=== PATIENT | female | born 1950 | race Caucasian/White ===

== ENCOUNTER 2023-06-12 01:46 | Day surgery (SDC) | payer MEDICARE, SELFPAY ==
--- NOTE | 2023-06-05 14:59 | PC.NURSE ---
Report to the Outpatient Waiting Room, entrance under the green pavilion located off [facility], at time ___1300____ on date _06/12/23 . Planned Procedure Time: __1500 . Time changes happen often and if your time is changed the preop area will call you the afternoon before. - You and your visitor will be asked to self-screen and do not enter if you have any COVID symptoms. - A mask is optional within the hospital at this time. Patients may have clear liquids (water, carbonated beverages, clear teas, apple juice) until 3 hours prior to surgery with a maximum of 20 ounces. - No food from midnight until time of surgery - Infants may have breast milk until 4 hours before surgery, infant formula 6 hours prior to surgery. - Children will be allowed to drink immediately following surgery. If applicable, please bring a bottle or sippy cup to assist with drinking. Juice, water, soda, and popsicles are readily available. For infants on formula, please bring formula the day of surgery. Pacifiers are allowed. Take the following medications with a SIP of water the morning of surgery: ____NONE DO NOT STOP ANY OF YOUR OTHER PRESCRIPTION MEDICATIONS PRIOR TO SURGERY ?EXCEPT THE FOLLOWING Medications to discontinue per physician ALL VITAMINS AND SUPPLEMENTS 3 DAYS PRE OP.LAST DOSE 06/08/23 Please no make-up, nail yoruba, hairspray, perfume, deodorant, or body powder the day of surgery. No jewelry (including any body piercings) or valuables the day of surgery, leave them at home. Please take a shower or bath the night before, or the morning of, surgery with an antibacterial soap. Wear comfortable, loose fitting clothing. Children are encouraged to wear pajamas. - Jewelry must be removed prior to entering the operating room. Rings and piercings that are not removed may be cut off. - The hospital will not accept responsibility for valuables. - Please leave all valuables, including medications, at home the day of surgery. If you are going home after surgery, a licensed hearse driver must drive you home. - NO public transportation without another adult if you receive anesthesia. - We recommend that an adult stay with you for 24 hours following discharge. - We also recommend that you do not drive, make important decision, drink alcoholic beverages, or take any drugs that were not prescribed by your health care provider for at least 24 hours after your discharge time. For Pediatric surgeries, we recommend two adults accompany the child home. Follow any additional instructions given to you from your surgeon. If you or anyone in your household have experienced Covid symptoms in the past week, please notify your surgeon or the nurse liaison at the phone number below for possible testing. Telephone instructions given to ___PATIENT and asked if any additional questions and then verbalized understanding. Patient advised to call surgeon office or pre surgery nurse liaison [phone] if any additional questions.
[2023-06-05 15:04] VITALS: BMI 34.2
[2023-06-12] VITALS (7 sets, daily range): BP systolic 129–154; BP diastolic 67–83; PULSE 83–99; RESP 13–18; TEMP 36.3–36.4; O2SAT 98–100; BMI 34.3
--- NOTE | 2023-06-12 11:32 | WPDHPUPDATE1 ---
History and Physical Update Update Date/Time: 06/12/23 11:32 History and Physical has been reviewed, including an updated exam of the patient. There are NO changes in the patient's condition. Risks, benefits, and alternatives have been discussed and questions answered. Patient agrees to proceed with procedure.
--- NOTE | 2023-06-12 13:29 | WPDANESEPPF ---
Anes - Initial Pre Proc Eval Procedure: Operation Date: 06/12/23 15:00 Proposed Procedures p Right Knee Arthroscopy, Partial Lateral Meniscectomy - Ras Ghosh MD Date/Time: 06/12/23 13:29 Surgeon: Ras Ghosh MD Pre Op Diagnosis: right knee lateral meniscus tear Patient Data Age: 73 Gender: F Height: 1.52 m Weight: 79.4 kg Allergies Allergy/AdvReac Type Severity Reaction Status Date / Time erythromycin base Allergy Unknown Rash Verified 06/12/23 13:14 Home Medications Medication Instructions Recorded Confirmed Type ropinirole 0.5 mg tablet 0.5 mg PO HS 06/22/22 06/05/23 History ascorbate calcium (vitamin C) 500 500 mg PO DAILY 04/26/23 06/12/23 History mg tablet multivitamin 1 tablet PO DAILY 04/26/23 06/12/23 History famotidine 10 mg tablet (Pepcid AC) 10 mg PO DAILY 06/05/23 06/05/23 History Patient hx anesthesia problems: none Family hx anesthesia problems: none Results Review: All pre-operative results and documents have been reviewed as part of the pre-operative evaluation. [facility] Past Medical History Medical History Anxiety COPD (chronic obstructive pulmonary disease) Restless leg syndrome Surgical History Surgical History H/O: hysterectomy (~1999) History of foot surgery (~1993) Removal of Heel Spur History of foot surgery (~1995) Removal of Heel Spur History of tooth extraction Family History Family History Unknown Cancer Arthritis Diabetes mellitus COPD (chronic obstructive pulmonary disease) Polycystic kidney disease Social History Social History Smoking status: Never smoker Alcohol intake: never Substance use: never Substance use type: does not use Lack of Transportation: No Lack of Food: Never True Current Housing: I Have Housing Concerned About Future Housing: No Difficulty Paying Gas/Electric Bills: No Difficulty Paying for Meds: No Currently Unemployed: No Education: Trade/Vocational Certificate Difficulty w/ Childcare or Family Care: No Living arrangements: with family Spiritual care concerns: No Anes - Eval Final PreProcedure Day of Procedure 06/12/23 13:29 Patient weight: obese Heart: regular rate and rhythm Lungs: clear to auscultation Airway: Mallampati scale class II Neurological: alert and oriented Last oral intake: >/= 8 hours ASA classification: II Emergent: no Anesthetic plan: proceed Anesthesia type and monitoring: general LMA and standard monitoring Results Review: All pre-operative results and documents have been reviewed as part of the pre-operative evaluation. Informed Consent: The patient's anesthetic plan and its attendant risks and benefits were discussed with the patient/family/POA. Questions were solicited and answers provided to the satisfaction of the patient/family/POA.
[2023-06-12] MEDS: LACTATED RINGERS 1,000 ML 30 ML IV CONT (13:35)
[2023-06-12] MEDS: KETOROLAC 15 MG/ML VIAL (*BKC) IV PUSH (13:43)
[2023-06-12] MEDS: ACETAMINOPHEN 500 MG TABLET 1000 MG PO (13:43)
[2023-06-12] MEDS: ceFAZolin 2 GM/D5W 50 ML 2 GM/50 ML BAG IVPB (14:24)
[2023-06-12] MEDS: BUPIVACAINE/EPINEPHRINE 0.5% 30 ML VIAL INFILTRATE (14:38)
--- NOTE | 2023-06-12 15:07 | P.OP_ITS ---
Procedure Note - Detailed Date of Procedure 06/12/23 Pre-op Diagnosis right knee lateral meniscus tear Post-op Diagnosis Same Procedure Performed Arthroscopic partial lateral meniscectomy right knee. Surgeon Ras Ghosh MD Act English Tutor Adalgisa Stevenson PA-C Anesthesia General Findings Moderate split tearing of the anterior horn of the lateral meniscus. Mild tearing in the posterior horn of the root of the lateral meniscus. The meniscus remained stable after debridement. The radiofrequency probe was also used. Moderate to severe patellofemoral degenerative changes noted and treated with chondroplasty. The medial compartment had grade 2/3 chondral malacia on the medial femur and grade 2 on the tibia. The lateral compartment had grade 1 chondromalacia on the tibia and grade 0 on the lateral femoral condyle. The trochlea showed grade 2/Iii chondromalacia. Description of Procedure The patient was identified and the surgical site confirmed and signed in the preoperative holding area. Antibiotics were started per protocol. She was brought to the operative room and transferred to the OR table. A general anesthetic was administered. Supine position with the operative lower extremity position in the leg alfredo after placement of a well padded tourniquet. The leg support was lowered and the contralateral limb was supported with a soft bolster. The knee was prepped and draped in the usual sterile fashion. A time- out was performed. The portal sites were marked and infiltrated with 0.5% Marcaine 20 mL. The limb was exsanguinated and the tourniquet inflated to 300 mL Hg. Standard inferolateral and inferomedial portals were established. Inflow was obtained with the saline pump. The camera was introduced. Diagnostic inspection of the joint was accomplished. The lateral meniscus was debrided with the arthroscopic shaver and punches until stable. The radiofrequency probe was also used for further d?bridement. The arthroscopic instruments were removed. The tourniquet released and wounds closed with subcutaneous 4-0 Monocryl absorbable suture. Steri strips and a sterile dressing were applied. A light elastic wrap was placed. The patient was extubated and brought to the recovery room in stable condition. Estimated Blood Loss 5 Drains No Complications No immediate complications Condition Stable Disposition PACU [facility] Billing Surgery - Charge Forward: Surgery Billing
== END 2023-06-12 16:50 | disposition home or self-care (01) ==
PROVIDERS: PCP Family Medicine; Visit Provider Orthopaedic Surgery
PROC: (CPT 29870; principal; 2023-06-12 15:00)
DX: M23.351 Other meniscus derangements, posterior horn of lateral meniscus, right knee (principal); M17.11 Unilateral primary osteoarthritis, right knee; M22.41 Chondromalacia patellae, right knee; G25.81 Restless legs syndrome; E66.9 Obesity, unspecified; Z68.34 Body mass index [BMI] 34.0-34.9, adult
CPT/HCPCS: 29881; A9270; J0690; J1885; J2405; J2704; J3010; J7120

== ENCOUNTER 2024-11-01 09:11 | Outpatient (CLI) | payer MEDICARE, SELFPAY ==
--- NOTE | ~2024-11-01 | XR_ITS ---
EXAMINATION: XR hand LT min 3V DATE: 11/01/2024 09:20 INDICATION: Left hand pain. TECHNIQUE: 3 views of left hand were obtained. COMPARISON: None. FINDINGS: Alignment is normal. No fracture. There is mild osteoarthritis of triscaphe joint, severe o steoarthritis of first carpometacarpal joint, mild osteoarthritis of first and third metacarpophalang eal joints and some of the interphalangeal joints, severe osteoarthritis of second and third distal i nterphalangeal joints, and moderate osteoarthritis of third distal interphalangeal joint. IMPRESSION: 1. Polyarticular osteoarthritis. Reviewed, dictated and finalized at location A. RO[employer]
--- OUTSIDE RECORDS SUMMARY | 2024-11-01 09:15 | XMS_ITS | Continuity of Care Document ---
Author Organization [facility] Address [address] [place] [address] Phone Care Team Providers Care Spiral Tube Winder Name Role Phone Radha MAGDALENO, Nadir Unavailable [...] Final Ketones (U) Negative NEGATIVE Final Specific [place] 1.030 1.001 - 1.035 F inal Blood [...] Diagnoses Date Provider Providers Copied on Encounter [facility], [address], [place], [place], [address] , [place] tel: [phone] [facility] [place] HematuriaMICROSCOPIC HEMATURIA Aug-2 4 Radha [address]z. [address], [address], [place], [address], . tel: [phone] Referring Provider: Yohan Houston, [address], [place], [address]. [phone] [facility], [address], [place], [place], [address] , tel: [phone] [facility] [place] No Information 0 4 Radha Schmitz. [address] [address], [address], [place], [place], [facility], . tel: [phone] [facility], [address], [place], [place], [address] , tel: [phone] [facility] [place] Recurrent cystitis 3 Radha Schmitz. [address], [facility] [address], [place] [address], . tel: [phone] Referring Provider: [address], [place], [address]. tel:[phone] Family History Family Member Type Diagnosis Age At Onset Problem (finding) Family history of Diabe dioni mellitus Problem (finding) Family history of prost ate cancer Payers Payer name Insurance type Covered green party ID Authorsusie shinetanner(s) BCBS INACTIVE OUT OF STATE [id number] Social History Type Description Quantity Date Captured [...]
--- OUTSIDE RECORDS SUMMARY | 2024-11-01 09:16 | XMS_ITS | Encounter Summary ---
Author Organization [facility] Address [address] [place] [address] Care Team Providers Care Mold Cleaning And Storage Supervisor Name Role Phone Franck Alvarez MD Primary Care Provider [phone] Encounter Details Date Type Department Care Team (Latest Contact Info) Description 05/04/2000 Inpatient Historical [facility] Osei Wallace MD NO ADDRESS ON FILE Excessive or frequent menstruation (Primary Dx) Social History Tobacco Use Types Packs/Day Years Used Date Smoking Tobacco: Never Assessed Comments Unknown Sex and Gender Information Value Date Recorded Sex Assigned at Not on file Legal Sex Female 4:03 AM RAILWAY SIGNAL OPERATOR Gender Identity Not on file Sexual Orientation Not on file documented as of this encounter Plan of Treatment Not on file documented as of this encounter Visit Diagnoses Diagnosis Excessive or frequent menstruation- Primary documented in this encounter Care Teams Mold Cleaning And Storage Supervisor Relationship Specialty Start Date End Date Franck Alvarez MD PCP - General Family Practice 04/15/20 documented as of this encounter
--- OUTSIDE RECORDS SUMMARY | 2024-11-01 09:16 | XMS_ITS ---
Care Plan - [facility] Created on: November 01, 2024 KEIRA DE LOS SANTOS : 1950 Sex: Female Author Organization [facility] Address [address] [place] [address] Phone Care Team Providers Care Counselor At Law Name Role Phone ARCENIO MAGDALENO, NORMAN Fish Primary Care Provider [phone]
--- OUTSIDE RECORDS SUMMARY | 2024-11-01 09:16 | XMS_ITS | Continuity of Care Document ---
Author Organization [facility] Address [address] [place] [address] Phone Care Team Providers Care Director Trading Name Role Phone Krysta Ryder MD Unavailable Unavailable Allergies, Adverse Reactions, Alerts Substance Reaction Status Criticality ERYTHROMYCIN LACTOBIONATE Active No Information Procedures Procedure Date URINALYSIS NONAUTO W/O SCOPE Advance Directives Directive Yes / No Effective Date File Name No Information Encounters Encounter Description Practice Location Reason(s) For Visit Diagnoses Date Provider Providers Copied on Encounter [facility], [address] [place] [address], [facility], tel:[phone] [place] possible UTI (chief complaint) Urinary Tract InfectionUrinary Tract Infection 3 Aleksey Chaparro. [address] [place] [address], . tel: [phone] Family History Family Member Type Diagnosis Age At Onset Mother Problem (finding) hypertension Father Problem (finding) diabetes melli tus in first degree relative Father Problem (finding) pulmonary emphysema Payers Payer name Insurance type Covered alliance party ID Authoriza tion(s) No Information Social History Type Description Quantity Date Captured Comments Alcohol Use Details No Caffeine Use Details tea 6 cups per day Tobacco Use Status No Information Smoking Status Never smoker Non-Smoking Tobacco Use Details : No Details Available : No Details Available Sex Female Vital Signs Date / Time: Height Weight BMI Pulse Rate Blood Pressure Temperature Respiratory Rate Body Surface Area Head Circumference Head Circ. Percentile Wt./Fernando. Percentile BMI percentile Pulse Ox Inhaled Ox 8:44 AM 61.00 in 77.292 kg (170.40 lbs) 32.2 0 kg/m eter (2) 94 /min 120/70 mm[Hg] 98.00 F 16 /min 98 % Chief Complaint And Reason For Visit From encounter dated '06/23/2013 08:41'. possible UTI (chief complaint). Description: The symptoms began 1 day ago and generally lasts 1 Day. The symptoms are reported as being moderate. Patient complaining of frequency and abdominal pain, some lower back pain. Reason For Referral Reason For Referral No Information History Of Present Illness Encounter Date Complaint History Of Prese nt Illness possible UTI The symptoms beg an 1 day ago and generally lasts 1 Day. The symptoms are reported as being moderate. Patient complaining of frequency and abdominal pain, some lower back pain. Functional Status Date Functional Assessmen t No Information Instructions Date Instruction Additional Infor mation No Information Assessments Type Assessment Date No Information Patient Care Teams Name Effective Dates (start - stop) Status Members No Information
--- OUTSIDE RECORDS SUMMARY | 2024-11-01 09:16 | XMS_ITS | Encounter Summary ---
Author Organization [facility] Address 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 Gender Identity Not on file Sexual Orientation Not on file documented as of this encounter Plan of Treatment Not on file documented as of this encounter Procedures Procedure Name Priority Date/Time Associated Diagnosis Comments HEMOGLOBIN AND HEMATOCRIT Routine 11/18/2008 1:39 PM PUBLICATIONS DISTRIBUTION CLERK documented in this encounter Results * HEMOGLOBIN AND HEMATOCRIT (11/18/2008 1:39 PM PUBLICATIONS DISTRIBUTION CLERK) HEMOGLOBIN 12.8 11.8 - 14.8 g/dL [facility] HEMATOCRIT 39.2 35.5 - 44.0 % [facility] Blood specimen (specimen) 11/18/2008 1:39 PM PUBLICATIONS DISTRIBUTION CLERK 11/18/2008 3:15 PM PUBLICATIONS DISTRIBUTION CLERK us Marek O[place]o HEMATOLOGY ORDERABLES Final Res ult INTERFACE SYSTEM Refer to clinic/hospital department [facility] CLIA# [id number] [place] [address] documented in this encounter Visit Diagnoses Diagnosis Carpal tunnel syndrome documented in this encounter Care Teams Culinary Internship Relationship Specialty Start Date End Date Franck Alvarez MD PCP - General Family Practice 04/15/20 documented as of this encounter
--- OUTSIDE RECORDS SUMMARY | 2024-11-01 09:16 | XMS_ITS | Clinical Summary ---
Author Organization [facility] Address [address] [place] [address] Phone Care Team Providers Care Equity Sales Assistant Name Role Phone Dory Tyson APRN, MEAT CUTTING BLOCK REPAIRER Primary Care Provider [phone] Allergies Active Allergy Reactions Criticality Noted Date Comments Erythromycin Unknown,Rash Medium 11/03/2011 Medications Calcium Carbonate-Vit D-Min (Caltrate 600+D Plus Minerals) 600-800 MG-UNIT Chewable Tablet 0 Active rOPINIRole (REQUIP) 0.5 MG TabletIndicatio ns:Restless leg syndrome Take 1 Tablet by mouth nightly. 90 Tablet 3 4 Active Multiple Vitamin (MULTIVITAMIN PO) Take by mouth. Activ e ALPRAZolam (XANAX) 0.25 MG TabletIndicatio ns:Anxiety Take 1 Tablet by mouth 2 times daily as needed for Other (Breast biopsy) for up to 2 doses. 2 Tablet 5 Active Additional Information Patient not taking.Reported on 10/26/2024 Active Problems Problem Noted Date Diagnosed Date Abnormal mammogram 03/11/2024 Cough 11/27/2023 Gastroesophageal reflux disease 04/17/2023 RLS (restless legs syndrome) 01/11/2023 Anxiety 12/10/2021 Chronic prescription benzodiazepine use 12/11/19 22 IPMN (intraductal papillary mucinous neoplasm) 1 10/28/2019 Hepatic steatosis 08/10/2020 Hyperglycemia 05/03/2020 Elevated liver enzymes 05/03/2020 Hyperlipidemia 11/04/2019 Impaired fasting glucose 11/01/2019 Obesity (BMI 30-39.9) 05/01/2019 Tachycardia 05/01/2019 Lesion of nose 10/31/2018 Restless leg syndrome 08/10/2016 Fatigue 06/09/2016 Mood altered 06/09/2016 Encounters Date Type Department Care Team Description 10/26/2024 8:35 AM SETUP OPERATOR Urgent Care Visit [facility] [address] [place] [address] Johnathon Paul APRN, MEAT CUTTING BLOCK REPAIRER Otalgia of right ear (Primary Dx) Discharge Disposition: Discharged to home or Selfcare 10/26/2024 Travel 10/02/2024 Travel 09/19/2024 9:00 AM SETUP OPERATOR Office Visit [facility] [address] [place] [address] Dory Tyson APRN, MEAT CUTTING BLOCK REPAIRER Hyperlipidemia, unspecified hyperlipidemia type (Primary Dx); Mood altered; Obesity (BMI 30-39.9); Hyperglycemia Discharge Disposition: Discharged to home or Selfcare 09/18/2024 Travel 08/20/2024 9:45 AM SETUP OPERATOR Office Visit [facility] [address] [place] [address] Dory Tyson APRN, MEAT CUTTING BLOCK REPAIRER Carpal tunnel syndrome of left wrist (Primary Dx); Mood altered Discharge Disposition: Discharged to home or Selfcare 08/18/2024 Travel from Last 3 Months Immunizations Immunization Administration Dates Next Due Covid-19, Mrna, Lnp-s, PF, 1 00 mcg/0.5 mL Dose (Moderna) 11/13/2020,10/16/2020 Influenza Vaccine 06/22/2016, 6,06/18/2013,2011 Influenza Vaccine greater than 3 yrs 10/2019,06/24/2019,06/23/2016,2013 Influenza Vaccine less than 3 yrs 07/04/2018 Influenza, High-dose, Quadrivalent 06/24/2023, Influenza, Quadrivalent, Adjuvanted 07/02/2022,1 Influenza, Seasonal, Injecta ble, Undefined 06/16/2014,09/18/2013,06/18/2013 Influenza, Trivalent, Adjuvanted, PF 06/29/2024 Influenza, high-dose, trivalent, PF 06/24/2019,1 ,06/16/2017 Pneumococcal Vaccine - 13 Valent 06/16/2017 Pneumococcal Vaccine Adult - 23 Valent 07/03/2018 Family History Medical History Relation Name Comments Cancer Father Iraj Chronic Obstructive Pulmonary Disease Father Nino ert Diabetes Father Iraj Hypertension Mother Damian Cancer Sister Skyla Kidney Disease Sister Skyla Relation Name Status Comments Father Iraj Mother Damian Sister Skyla Social History Tobacco Use Types Packs/Day Years Used Date Smoking Tobacco: Never Smokeless Tobacco: Never Tobacco Cessation:Counseling Given: Not Answered Alcohol Use Standard Drinks/Week Comments No 0 (1 standard drink = 0.6 oz pur e alcohol) [employer] Answer Date Recorded In the past 12 months has [employer], gas, oil, or water [employer] threatened to shut off services in your home? No 09/15/2024 Social Connection and Isolat ion Panel [NHANES] Answer Date Recorded In a typical week, how many times do you talk on the phone with family, friends, or neighbors? Three times a week 09/15/2024 How often do you get togethe r with friends or relatives? Once a week 09/15/2024 How often do you attend [facility] or spiritism services? More than 4 times per year 09/15/2024 Do you belong to any clubs o r organizations such as pentecostalism groups, unions, fraternal or athletic groups, or school groups? No 09/15/2024 How often do you attend meet ings of the clubs or organizations you belong to? Never 09/15/2024 Are you , , di vorced, , never , or living with a partner? 09/15/2024 AUDIT-C Answer Date Recorded Q1: How often do you have a drink containing alcohol? Never 09/15/2024 Q2: How many drinks containi ng alcohol do you have on a typical day when you are drinking? Patient does not drink Q3: How often do you have si x or more drinks on one occasion? Never 09/15/2024 Overall Financial Resource Strain (CARDIA) Answe r Date Recorded How hard is it for you to pa y for the very basics like food, housing, medical care, and heating? Not hard at all 09/15/2024 PHQ-2 Answer Date Recorded Total Score - Questions 1-9 0 0 10/2024 [facility] - Occupational Stress Questionnaire Answer Date Recorded Do you feel stress - tense, restless, nervous, or anxious, or unable to sleep at night because your mind is troubled all the time - these days? Only a little 09/15/2024 Exercise Vital Sign Answer Date Recorde d On average, how many days pe r week do you engage in moderate to strenuous exercise (like a brisk walk)? 4 days 09/15/2024 On average, how many minutes do you engage in exercise at this level? 30 min 09/15/2024 Hunger Vital Sign Answer Date Recorded Within the past 12 months, y ou worried that your food would run out before you got the money to buy more. Never true 09/15/20 24 Within the past 12 months, t he food you bought just didn't last and you didn't have money to get more. Never true 09/15/2024 PRAPARE - Transportation Answer Date Re corded In the past 12 months, has l ack of transportation kept you from medical appointments or from getting medications? No 08/19 In the past 12 months, has l ack of transportation kept you from meetings, work, or from getting things needed for daily living? No 09/15/2024 Housing Stability Vital Sign Answer Jerry e Recorded In the last 12 months, was t here a time when you were not able to pay the mortgage or rent on time? No 11/25/2023 In the last 12 months, how many places have you lived? 1 11/25/2023 In the last 12 months, was t here a time when you did not have a steady place to sleep or slept in a penitentiary (including now)? No 11/25/2023 Housing Stability Vital Sign Answer Jerry e Recorded In the last 12 months, was t here a time when you were not able to pay the mortgage or rent on time? No 09/15/2024 In the past 12 months, how m any times have you moved where you were living? 0 09/15/2024 At any time in the past 12 m [facility], were you homeless or living in a penitentiary (including now)? No 09/15/2024 Education Answer Date Recorded What is the highest level of school you have completed or the highest degree you have received? Associate degree: occupational, technical, or vocational program 09/19/2022 Sexually Active Control Partners Comments Not Currently Male Comments No Sex and Gender Information Value Date Recorded Sex Assigned at Not on file Legal Sex Female 11:10 PM CDT Gender Identity Female 07/30/2023 8:35 AM SETUP OPERATOR Sexual Orientation Straight 07/30/2023 8: 35 AM SETUP OPERATOR Last Filed Vital Signs Vital Sign Reading Time Taken Comments Blood Pressure 120/64 10/26/2024 8:43 AM SETUP OPERATOR Pulse 87 10/26/2024 8:43 AM SETUP OPERATOR Temperature 36.6 C (97.9 F) 10/26/2024 8:43 AM SETUP OPERATOR Respiratory Rate 14 10/26/2024 8:43 AM SETUP OPERATOR Oxygen Saturation 97% 10/26/2024 8:43 AM SETUP OPERATOR Inhaled Oxygen Concentration - - Weight 81.2 kg (179 lb) 09/19/2024 8:51 AM SETUP OPERATOR Height 152.4 cm (5') 09/19/2024 8:51 AM SETUP OPERATOR Body Mass Index 34.96 09/19/2024 8:51 AM SETUP OPERATOR Plan of Treatment Upcoming Encounters Date Type Department Care Team (Late st Contact Info) Description 03/24/2025 9:00 AM CDT Office Visit [facility] [address] [place] [id number] Dory Tyson, CADD INSTRUCTOR, MEAT CUTTING BLOCK REPAIRER [address] [place] [address] Health Maintenance Due Date Last Done Comments TdaP Immunization 1950 Cologuard 2002 Immunochemical Fecal Occult Blood 2002 Zoster Immunization (1 of 2) 2002 SARS-COV-2 Immunization ( season) 2024 08/24/2021, 11/13/2020, 10/16/2020 Mammogram 10/08/2025 10/08/2024, 1005/2024, 06/17/2024, Additional history exists DEXA Bone Density 07/09/2026 07/09/2024, , 06/08/2021, Additional history exists Respiratory Syncytial Virus (RSV) Immunization (Adult) (1 - 1-dose 75+ series) 2027 Colonoscopy 02/02/2028 02/01/2023, 12/29/2017 Colorectal Cancer Screening 02/02/2028 02/01/2023, 12/29/2017 Pneumococcal Immunization (50+ years) Completed 07/03/2018, 06/16/2017 Pneumococcal Immunization Combined Discontinued 07/03/2018, 06/16/2017 Hepatitis C Virus (HCV) Screening Completed 09/23/2020, 11/02/2018 Influenza Immunization Completed , 06/24/2023, 07/02/2022, Additional history exists Hepatitis B Immunization Aged Out No longer eligible based on patient's age to complete this topic Meningococcal Immunization (ACWY) Aged Out No longer eligible based on patient's age to complete this topic Rotavirus Immunization Aged Out No lo nger eligible based on patient's age to complete this topic Procedures Procedure Name Priority Date/Time Associated Diagnosis Comments DILATED EYE EXAM 10/01/2024 1 2:00 AM SETUP OPERATOR COLONOSCOPY 02/01/2023 12:00 AM CDT MAMMOGRAM BILATERAL GENERIC 01/03/2022 12:00 AM CDT HEPATITIS PANEL ACUTE (AHP) Routine 09/23/2020 8:57 AM SETUP OPERATOR Elevated liver enzymes from Last 3 Months or Most Recently Relevant to Health Maintenance Results * DILATED EYE EXAM (10/01/2024 12:00 AM SETUP OPERATOR) 10/01/2024 us Provider Scan PROCEDURE/MINOR SURGICAL ORDERAB LES Final Result SCAN * COLONOSCOPY (02/01/2023 12:00 AM CDT) 02/01/2023 us Provider Scan PROCEDURE/MINOR SURGICAL ORDERAB LES Final Result SCAN * HEPATITIS PANEL ACUTE (AHP) (09/23/2020 8:57 AM SETUP OPERATOR) HEPATITIS A IGM ANTIBODY NON DETECTED NON DETECTED [facility] [id number] 09/23/2020 9:39 PM SETUP OPERATOR [facility] Comment: IGM Antibodies to HAV not detected. Does not exclude early acute or recovered HAV infection. HEP B CORE AB (IGM) NON DETECTED NON DETECTED [facility] [id number] 09/23/2020 9:39 PM SETUP OPERATOR [facility] Comment:IGM anti-HBC not det ected. Does not exclude the possibility of exposure to or infection with HBV. HEPATITIS B SURFACE ANTIGEN NON DETECTED NON DETECTED [place] [id number] B 09/23/2020 9:39 PM SETUP OPERATOR [facility] Comment:A nonreactive test r esult does not exclude the possibility of exposure to or infection with Hepatitis B virus. A nonreactive test result in individuals with prior exposure to hepatitis B may be due to antigen levels below the detection limit of this assay or lack of antigen reactivity to the antibodies in this assay. hepatitis C antibody 0.18 <1 S/CO [facility] ARCH [id number] 09/23/2020 9:39 PM SETUP OPERATOR [facility] Comment: Signal/Cutoff ratio < 0.79 is Nondetected Signal/Cutoff ratio 0.80-0.99 is Grayzone Signal/Cutoff ratio > 0.99 is Detected Supplemental assays are recommended if signal/cutoff ratio is >/=1.00. Signal/cutoff ratio result >/= 5.00 is 97% predictive of positivity for recombinant immunoblot assay (RIBA) and will be reported to the [place] [facility] as required. Blood Venipuncture / Unknown 09/23/2020 8:57 AM SETUP OPERATOR 09/23/2020 8:57 AM SETUP OPERATOR Franck Alvarez MD HEMATOLOGY ORDERABLES Final Result [facility] [address] [place] [address], from Last 3 Months or Most Recently Relevant to Health Maintenance Insurance MEDICARE [facility] Care Teams Equity Sales Assistant Relationship Specialty Start Date End Date Dory Tyson, CADD INSTRUCTOR, MEAT CUTTING BLOCK REPAIRER [address] [place] [address] PCP - General Certified Nurse Practitioner 07/20/24
--- OUTSIDE RECORDS SUMMARY | 2024-11-01 09:16 | XMS_ITS ---
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 Name Role Phone ARCENIO MAGDALENO, NORMAN Fish Primary Care Provider [phone] Reason for Referral Date Encounter Description Provider Reason for Referral 11/13/23 DIABETIC FOLLOW UP APPOINTMENT RAVEN KRAIMILTZ COMPUTER SECURITY SPECIALIST-C Request Consultation By Endodontist 05/09/23 DIABETIC FOLLOW UP APPOINTMENT RAVEN AMBROCIOERTEAGANZ COMPUTER SECURITY SPECIALIST-C Request Consultation By Endodontist 02/07/23 DIABETIC FOLLOW UP APPOINTMENT RAVEN AMBROCIOEROdalisHULTZ COMPUTER SECURITY SPECIALIST-C Request Consultation By Endodontist 11/09/22 DIABETIC FOLLOW UP APPOINTMENT RAVEN KARIMILTZ COMPUTER SECURITY SPECIALIST-C Request Consultation By Endodontist 09/28/22 DIABETIC INITIAL EXA M - NEW PT RAVEN AMBROCIOER-HULTZ COMPUTER SECURITY SPECIALIST-C Request Consultation By Endodontist Problems Includes: Active, inactive, and resolved Problems All Visits Onset Date Resolved Date Provider Condition S tatus Diabetes Mellitus Type 2 Without Complication 09/28/2022 RAVEN OKEEFEZ COMPUTER SECURITY SPECIALIST-C Active Last Documented On 3 5:14PM ; [facility] Obesity 09/28/2022 RAVEN KARIMI LTZ COMPUTER SECURITY SPECIALIST-C Active Last Documented On 3 5:13PM ; [facility] Plan of Treatment Findings Encounter Date Pt to use prescription as or dered. Purpose of and use of medication discussed. COVID SICK VISIT- ESTABLISHED PATIENT with KARUNA RODRIGUEZ COMPUTER SECURITY SPECIALIST-C 10/13/2023 Last Documented On 4 11:15AM ; [facility] Continue current medication COVID SICK V ISIT- ESTABLISHED PATIENT with KARUNA RODRIGUEZ COMPUTER SECURITY SPECIALIST-C 10/13/2023 Last Documented On 4 11:15AM ; [facility] The options include close observation CO VID SICK VISIT- ESTABLISHED PATIENT with KARUNA RODRIGUEZ COMPUTER SECURITY SPECIALIST-C 10/13/2023 Last Documented On 4 11:15AM ; [facility] Ordered follow-up visit in 1 -2 weeks with an office visit or sooner if symptoms persist or worsen COVID SICK VISIT- ESTABLISHED PATIENT with SUKHWINDER BEVERLY COMPUTER SECURITY SPECIALIST-BC 05/08/2023 Last Documented On 3 12:23PM ; [facility] Ordered patient to call if p roblem develops COVID SICK VISIT- ESTABLISHED PATIENT with SUKHWINDER BEVERLY [facility] SECURITY SPECIALIST-BC 05/08/2023 Last Documented On 3 12:23PM ; [facility] Ordered return to the clinic if condition worsens or new symptoms arise COVID SICK VISIT- ESTABLISHED PATIENT with SUKHWINDER BEVERLY COMPUTER SECURITY SPECIALIST-BC 05/08/2023 Last Documented On 3 12:23PM ; [facility] Ordered patient will call fo r appointment as needed COVID SICK VISIT- ESTABLISHED PATIENT with SUKHWINDER BEVERLY [facility] SECURITY SPECIALIST-BC 01/07/2023 Last Documented On 3 11:02AM ; [facility] Ordered return to the clinic if condition worsens or new symptoms arise COVID SICK VISIT- ESTABLISHED PATIENT with SUKHWINDER BEVERLY COMPUTER SECURITY SPECIALIST-BC 01/07/2023 Last Documented On 3 11:02AM ; [facility] Ordered patient will call fo r appointment as needed COVID SICK VISIT- ESTABLISHED PATIENT with KARUNA RODRIGUEZ COMPUTER SECURITY SPECIALIST-C 06/21/2021 Last Documented On 1 9:59AM ; [facility] Ordered return to the clinic if condition worsens or new symptoms arise COVID SICK VISIT- ESTABLISHED PATIENT with KARUNA RODRIGUEZ COMPUTER SECURITY SPECIALIST-C 06/21/2021 Last Documented On 1 9:59AM ; [facility] Continue current medication COVID SICK V ISIT- ESTABLISHED PATIENT with FELIPA MENDOZA COMPUTER SECURITY SPECIALIST-C 06/18/2021 Last Documented On 1 10:49AM ; [facility] The options include close observation CO VID SICK VISIT- ESTABLISHED PATIENT with FELIPA MENDOZA COMPUTER SECURITY SPECIALIST-C 06/18/2021 Last Documented On 1 10:49AM ; [facility] Go to the emergency room if condition worsens WALK-IN CLINIC SICK VISIT with SUKHWINDER BEVERLY [facility] 01/16/2018 Last Documented On 8 3:03PM ; [facility] Medication instruction WALK-IN CLINIC SI CK VISIT with SUKHWINDER BEVERLY [facility] 01/16/2018 Last Documented On 8 3:03PM ; [facility] Ordered follow-up visit as n eeded with an office visit. WALK-IN CLINIC SICK VISIT with SUKHWINDER BEVERLY [facility]-BC 01/16/2018 Last Documented On 8 3:03PM ; [facility] Ordered goals, options, limi tations and risks of therapy WALK-IN CLINIC SICK VISIT with SUKHWINDER BEVERLY [facility] 01/16/2018 Last Documented On 8 3:03PM ; [facility] Ordered patient will call fo r appointment as needed WALK-IN CLINIC SICK VISIT with SUKHWINDER BEVERLY [facility] 01/16/2018 Last Documented On 8 3:03PM ; [facility] Ordered referred to primary care physician WALK-IN CLINIC SICK VISIT with SUKHWINDER BEVERLY [facility] 01/16/2018 Last Documented On 8 3:03PM ; [facility] Ordered return to the clinic if condition worsens or new symptoms arise WALK-IN CLINIC SICK VISIT with SUKHWINDER BEVERLY [facility] 01/16/2018 Last Documented On 8 3:03PM ; [facility] Ordered Transition in care, clinical summary provided WALK-IN CLINIC SICK VISIT with SUKHWINDER BEVERLY COMPUTER SECURITY SPECIALIST-BC 01/16/2018 Last Documented On 8 3:03PM ; [facility] Ordered Clinical summary pro vided to patient . Plan discussed and patient understands PROBLEM VISIT with VADIM RAMIRES PA-C 05/13/2013 Last Documented On 3 2:43PM ; [facility] Ordered follow-up visit as n eeded with an office visit. Fluids, urinate often, cranberry juice. Call if symptoms worsen/persist PROBLEM VISIT with VADIM RAMIRES PA-C 05/13/2013 Last Documented On 3 2:43PM ; [facility] Ordered patient to call if leonor zapata develops 1. Recomend to take Flagyl course for a total of 14 days EMERGENCY ROOM FOLLOW UP with SANDOVAL MARTINEZ MD 12/14/2012 Last Documented On 3 4:33PM ; [facility] 1. Will check Stool for c/s, o/p,pus cells and c.difficile toxin 2. Drink plenty of fluids 3. After tests are collected,may use Immodium 1-2 tabs initially then 1 tab q 4 hrs prn diarrhoea 4. Stop all antibiotics SICK VISIT with SANDOVAL MARTINEZ MD 11/27/2012 Last Documented On 3 5:38PM ; [facility] Ordered Clinical summary pro vided to patient PROBLEM VISIT with VADIM RAMIRES PA-C 10/08/2012 Last Documented On 3 10:18AM ; [facility] Ordered follow-up visit as n eeded with an office visit. Fluids, urinate often. Cranberry juice/pills. Call if symptoms worsen/persist beyond 3-5 days PROBLEM VISIT with VADIM RAMIRES PA-C 10/08/2012 Last Documented On 3 10:18AM ; [facility] Pending Tests Order Diagnosis Results Due Ordering P rovider Lab Hemoglobin A1C 11/13/23 RAVEN GARCIA-Marisa Last Documented On 4 1:28PM ; [facility] Instructions to patient Intervention and counseling on cessation of tobacco use Last Documented On 4 1:03PM ; [facility] Maintain a healthy diet Last Documented On 4 1:01PM ; [facility] Lose weight Last Documented On 4 1:01PM ; [facility] Avoid foods and beverages co ntaining sugar Last Documented On 4 1:01PM ; [facility] Intervention and counseling on cessation of tobacco use Last Documented On 3 10:12AM ; [facility] Maintain a healthy diet Last Documented On 3 10:10AM ; [facility] Lose weight Last Documented On 3 10:10AM ; [facility] Avoid foods and beverages co ntaining sugar Last Documented On 3 10:10AM ; [facility] Go to the emergency room if condition worsens Last Documented On 3 12:03PM ; [facility] Watch for signs/symptoms of infection Last Documented On 3 12:03PM ; [facility] Watch for signs/symptoms of infection, return to the clinic if seen Last Documented On 3 12:03PM ; [facility] Maintain a healthy diet Last Documented On 3 9:59AM ; [facility] Lose weight Last Documented On 3 9:59AM ; [facility] Avoid foods and beverages co ntaining sugar Last Documented On 3 9:59AM ; [facility] Instructions for patient Last Documented On 3 11:00AM ; [facility] Maintain a healthy diet Last Documented On 3 8:59AM ; [facility] Lose weight Last Documented On 3 8:59AM ; [facility] Avoid foods and beverages co ntaining sugar Last Documented On 3 8:59AM ; [facility] Maintain a healthy diet Last Documented On 3 2:36PM ; [facility] Lose weight Last Documented On 3 2:36PM ; [facility] Avoid foods and beverages co ntaining sugar Last Documented On 3 2:36PM ; [facility] Go to the emergency room if condition worsens Last Documented On 8 10:06AM ; [facility] Watch for signs/symptoms of infection, return to the clinic if seen Last Documented On 8 10:06AM ; [facility] Education and Decision Aids were provided during visit for: Discussed preventing falls Last Documented On 4 1:01PM ; [facility] Patient education about a pr oper diet Last Documented On 4 1:01PM ; [facility] Dietary counseling pertainin g to hypoglycemia Last Documented On 4 1:01PM ; [facility] Patient education about meal planning Last Documented On 4 1:01PM ; [facility] Patient education about weig ht control Last Documented On 4 1:01PM ; [facility] Patient education about regu lar dental care annually Last Documented On 4 1:01PM ; [facility] Patient education about diab etes and discussed ABCs of diabetic therapy and goals Last Documented On 4 1:01PM ; [facility] Patient education about a bl ood glucose monitor Last Documented On 4 1:01PM ; [facility] Patient education about a ho me blood glucose monitor with instructions to bring monitor to each visit Last Documented On 4 1:01PM ; [facility] Dietary counseling pertainin g to diabetes mellitus Last Documented On 4 1:01PM ; [facility] Patient education about diab etic foot care annually Last Documented On 4 1:01PM ; [facility] Inquiry and counseling about medication administration and compliance Last Documented On 4 1:01PM ; [facility] Education, guidance, and cou nseling about dietary management keep grams of sugar to less than 30 gram per day Last Documented On 4 1:01PM ; [facility] Education, guidance, and cou nseling about meal preparation Last Documented On 4 1:01PM ; [facility] Patient goals discussed Last Documented On 4 1:01PM ; [facility] The patient's goal is to gustavo p fasting blood sugar under 150 and under 180 2 hours after a meal Last Documented On 4 1:01PM ; [facility] The patient's goal is to dioni t the blood sugars and bring in the results to each visit Last Documented On 4 1:01PM ; [facility] Patient's goal is to keep he moglobin A1c levels under 7.0% or less than 8% if over 70 years of age Last Documented On 4 1:01PM ; [facility] The patient will lose weight Last Documented On 4 1:01PM ; [facility] Patient will increase aerobi c activity (30-45 min most days of wk) 150 minutes a week Last Documented On 4 1:01PM ; [facility] Discussed preventing falls Last Documented On 3 10:10AM ; [facility] Patient education about a pr oper diet Last Documented On 3 10:10AM ; [facility] Patient education about meal planning Last Documented On 3 10:10AM ; [facility] Patient education about weig ht control Last Documented On 3 10:10AM ; [facility] Patient education about regu lar dental care Last Documented On 3 10:10AM ; [facility] Patient education about diab etes and discussed ABCs of diabetic therapy and goals Last Documented On 3 10:10AM ; [facility] Patient education about a bl ood glucose monitor Last Documented On 3 10:10AM ; [facility] Patient education about a ho me blood glucose monitor with instructions to bring monitor to each visit Last Documented On 3 10:10AM ; [facility] Dietary counseling pertainin g to diabetes mellitus Last Documented On 3 10:10AM ; [facility] Patient education about diab etic foot care should see a sanitation inspector annually for screening Last Documented On 3 10:10AM ; [facility] Inquiry and counseling about medication administration and compliance take diabetic medications as directed Last Documented On 3 10:10AM ; [facility] Education, guidance, and cou nseling about dietary management Last Documented On 3 10:10AM ; [facility] Education, guidance, and cou nseling about meal preparation Last Documented On 3 10:10AM ; [facility] Patient goals discussed Last Documented On 3 10:10AM ; [facility] The patient's goal is to gustavo p fasting blood sugar under 150 before meals and 180 2 hours after meals Last Documented On 3 10:10AM ; [facility] The patient's goal is to dioni t the blood sugars and bring in the results to each visit Last Documented On 3 10:10AM ; [facility] Patient's goal is to keep he moglobin A1c levels under 7.0% or less than 8.0% if over the age of 70 Last Documented On 3 10:10AM ; [facility] The patient will lose weight or maintain a BMI<25% Last Documented On 3 10:10AM ; [facility] Patient will increase aerobi c activity (30-45 min most days of wk) a min of 5 days a week Last Documented On 3 10:10AM ; [facility] Patient education about anti biotics: need to finish even if feeling better Last Documented On 3 12:03PM ; [facility] Discussed preventing falls Last Documented On 3 9:59AM ; [facility] Patient education about a pr oper diet Last Documented On 3 9:59AM ; [facility] Patient education about meal planning Last Documented On 3 9:59AM ; [facility] Patient education about weig ht control Last Documented On 3 9:59AM ; [facility] Patient education about regu lar dental care Last Documented On 3 9:59AM ; [facility] Patient education about diab etes and discussed ABCs of diabetic therapy and goals Last Documented On 3 9:59AM ; [facility] Patient education about a bl ood glucose monitor Last Documented On 3 9:59AM ; [facility] Patient education about a ho me blood glucose monitor with instructions to bring monitor to each visit Last Documented On 3 9:59AM ; [facility] Dietary counseling pertainin g to diabetes mellitus Last Documented On 3 9:59AM ; [facility] Patient education about diab etic foot care should see a sanitation inspector annually for screening Last Documented On 3 9:59AM ; [facility] Inquiry and counseling about medication administration and compliance take diabetic medications as directed Last Documented On 3 9:59AM ; [facility] Education, guidance, and cou nseling about dietary management Last Documented On 3 9:59AM ; [facility] Education, guidance, and cou nseling about meal preparation Last Documented On 3 9:59AM ; [facility] Patient goals discussed Last Documented On 3 9:59AM ; [facility] The patient's goal is to gustavo p fasting blood sugar under 150 before meals and 180 2 hours after meals Last Documented On 3 9:59AM ; [facility] The patient's goal is to dioni t the blood sugars and bring in the results to each visit Last Documented On 3 9:59AM ; [facility] Patient's goal is to keep he moglobin A1c levels under 7.0% or less than 8.0% if over the age of 70 Last Documented On 3 9:59AM ; [facility] The patient will lose weight or maintain a BMI<25% Last Documented On 3 9:59AM ; [facility] Patient will increase aerobi c activity (30-45 min most days of wk) a min of 5 days a week Last Documented On 3 9:59AM ; [facility] Discussed preventing falls Last Documented On 3 8:59AM ; [facility] Patient education about a pr oper diet Last Documented On 3 8:59AM ; [facility] Patient education about meal planning Last Documented On 3 8:59AM ; [facility] Patient education about weig ht control Last Documented On 3 8:59AM ; [facility] Patient education about regu lar dental care Last Documented On 3 8:59AM ; [facility] Patient education about diab etes and discussed ABCs of diabetic therapy and goals Last Documented On 3 8:59AM ; [facility] Patient education about a bl ood glucose monitor Last Documented On 3 8:59AM ; [facility] Patient education about a ho me blood glucose monitor with instructions to bring monitor to each visit Last Documented On 3 8:59AM ; [facility] Dietary counseling pertainin g to diabetes mellitus Last Documented On 3 8:59AM ; [facility] Patient education about diab etic foot care should see a sanitation inspector annually for screening Last Documented On 3 8:59AM ; [facility] Inquiry and counseling about medication administration and compliance take diabetic medications as directed Last Documented On 3 8:59AM ; [facility] Education, guidance, and cou nseling about dietary management Last Documented On 3 8:59AM ; [facility] Education, guidance, and cou nseling about meal preparation Last Documented On 3 8:59AM ; [facility] Patient goals discussed Last Documented On 3 8:59AM ; [facility] The patient's goal is to gustavo p fasting blood sugar under 150 before meals and 180 2 hours after meals Last Documented On 3 8:59AM ; [facility] The patient's goal is to dioni t the blood sugars and bring in the results to each visit Last Documented On 3 8:59AM ; [facility] Patient's goal is to keep he moglobin A1c levels under 7.0% or less than 8.0% if over the age of 70 Last Documented On 3 8:59AM ; [facility] The patient will lose weight or maintain a BMI<25% Last Documented On 3 8:59AM ; [facility] Patient will increase aerobi c activity (30-45 min most days of wk) a min of 5 days a week Last Documented On 3 8:59AM ; [facility] Discussed preventing falls Last Documented On 3 2:36PM ; [facility] Patient education about a pr oper diet Last Documented On 3 2:36PM ; [facility] Dietary counseling pertainin g to hypoglycemia Last Documented On 3 2:36PM ; [facility] Patient education about meal planning Last Documented On 3 2:36PM ; [facility] Patient education about weig ht control Last Documented On 3 2:36PM ; [facility] Patient education about regu lar dental care annually Last Documented On 3 2:36PM ; [facility] Patient education about diab etes and discussed ABCs of diabetic therapy and goals Last Documented On 3 2:36PM ; [facility] Patient education about a bl ood glucose monitor Last Documented On 3 2:36PM ; [facility] Patient education about a ho me blood glucose monitor with instructions to bring monitor to each visit Last Documented On 3 2:36PM ; [facility] Dietary counseling pertainin g to diabetes mellitus Last Documented On 3 2:36PM ; [facility] Patient education about diab etic foot care annually Last Documented On 3 2:36PM ; [facility] Inquiry and counseling about medication administration and compliance Last Documented On 3 2:36PM ; [facility] Education, guidance, and cou nseling about dietary management keep grams of sugar to less than 30 gram per day Last Documented On 3 2:36PM ; [facility] Education, guidance, and cou nseling about meal preparation Last Documented On 3 2:36PM ; [facility] Patient goals discussed Last Documented On 3 2:36PM ; [facility] The patient's goal is to gustavo p fasting blood sugar under 150 and under 180 2 hours after a meal Last Documented On 3 2:36PM ; [facility] The patient's goal is to dioni t the blood sugars and bring in the results to each visit Last Documented On 3 2:36PM ; [facility] Patient's goal is to keep he moglobin A1c levels under 7.0% or less than 8% if over 70 years of age Last Documented On 3 2:36PM ; [facility] The patient will lose weight Last Documented On 3 2:36PM ; [facility] Patient will increase aerobi c activity (30-45 min most days of wk) 150 minutes a week Last Documented On 3 2:36PM ; [facility] Patient education about anti biotics: need to finish even if feeling better Last Documented On 8 10:06AM ; [facility] Discussed nutritional needs Last Documented On 2 1:53PM ; [facility] Assessments Includes: Assessments for all patient encounters Findings Encounter Date Counseling and coordination of care was more than 50% of encounter time DIABETIC FOLLOW UP APPOINTMENT with RAVEN LANDIN COMPUTER SECURITY SPECIALIST-C 11/13/2023 Last Documented On 4 1:34PM ; [facility] Type 2 diabetes mellitus wit hout complication DIABETIC FOLLOW UP APPOINTMENT with RAVEN LANDIN COMPUTER SECURITY SPECIALIST-C 11/13/2023 Last Documented On 4 1:34PM ; [facility] Acute bronchitis COVID SICK VISIT- ES TABLISHED PATIENT with KARUNA Fish JENNIFER COMPUTER SECURITY SPECIALIST-C 10/13/2023 Last Documented On 4 11:15AM ; [facility] Counseling and coordination of care was more than 50% of encounter time DIABETIC FOLLOW UP APPOINTMENT with RAVEN LANDIN COMPUTER SECURITY SPECIALIST-C 05/09/2023 Last Documented On 3 11:09AM ; [facility] Type 2 diabetes mellitus wit hout complication DIABETIC FOLLOW UP APPOINTMENT with RAVEN LANDIN COMPUTER SECURITY SPECIALIST-C 05/09/2023 Last Documented On 3 11:09AM ; [facility] Acute sinusitis COVID SICK VISIT- ES TABLISHED PATIENT with SUKHWINDER BEVERLY COMPUTER SECURITY SPECIALIST-BC 05/08/2023 Last Documented On 3 12:23PM ; [facility] Counseling and coordination of care was more than 50% of encounter time DIABETIC FOLLOW UP APPOINTMENT with RAVEN LANDIN COMPUTER SECURITY SPECIALIST-C 02/07/2023 Last Documented On 3 11:02AM ; [facility] Type 2 diabetes mellitus wit hout complication DIABETIC FOLLOW UP APPOINTMENT with RAVEN LANDIN COMPUTER SECURITY SPECIALIST-C 02/07/2023 Last Documented On 3 11:02AM ; [facility] Acute upper respiratory infection COVID SICK VISIT- ESTABLISHED PATIENT with SUKHWINDER BEVERLY COMPUTER SECURITY SPECIALIST-BC 01/07/2023 Last Documented On 3 11:02AM ; [facility] Counseling and coordination of care was more than 50% of encounter time DIABETIC FOLLOW UP APPOINTMENT with RAVEN OKEEFEZ COMPUTER SECURITY SPECIALIST-C 11/09/2022 Last Documented On 3 9:52AM ; [facility] Obesity DIABETIC FOLLOW UP A PPOINTMENT with RAVEN Joel CASTELLANO-ANNIEZ COMPUTER SECURITY SPECIALIST-C 11/09/2022 Last Documented On 3 9:52AM ; [facility] Type 2 diabetes mellitus wit hout complication DIABETIC FOLLOW UP APPOINTMENT with RAVEN CASTELLANO-BROOKZ COMPUTER SECURITY SPECIALIST-C 11/09/2022 Last Documented On 3 9:52AM ; [facility] Counseling and coordination of care was more than 50% of encounter time DIABETIC INITIAL EXAM - NEW PT with RAVEN CASTELLANO-ANNIELTZ COMPUTER SECURITY SPECIALIST-C 09/28/2022 Last Documented On 3 5:14PM ; [facility] Obesity DIABETIC INITIAL EXA M - NEW PT with RAVEN CASTELLANO-ANNIELTZ COMPUTER SECURITY SPECIALIST-C 09/28/2022 Last Documented On 3 5:14PM ; [facility] Type 2 diabetes mellitus wit hout complication DIABETIC INITIAL EXAM - NEW PT with RAVEN CASTELLANO-ANNIELTZ COMPUTER SECURITY SPECIALIST-C 09/28/2022 Last Documented On 3 5:14PM ; [facility] Type 2 diabetes mellitus wit hout complication DIABETIC INITIAL EXAM - NEW PT with RAVEN CASTELLANO-ANNIELTZ COMPUTER SECURITY SPECIALIST-C 09/28/2022 Last Documented On 3 5:14PM ; [facility] Acute sinusitis COVID SICK VISIT- ES TABLISHED PATIENT with KARUNA RODRIGUEZ COMPUTER SECURITY SPECIALIST-C 06/21/2021 Last Documented On 1 9:59AM ; [facility] Allergic rhinitis COVID SICK VISIT- ES TABLISHED PATIENT with FELIPA MENDOZA COMPUTER SECURITY SPECIALIST-C 06/18/2021 Last Documented On 1 10:49AM ; [facility] Contact with and (Suspected) exposure to COVID-19 COVID SICK VISIT- ESTABLISHED PATIENT with FELIPA MENDOZA COMPUTER SECURITY SPECIALIST-C 06/18/2021 Last Documented On 1 10:49AM ; [facility] Assessment of cough WALK-IN CLINIC SICK VISIT with [facility] 11/30/2019 Last Documented On 0 11:34AM ; [facility] Assessment of fever WALK-IN CLINIC SICK VISIT with [facility] 11/30/2019 Last Documented On 0 11:34AM ; [facility] Influenza type A WALK-IN CLINIC SICK VISIT with [facility] 11/30/2019 Last Documented On 0 11:34AM ; [facility] Assessment of dysuria WALK-IN CLINIC SIC K VISIT with SUKHWINDER BEVERLY [facility]- 01/16/2018 Last Documented On 8 3:03PM ; [facility] Acute sinusitis SICK VISIT with [facility]- 10/01/2015 Last Documented On 6 4:32PM ; [facility] Discharge diagnosis of PRIMA RY CARE PROVIDER : DR. DAILEY SICK VISIT with CASSIDY [facility]- 10/01/2015 Last Documented On 6 4:32PM ; [facility] Assessment of dysuria PROBLEM VISIT with VADIM RAMIRES PA-C 05/13/2013 Last Documented On 3 2:43PM ; [facility] Urinary tract infection PROBLEM VISIT with RAYNA RAMIRES PA-C 05/13/2013 Last Documented On 3 2:43PM ; [facility] Clostridium difficile colitis EMERGENCY ROOM FOLLOW UP with SANDOVAL MARTINEZ MD 12/14/2012 Last Documented On 3 4:33PM ; [facility] Gastroenteritis SICK VISIT with SANDOVAL Fish MD 11/27/2012 Last Documented On 3 5:38PM ; [facility] Urinary tract infection PROBLEM VISIT with RAYNA RAMIRES PA-C 10/08/2012 Last Documented On 3 10:18AM ; [facility] Localized osteoarthritis of the knee Lt. knee osteo-arthritis NEW PATIENT VISIT with SANDOVAL MARTINEZ MD 04/09/2012 Last Documented On 2 2:03PM ; [facility] Varicose veins NEW PATIENT VISIT with SANDOVAL MARTINEZ MD 04/09/2012 Last Documented On 2 2:03PM ; [facility] Instructions Includes: Instructions for all patient encounters Instructions to patient Intervention and counseling on cessation of tobacco use Last Documented On 4 1:03PM ; [facility] Maintain a healthy diet Last Documented On 4 1:01PM ; [facility] Lose weight Last Documented On 4 1:01PM ; [facility] Avoid foods and beverages co ntaining sugar Last Documented On 4 1:01PM ; [facility] Intervention and counseling on cessation of tobacco use Last Documented On 3 10:12AM ; [facility] Maintain a healthy diet Last Documented On 3 10:10AM ; [facility] Lose weight Last Documented On 3 10:10AM ; [facility] Avoid foods and beverages co ntaining sugar Last Documented On 3 10:10AM ; [facility] Go to the emergency room if condition worsens Last Documented On 3 12:03PM ; [facility] Watch for signs/symptoms of infection Last Documented On 3 12:03PM ; [facility] Watch for signs/symptoms of infection, return to the clinic if seen Last Documented On 3 12:03PM ; [facility] Maintain a healthy diet Last Documented On 3 9:59AM ; [facility] Lose weight Last Documented On 3 9:59AM ; [facility] Avoid foods and beverages co ntaining sugar Last Documented On 3 9:59AM ; [facility] Instructions for patient Last Documented On 3 11:00AM ; [facility] Maintain a healthy diet Last Documented On 3 8:59AM ; [facility] Lose weight Last Documented On 3 8:59AM ; [facility] Avoid foods and beverages co ntaining sugar Last Documented On 3 8:59AM ; [facility] Maintain a healthy diet Last Documented On 3 2:36PM ; [facility] Lose weight Last Documented On 3 2:36PM ; [facility] Avoid foods and beverages co ntaining sugar Last Documented On 3 2:36PM ; [facility] Go to the emergency room if condition worsens Last Documented On 8 10:06AM ; [facility] Watch for signs/symptoms of infection, return to the clinic if seen Last Documented On 8 10:06AM ; [facility] Education and Decision Aids were provided during visit for: Discussed preventing falls Last Documented On 4 1:01PM ; [facility] Patient education about a pr oper diet Last Documented On 4 1:01PM ; [facility] Dietary counseling pertainin g to hypoglycemia Last Documented On 4 1:01PM ; [facility] Patient education about meal planning Last Documented On 4 1:01PM ; [facility] Patient education about weig ht control Last Documented On 4 1:01PM ; [facility] Patient education about regu lar dental care annually Last Documented On 4 1:01PM ; [facility] Patient education about diab etes and discussed ABCs of diabetic therapy and goals Last Documented On 4 1:01PM ; [facility] Patient education about a bl ood glucose monitor Last Documented On 4 1:01PM ; [facility] Patient education about a ho me blood glucose monitor with instructions to bring monitor to each visit Last Documented On 4 1:01PM ; [facility] Dietary counseling pertainin g to diabetes mellitus Last Documented On 4 1:01PM ; [facility] Patient education about diab etic foot care annually Last Documented On 4 1:01PM ; [facility] Inquiry and counseling about medication administration and compliance Last Documented On 4 1:01PM ; [facility] Education, guidance, and cou nseling about dietary management keep grams of sugar to less than 30 gram per day Last Documented On 4 1:01PM ; [facility] Education, guidance, and cou nseling about meal preparation Last Documented On 4 1:01PM ; [facility] Patient goals discussed Last Documented On 4 1:01PM ; [facility] The patient's goal is to gustavo p fasting blood sugar under 150 and under 180 2 hours after a meal Last Documented On 4 1:01PM ; [facility] The patient's goal is to dioni t the blood sugars and bring in the results to each visit Last Documented On 4 1:01PM ; [facility] Patient's goal is to keep he moglobin A1c levels under 7.0% or less than 8% if over 70 years of age Last Documented On 4 1:01PM ; [facility] The patient will lose weight Last Documented On 4 1:01PM ; [facility] Patient will increase aerobi c activity (30-45 min most days of wk) 150 minutes a week Last Documented On 4 1:01PM ; [facility] Discussed preventing falls Last Documented On 3 10:10AM ; [facility] Patient education about a pr oper diet Last Documented On 3 10:10AM ; [facility] Patient education about meal planning Last Documented On 3 10:10AM ; [facility] Patient education about weig ht control Last Documented On 3 10:10AM ; [facility] Patient education about regu lar dental care Last Documented On 3 10:10AM ; [facility] Patient education about diab etes and discussed ABCs of diabetic therapy and goals Last Documented On 3 10:10AM ; [facility] Patient education about a bl ood glucose monitor Last Documented On 3 10:10AM ; [facility] Patient education about a ho me blood glucose monitor with instructions to bring monitor to each visit Last Documented On 3 10:10AM ; [facility] Dietary counseling pertainin g to diabetes mellitus Last Documented On 3 10:10AM ; [facility] Patient education about diab etic foot care should see a sanitation inspector annually for screening Last Documented On 3 10:10AM ; [facility] Inquiry and counseling about medication administration and compliance take diabetic medications as directed Last Documented On 3 10:10AM ; [facility] Education, guidance, and cou nseling about dietary management Last Documented On 3 10:10AM ; [facility] Education, guidance, and cou nseling about meal preparation Last Documented On 3 10:10AM ; [facility] Patient goals discussed Last Documented On 3 10:10AM ; [facility] The patient's goal is to gustavo p fasting blood sugar under 150 before meals and 180 2 hours after meals Last Documented On 3 10:10AM ; [facility] The patient's goal is to dioni t the blood sugars and bring in the results to each visit Last Documented On 3 10:10AM ; [facility] Patient's goal is to keep he moglobin A1c levels under 7.0% or less than 8.0% if over the age of 70 Last Documented On 3 10:10AM ; [facility] The patient will lose weight or maintain a BMI<25% Last Documented On 3 10:10AM ; [facility] Patient will increase aerobi c activity (30-45 min most days of wk) a min of 5 days a week Last Documented On 3 10:10AM ; [facility] Patient education about anti biotics: need to finish even if feeling better Last Documented On 3 12:03PM ; [facility] Discussed preventing falls Last Documented On 3 9:59AM ; [facility] Patient education about a pr oper diet Last Documented On 3 9:59AM ; [facility] Patient education about meal planning Last Documented On 3 9:59AM ; [facility] Patient education about weig ht control Last Documented On 3 9:59AM ; [facility] Patient education about regu lar dental care Last Documented On 3 9:59AM ; [facility] Patient education about diab etes and discussed ABCs of diabetic therapy and goals Last Documented On 3 9:59AM ; [facility] Patient education about a bl ood glucose monitor Last Documented On 3 9:59AM ; [facility] Patient education about a ho me blood glucose monitor with instructions to bring monitor to each visit Last Documented On 3 9:59AM ; [facility] Dietary counseling pertainin g to diabetes mellitus Last Documented On 3 9:59AM ; [facility] Patient education about diab etic foot care should see a sanitation inspector annually for screening Last Documented On 3 9:59AM ; [facility] Inquiry and counseling about medication administration and compliance take diabetic medications as directed Last Documented On 3 9:59AM ; [facility] Education, guidance, and cou nseling about dietary management Last Documented On 3 9:59AM ; [facility] Education, guidance, and cou nseling about meal preparation Last Documented On 3 9:59AM ; [facility] Patient goals discussed Last Documented On 3 9:59AM ; [facility] The patient's goal is to gustavo p fasting blood sugar under 150 before meals and 180 2 hours after meals Last Documented On 3 9:59AM ; [facility] The patient's goal is to dioni t the blood sugars and bring in the results to each visit Last Documented On 3 9:59AM ; [facility] Patient's goal is to keep he moglobin A1c levels under 7.0% or less than 8.0% if over the age of 70 Last Documented On 3 9:59AM ; [facility] The patient will lose weight or maintain a BMI<25% Last Documented On 3 9:59AM ; [facility] Patient will increase aerobi c activity (30-45 min most days of wk) a min of 5 days a week Last Documented On 3 9:59AM ; [facility] Discussed preventing falls Last Documented On 3 8:59AM ; [facility] Patient education about a pr oper diet Last Documented On 3 8:59AM ; [facility] Patient education about meal planning Last Documented On 3 8:59AM ; [facility] Patient education about weig ht control Last Documented On 3 8:59AM ; [facility] Patient education about regu lar dental care Last Documented On 3 8:59AM ; [facility] Patient education about diab etes and discussed ABCs of diabetic therapy and goals Last Documented On 3 8:59AM ; [facility] Patient education about a bl ood glucose monitor Last Documented On 3 8:59AM ; [facility] Patient education about a ho me blood glucose monitor with instructions to bring monitor to each visit Last Documented On 3 8:59AM ; [facility] Dietary counseling pertainin g to diabetes mellitus Last Documented On 3 8:59AM ; [facility] Patient education about diab etic foot care should see a sanitation inspector annually for screening Last Documented On 3 8:59AM ; [facility] Inquiry and counseling about medication administration and compliance take diabetic medications as directed Last Documented On 3 8:59AM ; [facility] Education, guidance, and cou nseling about dietary management Last Documented On 3 8:59AM ; [facility] Education, guidance, and cou nseling about meal preparation Last Documented On 3 8:59AM ; [facility] Patient goals discussed Last Documented On 3 8:59AM ; [facility] The patient's goal is to gustavo p fasting blood sugar under 150 before meals and 180 2 hours after meals Last Documented On 3 8:59AM ; [facility] The patient's goal is to dioni t the blood sugars and bring in the results to each visit Last Documented On 3 8:59AM ; [facility] Patient's goal is to keep he moglobin A1c levels under 7.0% or less than 8.0% if over the age of 70 Last Documented On 3 8:59AM ; [facility] The patient will lose weight or maintain a BMI<25% Last Documented On 3 8:59AM ; [facility] Patient will increase aerobi c activity (30-45 min most days of wk) a min of 5 days a week Last Documented On 3 8:59AM ; [facility] Discussed preventing falls Last Documented On 3 2:36PM ; [facility] Patient education about a pr oper diet Last Documented On 3 2:36PM ; [facility] Dietary counseling pertainin g to hypoglycemia Last Documented On 3 2:36PM ; [facility] Patient education about meal planning Last Documented On 3 2:36PM ; [facility] Patient education about weig ht control Last Documented On 3 2:36PM ; [facility] Patient education about regu lar dental care annually Last Documented On 3 2:36PM ; [facility] Patient education about diab etes and discussed ABCs of diabetic therapy and goals Last Documented On 3 2:36PM ; [facility] Patient education about a bl ood glucose monitor Last Documented On 3 2:36PM ; [facility] Patient education about a ho me blood glucose monitor with instructions to bring monitor to each visit Last Documented On 3 2:36PM ; [facility] Dietary counseling pertainin g to diabetes mellitus Last Documented On 3 2:36PM ; [facility] Patient education about diab etic foot care annually Last Documented On 3 2:36PM ; [facility] Inquiry and counseling about medication administration and compliance Last Documented On 3 2:36PM ; [facility] Education, guidance, and cou nseling about dietary management keep grams of sugar to less than 30 gram per day Last Documented On 3 2:36PM ; [facility] Education, guidance, and cou nseling about meal preparation Last Documented On 3 2:36PM ; [facility] Patient goals discussed Last Documented On 3 2:36PM ; [facility] The patient's goal is to gustavo p fasting blood sugar under 150 and under 180 2 hours after a meal Last Documented On 3 2:36PM ; [facility] The patient's goal is to dioni t the blood sugars and bring in the results to each visit Last Documented On 3 2:36PM ; [facility] Patient's goal is to keep he moglobin A1c levels under 7.0% or less than 8% if over 70 years of age Last Documented On 3 2:36PM ; [facility] The patient will lose weight Last Documented On 3 2:36PM ; [facility] Patient will increase aerobi c activity (30-45 min most days of wk) 150 minutes a week Last Documented On 3 2:36PM ; [facility] Patient education about anti biotics: need to finish even if feeling better Last Documented On 8 10:06AM ; [facility] Discussed nutritional needs Last Documented On 2 1:53PM ; [facility] Medical Equipment - Implanted Devices Includes: Current and historical Devices No Medical Equipment Recorded Medications Includes: Current and historical Medications Current Medications (continue as prescribed) rOPINIRole HCl 0.5 MG Oral Tablet 01/23/2024 Provide r: NORMAN RG MD Diagnosis: Last Documented On 03/19/2024 10:45AM By Vickey CASTRO ; [facility] Omeprazole 20 MG Oral Capsul e Delayed Release 11/27/2023 Provider: NORMAN RG MD Diagnosis: Last Documented On 03/19/2024 10:45AM By Vickey CASTRO ; [facility] Past Medications on file Benzonatate 100 MG Oral Capsule 10/28/2023 - Provider: Diagnosis: Last Documented On 03/19/2024 10:47AM By Vickey CASTRO ; [facility] Amoxicillin-Pot Clavulanate 600-42.9 MG/5ML Oral Suspension Reconstituted 10/13/2023 - 10/23/2023 Provider: KARUNA AL Diagnosis: Acute bronchitis , unspecified Take 7mL twice daily x 10 days Last Documented On 4 11:26AM By Karuna AL ; [facility] Amoxicillin-Pot Clavulanate 600-42.9 MG/5ML Oral Suspension Reconstituted 05/08/2023 - 05/09/2023 Provider: SUKHWINDER E RUSH COMPUTER SECURITY SPECIALIST-BC Diagnosis: Acute maxillary sinusitis, unspecified take 7 ml BID x 10 days Last Documented On 05/09/2023 10:13AM By Gabino CASTRO ; [facility] Phentermine HCl 15 MG Oral Capsule 02/07/2023 - 05/09/2023 Provider: RAVEN LANDIN COMPUTER SECURITY SPECIALIST-C Diagnosis: Obesity, unspeci fied 1 Capsule every morning Last Documented On 05/09/2023 10:12AM By Gabino CASTRO ; [facility] Amoxicillin-Pot Clavulanate 600-42.9 MG/5ML Oral Suspension Reconstituted 01/07/2023 - 02/07/2023 Provider: SUKHWINDER BEVERLY COMPUTER SECURITY SPECIALIST-BC Diagnosis: Acute upper respiratory infection, unspecified give 7 ml BID x 10 days Last Documented On 02/07/2023 10:01AM By Gabino CASTRO ; [facility] Ozempic (0.25 or 0.5 MG/DOSE) 2 MG/1.5ML Subcutaneous Solution Pen-injector 11/11/2022 - 02/07/2023 Provider: RAVEN LANDIN COMPUTER SECURITY SPECIALIST-C Diagnosis: Type 2 diabetes mellitus without complications 0.25mg once weekly for 2 wee ks then increase to 0.5mg once weekly Last Documented On 02/07/2023 10:01AM By Gabino CASTRO ; [facility] Ozempic (1 MG/DOSE) 4 MG/3ML Subcutaneous Solution Pen-injector 11/09/2022 - 02/07/2023 Provider: RAVEN LANDIN COMPUTER SECURITY SPECIALIST-C Diagnosis: Type 2 diabetes mellitus without complications once weekly injection Last Documented On 02/07/2023 10:01AM By Gabino CASTRO ; [facility] Rybelsus 3 MG Oral Tablet 09/28/2022 - 11/09/2022 Provider: RAVEN LANDIN COMPUTER SECURITY SPECIALIST-C Diagnosis: Type 2 diabetes mellitus without complications One tablet daily Last Documented On 11/09/2022 9:08AM By Gabino CASTRO ; [facility] Amoxicillin-Pot Clavulanate 600-42.9 MG/5ML Oral Suspension Reconstituted 06/21/2021 - 07/01/2021 Provider: KARUNA RODRIGUEZ COMPUTER SECURITY SPECIALIST-C Diagnosis: Acute sinusitis, unspecified Take 7mL twice daily x 10 days Last Documented On 1 10:00AM By Karuna Rodriguez COMPUTER SECURITY SPECIALIST-C ; [facility] guaiFENesin AC 100-10 MG/5ML Oral Syrup 11/30/2019 - 06/21/2021 Provider: GEOVANY BECKWITH COMPUTER SECURITY SPECIALIST-C Diagnosis: Cough as directed 10 ml po q6h prn for cough dispense 4 oz Last Documented On 06/21/2021 9:45AM By SHERMAN JUSTIN [facility] ; [facility] Cephalexin 250MG/5ML Oral Suspension Reconstituted 01/16/2018 - 11/30/2019 Provider: SUKHWINDER RIVERA COMPUTER SECURITY SPECIALIST-BC Diagnosis: Dysuria as directed Last Documented On 0 11:12AM By SHERMAN JUSTIN [facility] ; [facility] ROPINIRole HCl 0.5MG Oral Tablet 01/16/2018 - 02/08/20 Provider: Diagnosis: Last Documented On 02/07/2023 10:01AM By Gabino Mayer [facility] ; [facility] Amoxicillin-Pot Clavulanate 600-42.9 MG/5ML Suspension, when reconstituted 10/01/2015 - 11/30/2019 Provider: CASSIDY ZHOU COMPUTER SECURITY SPECIALIST-BC Diagnosis: Acute sinusitis, unspecified 7 ml twice daily for ten days Last Documented On 0 11:12AM By SHERMAN JUSTIN [facility] ; [facility] Nitrofurantoin 25 MG/5ML OR SUSP 05/13/2013 - 05/20/2013 Provider: VADIM RAMIRES PA-C Diagnosis: URIN TRACT INFEC TION NOS 4 tsp BID x 7 days. Last Documented On 3 2:40PM By VADIM RAMIRES PA-C ; [facility] Flagyl 500 MG OR TABS 12/14/2012 - 11/30/2019 Provider: SANDOVAL Fish MD Diagnosis: Int Inf Clstrdiu m Dfcile 1 tab po tid( for a total co urse of 14 days.) Last Documented On 0 11:12AM By SHERMAN JUSTIN [facility] ; [facility] Lomotil 2.5-0.025 MG OR TABS 11/28/2012 - 09/28/2022 Provider: SANDOVAL MARTINEZ MD Diagnosis: NONINF GASTROENT ERIT NEC 1 tab po q 4-6 hrs prn diarrhoea. Last Documented On 09/28/2022 2:40PM By Gabino CASTRO ; [facility] Vivelle-Dot 0.1 MG/24HR TD PTTW 11/27/2012 - Provider: Diagnosis: apply 1 patch 2 x's weekly Last Documented On 09/28/2022 2:40PM By Gabino CASTRO ; [facility] Cipro 500 MG/5ML (10%) OR SUSR 10/08/2012 - 10/18/2012 Provider: VADIM RAMIRES PA-C Diagnosis: URIN TRACT INFEC TION NOS 1/2 tsp BID x 10 days. Last Documented On 3 9:59AM By VADIM RAMIRES PA-C ; [facility] diclophenac 50mg OR TABS 04/09/2012 - 11/27/2012 Provider: SANDOVAL MARTINEZ MD Diagnosis: ASYMPT VARICOSE VEINS Last Documented On 11/27/2012 4:35PM By Marge Witt LPN ; [facility] Medications Administered Includes: Administered Medications in patient's chart No Administered Medications Recorded Vital Signs Includes: Vital Signs from 11/01/2023 through 11/01/2024 Vital Name 11/13/2023 01:04P Blood Pressure Sitting (mmHg) 122/78 Pulse Rate-Sitting (bpm) 78 Respiration Rate (breaths/min) 20 Temp-Oral (F) 98.1 Height (in) 60 Weight (lb) 185 Body Mass Index 36.1 Body Surface Area 1.8 Oxygen Saturation (%) 98 Last Documented: On 11/13/2023 1:10PM ; [facility] Results Includes: Results from 11/01/2023 through 11/01/2024 A1C HGB (GLYCO HEMOGLOBIN) [facility] Ordered by RAVEN GARCIA-Marisa on 11/14/2023 [address] [facility], [place], [phone] Collected: 11/14/2023 Report ed: 11/14/2023 09:40 tel: Last Documented On 4 9:04AM ; [facility] Reviewed on 02/14/2024; All test results are final unless otherwise noted. A1C HGB (GLYCO HEMOGLOBIN) See Note None Last Documented On 4 5:52PM ; [facility] Note: Glycohemoglobin (HEMOGLOBIN A1C)Re sponsible Observer: (SEP) Hgb A1c 6.3 %_A1c (4.0 - 6.0) H (High) Last Documented On 4 5:52PM ; [facility] Note: Responsible Observer: (SEP) MBG 134 mg/dL (65 - 99) H (High) Last Documented On 4 5:52PM ; [facility] Note: *MBG (mean blood glucose) is a morris culated estimate of the mean blood glucose itis also refered to as estimated Average Glucose (eAG).*Responsible Observer: (SEP) Reported Physicians [facility] Ale easley Ordered by RAVEN MARIN COMPUTER SECURITY SPECIALIST-C on 11/14/[address] [place] [address], [id number] Collected: 11/14/2023 Report ed: 11/14/2023 09:41 tel: Last Documented On 4 9:04AM ; [facility] Reviewed on 02/14/2024; All test results are final unless otherwise noted. Reported Physicians See Note None Last Documented On 02/13/2024 5:52PM ; [facility] Note: Reported Physicians:Ordering: Bear Landinending: SUSY LANDINEConsulting: NORMAN RG History of Present Illness History of Present Illness not supported for this document type No History of Present Illness Recorded Social History Description Last Updated Tobacco non-user 02/07/2023 Last Documented On 3 11:02AM ; [facility] No travel 06/21/2021 Last Documented On 1 9:59AM ; [facility] Smoking status : Never smoker 11/30/2019 Last Documented On 0 11:34AM ; [facility] Currently 04/09/2012 Last Documented On 2 2:03PM ; [facility] Exercise frequency 3 X WEEKLY 04/09/2012 Last Documented On 2 2:03PM ; [facility] No consumption of alcohol 04/09/2012 Last Documented On 2 2:03PM ; [facility] Not using drugs 04/09/2012 Last Documented On 2 2:03PM ; [facility] 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 Last Documented On 2 2:03PM ; [facility] Procedures and Surgical History Surgical History Last Updated History of decompression of median nerve at carpal tunnel Carpal Tunnel Release~ 10/08/2012 Last Documented On 3 10:18AM ; [facility] Surgical / procedural histor y 1.Heel spur surgery. ~2. Complete hysterectomy for Fibroid in 2000 10/08/2012 Last Documented On 3 10:18AM ; [facility] Medical History Includes: Medical History in patient's chart Description Last Updated History of camera fundoscopic exam was p erformed see HPI/scanned image 11/13/2023 Last Documented On 4 1:34PM ; [facility] LMP: HYSTERECTOMY 05/08/2023 Last Documented On 3 12:23PM ; [facility] No exposure to a contagious disease 12/2020 Last Documented On 1 9:59AM ; [facility] No Contact with and (Suspected) exposure to COVID-19 06/21/2021 Last Documented On 1 9:59AM ; [facility] No fall 06/21/2021 Last Documented On 1 9:59AM ; [facility] Not taking OTC medications 06/18/2021 Last Documented On 1 10:49AM ; [facility] Pt does not get blood pressure checked a t other facility 10/01/2015 Last Documented On 6 4:32PM ; [facility] Exposure to a lot of bright sunlight Last Documented On 2 2:03PM ; [facility] 1 miscarriage(s) 04/09/2012 Last Documented On 2 2:03PM ; [facility] Previously 5 time(s) 04/09/2012 Last Documented On 2 2:03PM ; [facility] No history of arthritis 04/09/2012 Last Documented On 2 2:03PM ; [facility] No history of cancer 04/09/2012 Last Documented On 2 2:03PM ; [facility] No history of chronic obstructive pulmon candelario disease 04/09/2012 Last Documented On 2 2:03PM ; [facility] No history of convulsive disorder 2011 Last Documented On 2 2:03PM ; [facility] No history of diabetes mellitus 04/09/20 12 Last Documented On 2 2:03PM ; [facility] No history of hypertension 04/09/2012 Last Documented On 2 2:03PM ; [facility] No history of stroke syndrome 04/09/2012 Last Documented On 2 2:03PM ; [facility] No history of venereal disease 2 Last Documented On 2 2:03PM ; [facility] No reported cardiovascular symptoms 03/19 Last Documented On 2 2:03PM ; [facility] No reported easy bleeding 04/09/2012 Last Documented On 2 2:03PM ; [facility] No reported recurrent infections 012 Last Documented On 2 2:03PM ; [facility] Family History Includes: Family History in patient's chart Description Last Updated Family history unchanged 01/07/2023 Last Documented On 3 11:02AM ; [facility] Family history of cancer 04/09/2012 Last Documented On 2 2:03PM ; [facility] Family history of diabetes mellitus 03/19 Last Documented On 2 2:03PM ; [facility] Family history of heart disease 04/09/20 12 Last Documented On 2 2:03PM ; [facility] Family history of kidney disease 012 Last Documented On 2 2:03PM ; [facility] Father AGE 74 04/09/2012 Last Documented On 2 2:03PM ; [facility] Mother [id number] 04/09/2012 Last Documented On 2 2:03PM ; [facility] No family history of alcoholism 04/09/20 12 Last Documented On 2 2:03PM ; [facility] No family history of defects 04/09 Last Documented On 2 2:03PM ; [facility] No family history of bleeding problems 0 04/09/2012 Last Documented On 2 2:03PM ; [facility] No family history of genetic disease Last Documented On 2 2:03PM ; [facility] No family history of mental illness (not retardation) 04/09/2012 Last Documented On 2 2:03PM ; [facility] Spouse 63 years old 04/09/2012 Last Documented On 2 2:03PM ; [facility] Review of Systems Review of Systems not supported for this document type No Review of Systems Recorded Mental Status Description Oriented to time, place, and person Functional Status No Functional Status Recorded Physical Exam Physical Exam not supported for this document type No Physical Exam Recorded Immunizations Includes: Immunizations in patient's chart Vaccine Dose # Date Site Reaction(s) Status Source Influenza (Quadrivalent)36 mo.& older PF 0.5ml (SD) 1 06/10/2012 Complete (Reported) Patient Last Documented On 2 8:29AM ; [facility] Influenza (Quadrivalent)36 m o.& older PF 0.5ml (SD) 2 06/18/2013 Complete (Reported) Patie nt Last Documented On 3 2:12PM ; [facility] Allergies Includes: Active, inactive, and resolved Allergies Substance Type Reaction Onset Date Resolved Date Statu s Erythromycin Allergy 01/25/2012 Active Last Documented On 4 1:03PM ; [facility] Encounters Includes: Encounters from 11/01/2023 through 11/01/2024 Encounter Provider Location Date Check-In Time Check-Out Time Diagnosis DIABETIC FOLLOW UP APPOINTMENT 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-C [facility]- 024 12:48PM 1:34PM Dur of Enc - Registered Nurse Maternal Child & Coord of Care > 50% Encounter Time,Diabetes Mellitus Type 2 Without Complication Insurance Includes: Active Insurance Policies Plan Name Member ID Group # Subscriber Relationship Effect aj Dates 1 - MEDICARE PART A CLAIMS/NGS [id number] KEIRA Ward 2 - [employer] SENIOR [employer]ODUCT [id number] KEIRA Ward Clinical Notes Includes: Signed Clinical Notes starting from 10/07/2022 * Progress note Date Encounter Last Documented by 11/13/2023 DIABETIC FOLLOW UP APPOINTMENT L ast documented on 11/13/2023; 1:34 PM, RAVEN AL; [facility] Active Problems & Conditions - E11.9 - Diabetes Mellitus Type 2 Without Complication - Z83.3 - Family History of Diabetes Mellitus - Obesity Reason For Visit Visit for: Diabetes Education Initial Encounter for Type 2 Diabetes. History of Present Illness KEIRA DE LOS SANTOS is a 73 year old female. Source of patient information was patient - Allergy list reviewed - Problem list reviewed - Medication reconciliation performed - Medication list reviewed - No night sweats - No worsening vision - No chest pain or discomfort - No dyspnea - No change in bowel habit - No changes in urinary habits - No polydipsia - No tingling of the limbs - No numbness of the limbs - No lesion on the feet Patient is here today for initial visit to discuss a diabetes care plan and discuss additional strategies to maintain adequate glycemic control. Blood Glucose readings reviewed with patient. Estimated average fasting blood glucose: 130's-150's Diet Reviewed with patient typical meals are high in carbohydrate rich, processed foods but a significant effort with improvements has been demonstrated. Patient does often skips meals and does not routinely snack. Depression screening neg. for symptoms- this is reviewed due to unstable chronic illness BP is presently stable/well [id number] ordered/reviewed as per ADA guidelines. Date of last Micro albumin: ordered today Date of last A1C: 12/08-5.8 HLD-controlled on current therapy Lipid panel reviewed as per ADA guidelines for CV risk/T2DM/HTN Hypoglycemia Risk Assessed as Low <1% risk of hypoglycemia admission in 12 months Patient could have better glycemic control with the addition of diet modification. Last Eye Examination: [employer] in September and no retinopathy Last Dental Examination and cleaning: no loose or broken teeth Recommendations: A1C today and see where numbers are Time spent on this patient for E/M including assessment, education and plan of care, reviewing pertinent labs, medical history and other medical records and documentation total 45 minutes. Past Medical/Surgical History Reported: LMP: HYSTERECTOMY. Recent Events: Pt does not get blood pressure checked at other facility. Medical: No reported cardiovascular symptoms, no easy bleeding, and no recurrent infections. Surgical / Procedural: Surgical / procedural history 1.Heel spur surgery. 2. Complete hysterectomy for Fibroid in 1999. Medications: Not taking OTC medications. Exposure: No exposure to a contagious disease and not Contact with and (Suspected) exposure to COVID-19. Environmental Exposure: Exposure to a lot of bright sunlight. Physical Trauma: No fall. : Previously 5 time(s) and aborta including 1 miscarriage(s). Physical Exam: Camera fundoscopic exam was performed see HPI/scanned image Diagnoses: No diagnosis of systemic hypertension. No diagnosis of chronic obstructive pulmonary disease. No diagnosis of diabetes mellitus. No diagnosis of arthritis. No diagnosis of convulsive disorder No diagnosis of stroke syndrome. No diagnosis of sexually transmitted disease. No diagnosis of cancer Surgical: - Decompression of median nerve at carpal tunnel Carpal Tunnel Release Social History Tobacco use: Tobacco non-user. Smoking status: Never smoker. Alcohol: No consumption of alcohol. Drug Use: Not using drugs. Habits: Exercise frequency 3 X WEEKLY. Work: Occupation [employer]. Marital: Currently . Travel: No travel. Allergies - Erythromycin Family History Father AGE 74 Mother [id number] Spouse 63 years old Cancer No family history of alcoholism No family history of mental illness (not intellectual disabilities) Heart disease No family history of genetic disease No family history of defects No family history of bleeding problems Kidney disease Family history unchanged Diabetes mellitus Review Of Systems Encounter Background Information: Patient is compliant with self monitored glucose monitoring. Systemic: No recent weight change. No pain. Eyes: No eye symptoms. Cardiovascular: No chest pain or discomfort. Pulmonary: No dyspnea. Gastrointestinal: No gastrointestinal symptoms. Genitourinary: No genitourinary symptoms. Musculoskeletal: No musculoskeletal symptoms. Neurological: No neurological symptoms. Skin: No skin symptoms. Physical Findings - Vitals taken 11/13/2023 01:04 pm BP-Sitting 122/78 mmHg Pulse Rate-Sitting 78 bpm Respiration Rate 20 per min Temp-Oral 98.1 F Height 60 in Weight 185 lbs Body Mass Index 36.1 kg/m2 Body Surface Area 1.8 m2 Oxygen Saturation 98 % General Appearance: - Well-appearing. - Awake. - Alert. Neck: Thyroid: - Showed no abnormalities. Eyes: General/bilateral: Retina: - Abnormal. Lungs: - Respiration rhythm and depth was normal. Cardiovascular: Heart Rate And Rhythm: - Normal. Musculoskeletal System: General/bilateral: - Overall findings were normal. Foot: General/bilateral: - Normal neurological exam of right foot. - Normal 10-g monofilament exam of right foot. - Normal neurological exam of left foot. - Normal 10-g monofilament exam of left foot. Neurological: - Oriented to time, place, and person. Peripheral Nerves: - No peripheral neuropathy was noted. Psychiatric: - Mood was calm. - Mood was pleasant. Skin: - General appearance was normal. Tests Labs and studies reviewed with patient. Assessment - [E11.9 - Type 2 diabetes mellitus without complications] Type 2 diabetes mellitus without complication - Counseling and coordination of care was more than 50% of encounter time Therapy - Reviewed Blood Sugars. - Advised ophthalmological services. - Diabetic diet and with controlled carbohydrate content. - Encouragement to exercise 150 minutes weekly. - Intervention and counseling on cessation of tobacco use and avoid sugar. - Education about signs of hypoglycemia performed - Encouragement of annual ophthalmologic examination performed - Disposition: reassurance. - Clinical summary provided to patient. - Patient information sheet given for diagnosis: Diabetes. - Plan of care reviewed and agreed to by the patient. - Request consultation by sanitation inspector. - Diabetic supplies glucometer. - Carbohydrate countin-200 grams or less daily. Counseling/Education - Education: eye examination annually - Printed information given for diabetic diet - Education: food diary: Purpose, how and what to document with instructions to bring in with each visit - Education: regular exercise - Education and instructions - Discussed Healthy Eating low carb and low sugar - Discussed Exercise - Maintain a healthy diet - Lose weight - Discussed preventing falls - Patient education about a proper diet - Dietary counseling pertaining to hypoglycemia - Patient education about meal planning - Patient education about weight control - Patient education about regular dental care annually - Patient education about diabetes and discussed ABCs of diabetic therapy and goals - Patient education about a blood glucose monitor - Patient education about a home blood glucose monitor with instructions to bring monitor to each visit - Dietary counseling pertaining to diabetes mellitus - Patient education about diabetic foot care annually - The patient will lose weight - Patient will increase aerobic activity (30-45 min most days of wk) 150 minutes a week - Inquiry and counseling about medication administration and compliance - Education, guidance, and counseling about dietary management keep grams of sugar to less than 30 gram per day - Education, guidance, and counseling about meal preparation - Patient goals discussed - The patient's goal is to keep fasting blood sugar under 150 and under 180 2 hours after a meal - The patient's goal is to test the blood sugars and bring in the results to each visit - Patient's goal is to keep hemoglobin A1c levels under 7.0% or less than 8% if over 70 years of age - Clinical summary provided to patient Plan StartCited - Type 2 diabetes mellitus without complications Lab: Hemoglobin A1C EndCited A1C goal is 7% or less as per ADA guidelines. Patient seems motivated to make diet modifications that have been recommended. Check blood glucose as discussed for the next 4 weeks, record readings and bring and device to each follow up visit. Recommendations: Get A1C check Weight loss advised- 30 minute daily for 5 days a week a total of 150 minutes of activity recommended as per ADA guidelines. Follow a Low Carbohydrate meal plan 3 meals daily with 2 snacks and bedtime snack-all snacks should be protein rich very low carbohydrate. A low-carb diet is one that limits carbohydrates, primarily found in sugary foods, pasta, and bread. Instead of eating carbs, you focus on protein-rich whole foods and vegetables. Basics Eat: Meat, fish, eggs, vegetables growing above ground and natural fats (like butter). Avoid: Sugar and starchy foods (like bread, pasta, rice, beans and potatoes). Foods to eat Meat: Any type: Beef, pork, torres, game, poultry, etc. Feel free to eat the fat in the meat as well as the skin on the chicken. Fish and seafood: All kinds: Fatty fish such as salmon, mackerel, sardines or san are great, and might even have health benefits due to high amounts of omega-3 fatty acids. Avoid breading. Eggs: All kinds: Boiled, fried, scrambled, omelets, etc. Natural fats and high-fat sauces: Using butter and cream for cooking can make your low-carb foods taste better. Coconut oil or olive oil are also good options. Vegetables that grow above ground: Cauliflower, broccoli, cabbage, [place] sprouts, kale, collards, bok [place]a, spinach, asparagus, zucchini, eggplant, olives, mushrooms, cucumber, avocado (technically a fruit but usually included with vegetables), onions, peppers, tomatoes, lettuce, other kinds of leafy greens, etc. Dairy products: choose full-fat options like real butter, cream (40% fat), sour cream, [place] yogurt and high-fat cheeses, which can help you enjoy delicious food while losing weight. Be careful with all milk, as it contains a lot of milk sugar. Avoid flavored and sugary products. Nuts: Great for a treat (in moderation) instead of popcorn, candy or chips. Berries: Okay in moderation Keep Food Diary to track Carbohydrate intake It is best to eat something every 3/12- 4 hours. Reduce stress. Examine your feet weekly. Its important to make an annual podiatry, dental and eye exam. Obtain routine lab work to check kidney function annually this includes a urine test and a blood test. Read food labels and count carbohydrates and look at sugar content. Keep Carbohydrate total 150 grams or less daily. And grams of sugar less than 30 grams daily. Consider a smart-phone jorge luis. such as My Fitness Pal, Lose it or Fooducate to help count carbohydrates and track meals. Suggested Essentials Grocery List Fresh fruit such as berries, cantaloupe, honeydew, tart apples Nuts and natural nut butters Ranch Dressing [place] or Coconut Milk Heavy cream Healthy Life brand or other low carbohydrate-keto bread Low Carbohydrate [place] Tortilla Frozen Vegetable Noodle Substitute Eggs, Cheeses Meat Sticks (low sodium/low sugar) Fire [place] Brand sold locally are my favorite Protein shakes (Premiere, Great Value, Quest) Lean Meat Fresh vegetables such as broccoli, cauliflower, green beans, radish, turnips, asparagus, peppers, onions, mushrooms, lettuce, egg plant, cucumbers, zucchini and squash. Sugar free jello and pudding Splenda-they make brown sugar and powdered sugar splenda too Low sugar condiments and salad dressing (avoid light dressings) Ranch has the lowest carbohydrate count [place] flour or Coconut Flour Low sugar [place] Yogurt Pork rinds, pickles, olives. AVOID OR WATCH PORTIONS OF GRAINS-STARCHY [id number] ONLY 1 SERVING PER MEAL Carry a glucose source at all times for blood glucose below 60 and watch for signs and symptoms of hypoglycemia as discussed. Patient agrees with this plan and will follow up for reinforcement and further evaluation and management. Practice Management Preventive medicine / risk factor counseling provided; Use of tobacco assessment performed; Patient screened for future fall risk documentation of any fall with injury in past year; Review of medications documented; Diabetic foot examination; Microalbuminuria test result documented and reviewed, patient screening for depression using standardized depression assessment tool negative for symptoms, for adult impression and score, and for safety concerns; Activity/exercise education prescribed and on safety issues. Health Reminders - Assess BMI satisfied 11/13/2023. - Assess Need for CT Lung Screen satisfied 11/13/2023. - Assess Screening for Fall Risk satisfied 11/13/2023. - Assess Tobacco Use satisfied 11/13/2023. - Blood Pressure Measurement satisfied 11/13/2023. - Depression Screening satisfied 11/13/2023. - Flu Shot satisfied 11/13/2023. - Follow Up Plan BMI Management satisfied 11/13/2023. - Follow up plan for Depression Screening satisfied 11/13/2023. - Foot Exam satisfied 11/13/2023. - Hemoglobin A1c satisfied 11/13/2023. - Lipid Panel--Annual satisfied 11/13/2023. - Nephropathy Screening satisfied 11/13/2023. - Neuropathy Screening satisfied 11/13/2023. - Director Of Government Sales satisfied 11/13/2023. - Pneumovax satisfied 11/13/2023.
--- OUTSIDE RECORDS SUMMARY | 2024-11-01 09:16 | XMS_ITS | Clinical Summary ---
Author Organization [facility] Address [address] [place] [address] Phone Care Team Providers Care Oven Loader Name Role Phone ARCENIO MAGDALENO, NORMAN Fish Primary Care Provider [phone] Reason for Referral Date Encounter Description Provider Reason for Referral 11/13/23 DIABETIC FOLLOW UP APPOINTMENT RAVEN LANDIN RESTORATION ECOLOGIST-Marisa Request Consultation By Dentures Lab Technician Reason for Visit and Chief Complaint visit for: Diabetes Education Initial Encounter for Type 2 Diabetes Problems Includes: Problems addressed during this encounter and other active Problems Current Visit Onset Date Resolved Date Provider Conditio n Status Diabetes Mellitus Type 2 Without Complication 09/28/2022 RAVEN LANDIN RESTORATION ECOLOGIST-C Active Last Documented On 3 5:14PM ; [facility] Past Visits Onset Date Resolved Date Provider Condition Status Obesity 09/28/2022 RAVEN SCHMID RESTORATION ECOLOGIST-C Active Last Documented On 3 5:13PM ; [facility] Plan of Treatment A1C goal is 7% or less as [...] that grow above ground: Cauliflower, broccoli, cabbage, [place] sprouts, kale, collards, bok donta, spinach, asparagus, zucchini, eggplant, olives, mushrooms, cucumber, avocado (technically a fruit but usually included with vegetables), onions, peppers, tomatoes, lettuce, other kinds of leafy greens, etc. Dairy products: choose full-fat options like real butter, cream (40% fat), sour cream, [place] yogurt and high-fat cheeses, which can help [...] Nuts and natural nut butters Ranch Dressing [place] or Coconut Milk Heavy cream Healthy Life brand or other low carbohydrate-keto bread Low Carbohydrate [place] Tortilla Frozen Vegetable Noodle Substitute Eggs, Cheeses Meat Sticks (low sodium/low sugar) Fire [place] Brand sold locally are my favorite Protein [...] dressings) Ranch has the lowest carbohydrate count [place] flour or Coconut Flour Low sugar [place] Yogurt Pork rinds, pickles, olives. AVOID OR WATCH PORTIONS OF GRAINS-STARCHY [id number]-PASTA ONLY 1 SERVING PER MEAL Carry a glucose source at all times for blood glucose below 60 and watch for signs and symptoms of hypoglycemia as discussed. Patient agrees with this plan and will follow up for reinforcement and further evaluation and management. - Last Documented On 11/13/2023 1:34PM ; [facility] Pending Tests Order Diagnosis Results Due Ordering P antonio Lab Hemoglobin A1C 11/13/23 RAVEN LANDIN RESTORATION ECOLOGIST-C Last Documented On 4 1:28PM ; [facility] Instructions to patient Intervention and counseling on cessation of tobacco use Last Documented On 4 1:03PM ; [facility] Maintain a healthy diet Last Documented On 4 1:01PM ; [facility] Lose weight Last Documented On 4 1:01PM ; [facility] Avoid foods and beverages co ntaining sugar Last Documented On 4 1:01PM ; [facility] Education and Decision Aids were provided during visit for: Discussed preventing falls Last Documented On 4 1:01PM ; [facility] Patient education about a pr oper diet Last Documented On 4 1:01PM ; [facility] Dietary counseling pertainin g to hypoglycemia Last Documented On 4 1:01PM ; [facility] Patient education about meal planning Last Documented On 4 1:01PM ; [facility] Patient education about weig ht control Last Documented On 4 1:01PM ; [facility] Patient education about regu lar dental care annually Last Documented On 4 1:01PM ; [facility] Patient education about diab etes and discussed ABCs of diabetic therapy and goals Last Documented On 4 1:01PM ; [facility] Patient education about a bl ood glucose monitor Last Documented On 4 1:01PM ; [facility] Patient education about a ho me blood glucose monitor with instructions to bring monitor to each visit Last Documented On 4 1:01PM ; [facility] Dietary counseling pertainin g to diabetes mellitus Last Documented On 4 1:01PM ; [facility] Patient education about diab etic foot care annually Last Documented On 4 1:01PM ; [facility] Inquiry and counseling about medication administration and compliance Last Documented On 4 1:01PM ; [facility] Education, guidance, and cou nseling about dietary management keep grams of sugar to less than 30 gram per day Last Documented On 4 1:01PM ; [facility] Education, guidance, and cou nseling about meal preparation Last Documented On 4 1:01PM ; [facility] Patient goals discussed Last Documented On 4 1:01PM ; [facility] The patient's goal is to gustavo p fasting blood sugar under 150 and under 180 2 hours after a meal Last Documented On 4 1:01PM ; [facility] The patient's goal is to dioni t the blood sugars and bring in the results to each visit Last Documented On 4 1:01PM ; [facility] Patient's goal is to keep he moglobin A1c levels under 7.0% or less than 8% if over 70 years of age Last Documented On 4 1:01PM ; [facility] The patient will lose weight Last Documented On 4 1:01PM ; [facility] Patient will increase aerobi c activity (30-45 min most days of wk) 150 minutes a week Last Documented On 4 1:01PM ; [facility] Assessments Includes: Assessments from this encounter Findings - [E11.9 - Type 2 diabetes mellitus without complications] Type 2 diabetes mellitus without complication - Last Documented On 11/13/2023 1:34PM ; [facility] - Counseling and coordination of care was more than 50% of encounter time - Last Documented On 11/13/2023 1:34PM ; [facility] Instructions Includes: Instructions from this encounter Instructions to patient Intervention and counseling on cessation of tobacco use Last Documented On 4 1:03PM ; [facility] Maintain a healthy diet Last Documented On 4 1:01PM ; [facility] Lose weight Last Documented On 4 1:01PM ; [facility] Avoid foods and beverages co ntaining sugar Last Documented On 4 1:01PM ; [facility] Education and Decision Aids were provided during visit for: Discussed preventing falls Last Documented On 4 1:01PM ; [facility] Patient education about a pr oper diet Last Documented On 4 1:01PM ; [facility] Dietary counseling pertainin g to hypoglycemia Last Documented On 4 1:01PM ; [facility] Patient education about meal planning Last Documented On 4 1:01PM ; [facility] Patient education about weig ht control Last Documented On 4 1:01PM ; [facility] Patient education about regu lar dental care annually Last Documented On 4 1:01PM ; [facility] Patient education about diab etes and discussed ABCs of diabetic therapy and goals Last Documented On 4 1:01PM ; [facility] Patient education about a bl ood glucose monitor Last Documented On 4 1:01PM ; [facility] Patient education about a ho me blood glucose monitor with instructions to bring monitor to each visit Last Documented On 4 1:01PM ; [facility] Dietary counseling pertainin g to diabetes mellitus Last Documented On 4 1:01PM ; [facility] Patient education about diab etic foot care annually Last Documented On 4 1:01PM ; [facility] Inquiry and counseling about medication administration and compliance Last Documented On 4 1:01PM ; [facility] Education, guidance, and cou nseling about dietary management keep grams of sugar to less than 30 gram per day Last Documented On 4 1:01PM ; [facility] Education, guidance, and cou nseling about meal preparation Last Documented On 4 1:01PM ; [facility] Patient goals discussed Last Documented On 4 1:01PM ; [facility] The patient's goal is to gustavo p fasting blood sugar under 150 and under 180 2 hours after a meal Last Documented On 4 1:01PM ; [facility] The patient's goal is to dioni t the blood sugars and bring in the results to each visit Last Documented On 4 1:01PM ; [facility] Patient's goal is to keep he moglobin A1c levels under 7.0% or less than 8% if over 70 years of age Last Documented On 4 1:01PM ; [facility] The patient will lose weight Last Documented On 4 1:01PM ; [facility] Patient will increase aerobi c activity (30-45 min most days of wk) 150 minutes a week Last Documented On 4 1:01PM ; [facility] Medical Equipment - Implanted Devices Includes: Current Devices No Medical Equipment Recorded Medications Includes: Medications discussed during this encounter and other current Medications Current Medications (continue as prescribed) rOPINIRole HCl 0.5 MG Oral Tablet 01/23/2024 Provide r: NORMAN RG MD Diagnosis: Last Documented On 03/19/2024 10:45AM By Vickey CASTRO ; [facility] Omeprazole 20 MG Oral Capsul e Delayed Release 11/27/2023 Provider: NORMAN RG MD Diagnosis: Last Documented On 03/19/2024 10:45AM By Vickey CASTRO ; [facility] Past Medications on file Amoxicillin-Pot Clavulanate 600-42.9 MG/5ML Oral Suspension Reconstituted 10/13/2023 - 10/23/2023 Provider: CHAZ AL Diagnosis: Acute bronchitis , unspecified Take 7mL twice daily x 10 days Last Documented On 4 11:26AM By Chaz AL ; [facility] Amoxicillin-Pot Clavulanate 600-42.9 MG/5ML Oral Suspension Reconstituted 06/21/2021 - 07/01/2021 Provider: CHAZ AL Diagnosis: Acute sinusitis, unspecified Take 7mL twice daily x 10 days Last Documented On 1 10:00AM By Chaz AL ; [facility] Nitrofurantoin 25 MG/5ML OR SUSP 05/13/2013 - 05/20/2013 Provider: VADIM RAMIRES PA-C Diagnosis: URIN TRACT INFEC TION NOS 4 tsp BID x 7 days. Last Documented On 3 2:40PM By VADIM RAMIRES PA-C ; [facility] Cipro 500 MG/5ML (10%) OR SUSR 10/08/2012 - 10/18/2012 Provider: VADIM RAMIRES PA-C Diagnosis: URIN TRACT INFEC TION NOS 1/2 tsp BID x 10 days. Last Documented On 3 9:59AM By VADIM RAMIRES PA-C ; [facility] Medications Administered Includes: Administered Medications from this encounter No Administered Medications Recorded Vital Signs Includes: Vital Signs from this encounter Vital Name 11/13/2023 01:04P Blood Pressure Sitting (mmHg) 122/78 Pulse Rate-Sitting (bpm) 78 Respiration Rate (breaths/min) 20 Temp-Oral (F) 98.1 Height (in) 60 Weight (lb) 185 Body Mass Index 36.1 Body Surface Area 1.8 Oxygen Saturation (%) 98 Last Documented: On 11/13/2023 1:10PM ; [facility] Results Includes: Results discussed during this encounter No Results Recorded For Specified Dates History of Present Illness Includes: History of Present Illness from this encounter HPI KEIRA DE LOS SANTOS is a 73 year old female. Source of patient information was patient ? Allergy list reviewed ? Problem list reviewed ? Medication reconciliation performed ? Medication list reviewed - No night sweats [...] unstable chronic illness BP is presently stable/well [id number] ordered/reviewed as per ADA guidelines. Date of [...] medical records and documentation total 45 minutes. Social History Description Last Updated Tobacco non-user 02/07/2023 Last Documented On 4 1:01PM ; [facility] No travel 06/21/2021 Last Documented On 4 1:01PM ; [facility] Smoking status : Never smoker 11/30/2019 Last Documented On 4 1:01PM ; [facility] Currently 04/09/2012 Last Documented On 4 1:01PM ; [facility] Exercise frequency 3 X WEEKLY 04/09/2012 Last Documented On 4 1:01PM ; [facility] No consumption of alcohol 04/09/2012 Last Documented On 4 1:01PM ; [facility] Not using drugs 04/09/2012 Last Documented On 4 1:01PM ; [facility] 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 Last Documented On 4 1:01PM ; [facility] Procedures and Surgical History Includes: Procedures from this encounter Procedures Code Diagnosis Performing Provider Service L ocation Service Date controlled carbohydrate diet Last Documented On 4 1:01PM ; [facility] diabetic diet Last Documented On 4 1:01PM ; [facility] preventive medicine / risk factor counse ling provided Last Documented On 4 1:01PM ; [facility] request consultation by registered nurse step down Last Documented On 4 1:01PM ; [facility] disposition: reassurance Last Documented On 4 1:01PM ; [facility] patient information sheet given for diag nosis : Diabetes Last Documented On 4 1:01PM ; [facility] diabetic supplies glucometer Last Documented On 4 1:01PM ; [facility] plan of care reviewed and agreed to by t he patient Last Documented On 4 1:01PM ; [facility] intervention and counseling on 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 4000F Last Documented On 4 1:03PM ; [facility] use of tobacco assessment performed 1000F Last Documented On 4 1:01PM ; [facility] microalbuminuria test result documented and reviewed Last Documented On 4 1:01PM ; [facility] patient screened for future fall risk 3288F Last Documented On 4 1:01PM ; [facility] patient screened for future fall risk: documentation of any fall with injury in past year 1100F Last Documented On 4 1:01PM ; [facility] standardized depression screening: negative for symptoms 3351F Last Documented On 4 1:01PM ; [facility] review of medications documented 1160F Last Documented On 4 1:01PM ; [facility] encouragement of annual ophthalmologic e xamination performed Last Documented On 4 1:01PM ; [facility] counseling about safety issues Last Documented On 4 1:01PM ; [facility] avoid foods and beverages containing sug ar Last Documented On 4 1:01PM ; [facility] screening for adult depression: impressi on and score Last Documented On 4 1:01PM ; [facility] diabetic foot examination Last Documented On 4 1:01PM ; [facility] activity/exercise education prescribed Last Documented On 4 1:01PM ; [facility] encouragement to exercise 150 minutes we ekly Last Documented On 4 1:01PM ; [facility] education about signs of hypoglycemia pe rformed Last Documented On 4 1:01PM ; [facility] screening for safety concerns Last Documented On 4 1:01PM ; [facility] Advised ophthalmological services Last Documented On 4 1:01PM ; [facility] Reviewed Blood Sugars Last Documented On 4 1:01PM ; [facility] Carbohydrate countin-200 grams or less daily Last Documented On 4 1:01PM ; [facility] Clinical summary provided to patient Last Documented On 4 1:01PM ; [facility] labs and studies reviewed with patient Last Documented On 4 1:01PM ; [facility] Surgical History Last Updated History of decompression of median nerve at carpal tunnel Carpal Tunnel Release~ 10/08/2012 Last Documented On 4 1:01PM ; [facility] Surgical / procedural histor y 1.Heel spur surgery. ~2. Complete hysterectomy for Fibroid in 199910/08/2012 Last Documented On 4 1:01PM ; [facility] Medical History Includes: Medical History addressed during this encounter Description Last Updated History of camera fundoscopic exam was p erformed see HPI/scanned image 11/13/2023 Last Documented On 4 1:34PM ; [facility] LMP: HYSTERECTOMY 05/08/2023 Last Documented On 4 1:01PM ; [facility] No exposure to a contagious disease 12/2020 Last Documented On 4 1:01PM ; [facility] No Contact with and (Suspected) exposure to COVID-19 06/21/2021 Last Documented On 4 1:01PM ; [facility] No fall 06/21/2021 Last Documented On 4 1:01PM ; [facility] Not taking OTC medications 06/18/2021 Last Documented On 4 1:01PM ; [facility] Pt does not get blood pressure checked a t other facility 10/01/2015 Last Documented On 4 1:01PM ; [facility] Exposure to a lot of bright sunlight Last Documented On 4 1:01PM ; [facility] 1 miscarriage(s) 04/09/2012 Last Documented On 4 1:01PM ; [facility] Previously 5 time(s) 04/09/2012 Last Documented On 4 1:01PM ; [facility] No history of arthritis 04/09/2012 Last Documented On 4 1:01PM ; [facility] No history of cancer 04/09/2012 Last Documented On 4 1:01PM ; [facility] No history of chronic obstructive pulmon candelario disease 04/09/2012 Last Documented On 4 1:01PM ; [facility] No history of convulsive disorder 2011 Last Documented On 4 1:01PM ; [facility] No history of diabetes mellitus 04/09/20 12 Last Documented On 4 1:01PM ; [facility] No history of hypertension 04/09/2012 Last Documented On 4 1:01PM ; [facility] No history of stroke syndrome 04/09/2012 Last Documented On 4 1:01PM ; [facility] No history of venereal disease 2 Last Documented On 4 1:01PM ; [facility] No reported cardiovascular symptoms 03/19 Last Documented On 4 1:01PM ; [facility] No reported easy bleeding 04/09/2012 Last Documented On 4 1:01PM ; [facility] No reported recurrent infections 012 Last Documented On 4 1:01PM ; [facility] Family History Includes: Family History addressed during this encounter Description Last Updated Family history unchanged 01/07/2023 Last Documented On 4 1:01PM ; [facility] Family history of cancer 04/09/2012 Last Documented On 4 1:01PM ; [facility] Family history of diabetes mellitus 03/19 Last Documented On 4 1:12PM ; [facility] Family history of heart disease 04/09/20 12 Last Documented On 4 1:01PM ; [facility] Family history of kidney disease 012 Last Documented On 4 1:01PM ; [facility] Father AGE 74 04/09/2012 Last Documented On 4 1:01PM ; [facility] Mother [id number] 04/09/2012 Last Documented On 4 1:01PM ; [facility] No family history of alcoholism 04/09/20 12 Last Documented On 4 1:01PM ; [facility] No family history of defects 04/09 Last Documented On 4 1:01PM ; [facility] No family history of bleeding problems 0 04/09/2012 Last Documented On 4 1:01PM ; [facility] No family history of genetic disease Last Documented On 4 1:01PM ; [facility] No family history of mental illness (not retardation) 04/09/2012 Last Documented On 4 1:01PM ; [facility] Spouse 63 years old 04/09/2012 Last Documented On 4 1:01PM ; [facility] Review of Systems Includes: Review of Systems from this encounter Encounter Background Information: Patient is compliant with self monitored glucose monitoring. Systemic: No recent weight change. No pain. Eyes: No eye symptoms. Cardiovascular: No chest pain or discomfort. Pulmonary: No dyspnea. Gastrointestinal: No gastrointestinal symptoms. Genitourinary: No genitourinary symptoms. Musculoskeletal: No musculoskeletal symptoms. Neurological: No neurological symptoms. Skin: No skin symptoms. Mental Status Includes: Mental Status from this encounter Description Oriented to time, place, and person Functional Status Includes: Functional Status from this encounter No Functional Status Recorded Physical Exam Includes: Physical Exam from this encounter Allergies Includes: Active Allergies Substance Type Reaction Onset Date Resolved Date Statu s Erythromycin Allergy 01/25/2012 Active Last Documented On 4 1:03PM ; [facility] Encounters Encounter Provider Location Date Check-In Time Check-Out Time Diagnosis DIABETIC FOLLOW UP APPOINTMENT RAVEN AL [facility]- 024 12:48PM 1:34PM 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 Operator & Coord of Care > 50% Encounter Time,Diabetes Mellitus Type 2 Without Complication Insurance Includes: Active Insurance Policies Plan Name Member ID Group # Subscriber Relationship Effect aj Dates 1 - MEDICARE PART A CLAIMS/NGS [id number] KEIRA DE LOS SANTOS Self 2 - [employer] [id number] KEIRA DE LOS SANTOS Self Clinical Notes Includes: Clinical Notes from this encounter * Progress note Date Encounter Last Documented by 11/13/2023 DIABETIC FOLLOW UP APPOINTMENT L ast documented on 11/13/2023; 1:34 PM, RAVEN AL; [facility] Active Problems & Conditions - [...] unstable chronic illness BP is presently stable/well [id number] ordered/reviewed as per ADA guidelines. Date of [...] by the patient. - Request consultation by registered nurse step down. - Diabetic supplies glucometer. - Carbohydrate countin-200 [...] that grow above ground: Cauliflower, broccoli, cabbage, [place] sprouts, kale, collards, bok donta, spinach, asparagus, zucchini, eggplant, olives, mushrooms, cucumber, avocado (technically a fruit but usually included with vegetables), onions, peppers, tomatoes, lettuce, other kinds of leafy greens, etc. Dairy products: choose full-fat options like real butter, cream (40% fat), sour cream, [place] yogurt and high-fat cheeses, which can help [...] Nuts and natural nut butters Ranch Dressing [place] or Coconut Milk Heavy cream Healthy Life brand or other low carbohydrate-keto bread Low Carbohydrate [place] Tortilla Frozen Vegetable Noodle Substitute Eggs, Cheeses Meat Sticks (low sodium/low sugar) Fire [place] Brand sold locally are my favorite Protein [...] dressings) Ranch has the lowest carbohydrate count [place] flour or Coconut Flour Low sugar [place] Yogurt Pork rinds, pickles, olives. AVOID OR WATCH PORTIONS OF GRAINS-STARCHY [id number]-PASTA ONLY 1 SERVING PER MEAL Carry a [...] 11/13/2023. - Neuropathy Screening satisfied 11/13/2023. - Manager Trade satisfied 11/13/2023. - Pneumovax satisfied 11/13/2023.
--- OUTSIDE RECORDS SUMMARY | 2024-11-01 09:17 | XMS_ITS | Clinical Summary ---
Author Organization [facility] Administrative Offices Address [address] [place] [address] Care Team Providers Care Mileage Clerk Name Role Phone Franck Alvarez MD Primary Care Provider [phone] Allergies Active Allergy Reactions Criticality Noted Date Comments Erythromycin Rash Medium 11/03/2011 Erythromycin (Bulk) Rash Low 01/25/2012 Medications rOPINIRole (REQUIP) 0.25 mg tablet Take 0.25 mg by mouth daily. Active Phoenix-3 Fatty Acids 100 mg Tablet, Chewable 05/19/2020 Ac tive calcium carb-mag hydrox-simeth (MYLANTA TONIGHT) 800-270-80 mg/10 mL Suspension 05/19/2020 Activ e multivitamin (DAILY-SARAI) tablet Take 1 Tablet by mouth daily. supp Active Saccharomyces boulardii (FLORASTOR) 250 mg Capsule Take by mouth daily. supp Active Active Problems No known active problems Encounters Date Type Department Care Team Description 10/29/2024 8:23 AM WIRE WORKER - 10/29/2024 11:59 PM WIRE WORKER Hospital Encounter [facility] [address] [place] [address] Bernardo Morales MD Arrived Discharge Disposition: Home or Self Care 10/29/2024 8:23 AM WIRE WORKER - 10/29/2024 11:59 PM WIRE WORKER Hospital Encounter [facility] [address] [place] [address] Bernardo Morales MD Arrived Discharge Disposition: Home or Self Care 10/29/2024 8:23 AM WIRE WORKER - 10/29/2024 11:59 PM WIRE WORKER Hospital Encounter [facility] [address] [place] [address] Bernardo Morales MD Arrived Discharge Disposition: Home or Self Care 10/29/2024 8:23 AM WIRE WORKER - 10/29/2024 11:59 PM WIRE WORKER Hospital Encounter [facility] [address] [place] [address] Bernardo Morales MD Arrived Discharge Disposition: Home or Self Care 10/16/2024 External Device Data STL ABSTRACTION Provider, Abstract 10/15/2024 10:15 AM WIRE WORKER Office Visit [facility] Surgical [facility] [place] [id number] [place] [address] Bernardo Morales MD Nipple discharge (Primary Dx) 10/10/2024 External Device Data STL ABSTRACTION Provider, Abstract 10/09/2024 Abstract [facility] [place] [id number] [place] [address] Hermila Mcconnell RN 10/08/2024 9:52 AM WIRE WORKER - 10/08/2024 11:59 PM WIRE WORKER Hospital Encounter [facility] [address] [place] [address] Bernardo Morales MD Discharge Disposition: Home or Self Care 10/08/2024 Chart Note [facility] [address] [place] [address] Tonia Cox FNP breast procedure 09/27/2024 Orders Only [facility] Surgical [facility] [place] [id number] [place] [address] Bernardo Morales MD Complex sclerosing lesion of left breast (Primary Dx); Nipple discharge 09/12/2024 Abstract [facility] Neurosurgery - Medical [place] [address] [place] [address] Provider, Abstract from Last 3 Months Family History Medical History Relation Name Comments Healthy Brother Cancer Father Prostate Emphysema Father Other Mother broken hip Breast Cancer Paternal Aunt 70's Cancer Sister female cancer Kidney Disease Sister Other Son drug addiction Relation Name Status Comments Brother Alive Father Mother Paternal Aunt Sister Son Social History Tobacco Use Types Packs/Day Years Used Date Smoking Tobacco: Never Smokeless Tobacco: Never Tobacco Cessation:Counseling Given: Not Answered Alcohol Use Standard Drinks/Week Comments Never 0 (1 standard drink = 0.6 oz pur e alcohol) Feeling Safe Answer Date Recorded Are you in a relationship wi th someone who hurts you emotionally and/or physically? Patient unable to answer 07/15/2024 Comments No Sex and Gender Information Value Date Recorded Sex Assigned at Not on file Legal Sex Female 4:03 AM WIRE WORKER Gender Identity Not on file Sexual Orientation Not on file Last Filed Vital Signs Vital Sign Reading Time Taken Comments Blood Pressure 131/73 07/15/2024 4:44 PM CDT Pulse 100 10/15/2024 9:50 AM WIRE WORKER Temperature 36.1 C (96.9 F) 07/15/2024 4:44 PM CDT Respiratory Rate 18 07/15/2024 4:44 PM CDT Oxygen Saturation 96% 10/15/2024 9:50 AM WIRE WORKER Inhaled Oxygen Concentration - - Weight 81.8 kg (180 lb 4 oz) 10/15/2024 9:50 AM WIRE WORKER Height 152.4 cm (5') 10/15/2024 9:50 AM WIRE WORKER Body Mass Index 35.2 10/15/2024 9:50 AM WIRE WORKER Plan of Treatment Health Maintenance Due Date Last Done Comments DTAP/TDAP/TD VACCINES (1 - Tdap) 1969 Traditional Medicare (ACO) A nnual Wellness Visit 1969 FIT-DNA Q 3 years 1997 FIT/FOBT Q 1 year 1997 Flex Sig/CT Colonography Q 5 years 1997 ZOSTER VACCINE (1 of 2) 2002 COVID-19 Vaccine (2023-2 5 season) 2024 11/13/2020, 10/16/2020 BREAST CANCER SCREENING 10/29/2025 10/29/19 25, 06/17/2024, 04/04/2024, Additional history exists RSV VACCINE (60+ or ) (1 - 1-dose 75+ series) 2027 COLORECTAL SCREENING 02/01/2033 02/01/2023, 02/01/2023, 02/01/2023, Additional history exists Colorectal Cancer Screening 02/01/2033 PNEUMOCOCCAL VACCINE 65+ YEARS Completed 07/03/2018 , 06/16/2017 INFLUENZA VACCINE Completed 06/29/2024, , 07/02/2022, Additional history exists OSTEOPOROSIS SCREENING Completed , 06/24/2022, 06/24/2022, Additional history exists Procedures Procedure Name Priority Date/Time Associated Diagnosis Comments MAMMO BREAST US BIOPSY BILAT Routine 10/29/2024 1:56 PM WIRE WORKER Abnormal finding on breast imaging MAMMO POST US/STEREO GUIDED PROCEDURE BILATERAL Routine 10/29/2024 1:40 PM WIRE WORKER Abnormal finding on breast imaging MRI BIOPSY BREAST RIGHT Routine 10/29/2024 1:29 PM WIRE WORKER Abnormal finding on breast imaging MAMMO BREAST US BILAT LTD Routine 10/29/2024 8:53 AM WIRE WORKER Abnormal finding on breast imaging MRI BREAST DIAGNOSTIC WWO CONTRAST BILATERAL Routine 10/08/2024 11:35 AM WIRE WORKER Complex sclerosing lesion of left breast Nipple discharge XR DEXA BONE DENSITY AXIAL 1 OR MORE SITES Routine 07/09/2024 9:12 AM CDT Age-related osteoporosis without current pathological fracture Fracture Risk Assessment Score (FRAX) indicating greater than 20% risk for major osteoporosis-related fracture Family history of fracture of hip in mother MAMMO DIAG UNI LEFT 3D NATA W OR WO CAD Routine 06/17/2024 1:33 PM CDT Discharge from left nipple from Last 3 Months or Most Recently Relevant to Health Maintenance Results * MAMMO BREAST US BIOPSY BILAT (10/29/2024 1:56 PM WIRE WORKER) Anatomical Region Laterality Modality Breast Bilateral Ultrasound Tissue SPECIMEN FROM BREAST / Unknown 10/29/2024 1:56 PM WIRE WORKER Impressions 10/29/2024 1:59 PM WIRE WORKER IMPRESSION: Technically successful ultrasound-guided bilateral breast core biopsies. DICTATION LOCATION: Location [facility] 10/29/2024 1:59 PM WIRE WORKER Ultrasound-guided bilateral breast core biopsy and mammography post procedure bilateral, 10/29/2024 HISTORY: MRI study dated 10/08/2024 showed small enhancing masses in bilateral subareolar regions. Second look ultrasound from 10/29/2024 demonstrates a subareolar mass in the right breast towards 12:00 and a subareolar mass in the left breast towards 4:00. PROCEDURE AND FINDINGS: The risks and benefits of the procedure were discussed with patient and written informed consent was obtained. After the skin is cleaned and prepped in a sterile fashion, 1% lidocaine was utilized for local anesthesia. A 12-gauge elevation needle was advanced to the right subareolar mass under sonographic guidance. Total of three tissue cores were obtained. A hydromarker was deployed into the mass under sonographic guidance. The needle was removed and hemostasis was achieved. Following this, the left subareolar mass was targeted using sonogram. After skin is cleaned and prepped in a sterile fashion, 1% lidocaine was utilized for anesthesia. A 12-gauge elevation needle was advanced to the mass under sonographic guidance. Total of three tissue cores were obtained. A hydromarker was deployed into the biopsy cavity under sonographic. The needle was removed and hemostasis was achieved. The postprocedural bilateral digital mammogram demonstrated adequate placement of tissue markers. The patient tolerated procedure well without immediate complications. The patient was given verbal as well as written postprocedural instructions prior to being released from the department. The tissue cores were submitted for surgical pathology in formalin. us Bernardo Morales MD MAMMO ORDERABLES Final Result * MAMMO POST US/STEREO GUIDED PROCEDURE BILATERAL (10/29/2024 1:40 PM WIRE WORKER) Anatomical Region Laterality Modality Breast Bilateral Mammography 10/29/2024 1:4 0 PM WIRE WORKER Addenda Addendum by Tahmina Lund MD on 10/29/2024 1:57 PM WIRE WORKER 1% lidocaine was utilized for local anesthesia at the skin puncture site and 2% lidocaine with epinephrine was utilized for deeper anesthesia and hemostasis. Narrative 10/29/2024 1:53 PM WIRE WORKER MRI GUIDED RIGHT BREAST CORE BIOPSY AND MAMMOGRAPHY POST PROCEDURE RIGHT DATE: 10/29/2024 1:29 PM HISTORY: The breast MRI dated to 08/07/2025 showed nonmasslike enhancement at 10:00 of the right breast. COMPARISON: Correlation is made with the previous mammogram dated 10/08/2024 Procedure and findings: The risks and benefits of the procedure were discussed with patient and written informed consent was obtained. The patient was placed on the MR table in a prone position with the right breast in mediolateral compression. After intravenous administration of gadolinium, the nonmasslike enhancement at 10:00 of the right breast was again demonstrated. It was targeted using an [email or web address] software. A trocar and introducer were inserted into the area of interest from a lateral approach. A nine gauge vacuum-assisted biopsy needle was advanced to the area of interest. Multiple tissue cores were obtained. A biopsy clip was deployed into the biopsy cavity. The needle was removed and hemostasis was achieved. The postprocedural right digital mammogram demonstrated adequate placement of the tissue marker. The patient tolerated procedure well without immediate complication. The patient was given verbal as well as written postprocedural instructions prior to being released from the department. The tissue cores were submitted for surgical pathology in formalin. DICTATION LOCATION: [address] Bernardo Morales MD MAMMO ORDERABLES Edited Result - Final * MRI BIOPSY BREAST RIGHT (10/29/2024 1:29 PM WIRE WORKER) Anatomical Region Laterality Modality Breast Right Magnetic Resonan ce Tissue SPECIMEN FROM BREAST / Unknown 10/29/2024 1:39 PM WIRE WORKER Addenda Addendum by Tahmina Lund MD on 10/29/2024 1:57 PM WIRE WORKER 1% lidocaine was utilized for local anesthesia at the skin puncture site and 2% lidocaine with epinephrine was utilized for deeper anesthesia and hemostasis. Narrative 10/29/2024 1:53 PM WIRE WORKER MRI GUIDED RIGHT BREAST CORE BIOPSY AND MAMMOGRAPHY POST PROCEDURE RIGHT DATE: 10/29/2024 1:29 PM HISTORY: The breast MRI dated to 08/07/2025 showed nonmasslike enhancement at 10:00 of the right breast. COMPARISON: Correlation is made with the previous mammogram dated 10/08/2024 Procedure and findings: The risks and benefits of the procedure were discussed with patient and written informed consent was obtained. The patient was placed on the MR table in a prone position with the right breast in mediolateral compression. After intravenous administration of gadolinium, the nonmasslike enhancement at 10:00 of the right breast was again demonstrated. It was targeted using an [email or web address] software. A trocar and introducer were inserted into the area of interest from a lateral approach. A nine gauge vacuum-assisted biopsy needle was advanced to the area of interest. Multiple tissue cores were obtained. A biopsy clip was deployed into the biopsy cavity. The needle was removed and hemostasis was achieved. The postprocedural right digital mammogram demonstrated adequate placement of the tissue marker. The patient tolerated procedure well without immediate complication. The patient was given verbal as well as written postprocedural instructions prior to being released from the department. The tissue cores were submitted for surgical pathology in formalin. DICTATION LOCATION: [address] [place] us Bernardo Morales MD MR ORDERABLES Edited Result - Final * (ABNORMAL) [facility] (10/29/2024 8:53 AM WIRE WORKER) Anatomical Region Laterality Modality Bilateral Ultrasound 10/29/2024 8:53 AM WIRE WORKER Impressions 10/29/2024 9:13 AM WIRE WORKER IMPRESSION: Bilateral subareolar masses likely corresponding to MR findings. RECOMMENDATIONS: Ultrasound-guided bilateral breast core biopsy. The patient will also have MRI guided core biopsy of the nonmasslike enhancement at 10:00 of the right breast. BI-RADS Category 4B. Intermediate suspicion lesion. Tissue biopsy is needed. DICTATION LOCATION: [address] Narrative 10/29/2024 9:13 AM WIRE WORKER Bilateral breast ultrasound limited 10/29/2024. HISTORY: Left breast excisional biopsy. The MRI study dated 10/08/2024 shows bilateral subareolar masses. A second look ultrasound was requested. Right breast findings: At 12:00 subareolar region, a small hypoechoic mass is identified measuring 0.6 x 0.4 x 0.5 cm. It has slightly lobulated contour. It likely corresponds to the mass seen on MRI. Left breast findings: At 4:00 subareolar region, a tubular hypoechoic mass is identified measuring about 0.4 x 0.4 x 0.3 cm. It likely corresponds to the abnormality seen on MRI. Bernardo Morales MD MAMMO ORDERABLES Final Result * (ABNORMAL) MRI BREAST DIAGNOSTIC WWO CONTRAST BILATERAL (10/08/2024 11:35 AM WIRE WORKER) Anatomical Region Laterality Modality Breast Bilateral Magnetic Resonan ce 10/08/2024 11:4 4 AM WIRE WORKER Impressions 10/08/2024 12:47 PM WIRE WORKER IMPRESSION: 1. Expected postoperative changes seen in the upper outer left breast. 2. Mildly dilated duct with indeterminate enhancing components in the subareolar left breast towards the lower outer quadrant. Second look sonogram is recommended. If there is no sonographic correlate, MRI-guided core biopsy is recommended. 3. Suspicious oval mass with irregular margins at the 12:00 position of the subareolar right breast. This measures approximately 7 mm. Second look sonogram is recommended. If there is no sonographic correlate, MRI-guided core biopsy is recommended. 4. Suspicious area of clumped non-mass enhancement at approximately the 10:00 position of the right breast middle depth. MRI-guided core biopsy is recommended. OVERALL FINAL ASSESSMENT: BI-RADS CATEGORY 4 - Suspicious. 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 Subsequent lumpectomy was performed on 07/15/2024. There was no evidence of malignancy. The patient presents with persistent left nipple discharge. COMPARISON: No previous breast MRIs available. Correlation is made to previous mammograms and sonograms dating back to 03/08/2024. TECHNIQUE: Bilateral multisequence dynamic breast MRI was performed before and after intravenous contrast administration. 16 mL of MultiHance was administered intravenously. Dynamic phase imaging was performed in the axial plane. The examination was processed by an interpreted on a [email or web address] warrant server including 3-D volume rendering, subtraction image processing, and contrast kinetic analysis. BREAST COMPOSITION: Scattered fibroglandular tissue. BACKGROUND ENHANCEMENT: Moderate. FINDINGS: RIGHT BREAST: There is a subpectoral saline breast implant. The implant is intact. There is an oval mass with slightly irregular margins in the subareolar right breast, measuring approximately 7 mm this is located slightly towards the 12:00 position between 1 cm and 2 cm from the nipple. There is also clumped non-mass enhancement in the upper outer right breast middle depth, at approximately the 10:00 position. There is no abnormal skin, nipple, pectoralis muscle enhancement. There is no right axillary or internal mammary lymphadenopathy. LEFT BREAST: There is a subpectoral saline breast implant. The implant is intact. There are expected postoperative changes in the upper outer left breast at anterior depth. Mild enhancement is noted at the lumpectomy site, which is within normal limits. A mildly dilated duct with abnormal enhancement is noted in the subareolar left breast, slightly located towards the lower outer quadrant. There are benign intramammary lymph nodes. There is no abnormal skin, nipple, pectoralis muscle enhancement. There is no left axillary or internal mammary lymphadenopathy. OTHER: The visualized portions of the mediastinum and upper abdomen are unremarkable on limited evaluation. Bernardo Morales MD MR ORDERABLES Final Result * XR DEXA BONE DENSITY AXIAL 1 OR MORE SITES (07/09/2024 9:12 AM CDT) Anatomical Region Laterality Modality Computed Radiogr aphy Impressions 07/09/2024 12:41 PM CDT : Worst core is -1.3. FRAX calculation is negative and there is no history of osteoporotic fracture. Repeat in 2 years. Supa Bowser MD DIAGNOSTIC IMAGING ORDERABLE S Final Result * (ABNORMAL) MAMMO 3D NATA DIAGNOSTIC UNI LT W OR WO CAD (06/17/2024 1:33 PM CDT) Anatomical Region Laterality Modality Breast Left Mammography 06/17/2024 1:33 PM CDT Impressions 06/17/2024 2:40 PM CDT IMPRESSION: Small 4 mm mass outer periareolar left breast. Recommend further evaluation with a sonographically biopsy. Patient will follow-up with one of our Breast Center Nurses. OVERALL FINAL ASSESSMENT: BI-RADS CATEGORY 4: Suspicious abnormality - biopsy should be considered. DICTATION LOCATION: [facility] Narrative 06/17/2024 2:40 PM CDT MAMMO 3D NATA DIAGNOSTIC UNI LT W OR WO CAD MAMMO BREAST US LEFT LTD DATE: 06/17/2024 1:33 PM HISTORY: Complaints of left nipple discharge. COMPARISON: 04/04/2024 - 01/03/2022 FINDINGS: Initially patient presented for sonography of the subareolar left breast. Sonography demonstrated a small hypoechoic mass measuring approximately 4 mm. A BB was placed over this lesion and follow-up spot views of the left breast were obtained with tomography. On the follow-up images, a small density is confirmed in the outer subareolar breast. Approximately 4 to 5 mm. BREAST COMPOSITION: The breasts are heterogeneously dense, which may obscure small masses. Procedure Note Shelly Layton MD - 06/17/2024 MAMMO 3D NATA DIAGNOSTIC UNI LT W OR WO CAD MAMMO BREAST US LEFT LTD DATE: 06/17/2024 1:33 PM HISTORY: Complaints of left nipple discharge. COMPARISON: 04/04/2024 - 01/03/2022 FINDINGS: Initially patient presented for sonography of the subareolar left breast. Sonography demonstrated a small hypoechoic mass measuring approximately 4 mm. A BB was placed over this lesion and follow-up spot views of the left breast were obtained with tomography. On the follow-up images, a small density is confirmed in the outer subareolar breast. Approximately 4 to 5 mm. BREAST COMPOSITION: The breasts are heterogeneously dense, which may obscure small masses. IMPRESSION: Small 4 mm mass outer periareolar left breast. Recommend further evaluation with a sonographically biopsy. Patient will follow-up with one of our Breast Center Nurses. OVERALL FINAL ASSESSMENT: BI-RADS CATEGORY 4: Suspicious abnormality - biopsy should be considered. DICTATION LOCATION: [facility] us Jayden Garcia MD MAMMO ORDERABLES Final Result from Last 3 Months or Most Recently Relevant to Health Maintenance Insurance MEDICARE PART A AND B [employer] MEDICARE SUPP AESSI Advance Directives For more information, please contact: [phone] * Full Code (Latest Code Status on File) Date Activated Date Inactivated Comments 07/15/2024 3:37 PM 07/15/2024 7:38 PM * Full Code Date Activated Date Inactivated Comments 07/15/2024 1:12 PM 07/15/2024 3:37 PM Care Teams Mileage Clerk Relationship Specialty Start Date End Date Franck Alvarez MD PCP - General Family Practice 04/15/20
--- OUTSIDE RECORDS SUMMARY | 2024-11-01 09:17 | XMS_ITS | Clinical Summary ---
Author Organization [address] Address [address] [place] [id number] Care Team Providers Care Medical Administrator Name Role Phone Franck Alvarez MD Primary Care Provider [phone] Jayden Garcia MD Unavailable [phone] Allergies Active Allergy Reactions Criticality Noted Date Comments Erythromycin Rash Medium 03/08/2017 Medications calcium carbonate (CALCIUM 600) 1,500 mg (600 mg of elemental calcium) tablet Take 600 mg by mouth. Active multivitamin with minerals tablet Take by mouth. Active rOPINIRole (REQUIP) 0.5 mg tablet every 8 hours. Active aspirin 81 mg enteric coated tablet Take 81 mg by mouth daily Active omega-3 fatty acids 100 mg tablet,chewable 05/19/2020 Act aj calcium carb/vit D3/minerals (CALCIUM CARBONATE-VIT D3-MIN ORAL) 05/19/2020 Active ascorbic acid/elderberry fruit (AIRBORNE, ELDERBERRY, ORAL) 05/19/2020 Active Active Problems Problem Noted Date Diagnosed Date IPMN (intraductal papillary mucinous neoplasm) 1 10/28/2019 Hepatic steatosis 08/10/2020 Elevated liver enzymes 05/03/2020 Hyperglycemia 05/03/2020 Hyperlipidemia 11/04/2019 Impaired fasting glucose 11/01/2019 Obesity (BMI 30-39.9) 05/01/2019 Tachycardia 05/01/2019 Lesion of nose 10/31/2018 Restless leg syndrome 08/10/2016 Fatigue 06/09/2016 Mood altered 06/09/2016 Surgical History Surgery Date Site/Laterality Comments HEEL SPUR EXCISION CARPAL TUNNEL RELEASE AUGMENTATION MAMMAPLASTY 09/18/2001 - 09/17/2002 Bilater al HYSTERECTOMY 09/18/1999 - 09/17/2000 OOPHORECTOMY 09/18/1999 - 09/17/2000 Medical History Medical History Date Comments Peripheral neuropathy Gastric reflux Family History Medical History Relation Name Comments Diabetes Father Lung disease Father Breast cancer Father's Sister madan Arthritis Mother Blood Clot Mother Relation Name Status Comments Father Father's Sister madan Mother Social History Tobacco Use Types Packs/Day Years Used Date Smoking Tobacco: Never Alcohol Use Standard Drinks/Week Comments No 0 (1 standard drink = 0.6 oz pur e alcohol) Personal Safety Answer Date Recorded Getting School Help Needed Not on file 12/01 Comments No Sex and Gender Information Value Date Recorded Sex Assigned at Not on file Legal Sex Female 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 Gender Identity Not on file Sexual Orientation Not on file Obstetrics History Para Term AB IAB SAB Ectopic Multiple Livin g Live Births 4 3 3 Date Outcome GA Total Labor Labor/2nd/3rd Weight Sex Type Anes PTL Xiao A1 A5 Name Clin Term Term Term Last Filed Vital Signs Vital Sign Reading Time Taken Comments Blood Pressure 125/87 03/03/2021 8:28 AM CDT Pulse 73 03/03/2021 8:28 AM CDT Temperature - - Respiratory Rate - - Oxygen Saturation - - Inhaled Oxygen Concentration - - Weight 81.6 kg (180 lb) 03/08/2024 3:09 PM CDT Height 152.4 cm (5') 03/08/2024 3:09 PM CDT Body Mass Index 35.15 03/08/2024 3:09 PM CDT Plan of Treatment Health Maintenance Due Date Last Done Comments Colon Cancer Screening-Colonoscopy 1950 Depression Screening 1950 Fall Risk Assessment 1950 Hepatitis C Screening 1950 DTaP/Tdap/Td Vaccine (1 - Tdap) 1963 Hepatitis B Screening 1970 Zoster Vaccine (1 of 2) 2002 Well Visit 65+ 2017 Covid-19 Vaccine (3 - 2023-2 5 season) 2024 11/13/2020, 10/16/2020 Influenza Vaccine (#1) 2024 , 06/24/2019, 07/04/2018, Additional history exists Osteoporosis Screening-Bone Density Scan 06/24/2024 06/24/2022, 06/24/2022, 06/08/2021, Additional history exists Breast Cancer Screening-Mammogram 03/08/2025 03/08/2024, 01/16/2023, 01/16/2023, Additional history exists Pneumococcal vaccine 65+ Completed 07/03/2018, 05/20 Procedures Procedure Name Priority Date/Time Associated Diagnosis Comments SCREENING MAMMOGRAM BILATERAL W DON W IMPLANTS Schedule Routine, Read Routine (OP Routine) 03/08/2024 3:19 PM CDT Screening mammogram, encounter for from Last 3 Months or Most Recently Relevant to Health Maintenance Results * (ABNORMAL) Screening Mammogram Bilateral W Don W Implants (03/08/2024 3:19 PM CDT) Anatomical Region Laterality Modality Breast Bilateral Mammography 03/08/2024 3:42 PM CDT Impressions 03/08/2024 3:42 PM CDT Findings in the right breast. Recommend right diagnostic mammogram and possible sonogram. BI-RADS: 0 - Additional imaging evaluation is necessary. Electronically signed by: Celeste Sidhu 03/08/2024 3:42 PM CDT EXAMINATION: SCREENING MAMMOGRAM BILATERAL W DON W IMPLANTS ORDERING HEALTHCARE PROVIDER: SELF SCREENING MAMMOGRAM HISTORY: Routine screening mammography. COMPARISON: 01/03/2022, 12/11/2020, 11/19/2019, 10/10/2019, 09/07/2018, 09/04/2017 TECHNIQUE: CC and MLO views of the bilateral breasts were obtained with digital technique using breast tomosynthesis with C view. Computer aided detection was utilized. FINDINGS: DENSITY: There are scattered fibroglandular elements in the bilateral breasts. BREASTS: There are bilateral subpectoral saline implants. Asymmetry in the outer posterior right breast seen on the CC implant displaced view. Asymmetry in the inner mid right breast seen on the CC implant displaced view. Possible distortion in the upper mid right breast seen on the MLO implant displaced view. No suspicious mammographic finding in the left breast. us Self Screening Mammogram IMG MAMMO PROCEDURES Fi nal Result from Last 3 Months or Most Recently Relevant to Health Maintenance Insurance MEDICARE [facility] SENIOR SUPPLEMENT MEDICARE T SENIOR SUPPLEMENT Care Teams Medical Administrator Relationship Specialty Start Date End Date Franck Alvarez MD [address] [id number] PCP - General Family Medicine 03/03/17 Jayden Garcia MD [address] [place] [phone] Consulting Physician Obstetrics and Gynecology 03/08/24
--- OUTSIDE RECORDS SUMMARY | 2024-11-01 09:17 | XMS_ITS | Clinical Summary ---
Author Organization [facility] Address [address] [place] [address] Phone Care Team Providers Care Motor Vehicles Inspector Name Role Phone ARCENIO MAGDALENO, NORMAN Fish Primary Care Provider [phone] Reason for Referral Date Encounter Description Provider Reason for Referral 05/09/23 DIABETIC FOLLOW UP APPOINTMENT RAVEN LANDIN CUSTOM DRESSMAKER-Marisa Request Consultation By Steward/Stewardess [employer] Reason for Visit and Chief Complaint visit for: Diabetes Education and Follow Up Visit for Type 2 Diabetic Problems Includes: Problems addressed during this encounter and other active Problems Current Visit Onset Date Resolved Date Provider Conditio n Status Diabetes Mellitus Type 2 Without Complication 09/28/2022 RAVEN LANDIN CUSTOM DRESSMAKER-C Active Last Documented On 3 5:14PM ; [facility] Past Visits Onset Date Resolved Date Provider Condition Status Obesity 09/28/2022 RAVEN SCHMID CUSTOM DRESSMAKER-C Active Last Documented On 3 5:13PM ; [facility] Plan of Treatment A1C goal is 7% or less if under 70 years of age and 8% or less if over 70 years of age as per ADA guidelines RECOMMENDATIONS: Needs eye examination in june- follow up in 6 months Continue to follow a Low Carbohydrate meal plan 3 meals daily with 2 snacks and bedtime snack-all snacks should be protein rich very low carbohydrate such as nuts, nut butters, eggs, meat snacks, cheese, plain [place]ian yogurt or a protein shake. RememberIt is best to eat something every 3 1/2 to 4 hours Test Blood Glucose as discussed, record readings and bring reading and device to follow up visit. Exercise at least 30 minutes daily or 150 minutes weekly. Above your normal daily activity. Reduce stress!! Examine feet weekly. Remember it is important to make appointments for annual podiatry, dental and eye exams. Lab work needs to be done to check kidney function annually. Continue to read food labels and count carbohydrates 150-200 grams daily or less and look at sugar content keeping it to 30 grams daily or less. Patient agrees with this plan and will follow up with me for reinforcement and further evaluation and management of diabetes. - Last Documented On 05/09/2023 11:09AM ; [facility] Pending Tests Order Diagnosis Results Due Ordering Ann alvarez Lab Hemoglobin A1C 11/13/23 RAVEN LANDIN CUSTOM DRESSMAKER-C Last Documented On 4 1:28PM ; [facility] Instructions to patient Intervention and counseling on cessation of tobacco use Last Documented On 3 10:12AM ; [facility] Maintain a healthy diet Last Documented On 3 10:10AM ; [facility] Lose weight Last Documented On 3 10:10AM ; [facility] Avoid foods and beverages co ntaining sugar Last Documented On 3 10:10AM ; [facility] Education and Decision Aids were provided during visit for: Discussed preventing falls Last Documented On 3 10:10AM ; [facility] Patient education about a pr oper diet Last Documented On 3 10:10AM ; [facility] Patient education about meal planning Last Documented On 3 10:10AM ; [facility] Patient education about weig ht control Last Documented On 3 10:10AM ; [facility] Patient education about regu lar dental care Last Documented On 3 10:10AM ; [facility] Patient education about diab etes and discussed ABCs of diabetic therapy and goals Last Documented On 3 10:10AM ; [facility] Patient education about a bl ood glucose monitor Last Documented On 3 10:10AM ; [facility] Patient education about a ho sc blood glucose monitor with instructions to bring monitor to each visit Last Documented On 3 10:10AM ; [facility] Dietary counseling pertainin g to diabetes mellitus Last Documented On 3 10:10AM ; [facility] Patient education about diab etic foot care should see a support technician annually for screening Last Documented On 3 10:10AM ; [facility] Inquiry and counseling about medication administration and compliance take diabetic medications as directed Last Documented On 3 10:10AM ; [facility] Education, guidance, and cou nseling about dietary management Last Documented On 3 10:10AM ; [facility] Education, guidance, and cou nseling about meal preparation Last Documented On 3 10:10AM ; [facility] Patient goals discussed Last Documented On 3 10:10AM ; [facility] The patient's goal is to gustavo p fasting blood sugar under 150 before meals and 180 2 hours after meals Last Documented On 3 10:10AM ; [facility] The patient's goal is to dioni t the blood sugars and bring in the results to each visit Last Documented On 3 10:10AM ; [facility] Patient's goal is to keep he moglobin A1c levels under 7.0% or less than 8.0% if over the age of 70 Last Documented On 3 10:10AM ; [facility] The patient will lose weight or maintain a BMI<25% Last Documented On 3 10:10AM ; [facility] Patient will increase aerobi c activity (30-45 min most days of wk) a min of 5 days a week Last Documented On 3 10:10AM ; [facility] Assessments Includes: Assessments from this encounter Findings - [E11.9 - Type 2 diabetes mellitus without complications] Type 2 diabetes mellitus without complication - Last Documented On 05/09/2023 11:09AM ; [facility] - Counseling and coordination of care was more than 50% of encounter time - Last Documented On 05/09/2023 11:09AM ; [facility] Instructions Includes: Instructions from this encounter Instructions to patient Intervention and counseling on cessation of tobacco use Last Documented On 3 10:12AM ; [facility] Maintain a healthy diet Last Documented On 3 10:10AM ; [facility] Lose weight Last Documented On 3 10:10AM ; [facility] Avoid foods and beverages co ntaining sugar Last Documented On 3 10:10AM ; [facility] Education and Decision Aids were provided during visit for: Discussed preventing falls Last Documented On 3 10:10AM ; [facility] Patient education about a pr oper diet Last Documented On 3 10:10AM ; [facility] Patient education about meal planning Last Documented On 3 10:10AM ; [facility] Patient education about weig ht control Last Documented On 3 10:10AM ; [facility] Patient education about regu lar dental care Last Documented On 3 10:10AM ; [facility] Patient education about diab etes and discussed ABCs of diabetic therapy and goals Last Documented On 3 10:10AM ; [facility] Patient education about a bl ood glucose monitor Last Documented On 3 10:10AM ; [facility] Patient education about a ho me blood glucose monitor with instructions to bring monitor to each visit Last Documented On 3 10:10AM ; [facility] Dietary counseling pertainin g to diabetes mellitus Last Documented On 3 10:10AM ; [facility] Patient education about diab etic foot care should see a support technician annually for screening Last Documented On 3 10:10AM ; [facility] Inquiry and counseling about medication administration and compliance take diabetic medications as directed Last Documented On 3 10:10AM ; [facility] Education, guidance, and cou nseling about dietary management Last Documented On 3 10:10AM ; [facility] Education, guidance, and cou nseling about meal preparation Last Documented On 3 10:10AM ; [facility] Patient goals discussed Last Documented On 3 10:10AM ; [facility] The patient's goal is to gustavo p fasting blood sugar under 150 before meals and 180 2 hours after meals Last Documented On 3 10:10AM ; [facility] The patient's goal is to dioni t the blood sugars and bring in the results to each visit Last Documented On 3 10:10AM ; [facility] Patient's goal is to keep he moglobin A1c levels under 7.0% or less than 8.0% if over the age of 70 Last Documented On 3 10:10AM ; [facility] The patient will lose weight or maintain a BMI<25% Last Documented On 3 10:10AM ; [facility] Patient will increase aerobi c activity (30-45 min most days of wk) a min of 5 days a week Last Documented On 3 10:10AM ; [facility] Medical Equipment - Implanted Devices Includes: Current Devices No Medical Equipment Recorded Medications Includes: Medications discussed during this encounter and other current Medications Discontinued / Stopped on this date SUKHWINDER BEVERLY CUSTOM DRESSMAKER-BC on 05/08/2023 Amoxicillin-Pot Clavulanate 600-42.9 MG/5ML Oral Suspension Reconstituted Provider: SUKHWINDER Maldonado CUSTOM DRESSMAKER-BC Diagnosis: Acute maxillary sinusitis, unspecified Last Documented On 05/09/2023 10:13AM By Gabino CASTRO ; [facility] Phentermine HCl 15 MG Oral Capsule Provider: RAVEN FLORES CUSTOM DRESSMAKER-C Diagnosis: Obesity, unspeci fied Last Documented On 05/09/2023 10:12AM By Gabino CASTRO ; [facility] Current Medications (continue as prescribed) rOPINIRole HCl 0.5 MG Oral Tablet 01/23/2024 Provide r: NORMAN RG MD Diagnosis: Last Documented On 03/19/2024 10:45AM By Vickey CASTRO ; [facility] Omeprazole 20 MG Oral Capsul e Delayed Release 11/27/2023 Provider: NORMAN RG MD Diagnosis: Last Documented On 03/19/2024 10:45AM By Vickey CASTRO ; [facility] Past Medications on file Amoxicillin-Pot Clavulanate 600-42.9 MG/5ML Oral Suspension Reconstituted 10/13/2023 - 10/23/2023 Provider: KARUNA AL Diagnosis: Acute bronchitis , unspecified Take 7mL twice daily x 10 days Last Documented On 4 11:26AM By Karuna AL ; [facility] Amoxicillin-Pot Clavulanate 600-42.9 MG/5ML Oral Suspension Reconstituted 06/21/2021 - 07/01/2021 Provider: KARUNA AL Diagnosis: Acute sinusitis, unspecified Take 7mL twice daily x 10 days Last Documented On 1 10:00AM By Karuna AL ; [facility] Nitrofurantoin 25 MG/5ML OR SUSP 05/13/2013 - 05/20/2013 Provider: VADIM RAMIRES PA-C Diagnosis: URIN TRACT INFEC TION NOS 4 tsp BID x 7 days. Last Documented On 3 2:40PM By VADIM RAMIRES PA-C ; [facility] Cipro 500 MG/5ML (10%) OR SUSR 10/08/2012 - 10/18/2012 Provider: VADIM RAMIRES PA-C Diagnosis: URIN TRACT INFEC TION NOS 1/2 tsp BID x 10 days. Last Documented On 3 9:59AM By VADIM RAMIRES PA-C ; [facility] Medications Administered Includes: Administered Medications from this encounter No Administered Medications Recorded Vital Signs Includes: Vital Signs from this encounter Vital Name 05/09/2023 10:10A Blood Pressure Sitting (mmHg) 124/64 Pulse Rate-Sitting (bpm) 87 Respiration Rate (breaths/min) 20 Temp-Oral (F) 97.5 Height (in) 60 Weight (lb) 172 Body Mass Index 33.6 Body Surface Area 1.8 Oxygen Saturation (%) 97 Last Documented: On 05/09/2023 10:11A M ; [facility] Results Includes: Results discussed during this encounter No Results Recorded For Specified Dates History of Present Illness Includes: History of Present Illness from this encounter BLANCA DE LOS SANTOS is a 73 year old female. Source of patient information was patient ? Allergy list reviewed ? Allergy list reviewed ? Problem list reviewed ? Problem list reviewed ? Medication reconciliation performed ? Medication list reviewed - No night sweats - No worsening vision - No chest pain or discomfort - No dyspnea - No polyphagia - No change in bowel habit - No changes in urinary habits - No polydipsia - No tingling of the limbs - No numbness of the limbs - No lesion on the feet Patient is here today for follow up to their diabetes care plan and discuss additional strategies to maintain adequate glycemic control. Blood Glucose readings reviewed with patient. Estimated average fasting blood glucose: 150's Diet Reviewed with patient typical meals are high in carbohydrate rich, processed foods but a significant effort with improvements has been demonstrated. Patient does often skips meals and does not routinely snack. Depression screening neg. for symptoms- this is reviewed due to unstable chronic illness BP is presently stable/well [id number] ordered/reviewed as per ADA guidelines. Date of last Micro albumin: Date of last A1C: 12/08-5.8 HLD-controlled on current therapy Lipid panel reviewed as per ADA guidelines for CV risk/T2DM/HTN Hypoglycemia Risk Assessed as Low <1% risk of hypoglycemia admission in 12 months Patient could have better glycemic control with the addition of diet modification. Today's Blood Glucose: 119 Recommendations: Needs eye examination in june- follow up in 6 months Time spent on this patient for E/M including assessment, education and plan of care, reviewing pertinent labs, medical history and other medical records and documentation total 35 minutes. Social History Description Last Updated Tobacco non-user 02/07/2023 Last Documented On 3 10:10AM ; [facility] No travel 06/21/2021 Last Documented On 3 10:10AM ; [facility] Smoking status : Never smoker 11/30/2019 Last Documented On 3 10:10AM ; [facility] Currently 04/09/2012 Last Documented On 3 10:10AM ; [facility] Exercise frequency 3 X WEEKLY 04/09/2012 Last Documented On 3 10:10AM ; [facility] No consumption of alcohol 04/09/2012 Last Documented On 3 10:10AM ; [facility] Not using drugs 04/09/2012 Last Documented On 3 10:10AM ; [facility] 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 Last Documented On 3 10:10AM ; [facility] Procedures and Surgical History Includes: Procedures from this encounter Procedures Code Diagnosis Performing Provider Service L ocation Service Date controlled carbohydrate diet Last Documented On 3 10:10AM ; [facility] diabetic diet Last Documented On 3 10:10AM ; [facility] preventive medicine / risk factor counse ling provided Last Documented On 3 10:10AM ; [facility] request consultation by support technician Last Documented On 3 10:10AM ; [facility] disposition: reassurance Last Documented On 3 10:10AM ; [facility] patient information sheet given for diag nosis : Diabetes Last Documented On 3 10:10AM ; [facility] diabetic supplies glucometer Last Documented On 3 10:10AM ; [facility] plan of care reviewed and agreed to by t mike patient Last Documented On 3 10:10AM ; [facility] intervention and counseling on cessation of toba finisher accordion use 4000F Last Documented On 3 10:12AM ; [facility] use of tobacco assessment performed 1000F Last Documented On 3 10:10AM ; [facility] microalbuminuria test result documented and reviewed Last Documented On 3 10:10AM ; [facility] patient screened for future fall risk 3288F Last Documented On 3 10:10AM ; [facility] standardized depression screening: negative for symptoms 3351F Last Documented On 3 10:10AM ; [facility] review of medications documented 1160F Last Documented On 3 10:10AM ; [facility] encouragement of annual ophthalmologic e xamination performed Last Documented On 3 10:10AM ; [facility] counseling about safety issues Last Documented On 3 10:10AM ; [facility] avoid foods and beverages containing sug ar Last Documented On 3 10:10AM ; [facility] screening for adult depression: impressi on and score Last Documented On 3 10:10AM ; [facility] diabetic foot examination 202F Last Documented On 3 10:10AM ; [facility] activity/exercise education prescribed Last Documented On 3 10:10AM ; [facility] encouragement to exercise Last Documented On 3 10:10AM ; [facility] screening for safety concerns Last Documented On 3 10:10AM ; [facility] Monitor Blood Sugar Last Documented On 3 10:10AM ; [facility] Advised ophthalmological services Last Documented On 3 10:10AM ; [facility] Reviewed Blood Sugars Last Documented On 3 10:10AM ; [facility] Carbohydrate countin-200 grams or less daily Last Documented On 3 10:10AM ; [facility] Clinical summary provided to patient Last Documented On 3 10:10AM ; [facility] labs and studies reviewed with patient Last Documented On 3 10:10AM ; [facility] Medical History Includes: Medical History addressed during this encounter Description Last Updated LMP: HYSTERECTOMY 05/08/2023 Last Documented On 3 10:10AM ; [facility] No exposure to a contagious disease 12/2020 Last Documented On 3 10:10AM ; [facility] No Contact with and (Suspected) exposure to COVID-19 06/21/2021 Last Documented On 3 10:10AM ; [facility] No fall 06/21/2021 Last Documented On 3 10:10AM ; [facility] Not taking OTC medications 06/18/2021 Last Documented On 3 10:10AM ; [facility] Pt does not get blood pressure checked a t other facility 10/01/2015 Last Documented On 3 10:10AM ; [facility] Exposure to a lot of bright sunlight Last Documented On 3 10:10AM ; [facility] 1 miscarriage(s) 04/09/2012 Last Documented On 3 10:10AM ; [facility] Previously 5 time(s) 04/09/2012 Last Documented On 3 10:10AM ; [facility] No history of arthritis 04/09/2012 Last Documented On 3 10:10AM ; [facility] No history of cancer 04/09/2012 Last Documented On 3 10:10AM ; [facility] No history of chronic obstructive pulmon candelario disease 04/09/2012 Last Documented On 3 10:10AM ; [facility] No history of convulsive disorder 2011 Last Documented On 3 10:10AM ; [facility] No history of diabetes mellitus 04/09/20 12 Last Documented On 3 10:10AM ; [facility] No history of hypertension 04/09/2012 Last Documented On 3 10:10AM ; [facility] No history of stroke syndrome 04/09/2012 Last Documented On 3 10:10AM ; [facility] No history of venereal disease 2 Last Documented On 3 10:10AM ; [facility] No reported cardiovascular symptoms 03/19 Last Documented On 3 10:10AM ; [facility] No reported easy bleeding 04/09/2012 Last Documented On 3 10:10AM ; [facility] No reported recurrent infections 012 Last Documented On 3 10:10AM ; [facility] Family History Includes: Family History addressed during this encounter No Family History Recorded Review of Systems Includes: Review of Systems from this encounter Encounter Background Information: Patient is compliant with self monitored glucose monitoring. Systemic: Feeling fine. Eyes: No eye symptoms. Cardiovascular: No chest pain or discomfort. Pulmonary: No dyspnea. Gastrointestinal: No gastrointestinal symptoms. Genitourinary: No genitourinary symptoms. Musculoskeletal: No musculoskeletal symptoms. Neurological: No neurological symptoms. Psychological: No psychological symptoms. Mental Status Includes: Mental Status from this encounter Description Oriented to time, place, and person Functional Status Includes: Functional Status from this encounter No Functional Status Recorded Physical Exam Includes: Physical Exam from this encounter Allergies Includes: Active Allergies Substance Type Reaction Onset Date Resolved Date Statu s Erythromycin Allergy 01/25/2012 Active Last Documented On 4 1:03PM ; [facility] Encounters Encounter Provider Location Date Check-In Time Check-Out Time Diagnosis DIABETIC FOLLOW UP APPOINTMENT RAVEN AL [facility]- 023 9:51AM 10:57AM Dur of Enc - Decatizer & Coord of Care > 50% Encounter Time,Diabetes Mellitus Type 2 Without Complication Insurance Includes: Active Insurance Policies Plan Name Member ID Group # Subscriber Relationship Effect aj Dates 1 - MEDICARE PART A CLAIMS/NGS [id number] KEIRA DE LOS SANTOS Self 2 - [employer] [id number] KEIRA DE LOS SANTOS Self Clinical Notes Includes: Clinical Notes from this encounter * Progress note Date Encounter Last Documented by 05/09/2023 DIABETIC FOLLOW UP APPOINTMENT L ast documented on 05/09/2023; 11:09 AM, RAVEN AL; [facility] Active Problems & Conditions - E11.9 - Diabetes Mellitus Type 2 Without Complication - Z83.3 - Family History of Diabetes Mellitus - Obesity Reason For Visit Visit for: Diabetes Education and Follow Up Visit for Type 2 Diabetic. History of Present Illness KEIRA DE LOS SANTOS is a 73 year old female. Source of patient information was patient - Allergy list reviewed - Allergy list reviewed - Problem list reviewed - Problem list reviewed - Medication reconciliation performed - Medication list reviewed - No night sweats - No worsening vision - No chest pain or discomfort - No dyspnea - No polyphagia - No change in bowel habit - No changes in urinary habits - No polydipsia - No tingling of the limbs - No numbness of the limbs - No lesion on the feet Patient is here today for follow up to their diabetes care plan and discuss additional strategies to maintain adequate glycemic control. Blood Glucose readings reviewed with patient. Estimated average fasting blood glucose: 150's Diet Reviewed with patient typical meals are high in carbohydrate rich, processed foods but a significant effort with improvements has been demonstrated. Patient does often skips meals and does not routinely snack. Depression screening neg. for symptoms- this is reviewed due to unstable chronic illness BP is presently stable/well adnogntpec-heswv-jnephqd ordered/reviewed as per ADA guidelines. Date of last Micro albumin: Date of last A1C: 12/08-5.8 HLD-controlled on current therapy Lipid panel reviewed as per ADA guidelines for CV risk/T2DM/HTN Hypoglycemia Risk Assessed as Low <1% risk of hypoglycemia admission in 12 months Patient could have better glycemic control with the addition of diet modification. Today's Blood Glucose: 119 Recommendations: Needs eye examination in june- follow up in 6 months Time spent on this patient for E/M including assessment, education and plan of care, reviewing pertinent labs, medical history and other medical records and documentation total 35 minutes. Past Medical/Surgical History Reported: LMP: HYSTERECTOMY. Recent Events: Pt does not get blood pressure checked at other facility. Medical: No reported cardiovascular symptoms, no easy bleeding, and no recurrent infections. Medications: Not taking OTC medications. Exposure: No exposure to a contagious disease and not Contact with and (Suspected) exposure to COVID-19. Environmental Exposure: Exposure to a lot of bright sunlight. Physical Trauma: No fall. : Previously 5 time(s) and aborta including 1 miscarriage(s). Diagnoses: No diagnosis of systemic hypertension. No diagnosis of chronic obstructive pulmonary disease. No diagnosis of diabetes mellitus. No diagnosis of arthritis. No diagnosis of convulsive disorder No diagnosis of stroke syndrome. No diagnosis of sexually transmitted disease. No diagnosis of cancer Social History Tobacco use: Tobacco non-user. Smoking status: Never smoker. Alcohol: No consumption of alcohol. Drug Use: Not using drugs. Habits: Exercise frequency 3 X WEEKLY. Work: Occupation [employer]. Marital: Currently . Travel: No travel. Allergies - Erythromycin Review Of Systems Encounter Background Information: Patient is compliant with self monitored glucose monitoring. Systemic: Feeling fine. Eyes: No eye symptoms. Cardiovascular: No chest pain or discomfort. Pulmonary: No dyspnea. Gastrointestinal: No gastrointestinal symptoms. Genitourinary: No genitourinary symptoms. Musculoskeletal: No musculoskeletal symptoms. Neurological: No neurological symptoms. Psychological: No psychological symptoms. Physical Findings - Vitals taken 05/09/2023 10:10 am BP-Sitting 124/64 mmHg Pulse Rate-Sitting 87 bpm Respiration Rate 20 per min Temp-Oral 97.5 F Height 60 in Weight 172 lbs Body Mass Index 33.6 kg/m2 Body Surface Area 1.8 m2 Oxygen Saturation 97 % General Appearance: - Well-appearing. - Awake. - Alert. Lungs: - Respiration rhythm and depth was normal. Cardiovascular: Heart Rate And Rhythm: - Normal. Musculoskeletal System: General/bilateral: - Musculoskeletal system: normal. Foot: General/bilateral: - Normal neurological exam of right foot. - Normal 10-g monofilament exam of right foot. - Normal neurological exam of left foot. - Normal 10-g monofilament exam of left foot. Neurological: - Oriented to time, place, and person. Psychiatric: - Mood was calm. - Mood was pleasant. Skin: - General appearance was normal. Tests Labs and studies reviewed with patient. Assessment - [E11.9 - Type 2 diabetes mellitus without complications] Type 2 diabetes mellitus without complication - Counseling and coordination of care was more than 50% of encounter time Therapy - Monitor Blood Sugar Reviewed Blood Sugars. - Advised ophthalmological services. - Diabetic diet and with controlled carbohydrate content. - Encouragement to exercise. - Intervention and counseling on cessation of tobacco use and avoid sugar. - Encouragement of annual ophthalmologic examination performed - Disposition: reassurance. - Clinical summary provided to patient. - Patient information sheet given for diagnosis: Diabetes. - Plan of care reviewed and agreed to by the patient. - Request consultation by support technician. - Diabetic supplies glucometer. - Carbohydrate countin-200 grams or less daily. Counseling/Education - Education: eye examination is important annually - Printed information given for diabetic diet - Education: food diary: Purpose, how and what to document with instructions to bring in with each visit - Education: regular exercise - Education and instructions - Discussed Healthy Eating - Discussed Exercise - Maintain a healthy diet - Lose weight - Discussed preventing falls - Patient education about a proper diet - Patient education about meal planning - Patient education about weight control - Patient education about regular dental care - Patient education about diabetes and discussed ABCs of diabetic therapy and goals - Patient education about a blood glucose monitor - Patient education about a home blood glucose monitor with instructions to bring monitor to each visit - Dietary counseling pertaining to diabetes mellitus - Patient education about diabetic foot care should see a support technician annually for screening - The patient will lose weight or maintain a BMI<25% - Patient will increase aerobic activity (30-45 min most days of wk) a min of 5 days a week - Inquiry and counseling about medication administration and compliance take diabetic medications as directed - Education, guidance, and counseling about dietary management - Education, guidance, and counseling about meal preparation - Patient goals discussed - The patient's goal is to keep fasting blood sugar under 150 before meals and 180 2 hours after meals - The patient's goal is to test the blood sugars and bring in the results to each visit - Patient's goal is to keep hemoglobin A1c levels under 7.0% or less than 8.0% if over the age of 70 - Clinical summary provided to patient Plan A1C goal is 7% or less if under 70 years of age and 8% or less if over 70 years of age as per ADA guidelines RECOMMENDATIONS: Needs eye examination in june- follow up in 6 months Continue to follow a Low Carbohydrate meal plan 3 meals daily with 2 snacks and bedtime snack-all snacks should be protein rich very low carbohydrate such as nuts, nut butters, eggs, meat snacks, cheese, plain [place] yogurt or a protein shake. RememberIt is best to eat something every 3 1/2 to 4 hours Test Blood Glucose as discussed, record readings and bring reading and device to follow up visit. Exercise at least 30 minutes daily or 150 minutes weekly. Above your normal daily activity. Reduce stress!! Examine feet weekly. Remember it is important to make appointments for annual podiatry, dental and eye exams. Lab work needs to be done to check kidney function annually. Continue to read food labels and count carbohydrates 150-200 grams daily or less and look at sugar content keeping it to 30 grams daily or less. Patient agrees with this plan and will follow up with me for reinforcement and further evaluation and management of diabetes. Practice Management Preventive medicine / risk factor counseling provided; Use of tobacco assessment performed; Patient screened for future fall risk; Review of medications documented; Diabetic foot examination; Microalbuminuria test result documented and reviewed, patient screening for depression using standardized depression assessment tool negative for symptoms, for adult impression and score, and for safety concerns; Activity/exercise education prescribed and on safety issues. Health Reminders - Assess BMI satisfied 05/09/2023. - Assess Need for CT Lung Screen satisfied 05/09/2023. - Assess Tobacco Use satisfied 05/09/2023. - Blood Pressure Measurement satisfied 05/09/2023. - Depression Screening satisfied 05/09/2023. - Follow Up Plan BMI Management satisfied 05/09/2023. - Follow up plan for Depression Screening satisfied 05/09/2023. - Foot Exam satisfied 05/09/2023. - Neuropathy Screening satisfied 05/09/2023. - Precipitator Operator satisfied 05/09/2023.
--- OUTSIDE RECORDS SUMMARY | 2024-11-01 09:17 | XMS_ITS | Patient Health Record ---
Author Organization [facility] Address [address] [facility] [address] [place] [address] Care Team Providers Care Reinforced Concrete Inspector Name Role Phone Kim MAGDALENO, Dr Juárez Primary Care Provider Jemma vailable Reason For Referral No Information Problems Problem Type SNOMED Code ICD Code Onset Dates Problem Status W/U Status Risk Notes Problem [id number] History of colonic polyps (Z86.010) Active confirmed Plan Of Treatment No Information Insurance Providers Payer Name Payer Address Payer Phone Subscriber Number Group Number Insured Name Patient Relationship to Insured Coverage Start Date Coverage End Date Medicare E2 [address] [address] [place] [address] [id number] Shelly Levy Self - patient is the insured 7 [employer] Medicare Supplement [address] [address] [place] [phone] [id number] Shelly Levy Self - patient is the insured
--- OUTSIDE RECORDS SUMMARY | 2024-11-01 09:17 | XMS_ITS | Clinical Summary ---
Author Organization [facility] Address [address] [place] [address] Phone Care Team Providers Care Education Specialist Name Role Phone ARCENIO MAGDALENO, NORMAN Fish Primary Care Provider [phone] Reason for Referral Date Encounter Description Provider Reason for Referral 02/07/23 DIABETIC FOLLOW UP APPOINTMENT RAVEN LANDIN BABY STROLLER RENTAL CLERK-C Request Consultation By Skein Washer Reason for Visit and Chief Complaint visit for: Diabetes Education and Follow Up Visit for Type 2 Diabetic Problems Includes: Problems addressed during this encounter and other active Problems Current Visit Onset Date Resolved Date Provider Conditio n Status Diabetes Mellitus Type 2 Without Complication 09/28/2022 RAVEN LANDIN BABY STROLLER RENTAL CLERK-C Active Last Documented On 3 5:14PM ; [facility] Past Visits Onset Date Resolved Date Provider Condition Status Obesity 09/28/2022 RAVEN SCHMID BABY STROLLER RENTAL CLERK-C Active Last Documented On 3 5:13PM ; [facility] Plan of Treatment A1C goal is 7% or less if under 70 years of age and 8% or less if over 70 years of age as per ADA guidelines RECOMMENDATIONS: Try Phentermine low dose for 3 months to see it it helps with weight loss. F/U in 3 months Continue to follow a Low Carbohydrate meal plan 3 meals daily with 2 snacks and bedtime snack-all snacks should be protein rich very low carbohydrate such as nuts, nut butters, eggs, meat snacks, cheese, plain Nauruan yogurt or a protein shake. RememberIt is [...] management of diabetes. - Last Documented On 02/07/2023 11:02AM ; [facility] Pending Tests Order Diagnosis Results Due Ordering Ann alvarez Lab Hemoglobin A1C 11/13/23 RAVEN LANDIN BABY STROLLER RENTAL CLERK-C Last Documented On 4 1:28PM ; [facility] Instructions to patient Maintain a healthy diet Last Documented On 3 9:59AM ; [facility] Lose weight Last Documented On 3 9:59AM ; [facility] Avoid foods and beverages co ntaining sugar Last Documented On 3 9:59AM ; [facility] Education and Decision Aids were provided during visit for: Discussed preventing falls Last Documented On 3 9:59AM ; [facility] Patient education about a pr oper diet Last Documented On 3 9:59AM ; [facility] Patient education about meal planning Last Documented On 3 9:59AM ; [facility] Patient education about weig ht control Last Documented On 3 9:59AM ; [facility] Patient education about regu lar dental care Last Documented On 3 9:59AM ; [facility] Patient education about diab etes and discussed ABCs of diabetic therapy and goals Last Documented On 3 9:59AM ; [facility] Patient education about a bl ood glucose monitor Last Documented On 3 9:59AM ; [facility] Patient education about a ho me blood glucose monitor with instructions to bring monitor to each visit Last Documented On 3 9:59AM ; [facility] Dietary counseling pertainin g to diabetes mellitus Last Documented On 3 9:59AM ; [facility] Patient education about diab etic foot care should see a surveillance specialist annually for screening Last Documented On 3 9:59AM ; [facility] Inquiry and counseling about medication administration and compliance take diabetic medications as directed Last Documented On 3 9:59AM ; [facility] Education, guidance, and cou nseling about dietary management Last Documented On 3 9:59AM ; [facility] Education, guidance, and cou nseling about meal preparation Last Documented On 3 9:59AM ; [facility] Patient goals discussed Last Documented On 3 9:59AM ; [facility] The patient's goal is to gustavo p fasting blood sugar under 150 before meals and 180 2 hours after meals Last Documented On 3 9:59AM ; [facility] The patient's goal is to dioni t the blood sugars and bring in the results to each visit Last Documented On 3 9:59AM ; [facility] Patient's goal is to keep he moglobin A1c levels under 7.0% or less than 8.0% if over the age of 70 Last Documented On 3 9:59AM ; [facility] The patient will lose weight or maintain a BMI<25% Last Documented On 3 9:59AM ; [facility] Patient will increase aerobi c activity (30-45 min most days of wk) a min of 5 days a week Last Documented On 3 9:59AM ; [facility] Assessments Includes: Assessments from this encounter Findings - [E11.9 - Type 2 diabetes mellitus without complications] Type 2 diabetes mellitus without complication - Last Documented On 02/07/2023 11:02AM ; [facility] - Counseling and coordination of care was more than 50% of encounter time - Last Documented On 02/07/2023 11:02AM ; [facility] Instructions Includes: Instructions from this encounter Instructions to patient Maintain a healthy diet Last Documented On 3 9:59AM ; [facility] Lose weight Last Documented On 3 9:59AM ; [facility] Avoid foods and beverages co ntaining sugar Last Documented On 3 9:59AM ; [facility] Education and Decision Aids were provided during visit for: Discussed preventing falls Last Documented On 3 9:59AM ; [facility] Patient education about a pr oper diet Last Documented On 3 9:59AM ; [facility] Patient education about meal planning Last Documented On 3 9:59AM ; [facility] Patient education about weig ht control Last Documented On 3 9:59AM ; [facility] Patient education about regu lar dental care Last Documented On 3 9:59AM ; [facility] Patient education about diab etes and discussed ABCs of diabetic therapy and goals Last Documented On 3 9:59AM ; [facility] Patient education about a bl ood glucose monitor Last Documented On 3 9:59AM ; [facility] Patient education about a ho me blood glucose monitor with instructions to bring monitor to each visit Last Documented On 3 9:59AM ; [facility] Dietary counseling pertainin g to diabetes mellitus Last Documented On 3 9:59AM ; [facility] Patient education about diab etic foot care should see a surveillance specialist annually for screening Last Documented On 3 9:59AM ; [facility] Inquiry and counseling about medication administration and compliance take diabetic medications as directed Last Documented On 3 9:59AM ; [facility] Education, guidance, and cou nseling about dietary management Last Documented On 3 9:59AM ; [facility] Education, guidance, and cou nseling about meal preparation Last Documented On 3 9:59AM ; [facility] Patient goals discussed Last Documented On 3 9:59AM ; [facility] The patient's goal is to gustavo p fasting blood sugar under 150 before meals and 180 2 hours after meals Last Documented On 3 9:59AM ; [facility] The patient's goal is to dioni t the blood sugars and bring in the results to each visit Last Documented On 3 9:59AM ; [facility] Patient's goal is to keep he moglobin A1c levels under 7.0% or less than 8.0% if over the age of 70 Last Documented On 3 9:59AM ; [facility] The patient will lose weight or maintain a BMI<25% Last Documented On 3 9:59AM ; [facility] Patient will increase aerobi c activity (30-45 min most days of wk) a min of 5 days a week Last Documented On 3 9:59AM ; [facility] Medical Equipment - Implanted Devices Includes: Current Devices No Medical Equipment Recorded Medications Includes: Medications discussed during this encounter and other current Medications Discontinued / Stopped on this date SUKHWINDER HARDYP-BC on 01/07/2023 Amoxicillin-Pot Clavulanate 600-42.9 MG/5ML Oral Suspension Reconstituted Provider: SUKHWINDER NUNEZ Diagnosis: Acute upper resp iratory infection, unspecified Last Documented On 02/07/2023 10:01AM By Gabino CASTOR ; [facility] Ozempic (0.25 or 0.5 MG/DOSE) 2 MG/1.5ML Subcutaneous Solution Pen-injector Provider: RAVEN AL Diagnosis: Type 2 diabetes mellitus without complications Last Documented On 02/07/2023 10:01AM By Gabino CASTRO ; [facility] Ozempic (1 MG/DOSE) 4 MG/3ML Subcutaneous Solution Pen-injector Provider: RAVEN GARCIA-C Diagnosis: Type 2 diabetes mellitus without complications Last Documented On 02/07/2023 10:01AM By Gabino CASTRO ; [facility] ROPINIRole HCl 0.5MG Oral Tablet Provider : Diagnosis: Last Documented On 02/07/2023 10:01AM By Gabino CASTRO ; [facility] New / Renewed during this visit RAVEN GARCIA-C on 02/07/2023 Phentermine HCl 15 MG Oral Capsule Provider: RAVEN E CLONINGER-HULTZ BABY STROLLER RENTAL CLERK-C 30 day supply: 30 capsule, 0 refills Diagnosis: Obesity, unspecified 1 Capsule every morning Pharmacy: [address], [phone] - Last Documented On 05/09/2023 10:12AM By Gabino CASTRO ; [facility] Current Medications (continue as prescribed) rOPINIRole HCl 0.5 MG Oral Tablet 01/23/2024 Provide r: NORMAN RG MD Diagnosis: Last Documented On 03/19/2024 10:45AM By Vickey CASTRO ; [facility] Omeprazole 20 MG Oral Capsul e Delayed Release 11/27/2023 Provider: NORMAN RG MD Diagnosis: Last Documented On 03/19/2024 10:45AM By Vickey CASTRO ; [facility] Past Medications on file Amoxicillin-Pot Clavulanate 600-42.9 MG/5ML Oral Suspension Reconstituted 10/13/2023 - 10/23/2023 Provider: KARUNA AL Diagnosis: Acute bronchitis , unspecified Take 7mL twice daily x 10 days Last Documented On 4 11:26AM By Karuna AL ; [facility] Amoxicillin-Pot Clavulanate 600-42.9 MG/5ML Oral Suspension Reconstituted 06/21/2021 - 07/01/2021 Provider: KARUNA AL Diagnosis: Acute sinusitis, unspecified Take 7mL twice daily x 10 days Last Documented On 1 10:00AM By Karuna AL ; [facility] Nitrofurantoin 25 MG/5ML OR SUSP 05/13/2013 - 05/20/2013 Provider: VADIM RAMIRES PA-C Diagnosis: URIN TRACT INFEC TION NOS 4 tsp BID x 7 days. Last Documented On 3 2:40PM By VADIM RAMIRES PA-C ; [facility] Cipro 500 MG/5ML (10%) OR SUSR 10/08/2012 - 10/18/2012 Provider: VADIM RAMIRES PA-C Diagnosis: URIN TRACT INFEC TION NOS 1/2 tsp BID x 10 days. Last Documented On 3 9:59AM By VADIM RAMIRES PA-C ; [facility] Medications Administered Includes: Administered Medications from this encounter No Administered Medications Recorded Vital Signs Includes: Vital Signs from this encounter Vital Name 02/07/2023 10:00A Blood Pressure Sitting (mmHg) 128/64 Pulse Rate-Sitting (bpm) 91 Respiration Rate (breaths/min) 20 Temp-Oral (F) 98.1 Height (in) 60 Weight (lb) 173 Body Mass Index 33.8 Body Surface Area 1.8 Oxygen Saturation (%) 98 Last Documented: On 02/07/2023 10:01A M ; [facility] Results Includes: Results discussed during this encounter No Results Recorded For Specified Dates History of Present Illness Includes: History of Present Illness from this encounter BLANCA DE LOS SANTOS is a 72 year old female. Source of patient information [...] additional strategies to maintain adequate glycemic control. Still struggling with weight gain despite cleaning up her diet. Blood Glucose readings reviewed with patient. Estimated average fasting blood glucose: 120's Diet Reviewed with patient typical meals are high in carbohydrate rich, processed foods but a significant effort with improvements has been demonstrated. Patient does often skips meals and does not routinely snack. Depression screening neg. for symptoms- this is reviewed due to unstable chronic illness BP is presently stable/well [id number] ordered/reviewed as per ADA guidelines. Date of last A1C: 09/26/22-6.2 11/2022 5.8% HLD-controlled on current therapy Lipid panel reviewed as per ADA guidelines for CV risk/T2DM/HTN Hypoglycemia Risk Assessed as Low <1% risk of hypoglycemia admission in 12 months Patient could have better glycemic control with the addition of diet modification. Today's Blood Glucose: 121 Last Podiatry Examination:NA Last Eye Examination: Last June unremarkable for retinopathy Last Dental Examination and cleaning: in January Recommendations: Try Phentermine low dose for 3 months to see it it helps with weight loss. F/U in 3 months Time spent on this patient for E/M including assessment, education and plan of care, reviewing pertinent labs, medical history and other medical records and documentation total 35 minutes. Social History Description Last Updated Tobacco non-user 02/07/2023 Last Documented On 3 11:02AM ; [facility] Smoking Status Unknown Procedures and Surgical History Includes: Procedures from this encounter Procedures Code Diagnosis Performing Provider Service L ocation Service Date controlled carbohydrate diet Last Documented On 3 9:59AM ; [facility] diabetic diet Last Documented On 3 9:59AM ; [facility] preventive medicine / risk factor counse ling provided Last Documented On 3 9:59AM ; [facility] request consultation by surveillance specialist Last Documented On 3 9:59AM ; [facility] disposition: reassurance Last Documented On 3 9:59AM ; [facility] patient information sheet given for diag nosis : Diabetes Last Documented On 3 9:59AM ; [facility] diabetic supplies glucometer Last Documented On 3 9:59AM ; [facility] plan of care reviewed and agreed to by t mike patient Last Documented On 3 9:59AM ; [facility] use of tobacco assessment performed 1000F Last Documented On 3 9:59AM ; [facility] microalbuminuria test result documented and reviewed Last Documented On 3 9:59AM ; [facility] patient screened for future fall risk 3288F Last Documented On 3 9:59AM ; [facility] standardized depression screening: negative for symptoms 3351F Last Documented On 3 9:59AM ; [facility] review of medications documented 1160F Last Documented On 3 9:59AM ; [facility] encouragement of annual ophthalmologic e xamination performed Last Documented On 3 9:59AM ; [facility] counseling about safety issues Last Documented On 3 9:59AM ; [facility] avoid foods and beverages containing sug ar Last Documented On 3 9:59AM ; [facility] screening for adult depression: impressi on and score Last Documented On 3 9:59AM ; [facility] diabetic foot examination Last Documented On 3 9:59AM ; [facility] activity/exercise education prescribed Last Documented On 3 9:59AM ; [facility] encouragement to exercise Last Documented On 3 9:59AM ; [facility] screening for safety concerns Last Documented On 3 9:59AM ; [facility] Monitor Blood Sugar Last Documented On 3 9:59AM ; [facility] Advised ophthalmological services Last Documented On 3 9:59AM ; [facility] Reviewed Blood Sugars Last Documented On 3 9:59AM ; [facility] Carbohydrate countin-200 grams or less daily Last Documented On 3 9:59AM ; [facility] Clinical summary provided to patient Last Documented On 3 9:59AM ; [facility] labs and studies reviewed with patient Last Documented On 3 9:59AM ; [facility] Medical History Includes: Medical History addressed during this encounter No Medical History Recorded Family History Includes: Family History addressed during [...] Active Last Documented On 4 1:03PM ; [facility] Encounters Encounter Provider Location Date Check-In Time Check-Out Time Diagnosis DIABETIC FOLLOW UP APPOINTMENT RAVEN HARDYP-C [facility]- 023 9:43AM 10:49AM Dur of Enc - Clinic Office Assistant & Coord of Care > 50% Encounter Time,Diabetes Mellitus Type 2 Without Complication Insurance Includes: Active Insurance Policies Plan Name Member ID Group # Subscriber Relationship Effect aj Dates 1 - MEDICARE PART A CLAIMS/NGS [id number] KEIRA DE LOS SANTOS Self 2 - [employer] SENIOR PRODUCT [id number] KEIRA DE LOS SANTOS Self Clinical Notes Includes: Clinical Notes from this encounter * Progress note Date Encounter Last Documented by 02/07/2023 DIABETIC FOLLOW UP APPOINTMENT L ast documented on 02/07/2023; 11:02 AM, RAVEN AL; [facility] Active Problems & Conditions - E11.9 - Diabetes Mellitus Type 2 Without Complication - Z83.3 - Family History of Diabetes Mellitus - Obesity Reason For Visit Visit for: Diabetes Education and Follow Up Visit for Type 2 Diabetic. History of Present Illness KEIRA DE LOS SANTOS is a 72 year old female. Source of patient information [...] additional strategies to maintain adequate glycemic control. Still struggling with weight gain despite cleaning up her diet. Blood Glucose readings reviewed with patient. Estimated average fasting blood glucose: 120's Diet Reviewed with patient typical meals are high in carbohydrate rich, processed foods but a significant effort with improvements has been demonstrated. Patient does often skips meals and does not routinely snack. Depression screening neg. for symptoms- this is reviewed due to unstable chronic illness BP is presently stable/well [id number]-phqas-[id number] ordered/reviewed as per ADA guidelines. Date of last A1C: 09/26/22-6.2 11/2022 5.8% HLD-controlled on current therapy Lipid panel reviewed as per ADA guidelines for CV risk/T2DM/HTN Hypoglycemia Risk Assessed as Low <1% risk of hypoglycemia admission in 12 months Patient could have better glycemic control with the addition of diet modification. Today's Blood Glucose: 121 Last Podiatry Examination:NA Last Eye Examination: Last June unremarkable for retinopathy Last Dental Examination and cleaning: in January Recommendations: Try Phentermine low dose for 3 months to see it it helps with weight loss. F/U in 3 months Time spent on this patient for E/M including assessment, education and plan of care, reviewing pertinent labs, medical history and other medical records and documentation total 35 minutes. Social History Tobacco use: Tobacco non-user. Allergies - Erythromycin Review Of Systems Encounter Background Information: Patient is compliant with self monitored glucose monitoring. Systemic: Feeling fine. Eyes: No eye symptoms. Cardiovascular: No chest pain or discomfort. Pulmonary: No dyspnea. Gastrointestinal: No gastrointestinal symptoms. Genitourinary: No genitourinary symptoms. Musculoskeletal: No musculoskeletal symptoms. Neurological: No neurological symptoms. Psychological: No psychological symptoms. Physical Findings - Vitals taken 02/07/2023 10:00 am BP-Sitting 128/64 mmHg Pulse Rate-Sitting 91 bpm Respiration Rate 20 per min Temp-Oral 98.1 F Height 60 in Weight 173 lbs Body Mass Index 33.8 kg/m2 Body Surface Area 1.8 m2 Oxygen [...] carbohydrate content. - Encouragement to exercise. - Avoid foods and beverages containing sugar. - Encouragement of annual ophthalmologic examination performed - Disposition: reassurance. - Clinical summary provided to patient. - Patient information sheet given for diagnosis: Diabetes. - Plan of care reviewed and agreed to by the patient. - Request consultation by surveillance specialist. - Diabetic supplies glucometer. - Carbohydrate countin-200 [...] about diabetic foot care should see a surveillance specialist annually for screening - The patient will [...] summary provided to patient Plan StartCited - Obesity, unspecified Phentermine HCl 15 MG capsule 1 Capsule every morning, 30 days, 0 refills EndCited A1C goal is 7% or less if under 70 years of age and 8% or less if over 70 years of age as per ADA guidelines RECOMMENDATIONS: Try Phentermine low dose for 3 months to see it it helps with weight loss. F/U in 3 months Continue to follow a Low Carbohydrate meal plan 3 meals daily with 2 snacks and bedtime snack-all snacks should be protein rich very low carbohydrate such as nuts, nut butters, eggs, meat snacks, cheese, plain Nauruan yogurt or a protein shake. RememberIt is [...] issues. Health Reminders - Assess BMI satisfied 02/07/2023. - Assess Need for CT Lung Screen satisfied 02/07/2023. - Assess Tobacco Use satisfied 02/07/2023. - Blood Pressure Measurement satisfied 02/07/2023. - Depression Screening satisfied 02/07/2023. - Follow Up Plan BMI Management satisfied 02/07/2023. - Follow up plan for Depression Screening satisfied 02/07/2023. - Foot Exam satisfied 02/07/2023. - Neuropathy Screening satisfied 02/07/2023. - Senior Firmware Engineer satisfied 02/07/2023.
--- OUTSIDE RECORDS SUMMARY | 2024-11-01 09:17 | XMS_ITS | Referral Summary ---
Author Organization [address] Address [address] [place] [id number] Care Team Providers Care Life Scientists Name Role Phone Franck Alvarez MD Primary Care Provider [phone] Jayden Garcia MD Unavailable Allergies Active Allergy Reactions Criticality Noted Date [...] syndrome 08/10/2016 Fatigue 06/09/2016 Mood altered 06/09/2016 Social History Tobacco Use Types Packs/Day Years Used Date Smoking Tobacco: Never Alcohol Use Standard Drinks/Week Comments No 0 (1 standard drink = 0.6 oz pur e alcohol) Personal Safety Answer Date Recorded Getting School Help Needed Not on file 12/01 Comments No Sex and Gender Information Value Date Recorded Sex Assigned at Not on file Legal Sex Female 10:53 AM [place] Gender Identity Not on file Sexual Orientation [...] 03/08/2024 3:09 PM CDT Plan of Treatment Not on file Procedures Procedure Name Priority Date/Time Associated Diagnosis [...] imaging evaluation is necessary. Electronically signed by: Daria Gtz M.D. Narrative 03/08/2024 3:42 PM CDT EXAMINATION: SCREENING MAMMOGRAM [...] Recently Relevant to Health Maintenance Insurance MEDICARE AETNA SENIOR [facility] MEDICARE AET[employer] SENIOR SUPPLEMENT Care Teams Life Scientists Relationship Specialty Start Date End Date Franck Alvarez MD [address] [id number] PCP - General Family Medicine 03/03/17 Jayden Garcia MD [address] [place] [phone] Consulting Physician Obstetrics and Gynecology 03/08/24
--- OUTSIDE RECORDS SUMMARY | 2024-11-01 09:17 | XMS_ITS | Clinical Summary ---
Author Organization [facility] Address [address] [place] [address] Phone Care Team Providers Care Soil Expert Name Role Phone ARCENIO MAGDALENO, NORMAN Fish Primary Care Provider [phone] Reason for Visit and Chief Complaint The Chief Complaint is: pt is here with a cough , yellow phlegm and some drainage for about a week Problems Includes: Problems addressed during this encounter and other active Problems All Visits Onset Date Resolved Date Provider Condition S tatus Diabetes Mellitus Type 2 Without Complication 09/28/2022 RAVEN LANDIN [employer] 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-C Active Last Documented On 3 5:14PM ; [facility] Obesity 09/28/2022 RAVEN GALLO [employer] 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 Purpose of and use of medication discussed. . - Last Documented On 10/13/2023 11:15AM ; [facility] pt has to have liquid medication - Last Documented On 10/13/2023 11:15AM ; [facility] Assessments Includes: Assessments from this encounter Findings - [J20.9 - Acute bronchitis, unspecified] Acute bronchitis - Last Documented On 10/13/2023 11:15AM ; [facility] Medical Equipment - Implanted Devices Includes: Current Devices No Medical Equipment Recorded Medications Includes: Medications discussed during this encounter and other current Medications New / Renewed during this visit CHAZ AL on 10/13/2023 Amoxicillin-Pot Clavulanate 600-42.9 MG/5ML Oral Suspension Reconstituted Provider: CHAZ AL 10 day supply: 140 mL, 0 refills Diagnosis: Acute bronchitis, unspecified Take 7mL twice daily x 10 days Pharmacy: [address], [phone] - Last Documented On 4 11:26AM By Chaz AL ; [facility] Current Medications (continue as prescribed) rOPINIRole HCl 0.5 MG Oral Tablet 01/23/2024 Provide r: NORMAN RG MD Diagnosis: Last Documented On 03/19/2024 10:45AM By Vickey CASTRO ; [facility] Omeprazole 20 MG Oral Capsul e Delayed Release 11/27/2023 Provider: NORMAN RG MD Diagnosis: Last Documented On 03/19/2024 10:45AM By Vickey CASTRO ; [facility] Past Medications on file Amoxicillin-Pot Clavulanate 600-42.9 MG/5ML Oral Suspension Reconstituted 06/21/2021 - 07/01/2021 Provider: CHAZ AL Diagnosis: Acute sinusitis, unspecified Take 7mL twice daily x 10 days Last Documented On 1 10:00AM By Chaz AL ; [facility] Nitrofurantoin 25 MG/5ML OR SUSP 05/13/2013 - 05/20/2013 Provider: VADIM RAMIRES PA-C Diagnosis: URIN TRACT INFEC TION NOS 4 tsp BID x 7 days. Last Documented On 3 2:40PM By VADIM RAMIRES PA-C ; [facility] Cipro 500 MG/5ML (10%) OR SUSR 10/08/2012 - 10/18/2012 Provider: VADIM RAMIRES PA-C Diagnosis: URIN TRACT INFEC TION NOS 1/2 tsp BID x 10 days. Last Documented On 3 9:59AM By VADIM RAMIRES PA-C ; [facility] Medications Administered Includes: Administered Medications from this encounter No Administered Medications Recorded Vital Signs Includes: Vital Signs from this encounter Vital Name 10/13/2023 11:02A Pulse Rate-Sitting (bpm) 83 Temp-Oral (F) 98.6 Height (in) 60 Weight (lb) 180 Body Mass Index 35.2 Body Surface Area 1.8 Oxygen Saturation (%) 98 Last Documented: On 10/13/2023 11:03A M ; [facility] Results Includes: Results discussed during this encounter No Results Recorded For Specified Dates History of Present Illness Includes: History of Present Illness from this encounter BLANCA DE LOS SANTOS is a 73 year old female. - Allergy list reviewed - Medication list reviewed Patient is here in clinic today for c/o productive cough that is yellow for about a week. Denies any nasal congestion/drainage, SOB or fever. At times she state she has heard wheezing. She has been trying mucinex but it hasn't been helping much. Declines testing. Social History Description Last Updated Tobacco non-user 02/07/2023 Last Documented On 4 11:01AM ; [facility] No travel 06/21/2021 Last Documented On 4 11:01AM ; [facility] Smoking status : Never smoker 11/30/2019 Last Documented On 4 11:01AM ; [facility] Currently 04/09/2012 Last Documented On 4 11:01AM ; [facility] Exercise frequency 3 X WEEKLY 04/09/2012 Last Documented On 4 11:01AM ; [facility] No consumption of alcohol 04/09/2012 Last Documented On 4 11:01AM ; [facility] Not using drugs 04/09/2012 Last Documented On 4 11:01AM ; [facility] 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 Last Documented On 4 11:01AM ; [facility] Procedures and Surgical History Includes: Procedures from this encounter Procedures Code Diagnosis Performing Provider Service Location Service Date reviewed PM for antibacterials used for previous infections Last Documented On 4 11:14AM ; [facility] Pt to use OTC expectorant product as nee ded per product instruction.~ Last Documented On 4 11:14AM ; [facility] patient to call if symptoms worsen or not improved to update patient's status as needed Last Documented On 4 11:14AM ; [facility] review of medications documented [id number] Last Documented On 4 11:03AM ; [facility] Medical History Includes: Medical History addressed during this encounter Description Last Updated LMP: HYSTERECTOMY 05/08/2023 Last Documented On 4 11:01AM ; [facility] No exposure to a contagious disease 12/2020 Last Documented On 4 11:01AM ; [facility] No Contact with and (Suspected) exposure to COVID-19 06/21/2021 Last Documented On 4 11:01AM ; [facility] No fall 06/21/2021 Last Documented On 4 11:01AM ; [facility] Not taking OTC medications 06/18/2021 Last Documented On 4 11:01AM ; [facility] Pt does not get blood pressure checked a t other facility 10/01/2015 Last Documented On 4 11:01AM ; [facility] Exposure to a lot of bright sunlight Last Documented On 4 11:01AM ; [facility] 1 miscarriage(s) 04/09/2012 Last Documented On 4 11:01AM ; [facility] Previously 5 time(s) 04/09/2012 Last Documented On 4 11:01AM ; [facility] No history of arthritis 04/09/2012 Last Documented On 4 11:01AM ; [facility] No history of cancer 04/09/2012 Last Documented On 4 11:01AM ; [facility] No history of chronic obstructive pulmon candelario disease 04/09/2012 Last Documented On 4 11:01AM ; [facility] No history of convulsive disorder 2011 Last Documented On 4 11:01AM ; [facility] No history of diabetes mellitus 04/09/20 12 Last Documented On 4 11:01AM ; [facility] No history of hypertension 04/09/2012 Last Documented On 4 11:01AM ; [facility] No history of stroke syndrome 04/09/2012 Last Documented On 4 11:01AM ; [facility] No history of venereal disease 2 Last Documented On 4 11:01AM ; [facility] No reported cardiovascular symptoms 03/19 Last Documented On 4 11:01AM ; [facility] No reported easy bleeding 04/09/2012 Last Documented On 4 11:01AM ; [facility] No reported recurrent infections 012 Last Documented On 4 11:01AM ; [facility] Family History Includes: Family History addressed during this encounter No Family History Recorded Review of Systems Includes: Review of Systems from this encounter Systemic: No systemic symptoms and no fever. Head: No head symptoms. Eyes: No eye symptoms. Otolaryngeal: No otolaryngeal symptoms. Cardiovascular: No cardiovascular symptoms. Pulmonary: Cough. Gastrointestinal: No gastrointestinal symptoms. Genitourinary: No genitourinary symptoms. Endocrine: No endocrine symptoms. Hematologic: No hematologic symptoms. Musculoskeletal: No musculoskeletal symptoms. Neurological: No neurological symptoms. Psychological: No psychological symptoms. Skin: No skin symptoms. Mental Status Includes: Mental Status from this encounter No Mental Status Recorded Functional Status Includes: Functional Status from this encounter No Functional Status Recorded Physical Exam Includes: Physical Exam from this encounter Allergies Includes: Active Allergies Substance Type Reaction Onset Date Resolved Date Statu s Erythromycin Allergy 01/25/2012 Active Last Documented On 4 1:03PM ; [facility] Encounters Encounter Provider Location Date Check-In Time Check-Out Time Diagnosis COVID SICK VISIT- ESTABLISHED PATIENT CHAZ Fish JENNIFER HARDYP-C [facility] 10/13/19 24 10:51AM 11:10AM Acute Bronchitis Insurance Includes: Active Insurance Policies Plan Name Member ID Group # Subscriber Relationship Effect aj Dates 1 - MEDICARE PART A CLAIMS/NGS [id number] KEIRA DE LOS SANTOS Self 2 - [employer] [id number] KEIRA DE LOS SANTOS Self Clinical Notes Includes: Clinical Notes from this encounter * Progress note Date Encounter Last Documented by 10/13/2023 COVID SICK VISIT- ESTABLISHED JOSE MCGHEE Last documented on 10/13/2023; 11:15 AM, CHAZ BRANDONC; [facility] Active Problems & Conditions - E11.9 - Diabetes Mellitus Type 2 Without Complication - Z83.3 - Family History of Diabetes Mellitus - Obesity Chief Complaint The Chief Complaint is: Pt is here with a cough , yellow phlegm and some drainage for about a week. History of Present Illness KEIRA DE LOS SANTOS is a 73 year old female. - Allergy list reviewed - Medication list reviewed Patient is here in clinic today for c/o productive cough that is yellow for about a week. Denies any nasal congestion/drainage, SOB or fever. At times she state she has heard wheezing. She has been trying mucinex but it hasn't been helping much. Declines testing. Past Medical/Surgical History Reported: LMP: HYSTERECTOMY. Recent [...] travel. Allergies - Erythromycin Review Of Systems Systemic: No systemic symptoms and no fever. Head: No head symptoms. Eyes: No eye symptoms. Otolaryngeal: No otolaryngeal symptoms. Cardiovascular: No cardiovascular symptoms. Pulmonary: Cough. Gastrointestinal: No gastrointestinal symptoms. Genitourinary: No genitourinary symptoms. Endocrine: No endocrine symptoms. Hematologic: No hematologic symptoms. Musculoskeletal: No musculoskeletal symptoms. Neurological: No neurological symptoms. Psychological: No psychological symptoms. Skin: No skin symptoms. Physical Findings - Vitals taken 10/13/2023 11:02 am Pulse Rate-Sitting 83 bpm Temp-Oral 98.6 F Height 60 in Weight 180 lbs Body Mass Index 35.2 kg/m2 Body Surface Area 1.8 m2 Oxygen Saturation 98 % General Appearance: - Well-appearing. - Well developed. - Well nourished. - Well hydrated. - In no acute distress. Eyes: General/bilateral: Pupils: - PERRLA. Ears: Right Ear: External Auditory Canal: - Normal. Tympanic Membrane: - Normal. - Not erythematous. Left Ear: External Auditory Canal: - Normal. Tympanic Membrane: - Normal. - Not erythematous. Nose: General/bilateral: Discharge: - No nasal discharge. Cavity: - Nasal mucosa not red. - Nasal turbinate not hypertrophied. Sinus Tenderness: - No sinus tenderness. Pharynx: Oropharynx: - Soft palate was normal. - Not inflamed. Lymph Nodes: - Normal. Lungs: - Clear to auscultation. - No decrease in breath sounds was heard in the right lung. - No decrease in breath sounds was heard in the left lung. - No wheezing was heard on the right. - No wheezing was heard on the left. - No rhonchi were heard on the right. - No rhonchi were heard on the left. - No rales/crackles heard on right. - No rales/crackles heard on left. Cardiovascular: Heart Rate And Rhythm: - Normal. Heart Sounds: - Normal. Skin: - Normal. - Mucous membranes were not dry. Assessment - [J20.9 - Acute bronchitis, unspecified] Acute bronchitis Therapy - Reviewed PMH for antibacterials used for previous infections. - Patient to call if symptoms worsen or not improved to update patient's status as needed. Pt to use OTC expectorant product as needed per product instruction. . Plan StartCited - Acute bronchitis, unspecified Amoxicillin-Pot Clavulanate 600-42.9 MG/5ML mL Take 7mL twice daily x 10 days, 10 days, 0 refills EndCited - The options include close observation - Continue current medication Pt to use prescription as ordered. Purpose of and use of medication discussed. . pt has to have liquid medication Practice Management Review of medications documented. Health Reminders - Assess BMI satisfied 10/13/2023. - Assess Need for CT Lung Screen satisfied 10/13/2023. - Assess Tobacco Use satisfied 10/13/2023.
--- OUTSIDE RECORDS SUMMARY | 2024-11-01 09:17 | XMS_ITS | Clinical Summary ---
Author Organization [facility] Address [address] [place] [address] Phone Care Team Providers Care Building Supplies Salesperson Retail Name Role Phone ARCENIO MAGDALENO, NORMAN Fish Primary Care Provider [phone] Reason for Visit and Chief Complaint The Chief Complaint is: PT IS HERE WITH A COUGH, YELLOWISH GREEN PHLEGM,SINUS DRAINAGE AND PRESSURETHAT STARTED A WEEK AGO Problems Includes: Problems addressed during this encounter and other active Problems All Visits Onset Date Resolved Date Provider Condition S tatus Diabetes Mellitus Type 2 Without Complication 09/28/2022 RAVEN LANDIN VICE CHANCELLOR-C Active Last Documented On 3 5:14PM ; [facility] Obesity 09/28/2022 RAVEN GALLO VICE CHANCELLOR-C Active Last Documented On 3 5:13PM ; [facility] Plan of Treatment - Return to the clinic if condition worsens or new symptoms arise - Last Documented On 05/08/2023 12:23PM ; [facility] - Follow-up visit in 1-2 weeks with an office visit or sooner if symptoms persist or worsen - Last Documented On 05/08/2023 12:23PM ; [facility] - Patient to call if problem develops - Last Documented On 05/08/2023 12:23PM ; [facility] Instructions to patient Go to the emergency room if condition worsens Last Documented On 3 12:03PM ; [facility] Watch for signs/symptoms of infection Last Documented On 3 12:03PM ; [facility] Watch for signs/symptoms of infection, return to the clinic if seen Last Documented On 3 12:03PM ; [facility] Education and Decision Aids were provided during visit for: Patient education about anti biotics: need to finish even if feeling better Last Documented On 3 12:03PM ; [facility] Assessments Includes: Assessments from this encounter Findings - Acute sinusitis - Last Documented On 05/08/2023 12:23PM ; [facility] Instructions Includes: Instructions from this encounter Instructions to patient Go to the emergency room if condition worsens Last Documented On 3 12:03PM ; [facility] Watch for signs/symptoms of infection Last Documented On 3 12:03PM ; [facility] Watch for signs/symptoms of infection, return to the clinic if seen Last Documented On 3 12:03PM ; [facility] Education and Decision Aids were provided during visit for: Patient education about anti biotics: need to finish even if feeling better Last Documented On 3 12:03PM ; [facility] Medical Equipment - Implanted Devices Includes: Current Devices No Medical Equipment Recorded Medications Includes: Medications discussed during this encounter and other current Medications New / Renewed during this visit SUKHWINDER GARCIA-AUSTIN on 05/08/2023 Amoxicillin-Pot Clavulanate 600-42.9 MG/5ML Oral Suspension Reconstituted Provider: SUKHWINDER NUNEZ 10 day supply: 150 mL, 0 refills Diagnosis: Acute maxillary sinusitis, unspecified take 7 ml BID x 10 days Pharmacy: [address], [id number] - Last Documented On 05/09/2023 10:13AM By Gabino CASTRO ; [facility] Current Medications (continue as prescribed) rOPINIRole HCl 0.5 MG Oral Tablet 01/23/2024 Provide r: NORMAN RG MD Diagnosis: Last Documented On 03/19/2024 10:45AM By Vickey CASTRO ; [facility] Omeprazole 20 MG Oral Capsul e Delayed Release 11/27/2023 Provider: NORMAN RG MD Diagnosis: Last Documented On 03/19/2024 10:45AM By Vickey CASTRO ; [facility] Past Medications on file Amoxicillin-Pot Clavulanate 600-42.9 MG/5ML Oral Suspension Reconstituted 10/13/2023 - 10/23/2023 Provider: CHAZ AL Diagnosis: Acute bronchitis , unspecified Take 7mL twice daily x 10 days Last Documented On 4 11:26AM By Chaz AL ; [facility] Amoxicillin-Pot Clavulanate 600-42.9 MG/5ML Oral Suspension Reconstituted 06/21/2021 - 07/01/2021 Provider: CHAZ AL Diagnosis: Acute sinusitis, unspecified Take 7mL twice daily x 10 days Last Documented On 1 10:00AM By Chaz AL ; [facility] Nitrofurantoin 25 MG/5ML OR SUSP 05/13/2013 - 05/20/2013 Provider: VADIM RAMIRES PA-C Diagnosis: URIN TRACT INFEC TION NOS 4 tsp BID x 7 days. Last Documented On 3 2:40PM By VADIM RAMIRES PA-C ; [facility] Cipro 500 MG/5ML (10%) OR SUSR 10/08/2012 - 10/18/2012 Provider: VADIM RAMIRES PA-C Diagnosis: URIN TRACT INFEC TION NOS 1/2 tsp BID x 10 days. Last Documented On 3 9:59AM By VADIM RAMIRES PA-C ; [facility] Medications Administered Includes: Administered Medications from this encounter No Administered Medications Recorded Vital Signs Includes: Vital Signs from this encounter Vital Name 05/08/2023 11:42A Pulse Rate-Sitting (bpm) 76 Temp-Oral (F) 98.4 Height (in) 60 Weight (lb) 176 Body Mass Index 34.4 Body Surface Area 1.8 Oxygen Saturation (%) 98 Last Documented: On 05/08/2023 11:42A M ; [facility] Results Includes: Results discussed during this encounter No Results Recorded For Specified Dates History of Present Illness Includes: History of Present Illness from this encounter BLANCA DE LOS SANTOS is a 73 year old female. - Allergy list reviewed - Medication list reviewed - Headache - Facial pain - Sinus pain - No neck pain - No swollen glands in the neck - No eye symptoms - The ears feel pressured on the right - On the left - Nasal discharge purulent - Postnasal drip - Nasal passage blockage (stuffiness) - Sore throat comes and goes - No sneezing - No nasal itching - No chest pain or discomfort - No dyspnea - No cough - No wheezing - No heartburn - No nausea - No vomiting - No abdominal pain - No diarrhea - Vertigo - No skin symptoms Pt to clinic for above symptoms x 7 days she has been taking mucinex Social History Description Last Updated Tobacco non-user 02/07/2023 Last Documented On 3 11:42AM ; [facility] Currently 04/09/2012 Last Documented On 3 11:42AM ; [facility] Exercise frequency 3 X WEEKLY 04/09/2012 Last Documented On 3 11:42AM ; [facility] 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 Last Documented On 3 11:42AM ; [facility] Smoking Status Unknown Procedures and Surgical History Includes: Procedures from this encounter Procedures Code Diagnosis Performing Provider Service L ocation Service Date medication instruction Last Documented On 3 12:03PM ; [facility] continue current medication Last Documented On 3 12:03PM ; [facility] the options include decongestants as nee ded per product instructions Last Documented On 3 12:03PM ; [facility] the options include antihistamines as ne eded per product instructions Last Documented On 3 12:03PM ; [facility] watch for signs/symptoms of infection Last Documented On 3 12:03PM ; [facility] watch for signs/symptoms of infection, r eturn to the clinic if seen Last Documented On 3 12:03PM ; [facility] Pt to use prescription as ordered. Purpo se of and use of medication discussed.~ Last Documented On 3 12:03PM ; [facility] Pt to use OTC fever/pain product as need ed per product instruction.~ Last Documented On 3 12:03PM ; [facility] Pt to use OTC cough product as needed pe r product instruction.~ Last Documented On 3 12:03PM ; [facility] Pt to use OTC expectorant product as nee ded per product instruction.~ Last Documented On 3 12:03PM ; [facility] plan of care reviewed and agreed to by t he patient Last Documented On 3 12:03PM ; [facility] review of medications documented [id number] Last Documented On 3 11:43AM ; [facility] Surgical History Last Updated History of decompression of median nerve at carpal tunnel Carpal Tunnel Release~ 10/08/2012 Last Documented On 3 11:42AM ; [facility] Surgical / procedural histor y 1.Heel spur surgery. ~2. Complete hysterectomy for Fibroid in 2000 10/08/2012 Last Documented On 3 11:42AM ; [facility] Medical History Includes: Medical History addressed during this encounter Description Last Updated LMP: HYSTERECTOMY 05/08/2023 Last Documented On 3 12:23PM ; [facility] Exposure to a lot of bright sunlight Last Documented On 3 11:42AM ; [facility] 1 miscarriage(s) 04/09/2012 Last Documented On 3 11:42AM ; [facility] Previously 5 time(s) 04/09/2012 Last Documented On 3 11:42AM ; [facility] Family History Includes: Family History addressed during this encounter Description Last Updated Family history unchanged 01/07/2023 Last Documented On 3 11:42AM ; [facility] Family history of cancer 04/09/2012 Last Documented On 3 11:42AM ; [facility] Family history of diabetes mellitus 03/19 Last Documented On 3 12:03PM ; [facility] Family history of heart disease 04/09/20 12 Last Documented On 3 11:42AM ; [facility] Family history of kidney disease 012 Last Documented On 3 11:42AM ; [facility] Father AGE 74 04/09/2012 Last Documented On 3 11:42AM ; [facility] Mother [id number] 04/09/2012 Last Documented On 3 11:42AM ; [facility] Spouse 63 years old 04/09/2012 Last Documented On 3 11:42AM ; [facility] Review of Systems Includes: Review of Systems from this encounter Systemic: No fever, no chills, and no night sweats. Mental Status Includes: Mental Status from this encounter No Mental Status Recorded Functional Status Includes: Functional Status from this encounter No Functional Status Recorded Physical Exam Includes: Physical Exam from this encounter Allergies Includes: Active Allergies Substance Type Reaction Onset Date Resolved Date Statu s Erythromycin Allergy 01/25/2012 Active Last Documented On 4 1:03PM ; [facility] Encounters Encounter Provider Location Date Check-In Time Check-Out Time Diagnosis COVID SICK VISIT- ESTABLISHED PATIENT SUKHWINDER NUNEZ [facility] 05/08/20 23 11:26AM 12:00PM Sinusitis Acute Insurance Includes: Active Insurance Policies Plan Name Member ID Group # Subscriber Relationship Effect aj Dates 1 - MEDICARE PART A CLAIMS/NGS [id number] KEIRA DE LOS SANTOS Self 2 - [employer] SENIOR [employer]ODUCT [id number] KEIRA DE LOS SANTOS Self Clinical Notes Includes: Clinical Notes from this encounter * Progress note Date Encounter Last Documented by 05/08/2023 COVID SICK VISIT- ESTABLISHED PA TIENT Last documented on 05/08/2023; 12:23 PM, SUKHWINDER BRANDON; [facility] Active Problems & Conditions - Diabetes Mellitus Type 2 Without Complication - Family History of Diabetes Mellitus - Obesity Chief Complaint The Chief Complaint is: PT IS HERE WITH A COUGH, YELLOWISH GREEN PHLEGM,SINUS DRAINAGE AND PRESSURE THAT STARTED A WEEK AGO. History of Present Illness KEIRA DE LOS SANTOS is a 73 year old female. - Allergy list reviewed - Medication list reviewed - Headache - Facial pain - Sinus pain - No neck pain - No swollen glands in the neck - No eye symptoms - The ears feel pressured on the right - On the left - Nasal discharge purulent - Postnasal drip - Nasal passage blockage (stuffiness) - Sore throat comes and goes - No sneezing - No nasal itching - No chest pain or discomfort - No dyspnea - No cough - No wheezing - No heartburn - No nausea - No vomiting - No abdominal pain - No diarrhea - Vertigo - No skin symptoms Pt to clinic for above symptoms x 7 days she has been taking mucinex Current Medication - Phentermine HCl 15 MG Oral Capsule 1 Capsule every morning, 30 days, 0 refills Past Medical/Surgical History Reported: LMP: HYSTERECTOMY. Surgical / Procedural: Surgical / procedural history 1.Heel spur surgery. 2. Complete hysterectomy for Fibroid in 1999. Environmental Exposure: Exposure to a lot of bright sunlight. : Previously 5 time(s) and aborta including 1 miscarriage(s). Surgical: - Decompression of median nerve at carpal tunnel Carpal Tunnel Release Social History Tobacco use: Tobacco non-user. Habits: Exercise frequency 3 X WEEKLY. Work: Occupation [employer]. Marital: Currently . Allergies - Erythromycin Family History Father AGE 74 Mother [id number] Spouse 63 years old Cancer Heart disease Kidney disease Family history unchanged Diabetes mellitus Review Of Systems Systemic: No fever, no chills, and no night sweats. Physical Findings - Vitals taken 05/08/2023 11:42 am Pulse Rate-Sitting 76 bpm Temp-Oral 98.4 F Height 60 in Weight 176 lbs Body Mass Index 34.4 kg/m2 Body Surface Area 1.8 m2 Oxygen Saturation 98 % General Appearance: - Well-appearing. - Well developed. - Well nourished. - In no acute distress. Neck: Suppleness: - Neck demonstrated no decrease in suppleness. Eyes: General/bilateral: Pupils: - PERRLA. Ears: Right Ear: Tympanic Membrane: - Normal. Left Ear: Tympanic Membrane: - Normal. Nose: General/bilateral: Discharge: - Nasal discharge. - Mucoid nasal discharge. Cavity: - Nasal mucosa red. - Nasal turbinate swollen. - Nasal turbinate hypertrophied. Sinus Tenderness: - Tenderness of sinuses. - Tenderness of maxillary sinus. Pharynx: Oropharynx: - Soft palate was normal. Mucosal: - Pharynx showed an accumulation of mucous. Lymph Nodes: - Normal. Lungs: - Clear to auscultation. Cardiovascular: Heart Rate And Rhythm: - Normal. Abdomen: Auscultation: - Bowel sounds were normal. Palpation: - No direct tenderness in the abdomen. Skin: - Mucous membranes were not dry. Assessment - Acute sinusitis Therapy - The options include decongestants as needed per product instructions and antihistamines as needed per product instructions. - Watch for signs/symptoms of infection return to the clinic if seen. - Medication instruction. - Continue current medication. - Plan of care reviewed and agreed to by the patient. Pt to use prescription as ordered. Purpose of and use of medication discussed. . Pt to use OTC fever/pain product as needed per product instruction. . Pt to use OTC cough product as needed per product instruction. . Pt to use OTC expectorant product as needed per product instruction. . Counseling/Education - Go to the emergency room if condition worsens - Patient education about antibiotics: need to finish even if feeling better Discussed Finish full prescription of antibiotics. Drink 8-8oz glasses of water a day. Rest for a few days. Tylenol or Motrin for pain/fever. If diarrhea develops please eat yogurt daily and BRAT diet Increase fluid intake Rest as much as possible Encourage use of humidifier- Regularly clean the humidifier so that bacteria does not grow Encouraged vitamin C and Zinc to help boost immune system Cool liquids to soothe the throat, throat sprays, throat lozenges, cool liquids to help soothe the throat Acetaminophen or ibuprofen as needed for pain/fever Antihistamine as needed- such as zyrtec, claratin, or benadryl Normal saline nasal spray or Netti Pot with sterile water as needed Steam Inhalation Warm compress to sinus area Plan StartCited - Acute maxillary sinusitis, unspecified Amoxicillin-Pot Clavulanate 600-42.9 MG/5ML mL take 7 ml BID x 10 days, 10 days, 0 refills EndCited - Return to the clinic if condition worsens or new symptoms arise - Follow-up visit in 1-2 weeks with an office visit or sooner if symptoms persist or worsen - Patient to call if problem develops Practice Management Review of medications documented. Health Reminders - Assess BMI satisfied 05/08/2023. - Assess Need for CT Lung Screen satisfied 05/08/2023. - Assess Tobacco Use satisfied 05/08/2023.
== END 2024-11-01 09:12 | disposition home or self-care (01) ==
LOC: ANHIMG 09:13
PROVIDERS: Visit Provider Orthopaedic Surgery
DX: M19.042 Primary osteoarthritis, left hand (principal)
CPT/HCPCS: 73130

== ENCOUNTER 2025-05-27 09:34 | Outpatient (CLI) | payer MEDICARE, SELFPAY ==
--- OUTSIDE RECORDS SUMMARY | 2014-09-12 05:50 | XMS_ITS | Continuity of Care Document ---
Author Organization [facility] Address [address] [place] [address] Phone Care Team Providers Care Group Contract Analyst Name Role Phone Radha MAGDALENO, Nadir Unavailable [...] Final Ketones (U) Negative NEGATIVE Final Specific [place] 1.030 1.001 - 1.035 F inal Blood [...] Diagnoses Date Provider Providers Copied on Encounter [facility], [address], [place], [place], [address] , [place] tel: [phone] [facility] [place] HematuriaMICROSCOPIC HEMATURIA Aug-2 4 Radha Schmitz. [address], [address], [place], [address], . tel: [phone] Referring Provider: Yohan Houston, [address], [place], [address]. tel:[phone] [facility], [address], [place], [place], [address] , tel: [phone] [facility] [place] No Information 0 4 Radha Schmitz. [address] [address], [address], [place], [place], [facility], . tel: [phone] [facility], [address], [place], [place], [address] , tel: [phone] [facility] [place] Recurrent cystitis 3 Radha Schmitz. [address], [facility] [[email or web address] [address], [place] [address], . tel: [phone] Referring Provider: [address], [place], [address]. tel:[phone] Family History Family Member Type Diagnosis Age At Onset Problem (finding) Family history of Diabe dioni mellitus Problem (finding) Family history of prost ate cancer Payers Payer name Insurance type Covered green party ID Authorsusie shinetanner(s) BCBS INACTIVE OUT OF STATE [id number] Social History Type Description Quantity Date Captured [...]
--- NOTE | 2025-05-27 10:00 | NEURO_ITS ---
Impression: # Complains of numbness of left hand. # Moderate left Carpal Tunnel Syndrome. # No Ulnar Neuropathy. # Normal Needle/ EMG exam. Nerve Conduction Studies ?Stim Site NR Peak (ms) P-T Amp (?V) Site1 Site2 Delta-P (ms) Dist (cm) Dieudonne (m/s) Left Median Anti Sensory (2-3nd Digit) Wrist ? 4.6 4.7 Wrist 2-3nd Digit 4.6 14.0 30 Wrist ? 4.6 5.4 Wrist 2-3nd Digit 4.6 14.0 30 Left Radial Anti Sensory (Base 1st Digit) Wrist ? 2.0 16.7 Wrist Base 1st Digit 2.0 0.0 Left Ulnar Anti Sensory (5th Digit) Wrist ? 2.4 15.5 Wrist 5th Digit 2.4 14.0 58 ?Stim Site NR Onset (ms) O-P Amp (mV) Site1 Site2 Delta-0 (ms) Dist (cm) Dieudonne (m/s) Left Median Motor (Abd Poll Brev) Wrist ? 5.9 1.6 Elbow Wrist 4.2 26.0 62 Elbow ? 10.1 1.5 Left Ulnar Motor (Abd Dig Minimi) Wrist ? 2.7 6.5 A Elbow Wrist 4.9 30.0 61 A Elbow ? 7.6 4.0 B Elbow Wrist 3.6 22.0 61 B Elbow ? 6.3 4.2 F Wave Studies ?NR F-Lat (ms) L-R F-Lat (ms) Left Median (Mrkrs) (Abd Poll Brev) ? 27.78 Left Ulnar (Mrkrs) (Abd Dig Min) ? 25.94 Electromyography ?Side Muscle Nerve Root Ins Act Fibs Amp Dur Recrt Comment Left 1stDorInt Ulnar C8-T1 Nml Nml Nml Nml Nml Left Ext Indicis Radial (Post Int) C7-8 Nml Nml Nml Nml Nml Left Ext Digitorum Radial (Post Int) C7-8 Nml Nml Nml Nml Nml Left BrachioRad Radial C5-6 Nml Nml Nml Nml Nml Left PronatorTeres Median C6-7 Nml Nml Nml Nml Nml Left Abd Poll Brev Median C8-T1 Nml Nml Nml Nml Nml Left ABD Dig Min Ulnar C8-T1 Nml Nml Nml Nml Nml Left FlexPolLong Median (Ant Int) C7-8 Nml Nml Nml Nml Nml Left Abd Poll Long Radial (Post Int) C7-8 Nml Nml Nml Nml Nml
--- OUTSIDE RECORDS SUMMARY | 2025-05-27 10:47 | XMS_ITS | Patient Health Record ---
Author Organization [facility] [employer] Address [address] [place] [address] Care Team Providers Care Band Straightener Name Role Phone Kim MAGDALENO, Dr Juárez Primary Care Provider Jemma vailable Reason For Referral No Information Problems Problem Type SNOMED Code ICD Code Onset Dates Problem Status W/U Status Risk Notes Problem 796079722 History of colonic polyps (Z86.010) Active confirmed Plan Of Treatment No Information Insurance Providers Payer Name Payer Address Payer Phone Subscriber Number Group Number Insured Name Patient Relationship to Insured Coverage Start Date Coverage End Date Medicare E2 [address] [address] [place] [address] [phone] [id number] Shelly Levy Self - patient is the insured 7 Aetna Medicare Supplement [address] [address] [place] [address] [id number] Shelly Levy Self - patient is the insured
--- OUTSIDE RECORDS SUMMARY | 2025-05-27 10:47 | XMS_ITS | Encounter Summary ---
Author Organization [facility] Address [address] [place] [address] Care Team Providers Care Sliver Lapper Name Role Phone Franck Alvarez MD Primary Care Provider [phone] Encounter Details Date Type Department Care Team (Latest Contact Info) Description 11/06/2008 Outpatient Historical [facility] Marek Oviedo Carpal Tunnel Syndrome Social History Tobacco Use Types Packs/Day Years Used Date Smoking Tobacco: Never Assessed Comments Unknown Sex and Gender Information Value Date Recorded Sex Assigned at Not on file Legal Sex Female 4:03 AM [facility] Gender Identity Not on file Sexual Orientation Not on file documented as of this encounter Plan of Treatment Upcoming Encounters Date Type Department Care Team (Late st Contact Info) Description 06/02/2025 9:30 AM CDT Appointment [facility] [place] [address] [place] [address] Uma Dumont MD [address] [place] [address] [phone] 06/02/2025 11:30 AM CDT Appointment [facility] Radiation Therapy [address] [place] [address] Uma Dumont MD [address] [place] [id number] 09/02/2025 11:15 AM [facility] Office Visit [facility] Oncology and Hematology [facility] [address] [place] [address] Migel Underwood MD [address] [place] [address] 12/18/2025 12:00 PM CDT Office Visit [facility] Surgical Spec [place] [address] [place] [address] Bernardo Morales MD [address] [place] [address] documented as of this encounter Procedures Procedure Name Priority Date/Time Associated Diagnosis Comments HEMOGLOBIN AND HEMATOCRIT Routine 11/18/2008 1:39 PM [facility] documented in this encounter Results * HEMOGLOBIN AND HEMATOCRIT (11/18/2008 1:39 PM [facility]) HEMOGLOBIN 12.8 11.8 - 14.8 g/dL [facility] HEMATOCRIT 39.2 35.5 - 44.0 % [facility] Blood specimen (specimen) 11/18/2008 1:39 PM [facility] 11/18/2008 3:15 PM [facility] Marek Oviedo HEMATOLOGY ORDERABLES Final Res ult INTERFACE SYSTEM Refer to clinic/hospital department [facility] CLIA# [id number] [address] [place] [address] documented in this encounter Visit Diagnoses Diagnosis Carpal tunnel syndrome documented in this encounter Care Teams Sliver Lapper Relationship Specialty Start Date End Date Franck Alvarez MD PCP - General Family Practice 04/15/20 documented as of this encounter
--- OUTSIDE RECORDS SUMMARY | 2025-05-27 10:47 | XMS_ITS | Clinical Summary ---
Author Organization [address] Address [address] [place] [address] Care Team Providers Care Safety Grooving Machine Operator Name Role Phone Franck Alvarez MD Primary Care Provider [phone] Jayden Garcia MD Unavailable Allergies Active Allergy [...] on file Legal Sex Female 10:53 AM [employer] Gender Identity Not on file Sexual [...] - 2023-2 5 season) 2024 11/13/2020, 10/16/2020 Osteoporosis Screening-Bone Density Scan 06/24/2024 06/24/2022, 06/24/2022, 06/08/2021, Additional history exists Breast Cancer Screening-Mammogram 03/08/2025 03/08/2024, 01/16/2023, 01/16/2023, Additional history exists Influenza Vaccine (#1) 2025 , 06/24/2019, 07/04/2018, Additional history exists Pneumococcal vaccine 65+ Completed [...] Region Laterality Modality Breast Bilateral Mammography 03/08/2024 3:4 2 PM CDT Impressions 03/08/2024 3:42 PM CDT [...] Recently Relevant to Health Maintenance Insurance MEDICARE [employer] SENIOR SUPPLEMENT MEDICARE [employer] SENIOR SUPPLEMENT Care Teams Safety Grooving Machine Operator Relationship Specialty Start Date End Date Franck Alvarez MD [address] [address] PCP - General Family Medicine 03/03/17 Jayden Garcia MD [address] [place] [address] Consulting Physician Obstetrics and Gynecology 03/08/24
--- OUTSIDE RECORDS SUMMARY | 2025-05-27 10:47 | XMS_ITS | Encounter Summary ---
Author Organization [facility] Address 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 Gender Identity Not on file Sexual Orientation Not on file documented as of this encounter Plan of Treatment Upcoming Encounters Date Type Department Care Team (Late st Contact Info) Description 06/02/2025 9:30 AM CDT Appointment [facility] [address] [facility] [address] [place] [address] Uma Dumont MD [address] [place] [address] [phone] 06/02/2025 11:30 AM CDT Appointment [facility] Radiation Therapy [address] [place] [address] Uma Dumont MD [address] [place] [address] [address] [place], [place] [phone] 09/02/2025 11:15 AM TUBE MAKING MACHINE OPERATOR Office Visit [facility] Oncology and Hematology [facility] [address] [place] [address] Migel Underwood MD [address] [place] [address] 12/18/2025 12:00 PM CDT Office Visit [facility] [place] [id number] [place] [address] Bernardo Morales MD [address] [place] [address] documented as of this encounter Visit Diagnoses Diagnosis Excessive or frequent menstruation- Primary documented in this encounter Care Teams Test Pilot Relationship Specialty Start Date End Date Franck Alvarez MD PCP - General Family Practice 04/15/20 documented as of this encounter
--- OUTSIDE RECORDS SUMMARY | 2025-05-27 10:47 | XMS_ITS | Clinical Summary ---
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 Active multivitamin (DAILY-SARAI) tablet Take 1 Tablet by mouth daily. supp Active calcium CARBONATE + vitamin D (CALTRATE+D) 600 mg-10 mcg (400 unit) Tablet Take by mouth. Activ e HYDROcodone-carie taminophen (NORCO) 5-325 mg tabletIndicatio ns:Infiltrating lobular carcinoma of breast, stage 1, right (CMS/HCC) Take 1 Tablet by mouth every 4 hours as needed for Pain. Max Daily Amount: 6 Tablets 8 Tablet 11/27/2024 5:10 PM CDT 5 Active montelukast (Singulair) 10 mg tablet Starting on the first day of radiation, take 1 tablet at night for a total of 3 months. 90 Tablet 5 Active mometasone (ELOCON) 0.1 % Cream Apply to area of itchy skin 2-3 times daily as needed, but not less than 4 hours before a daily radiation treatment. 45 Gram 1 5 Active anastrozole (Arimidex) 1 mg tablet Take 1 Tablet (1 mg) by mouth daily. 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 The patient underwent the [employer] Risk genetic testing for hereditary cancer syndromes due to a personal history of breast cancer. There was also a family history of a sister with uterine cancer and an osteosarcoma. There was additional paternal family history of prostate cancer and breast cancer. The patient was found to have a HOXB13 deleterious mutation. This mutation increases prostate cancer risk for men. No associated cancer risk for women. The testing the patient underwent included the genes responsible for HOXB13 associated prostate cancer risk, HBOC, Lassiter syndrome, as well as most other common hereditary cancer syndromes. December 2024. Family history of uterine cancer 01/07/2025 Family history of prostate cancer in father 12/18 Family history of breast cancer in female 2024 Genetic testing 01/07/2025 Overview (03/05/2025): HOXB13 positive. The patient underwent the [employer] Risk genetic testing for hereditary cancer syndromes due to a personal history of breast cancer. There was also a family history of a sister with uterine cancer and an osteosarcoma. There was additional paternal family history of prostate cancer and breast cancer. The patient was found to have a HOXB13 deleterious mutation. This mutation increases prostate cancer risk for men. No associated cancer risk for women. The testing the patient underwent included the genes responsible for HOXB13 associated prostate cancer risk, HBOC, Lassiter syndrome, as well as most other common hereditary cancer syndromes. December 2024. Infiltrating lobular carcinoma of breast, stage 1, right 12/10/2024 Encounters Date Type Department Care Team Description 05/20/2025 External Device Data STL ABSTRACTION Provider, Abstract 05/07/2025 External Device Data STL ABSTRACTION Provider, Abstract 04/29/2025 External Device Data STL ABSTRACTION Provider, Abstract 04/23/2025 External Device Data STL ABSTRACTION Provider, Abstract 04/02/2025 External Device Data STL ABSTRACTION Provider, Abstract 04/02/2025 External Device Data STL ABSTRACTION Provider, Abstract 03/11/2025 2:00 PM CDT Office Visit [facility] Oncology and Hematology [facility] [address] [place] [address] Migel Underwood MD Malignant neoplasm of overlapping sites of right breast in female, estrogen receptor positive (CMS/HCC) (Primary Dx) 03/05/2025 External Device Data STL ABSTRACTION Provider, Abstract 03/04/2025 1:13 PM CDT - 03/04/2025 11:59 PM CDT Hospital Encounter [facility] Laboratory Services [facility] [address] [facility] [place] [address] Migel Underwood MD Discharge Disposition: Home or Self Care 03/04/2025 1:00 PM CDT Office Visit [facility] Oncology [facility] [address] [facility] [address] [place] [address] Clayton Garcia NP 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 (Primary Dx); Genetic testing 03/04/2025 Chart Note [facility] Oncology [facility] [address] [facility] [address] [place] [address] Mika Llanes RN 03/04/2025 Results Follow-Up [facility] [address] [facility] [address] [place] [address] Migel Underwood MD CBC WITH DIFFERENTIAL, COMPREHENSIVE METABOLIC PANEL 02/26/2025 11:00 AM CDT - 02/26/2025 11:59 PM CDT Hospital Encounter [facility] Radiation Therapy [address] [place] [address] mUa Dumont MD Discharge Disposition: Home or Self Care 02/25/2025 11:00 AM CDT - 02/25/2025 11:59 PM CDT Hospital Encounter [facility] Radiation Therapy [address] [place] [address] Uma Dumont MD Discharge Disposition: Home or Self Care 02/25/2025 External Device Data STL ABSTRACTION Provider, Abstract 02/24/2025 10:48 AM CDT - 02/24/2025 11:59 PM CDT Hospital Encounter [facility] Radiation Therapy [address] [place] [id number] Uma Dumont MD Discharge Disposition: Home or Self Care from Last 3 Months Family History Medical History Relation Name Comments Healthy Brother Cancer Father Prostate Diabetes Father Emphysema Father Respiratory Disease Father Cancer Maternal Grandfather Head an d neck cancer Heart Disease Maternal Grandmother Other Mother broken hip Breast Cancer Paternal Aunt 1 70's Diabetes Paternal Grandmother Cancer Sister Uterine cancer at 30, osteosarcoma of the arm at 31 Kidney Disease Sister Other Son 1 drug addiction Relation Name Status Comments Brother Alive Daughter Alive Father Maternal Grandfather Maternal Grandmother Mother Paternal Aunt 1 Paternal Aunt 2 Paternal Grandfather Paternal Grandmother Sister Son 1 Alive Son 2 Alive Social History Tobacco Use Types Packs/Day Years Used Date Smoking Tobacco: Never Smokeless Tobacco: Never Tobacco Cessation:Counseling Given: Not Answered Alcohol Use Standard Drinks/Week Comments Never 0 (1 standard drink = 0.6 oz pur e alcohol) Feeling Safe Answer Date Recorded Are you in a relationship wi th someone who hurts you emotionally and/or physically? 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 Gender Identity Not on file Sexual Orientation Not on file Last Filed Vital Signs Vital Sign Reading Time Taken Comments Blood Pressure 126/70 03/11/2025 1:53 PM CDT Pulse 92 03/11/2025 1:53 PM CDT Temperature 36.4 C (97.5 F) 03/11/2025 1:53 PM CDT Respiratory Rate 18 01/14/2025 2:03 PM CDT Oxygen Saturation 97% 03/11/2025 1:53 PM CDT Inhaled Oxygen Concentration - - Weight 78.9 kg (174 lb) 03/11/2025 1:53 PM CDT Height 152.4 cm (5') 03/11/2025 1:53 PM CDT Body Mass Index 33.98 03/11/2025 1:53 PM CDT Plan of Treatment Upcoming Encounters Date Type Department Care Team (Late st Contact Info) Description 06/02/2025 9:30 AM CDT Appointment [facility] Medical [place] A [address] [facility] [address] [place] [address] [place] Dumont [place] [id number] [place] [phone] 06/02/2025 11:30 AM CDT Appointment [facility] Radiation Therapy [address] [place] [address] Uma Duomnt MD [id number] [place] [phone] 09/02/2025 11:15 AM DENTURE LABORATORY TECHNICIAN Office Visit [facility] Oncology and Hematology [facility] [address] [place] [address] Migel Underwood MD [address] [facility] [address] [place] [address] 12/18/2025 12:00 PM CDT Office Visit [facility] Surgical Spec [place] [address] [facility] [address] [place] [address] Bernardo Morales MD [address] [place] [address] Health Maintenance Due Date Last Done Comments DIABETES ANNUAL FOOT EXAM 1970 DIABETES MICROALBUMIN ANNUAL SCREEN 1970 LDL CHOLESTEROL ANNUAL 1970 DTAP/TDAP/TD VACCINES (1 - Tdap) 1971 ZOSTER VACCINE (1 of 2) 1971 FIT-DNA Q 3 years 1997 FIT/FOBT Q 1 year 1997 Flex Sig/CT Colonography Q 5 years 1997 RSV VACCINE (60+ or ) (1 - Risk 60-74 years 1-dose series) 2012 COVID-19 Vaccine (3 - Modern a risk series) 12/11/2020 11/13/2020, 10/16/2020 INFLUENZA VACCINE (#1) 2025 , 06/24/2023, 07/02/2022, Additional history exists DIABETES HBA1C Q 6 MONTHS 09/11/20252024, 06/20/2024, 03/11/2024, Additional history exists DIABETES ANNUAL RETINAL EXAM 10/01/2025, 09/25/2023, 06/15/2020, Additional history exists BREAST CANCER SCREENING 01/02/2026 01/03/20 25, 06/17/2024, 04/04/2024, Additional history exists OSTEOPOROSIS SCREENING 07/09/2029 , 06/24/2022, 06/24/2022, Additional history exists COLORECTAL SCREENING 02/01/2033 02/01/2023, 02/01/2023, 02/01/2023, Additional history exists Colorectal Cancer Screening 02/01/2033 PNEUMOCOCCAL VACCINE 50+ YEARS Completed 07/03/2018 , 06/16/2017 Procedures Procedure Name Priority Date/Time Associated Diagnosis Comments COMPREHENSIVE METABOLIC PANEL Stat 03/04/2025 1:28 PM CDT Malignant neoplasm of overlapping sites of right breast in female, estrogen receptor positive (CMS/HCC) CBC WITH DIFFERENTIAL Stat 03/04/2025 1:28 PM CDT Malignant neoplasm of overlapping sites of right breast in female, estrogen receptor positive (CMS/HCC) CANCER ANTIGEN 15-3 Routine 03/04/2025 1 :28 PM CDT Malignant neoplasm of overlapping sites of right breast in female, estrogen receptor positive (CMS/HCC) MAMMO DIAG UNI RIGHT 3D NATA W OR WO CAD Routine 01/02/2025 10:30 AM CDT Infiltrating lobular carcinoma of breast, stage 1, right (CMS/HCC) Other specified disorders of breast XR DEXA BONE DENSITY AXIAL 1 OR MORE SITES Routine 07/09/2024 9:12 AM CDT Age-related osteoporosis without current pathological fracture Fracture Risk Assessment Score (FRAX) indicating greater than 20% risk for major osteoporosis-related fracture Family history of fracture of hip in mother from Last 3 Months or Most Recently Relevant to Health Maintenance Results * CANCER ANTIGEN 15-3 (03/04/2025 1:28 PM CDT) Pathologist [facility] CA 15-3 10 <32 U/mL [facility] Comment: This test was performed using the Siemens (Cellerix) chemiluminescent method. Values obtained from different assay methods cannot be used interchangeably. CA 15-3 levels, regardless of value, should not be interpreted as absolute evidence of the presence or absence of disease. Test Performed at: [facility] [address] [place] [id number] Sanjuana Lawson MD Blood 03/04/2025 1:28 PM CDT 03/04/2025 2:22 PM CDT Migel Underwood MD CHEMISTRY ORDERABLES Final Resul t [facility] [phone] [facility] [address] [address] * CBC WITH DIFFERENTIAL (03/04/2025 1:28 PM CDT) Pathologist [facility] WBC 7.1 4.0 - 9.8 K/uL 03/04/2025 1:38 PM CDT [facility] RBC 4.87 3.90 - 4.90 M/uL 03/04/2025 1:38 PM CDT [facility] HEMOGLOBIN 13.5 11.8 - 14.8 g/dL 03/04/2025 1:38 PM CDT [facility] HEMATOCRIT 41.4 35.5 - 44.0 % 03/04/2025 1:38 PM CDT [facility] MCV 85.0 82.0 - 99.0 fL 03/04/2025 1:38 PM CDT [facility] MCH 27.7 27.2 - 32.6 pg 03/04/2025 1:38 PM CDT [facility] MCHC 32.6 31.5 - 35.5 g/dL 03/04/2025 1:38 PM CDT [facility] RDW 14.4 11.5 - 14.5 % 03/04/2025 1:38 PM CDT [facility] RDW-STDEV 44.1 37.1 - 48.7 fL 03/04/2025 1:38 PM CDT [facility] PLATELETS 164 140 - 350 K/uL 03/04/2025 1:38 PM CDT [facility] MPV 11.2 9.3 - 12.4 fL 03/04/2025 1:38 PM CDT [facility] [place] NEUTROPHILS 61 % 03/04/2025 1:38 PM CDT [facility] [place] LYMPHOCYTES 25 % 03/04/2025 1:38 PM CDT [facility] [place] MONOCYTES 12 % 03/04/2025 1:38 PM CDT [facility] [place] EOSINOPHILS 1 % 03/04/2025 1:38 PM CDT [facility] [place] BASOPHILS 1 % 03/04/2025 1:38 PM CDT [facility] [place] IMMATURE GRANULOCYTES 0 % 03/04/2025 1:38 PM CDT [facility] NEUTROPHIL ABSOLUTE 4.33 1.90 - 7.00 K/uL 03/04/2025 1:38 PM CDT [facility] [place] LYMPHOCYTE ABSOLUTE 1.79 0.70 - 4.50 K/uL 03/04/2025 1:38 PM CDT [facility] MONOCYTE ABSOLUTE 0.84 0.10 - 1.30 K/uL 03/04/2025 1:38 PM CDT [facility] [place] EOSINOPHIL ABSOLUTE 0.08 0.00 - 0.70 K/uL 03/04/2025 1:38 PM CDT [facility] BASOPHILS ABSOLUTE 0.05 0.00 - 0.20 K/uL 03/04/2025 1:38 PM CDT [facility] IMMATURE GRANULOCYTES ABSOLUTE 0.02 0.00 - 0.03 K/uL 03/04/2025 1:38 PM CDT [facility] Blood Venipuncture / Unknown 03/04/2025 1:28 PM CDT 03/04/2025 1:35 PM CDT us Migel Underwood MD HEMATOLOGY ORDERABLES Final Resu lt [facility] CLIA# [id number] [address] [place], [place] [address] * (ABNORMAL) COMPREHENSIVE METABOLIC PANEL (03/04/2025 1:28 PM CDT) SODIUM 141 136 - 145 mmol/L 03/04/2025 2:04 PM CDT [facility] POTASSIUM 4.1 3.5 - 5.0 mmol/L 03/04/2025 2:04 PM CDT [facility] CHLORIDE 102 98 - 107 mmol/L 03/04/2025 2:04 PM CDT [facility] CO2 26 22 - 29 mmol/L 03/04/2025 2:04 PM CDT [facility] CALCIUM 11.0(H) 8.6 - 10.2 mg/dL 03/04/2025 2:04 PM CDT [facility] BUN 19 8 - 23 mg/dL 03/04/2025 2:04 PM CDT [facility] CREATININE 0.91 0.51 - 0.95 mg/dL 03/04/2025 2:04 PM CDT [facility] Comment:The GFR result is no t clinically significant on patients <18 or >70 years of age. GLUCOSE 97 74 - 99 mg/dL 03/04/2025 2:04 PM [facility] TOTAL PROTEIN 7.4 6.7 - 8.6 g/dL 03/04/2025 2:04 PM [facility] ALBUMIN 4.1 3.5 - 5.2 g/dL 03/04/2025 2:04 PM [facility] BILIRUBIN TOTAL 0.6 0.0 - 1.1 mg/dL 03/04/2025 2:04 PM [facility] ALKALINE PHOSPHATASE 125(H) 35 - 104 U/L 03/04/2025 2:04 PM [facility] AST 32 <33 U/L 03/04/2025 2:04 PM [facility] ALT 26 <34 U/L 03/04/2025 2:04 PM [facility] GFR >60 mL/min/1.7 3 sq meter 03/04/2025 2:04 PM [facility] Comment:eGFR calculated with 2020 CKD-EPI equation. Vegetarian diet, extremely high or low muscle mass, and may affect results. Cystatin C with Glomerular Filtration Rate is a suitable alternative for these patients. ANION GAP 13 8 - 16 mmol/L 03/04/2025 2:04 PM [facility] Blood Venipuncture / Unknown 03/04/2025 1:28 PM CDT 03/04/2025 1:42 PM CDT Narrative [facility] - 03/04/2025 2:04 PM CDT Samples containing indocyanine green cause interferences on Total and/or Direct Bilirubin and must not be measured. us Migel Underwood MD CHEMISTRY ORDERABLES Final Resul t [facility]# [id number] [address] [place] [address] * MAMMO 3D NATA DIAGNOSTIC UNI RT 3D W OR WO CAD (01/02/2025 10:30 AM CDT) Anatomical Region Laterality Modality Breast Right Mammography 01/02/2025 10:2 5 AM CDT Impressions 01/02/2025 11:34 AM CDT IMPRESSION: Expected postsurgical changes in the right upper outer quadrant without evidence of a residual mass or suspicious calcifications. RECOMMENDATIONS: Routine mammographic follow-up is recommended. OVERALL FINAL ASSESSMENT: BI-RADS CATEGORY 2 - Benign findings. Dictation Location [facility] 01/02/2025 11:34 AM CDT DIGITAL DIAGNOSTIC UNILATERAL RIGHT MAMMOGRAPHY WITH CAD WITH TOMOSYNTHESIS 01/02/2025. CLINICAL HISTORY: Status post surgical excision of invasive lobular carcinoma in October 2024. This is a postoperative/preradiation mammogram. COMPARISON: Comparison is made to prior mammograms dated 11/27/2024 and 10/29/2024. Reference is made to a breast MRI dated 10/08/2024. TECHNIQUE: Low-dose full-field digital breast tomosynthesis exam was performed with 2-D and 3-D acquisitions. The exam is read in conjunction with CAD. Full and implant displaced views of the right breast were obtained in the CC and MLO projections, for a total of five views. FINDINGS: There are scattered fibroglandular densities. Expected postbiopsy changes are seen in the upper outer quadrant. There is no distinct mass, spiculation or malignant calcifications. Bernardo Morales MD MAMMO ORDERABLES Final Result * XR DEXA BONE DENSITY AXIAL 1 OR MORE SITES (07/09/2024 9:12 AM CDT) Anatomical Region Laterality Modality Computed Radiogr aphy Impressions 07/09/2024 12:41 PM CDT : Worst core is -1.3. FRAX calculation is negative and there is no history of osteoporotic fracture. Repeat in 2 years. us Supa Bowser MD DIAGNOSTIC IMAGING ORDERABLE S Final Result from Last 3 Months or Most Recently Relevant to Health Maintenance Insurance MEDICARE PART A AND B [employer] MEDICARE SUPP [employer] Medicare Part D Advance Directives For more information, please contact: [phone] * Full Code (Latest Code Status on File) Date Activated Date Inactivated Comments 11/27/2024 3:09 PM 11/27/2024 7:17 PM * Full Code Date Activated Date Inactivated Comments 11/27/2024 10:47 AM 11/27/2024 3:09 PM * Full Code Date Activated Date Inactivated Comments 11/27/2024 9:59 AM 11/27/2024 10:47 AM * Full Code Date Activated Date Inactivated Comments 07/15/2024 3:37 PM 07/15/2024 7:38 PM * Full Code Date Activated Date Inactivated Comments 07/15/2024 1:12 PM 07/15/2024 3:37 PM Care Teams State Fire Marshal Relationship Specialty Start Date End Date Franck Alvarez MD PCP - General Family Practice 04/15/20
--- OUTSIDE RECORDS SUMMARY | 2025-05-27 10:47 | XMS_ITS | Clinical Summary ---
Author Organization [facility] CALL C ENTER Address [address] [place] [address] Phone Care Team Providers Care Senior Hardware Design Engineer Name Role Phone Dory Tyson APRN, STAFFING OPERATIONS MANAGER Primary Care Provider [phone] Allergies Active Allergy Reactions Criticality Noted Date Comments Erythromycin Unknown,Rash Medium 11/03/2011 Medications Calcium Carbonate-Vit D-Min (Caltrate 600+D Plus Minerals) 600-800 MG-UNIT Chewable Tablet 0 Active Multiple Vitamin (MULTIVITAMIN PO) Take by mouth. Activ e ALPRAZolam (XANAX) 0.25 MG TabletIndicatio ns:Anxiety Take 1 Tablet by mouth 2 times daily as needed for Other (Breast biopsy) for up to 2 doses. 2 Tablet 5 Active Additional Information Patient not taking.Reported on 03/24/2025 anastrozole (ARIMIDEX) 1 MG Tablet Take 1 mg by mouth 5 Active montelukast (SINGULAIR) 10 MG Tablet Starting on the first day of radiation, take 1 tablet at night for a total of 3 months. 5 Active VITAMIN E PO Take by mouth. Ac tive Cholecalciferol (VITAMIN D3 PO) Take by mouth. Active rOPINIRole (REQUIP) 0.5 MG TabletIndicatio ns:Restless leg syndrome Take 1 Tablet by mouth nightly. 90 Tablet 3 Active Active Problems Problem Noted Date Diagnosed Date Abnormal mammogram 03/11/2024 Cough 11/27/2023 Gastroesophageal reflux disease 04/17/2023 RLS (restless legs syndrome) 01/11/2023 Anxiety 12/10/2021 Chronic prescription benzodiazepine use 12/11/19 IPMN (intraductal papillary mucinous neoplasm) 1 10/28/2019 Hepatic steatosis 08/10/2020 Hyperglycemia 05/03/2020 Elevated liver enzymes 05/03/2020 Hyperlipidemia 11/04/2019 Impaired fasting glucose 11/01/2019 Obesity (BMI 30-39.9) 05/01/2019 Tachycardia 05/01/2019 Lesion of nose 10/31/2018 Restless leg syndrome 08/10/2016 Fatigue 06/09/2016 Mood altered 06/09/2016 Encounters Date Type Department Care Team Description 03/24/2025 9:00 AM CDT Office Visit [facility][note 3] [address] [place] [address] Dory Tyson APRN, STAFFING OPERATIONS MANAGER Restless leg syndrome (Primary Dx); Hyperlipidemia, unspecified hyperlipidemia type; Malignant neoplasm of female breast, unspecified estrogen receptor status, unspecified laterality, unspecified site of breast (HCC); Impaired fasting glucose; Fatigue, unspecified type; Hyperglycemia; Elevated liver enzymes Discharge Disposition: Discharged to home or Selfcare 03/24/2025 Travel 03/17/2025 Results Follow-Up [facility][note 3] [address] [place] [address] Dory Tyson APRN, STAFFING OPERATIONS MANAGER CMP (COMPREHENSIVE METABOLIC PANEL), LIPID PANEL, HEMOGLOBIN A1C W/ ESTIMATED GLUCOSE, CBC WITH AUTO DIFFERENTIAL 03/12/2025 Travel from Last 3 Months Immunizations Immunization [...] Nino ert Diabetes Father Iraj Hypertension Mother Vincmichael Cancer Paternal Aunt Robina Diabetes Paternal Aunt Robina Diabetes Paternal Grandmother Tamela Madrigal Cancer Sister Skyla Kidney Disease Sister Skyla Relation Name Status Comments Father Iraj Mother Yocastaent Paternal Aunt Robina Alive Paternal Grandmother Tamela Madrigal Alive Sister Skyla Social History Tobacco Use Types Packs/Day Years Used Date Smoking Tobacco: Never Smokeless Tobacco: Never Alcohol Use Standard Drinks/Week Comments No 0 (1 standard drink = 0.6 oz pur e alcohol) [facility] Utilities Answer Date Recorded In the past 12 months has [employer], gas, oil, or water Car reviews threatened to shut off services in your home? No 09/15/2024 Social Connection and Isolation Panel Answer Date Recorded In a typical week, how many times do you talk on the phone with family, friends, or neighbors? Three times a week 09/15/2024 How often do you get togethe r with friends or relatives? Once a week 09/15/2024 How often do you attend chur or adventist services? More than 4 times per year 09/15/2024 Do you belong to any clubs o r organizations such as presybeterian groups, unions, fraternal or athletic groups, or [...] Recorded Total Score - Questions 1-9 0 10/2024 [facility] - Occupational Stress Questionnaire Answer Date Recorded [...] No 09/15/2024 Housing Stability Vital Sign Answer Ejrry e Recorded In the last 12 months, [...] place to sleep or slept in a assisted (including now)? No 11/25/2023 Housing Stability Vital [...] time in the past 12 m [facility], were you homeless or living in a assisted (including now)? No 09/15/2024 Education Answer Date Recorded What is the highest level of school you have completed or the highest degree you have received? Associate degree: occupational, technical, or vocational program 09/19/2022 Sexually Active Control Partners Comments Not Currently Surgical Male Comments No Sex and Gender Information Value Date Recorded Sex Assigned at Not on file Legal Sex Female 11:10 PM CDT Gender Identity Female 07/30/2023 8:35 AM STOCK REPAIRER Sexual Orientation Straight 07/30/2023 8: 35 AM STOCK REPAIRER Last Filed Vital Signs Vital Sign Reading Time Taken Comments Blood Pressure 112/78 03/24/2025 9:04 AM CDT Pulse 74 03/24/2025 9:04 AM CDT Temperature 36.2 C (97.2 F) 03/24/2025 9:04 AM CDT Respiratory Rate 16 03/24/2025 9:04 AM CDT Oxygen Saturation 97% 03/24/2025 9:04 AM CDT Inhaled Oxygen Concentration - - Weight 79.9 kg (176 lb 1.6 oz) 03/24/2025 9:04 A M CDT Height 152.4 cm (5') 03/24/2025 9:04 AM CDT Body Mass Index 34.39 03/24/2025 9:04 AM CDT Plan of Treatment Upcoming Encounters Date Type Department Care Team (Late st Contact Info) Description 09/23/2025 10:00 AM STOCK REPAIRER Office Visit [facility] [place] [address] [place] [phone] Dory Tyson, MILIEU MANAGER, STAFFING OPERATIONS MANAGER [address] [place] [address] Health Maintenance Due Date Last Done Comments TdaP Immunization 1952 Zoster Immunization (1 of 2) 1971 Cologuard 1997 Immunochemical Fecal Occult Blood 1997 Respiratory Syncytial Virus (RSV) Immunization (Adult) (1 - Risk 60-74 years 1-dose series) 2012 Influenza Immunization (#1) 05/19/202506/18, 06/24/2023, 07/02/2022, Additional history exists SARS-COV-2 Immunization ( season) 2025 08/24/2021, 11/13/2020, 10/16/2020 Mammogram 01/02/2026 01/02/2025, 10/19, 10/08/2024, Additional history exists DEXA Bone Density 07/09/2026 07/09/2024, , 06/08/2021, Additional history exists Colonoscopy 02/02/2028 02/01/2023, 12/29/2017 Colorectal Cancer Screening 02/02/2028 Pneumococcal Immunization (50+ years) Completed 07/03/2018, 06/16/2017 Pneumococcal Immunization Combined Discontinued 07/03/2018, 06/16/2017 Hepatitis C Virus (HCV) Screening Completed 09/23/2020, 11/02/2018 Hepatitis B Immunization Aged Out No longer eligible based on patient's age to complete this topic Human Papillomavirus (HPV) Immunization Aged Out No longer eligible based on patient's age to complete this topic Meningococcal Immunization (ACWY) Aged Out No longer eligible based on patient's age to complete this topic Rotavirus Immunization Aged Out No lo nger eligible based on patient's age to complete this topic Procedures Procedure Name Priority Date/Time Associated Diagnosis Comments CBC WITH AUTO DIFFERENTIAL Routine 03/12/2025 9:18 AM CDT Hyperlipidemia, unspecified hyperlipidemia type Obesity (BMI 30-39.9) Hyperglycemia HEMOGLOBIN A1C W/ ESTIMATED GLUCOSE Routine 03/12/2025 9:18 AM CDT Hyperlipidemia, unspecified hyperlipidemia type Obesity (BMI 30-39.9) Hyperglycemia LIPID PANEL Routine 03/12/2025 9:18 AM CDT Hyperlipidemia, unspecified hyperlipidemia type Obesity (BMI 30-39.9) Hyperglycemia CMP (COMPREHENSIVE METABOLIC PANEL) Routine 03/12/2025 9:18 AM CDT Hyperlipidemia, unspecified hyperlipidemia type Obesity (BMI 30-39.9) Hyperglycemia COMPLETE BLOOD COUNT (CBC) WITH DIFF Routine 03/12/2025 9:18 AM CDT Hyperlipidemia, unspecified hyperlipidemia type Obesity (BMI 30-39.9) Hyperglycemia HM COLONOSCOPY 02/01/2023 12:00 AM CDT MAMMOGRAM BILATERAL GENERIC 01/03/2022 12:00 AM CDT HEPATITIS PANEL ACUTE (AHP) Routine 09/23/2020 8:57 AM STOCK REPAIRER Elevated liver enzymes from Last 3 Months or Most Recently Relevant to Health Maintenance Results * (ABNORMAL) HEMOGLOBIN A1C W/ ESTIMATED GLUCOSE (03/12/2025 9:18 AM CDT) HGB-A1C 6.1(H) 4.0 - 6.0 % 03/12/2025 10:21 AM CDT [facility] Est Average Glucose 128.4 mg/dL 03/12/2025 10:21 AM CDT [facility] Blood Venipuncture / Unknown 03/12/2025 9:18 AM CDT 03/12/2025 9:50 AM CDT Narrative [facility] - 03/12/2025 10:21 AM CDT HEMOGLOBIN A1C: DIABETIC PATIENTS: WELL-CONTROLLED: 6.2 - 7.0 INTERMEDIATE WELL-CONTROLLED: 7.0 - 9.0 POORLY-CONTROLLED: >9.0 Specimens containing greater than 5% of Hemoglobin F may result in lower than expected % HbA1C results. us Dory Tyson APRN, STAFFING OPERATIONS MANAGER CHEMISTRY ORDERABLES Final Result [facility] [address] [place] [address] * CBC WITH AUTO DIFFERENTIAL (03/12/2025 9:18 AM CDT) [facility] WBC 5.74 4.00 - 12.00 10(3)/mcL 03/12/2025 9:54 AM CDT [facility] RBC 4.95 3.80 - 5.30 10(6)/mcL 03/12/2025 9:54 AM CDT [facility] HEMOGLOBIN (HGB) 13.6 12.0 - 15.8 g/dL 03/12/2025 9:54 AM CDT [facility] HEMATOCRIT (HCT) 42.7 36.0 - 47.0 % 03/12/2025 9:54 AM CDT [facility] MCV 86.3 82.0 - 96.0 fL 03/12/2025 9:54 AM CDT [facility] MCH 27.5 26.0 - 34.0 pg 03/12/2025 9:54 AM CDT [facility] MCHC 31.9 31.0 - 36.0 g/dL 03/12/2025 9:54 AM CDT [facility] PLATELET COUNT 190 140 - 440 10(3)/[facility] 03/12/2025 9:54 AM CDT [facility] RDW 14.4 11.8 - 15.5 % 03/12/2025 9:54 AM CDT [facility] MPV 11.2 9.7 - 12.4 fL 03/12/2025 9:54 AM CDT [facility] NEUTROPHILS 61.1 47.0 - 73.0 % 03/12/2025 9:54 AM CDT [facility] LYMPHOCYTES 27.0 18.0 - 42.0 % 03/12/2025 9:54 AM CDT [facility] MONOCYTES 9.2 4.0 - 12.0 % 03/12/2025 9:54 AM CDT [facility] EOSINOPHILS 1.4 0.0 - 5.0 % 03/12/2025 9:54 AM CDT [facility] BASOPHILS 1.0 0.0 - 1.0 % 03/12/2025 9:54 AM CDT [facility] IMMATURE GRANULOCYTE 0.3 0.0 - 0.4 % 03/12/2025 9:54 AM CDT [facility] Comment:Immature Granulocyte s includes Metamyelocytes, Myelocytes, and Promyelocytes. ABSOLUTE NEUTROPHILS 3.50 1.60 - 7.70 10(3)/mcL 03/12/2025 9:54 AM CDT [facility] ABSOLUTE LYMPHOCYTES 1.55 1.30 - 3.20 10(3)/mcL 03/12/2025 9:54 AM CDT [facility] ABSOLUTE MONOCYTES 0.53 0.20 - 1.00 10(3)/[facility] 03/12/2025 9:54 AM CDT [facility] ABSOLUTE EOSINOPHIL 0.08 0.00 - 0.40 10(3)/[facility] 03/12/2025 9:54 AM CDT [facility] ABSOLUTE BASOPHILS 0.06 0.00 - 0.10 10(3)/mcL 03/12/2025 9:54 AM CDT [facility] ABSOLUTE IMMATURE GRANULOCYTE 0.02 0.00 - 0.03 10 (3) mcL. 03/12/2025 9:54 AM CDT [facility] NRBC PER 100 WBC 0 03/12/20 9:54 AM CDT [facility] Blood Venipuncture / Unknown 03/12/2025 9:18 AM CDT 03/12/2025 9:50 AM CDT us Dory Tyson MILIEU MANAGER, STAFFING OPERATIONS MANAGER HEMATOLOGY ORDERABLES Aisha l Result [facility] [address] [place] [address] * (ABNORMAL) LIPID PANEL (03/12/2025 9:18 AM CDT) [facility] Signature CHOLESTEROL 212(H) <200 mg/dL 03/12/2025 10:19 AM CDT [facility] TRIGLYCERIDES 91 <150 mg/dL 03/12/2025 10:19 AM CDT [facility] HDL CHOLESTEROL 52 >40 mg/dL 10:19 AM CDT [facility] LDL 142(H) <130 mg/dL 03/12/2025 10:19 AM CDT [facility] VLDL 18 10 - 50 mg/dL 03/12/2025 10:19 AM CDT [facility] CHOL/HDL RATIO 4.1 0.0 - 4.4 03/12/2025 10:19 AM CDT [facility] NON-HDL CHOLESTEROL 160(H) <130 mg/dL 03/12/2025 10:19 AM CDT [facility] IS THE PATIENT REQUIRED TO BE FASTING? Yes 03/12/2025 10:19 AM CDT [facility] HAS THE PATIENT BEEN FASTING? Yes 03/12/2025 10:19 AM CDT [facility] Blood Venipuncture / Unknown 03/12/2025 9:18 AM CDT 03/12/2025 9:49 AM CDT us Dory Tyson APRN, STAFFING OPERATIONS MANAGER CHEMISTRY ORDERABLES Final Result [facility] [address] [place] [address] * (ABNORMAL) CMP (COMPREHENSIVE METABOLIC PANEL) (03/12/2025 9:18 AM CDT) SODIUM 141 136 - 145 mmol/L 03/12/2025 10:19 AM CDT [facility] POTASSIUM 4.2 3.5 - 5.1 mmol/L 03/12/2025 10:19 AM CDT [facility] CHLORIDE 112(H) 98 - 107 mmol/L 03/12/2025 10:19 AM CDT [facility] CO2, VENOUS 22 22 - 30 mmol/L 03/12/2025 10:19 AM CDT [facility] ANION GAP 11.2 <18.0 mmol/L 03/12/2025 10:19 AM CDT [facility] GLUCOSE 114(H) 70 - 99 mg/dL 03/12/2025 10:19 AM CDT [facility] BUN 20 10 - 20 mg/dL 03/12/2025 10:19 AM CDT [facility] CREATININE, BLOOD 0.90 0.60 - 1.00 mg/dL 03/12/2025 10:19 AM CDT [facility] BUN/CREATININE RATIO 22(H) 12 - 20 ratio 03/12/2025 10:19 AM T [facility] TOTAL PROTEIN 7.3 6.0 - 8.0 g/dL 03/12/2025 10:19 AM T [facility] ALBUMIN 4.2 3.5 - 5.0 g/dL 03/12/2025 10:19 AM T [facility] A/G RATIO 1.4 1.0 - 2.2 03/12/2025 10:19 AM T [facility] CALCIUM 9.5 8.7 - 10.5 mg/dL 03/12/2025 10:19 AM T [facility] T BILI 0.6 0.2 - 1.2 mg/dL 03/12/2025 10:19 AM [facility] SGOT (AST) 26 <43 U/L 03/12/2025 10:19 AM CDT [facility] SGPT (ALT) 23 <56 U/L 03/12/2025 10:19 AM CDT [facility] ALKALINE PHOSPHATASE 103 40 - 150 U/L 03/12/2025 10:19 AM [facility] IS THE PATIENT REQUIRED TO BE FASTING? No 03/12/2025 10:19 AM CDT [facility] GFR, ESTIMATED >60 >=60 03/12/2025 10:19 AM CDT [facility] Comment: Creatinine Clearance is the preferred criteria for selecting drug dose adjustments in renally impaired patients. The GFR is provided as additional pertinent clinical information. GFR is reported in mL/min/1.73 sq m. Calculation based on the Chronic Kidney Disease Epidemiology Collaboration (CKD- EPI) equation refit without adjustment for race. GFR, EST. >60 >=60 025 10:19 AM CDT [facility] GFR, EST. NONAFRICAN >60 >=60 03/12/2025 10:19 AM CDT [facility] Blood Venipuncture / Unknown 03/12/2025 9:18 AM CDT 03/12/2025 9:49 AM CDT us Dory Tyson APRN, STAFFING OPERATIONS MANAGER CHEMISTRY ORDERABLES Final Result Performing Organization Address City/[facility] [address]/ZIP Co de Phone Number [facility] [address] [place] [address] * HM COLONOSCOPY (02/01/2023 12:00 AM CDT) 02/01/2023 us Provider Scan PROCEDURE/MINOR SURGICAL ORDERAB LES Final Result SCAN * MAMMOGRAM BILATERAL MISCELLANEOUS (01/03/2022 12:00 AM CDT) 01/03/2022 us Not On File Provider IMG MAMMO ORDERABLES Final Result SCAN * HEPATITIS PANEL ACUTE (AHP) (09/23/2020 8:57 AM STOCK REPAIRER) HEPATITIS A IGM ANTIBODY NON DETECTED NON DETECTED [facility] [id number] 09/23/2020 9:39 PM STOCK REPAIRER [facility] Comment: IGM Antibodies to HAV not detected. Does not exclude early acute or recovered HAV infection. HEP B CORE AB (IGM) NON DETECTED NON DETECTED [facility] [id number] 09/23/2020 9:39 PM STOCK REPAIRER [facility] Comment:IGM anti-HBC not det ected. Does not exclude the possibility of exposure to or infection with HBV. HEPATITIS B SURFACE ANTIGEN NON DETECTED NON DETECTED [facility] [id number] B 09/23/2020 9:39 PM STOCK REPAIRER [facility] Comment:A nonreactive test r esult does not exclude the possibility of exposure to or infection with Hepatitis B virus. A nonreactive test result in individuals with prior exposure to hepatitis B may be due to antigen levels below the detection limit of this assay or lack of antigen reactivity to the antibodies in this assay. hepatitis C antibody 0.18 <1 S/CO [facility] [id number] B 09/23/2020 9:39 PM STOCK REPAIRER [facility] Comment: Signal/Cutoff ratio < 0.79 is Nondetected Signal/Cutoff ratio 0.80-0.99 is Grayzone Signal/Cutoff ratio > 0.99 is Detected Supplemental assays are recommended if signal/cutoff ratio is >/=1.00. Signal/cutoff ratio result >/= 5.00 is 97% predictive of positivity for recombinant immunoblot assay (RIBA) and will be reported to the [place] Department of Public Health as required. Blood Venipuncture / Unknown 09/23/2020 8:57 AM STOCK REPAIRER 09/23/2020 8:57 AM STOCK REPAIRER us Franck Alvarez MD HEMATOLOGY ORDERABLES Fin al Result [facility] [address] [place] [address], from Last 3 Months or Most Recently Relevant to Health Maintenance Insurance MEDICARE [employer] Care Teams Senior Hardware Design Engineer Relationship Specialty Start Date End Date Dory Tyson APRN, STAFFING OPERATIONS MANAGER [address] [place] [address] PCP - General Certified Nurse Practitioner 07/20/24
== END 2025-05-27 09:35 | disposition home or self-care (01) ==
LOC: ANHNEURO 09:38
PROVIDERS: Visit Provider Orthopaedic Surgery
DX: G56.02 Carpal tunnel syndrome, left upper limb (principal)
CPT/HCPCS: 95886; 95909

== ENCOUNTER 2025-06-19 00:55 | Day surgery (SDC) | payer MEDICARE, SELFPAY ==
--- OUTSIDE RECORDS SUMMARY | 2014-09-12 05:50 | XMS_ITS | Continuity of Care Document ---
Author Organization [facility] Address [address] [place] [address] Phone Care Team Providers Care Equipment Oiler Name Role Phone Radha MAGDALENO, Nadir Unavailable Unavailable Allergies, Adverse Reactions, Alerts Substance Reaction Status Criticality erythromycin base Active No Informa tion Medications Medication Instructions Dosage Effective Dates (start - stop) Status Comments aspirin 81 mg tablet,delayed release take 1 tablet by oral route every day 81 MG - Active Calcium 500 500 mg calcium (1,250 mg) tablet - Active Vivelle-Dot 0.025 mg/24 hr transdermal patch apply 1 patch by transdermal route 2 times every week cyclically, 3 weeks on and 1 week off 1.00 patch - Active Results Test Name Date and Time Measure Units Reference Range Abnormal Flag Status Comments Panel Description: UA- Dipstick (office Lab) Fi nal Color (U) Yellow YELLOW STRAW Final Appearance (U) Clear CLEAR Final Glucose (U) Negative NEGATIVE Final Bilirubin (U) Negative NEGATIVE Final Ketones (U) Negative NEGATIVE Final Specific [place] 1.030 1.001 - 1.035 F inal Blood (U) Negative NEGATIVE Final pH (U) 5 5 - 8 Final Protein (U) Negative NEGATIVE Final Urobilinogen (U) 0.2 mg/dL 0.2 - 1 Final Nitrite (U) Negative NEGATIVE Final Leukocyte Esterase (U) Negative NEGATIVE Final Advance Directives Directive Yes / No Effective Date File Name No Information Encounters Encounter Description Practice Location Reason(s) For Visit Diagnoses Date Provider Providers Copied on Encounter [facility], [address], [place], [place], [address] , [place] tel: [phone] [facility] [place] HematuriaMICROSCOPIC HEMATURIA Aug- 4 Radha [address]z. [address], [address], [place], [address], . tel: [phone] Referring Provider: Yohan Houston, [address], [place], [address]. tel:[phone] [facility], [address], [place], [place], [address] , tel: [phone] [facility] [place] No Information 0 4 Radha Schmitz. [address], [address], [place], [place], [facility], . tel: [phone] [facility], [address], [place], [place], [address] , tel: [phone] [facility] [place] Recurrent cystitis 3 Radha Schmitz. [address], [address], [place] [address], . tel: [phone] Referring Provider: [address], [place], [address]. tel:[phone] Family History Family Member Type Diagnosis Age At Onset Problem (finding) Family history of Diabe dioni mellitus Problem (finding) Family history of prost ate cancer Payers Payer name Insurance type Covered constitution party ID Authorsusie shinetanner(s) BCBS INACTIVE OUT OF STATE [id number] Social History Type Description Quantity Date Captured Comments Alcohol Use Details Unknown Caffeine Use Details Unknown Tobacco Use Status No Information Smoking Status No Information Sex Female Chief Complaint And Reason For Visit No Information Reason For Referral Reason For Referral No Information History Of Present Illness Encounter Date Complaint History Of Prese nt Illness No Information Functional Status Date Functional Assessmen t No Information Instructions Date Instruction Additional Infor mation No Information Assessments Type Assessment Date No Information Patient Care Teams Name Effective Dates (start - stop) Status Members No Information
[2025-06-11 10:31] VITALS: BMI 34.2
--- NOTE | 2025-06-11 10:33 | PC.NURSE ---
[facility] has started construction of its new state of the art ER which will open Spring 2026. With this, we anticipate parking may be a challenge for some our surgical patients and families. Parking spaces are limited but are available for all Surgical, obstetrics, and ER patients sharing this lot. If you arrive and find you are having a hard time finding a parking space, please note that we understand the challenges, please drive around the hospital and park near Hospital Entrance 1. When you enter this entrance, you can ask a volunteer to direct or take you back to the surgical waiting area to check in. We appreciate everyone?s understanding of these expected challenges while we build for your future. Report to the Outpatient Waiting Room, entrance under the green pavilion located off [address], at time _1030_ on date _[id number]_. Planned Procedure Time: _1230_.? Time changes happen often and if your time is changed the preop area will call you the afternoon before. - You and your visitor will be asked to self-screen and do not enter if you have any COVID symptoms. Please call surgeon if you need to reschedule. - A mask is optional within the hospital at this time. Patients may have clear liquids (water, carbonated beverages, clear teas, apple juice) until 3 hours prior to surgery with a maximum of 20 ounces. - No food from midnight until time of surgery and no smoking, or chewing tobacco (or any form of nicotine). No chewing gum, candy or mints. Take only the following medications with a SIP of water on the morning of surgery: __Anastrozole____ DO NOT STOP ANY OF YOUR OTHER PRESCRIPTION MEDICATIONS PRIOR TO SURGERY EXCEPT THE FOLLOWING Hold all vitamins and supplements for 3 days per anesthesiologist. Medications to discontinue per physician Date to take last dose Please no make-up, nail yoruba, hairspray, perfume, deodorant, or body powder the day of surgery.? No jewelry (including any body piercings) or valuables the day of surgery, leave them at home.? Please take a shower or bath the night before, or the morning of, surgery with an antibacterial soap.? Wear comfortable, loose fitting clothing.? - Jewelry must be removed prior to entering the operating room.? Rings and piercings that are not removed may be cut off. - The hospital will not accept responsibility for valuables.? - Please leave all valuables, including medications, at home the day of surgery. If you are going home after surgery, a licensed hook up driver must drive you home.? - NO public transportation without another adult if you receive anesthesia. - We recommend that an adult stay with you for 24 hours following discharge. - We also recommend that you do not drive, make important decision, drink alcoholic beverages, or take any drugs that were not prescribed by your health care provider for at least 24 hours after your discharge time. Follow any additional instructions given to you from your surgeon. Telephone instructions given to __Debbie___and asked if any additional questions and then verbalized understanding. Patient advised to call surgeon office or pre surgery nurse liaison [phone] if any additional questions.
--- OUTSIDE RECORDS SUMMARY | 2025-06-19 00:58 | XMS_ITS | Clinical Summary ---
Author Organization [facility] Address [address] [place] [address] Phone Care Team Providers Care Teacher Theater Arts Name Role Phone Dory Tyson APRN, ANCILLARY SERVICES MANAGER Primary Care Provider [phone] Allergies Active Allergy Reactions Criticality Noted Date [...] Description 03/24/2025 9:00 AM CDT Office Visit [facility] - Primary Care - [place] [address] [place] [address] Dory Tyson, SENIOR DATABASE ADMINISTRATOR, ANCILLARY SERVICES MANAGER Restless leg syndrome (Primary Dx); Hyperlipidemia, unspecified hyperlipidemia type; Malignant neoplasm of female breast, unspecified estrogen receptor status, unspecified laterality, unspecified site of breast (HCC); Impaired fasting glucose; Fatigue, unspecified type; Hyperglycemia; Elevated liver enzymes Discharge Disposition: Discharged to home or Selfcare 03/24/2025 Travel from Last 3 Months Immunizations Immunization [...] Diabetes Father Iraj Hypertension Mother Damian Cancer Paternal Aunt Robina Diabetes Paternal Aunt Robina Diabetes Paternal Grandmother Tamela Madrigal Cancer Sister Skyla Kidney Disease Sister Skyla Relation Name Status Comments Father Iraj Mother Vincent Paternal Aunt Robina Alive Paternal Grandmother Tamela Madrigal Alive Sister Skyla Social History Tobacco Use Types Packs/Day Years Used Date Smoking Tobacco: Never Smokeless Tobacco: Never Alcohol Use Standard Drinks/Week Comments No 0 (1 standard drink = 0.6 oz pur e alcohol) [facility] Utilities Answer Date Recorded In the past 12 months has [employer], gas, oil, or water company threatened to shut off services in your home? No 09/15/2024 Social Connection and Isolation Panel Answer Date Recorded In a typical week, how many times do you talk on the phone with family, friends, or neighbors? Three times a week 09/15/2024 How often do you get togethe r with friends or relatives? Once a week 09/15/2024 [facility] attend [facility]? More than 4 times per year 09/15/2024 Do you belong to any clubs o r organizations such as congregation groups, unions, fraternal or athletic groups, or [...] Total Score - Questions 1-9 0 10/2024 [facility] - Occupational Stress [...] place to sleep or slept in a senior care (including now)? No 11/25/2023 Housing Stability Vital Sign Answer Jerry e Recorded In the last 12 months, was t here a time when you were not able to pay the mortgage or rent on time? No 09/15/2024 In the past 12 months, how m any times have you moved where you were living? 0 09/15/2024 At any time in the past 12 m [facility], were you homeless or living in a senior care (including now)? No 09/15/2024 Education Answer Date [...] CDT Gender Identity Female 07/30/2023 8:35 AM CHAIN SAW DRIVER Sexual Orientation Straight 07/30/2023 8: 35 AM CHAIN SAW DRIVER Last Filed Vital Signs Vital Sign Reading [...] st Contact Info) Description 09/23/2025 10:00 AM CHAIN SAW DRIVER Office Visit [facility] - Primary Care - [place] [address] [place] [id number] Dory Tyson, SENIOR DATABASE ADMINISTRATOR, ANCILLARY SERVICES MANAGER [address] [place] [address] Health Maintenance Due Date Last Done Comments TdaP Immunization 1952 Zoster Immunization (1 of 2) 1971 Cologuard 1997 Immunochemical Fecal Occult Blood 1997 Respiratory Syncytial Virus (RSV) Immunization (Adult) (1 - Risk 60-74 years 1-dose series) 2012 Medicare Initial AWV G0438 04/18/2018 Influenza Immunization (#1) 05/19/202506/18, 06/24/2023, 07/02/2022, Additional [...] Procedure Name Priority Date/Time Associated Diagnosis Comments COLONOSCOPY 02/01/2023 12:00 AM CDT MAMMOGRAM BILATERAL GENERIC 01/03/2022 12:00 AM CDT HEPATITIS PANEL ACUTE (AHP) Routine 09/23/2020 8:57 AM CHAIN SAW DRIVER Elevated liver enzymes from Last 3 Months or Most Recently Relevant to Health Maintenance Results * HM COLONOSCOPY (02/01/2023 12:00 AM CDT) 02/01/2023 us Provider Scan PROCEDURE/MINOR SURGICAL ORDERAB LES Final Result SCAN * MAMMOGRAM BILATERAL MISCELLANEOUS (01/03/2022 12:00 AM CDT) 01/03/2022 us Not On File Provider IMG MAMMO ORDERABLES Final Result SCAN * HEPATITIS PANEL ACUTE (AHP) (09/23/2020 8:57 AM CHAIN SAW DRIVER) HEPATITIS A IGM ANTIBODY NON DETECTED NON DETECTED [facility] [id number] 09/23/2020 9:[address] [facility] Comment: IGM Antibodies to HAV not detected. Does not exclude early acute or recovered HAV infection. HEP B CORE AB (IGM) NON DETECTED NON DETECTED [facility] [id number] A 09/23/2020 9:[address] [facility] Comment:IGM anti-HBC not det ected. Does not exclude the possibility of exposure to or infection with HBV. HEPATITIS B SURFACE ANTIGEN NON DETECTED NON DETECTED [facility] [id number] B 09/23/2020 9:[address] [facility] Comment:A nonreactive test r esult does not exclude the possibility of exposure to or infection with Hepatitis B virus. A nonreactive test result in individuals with prior exposure to hepatitis B may be due to antigen levels below the detection limit of this assay or lack of antigen reactivity to the antibodies in this assay. hepatitis C antibody 0.18 <1 S/[facility] [id number] B 09/23/2020 9:[address] [facility] Comment: Signal/Cutoff ratio < 0.79 is Nondetected Signal/Cutoff ratio 0.80-0.99 is Grayzone Signal/Cutoff ratio > 0.99 is Detected Supplemental assays are recommended if signal/cutoff ratio is >/=1.00. Signal/cutoff ratio result >/= 5.00 is 97% predictive of positivity for recombinant immunoblot assay (RIBA) and will be reported to the [place] Department of Public [facility] as required. Blood Venipuncture / Unknown 09/23/2020 8:57 AM CHAIN SAW DRIVER 09/23/2020 8:57 AM CHAIN SAW DRIVER us Franck Alvarez MD HEMATOLOGY ORDERABLES Fin al Result [facility] [address] [place] [address], from Last 3 Months or Most Recently Relevant to Health Maintenance Insurance MEDICARE [employer] SENIOR [employer]LEMENTAL Care Teams Teacher Theater Arts Relationship Specialty Start Date End Date Dory Tyson, SENIOR DATABASE ADMINISTRATOR, ANCILLARY SERVICES MANAGER [address] [place] [address] PCP - General Certified Nurse Practitioner 07/20/24
--- OUTSIDE RECORDS SUMMARY | 2025-06-19 00:59 | XMS_ITS | Clinical Summary ---
Author Organization [facility] Address [address] [place] [address] Phone Care Team Providers Care Manager Distribution Center Name Role Phone ARCENIO MAGDALENO, NORMAN Fish Primary Care Provider [phone] Reason for Visit and Chief Complaint The Chief Complaint is: PT IS HERE WITH A COUGH, YELLOWISH GREEN PHLEGM,SINUS DRAINAGE AND PRESSURETHAT STARTED A WEEK AGO Problems Includes: Problems addressed during this encounter and other active Problems All Visits Onset Date Resolved Date Provider Condition S tatus Diabetes Mellitus Type 2 Without Complication 09/28/2022 RAVEN LANDIN COMPUTER NUMERICAL CONTROL MACHINIST-C Active Last Documented On 3 5:14PM ; [facility] Obesity 09/28/2022 RAVEN GALLO COMPUTER NUMERICAL CONTROL MACHINIST-C Active Last Documented On 3 5:13PM ; [facility] Plan of Treatment - Return to the clinic if condition worsens or new symptoms arise - Last Documented On 05/08/2023 12:23PM ; [facility] - Follow-up visit in 1-2 weeks with an office visit or sooner if symptoms persist or worsen - Last Documented On 05/08/2023 12:23PM ; [facility] - Patient to call if problem develops - Last Documented On 05/08/2023 12:23PM ; [facility] Instructions to patient Go to the emergency room if condition worsens Last Documented On 3 12:03PM ; [facility] Watch for signs/symptoms of infection Last Documented On 3 12:03PM ; [facility] Watch for signs/symptoms of infection, return to the clinic if seen Last Documented On 3 12:03PM ; [facility] Education and Decision Aids were provided during visit for: Patient education about anti biotics: need to finish even if feeling better Last Documented On 3 12:03PM ; [facility] Assessments Includes: Assessments from this encounter Findings - Acute sinusitis - Last Documented On 05/08/2023 12:23PM ; [facility] Instructions Includes: Instructions from this encounter Instructions to patient Go to the emergency room if condition worsens Last Documented On 3 12:03PM ; [facility] Watch for signs/symptoms of infection Last Documented On 3 12:03PM ; [facility] Watch for signs/symptoms of infection, return to the clinic if seen Last Documented On 3 12:03PM ; [facility] Education and Decision Aids were provided during visit for: Patient education about anti biotics: need to finish even if feeling better Last Documented On 3 12:03PM ; [facility] Medical Equipment - Implanted Devices Includes: [...] 7 ml BID x 10 days Pharmacy: [address], [phone] - Last Documented On 05/09/2023 10:13AM By Gabino CASTRO ; [facility] Current Medications (continue as prescribed) rOPINIRole HCl 0.5 MG Oral Tablet 01/23/2024 Provide r: NORMAN RG MD Diagnosis: Last Documented On 03/19/2024 10:45AM By Vickey CASTRO ; [facility] Omeprazole 20 MG Oral Capsul e Delayed Release 11/27/2023 Provider: NORMAN RG MD Diagnosis: Last Documented On 03/19/2024 10:45AM By Vickey CASTRO ; [facility] Past Medications on file Amoxicillin-Pot Clavulanate 600-42.9 MG/5ML Oral Suspension Reconstituted 10/13/2023 - 10/23/2023 Provider: CHAZ AL Diagnosis: Acute bronchitis , unspecified Take 7mL twice daily x 10 days Last Documented On 4 11:26AM By Chaz AL ; [facility] Amoxicillin-Pot Clavulanate 600-42.9 MG/5ML Oral Suspension Reconstituted 06/21/2021 - 07/01/2021 Provider: CHAZ AL Diagnosis: Acute sinusitis, unspecified Take 7mL twice daily x 10 days Last Documented On 1 10:00AM By Chaz AL ; [facility] Nitrofurantoin 25 MG/5ML OR SUSP 05/13/2013 - 05/20/2013 Provider: VADIM RAMIRES PA-C Diagnosis: URIN TRACT INFEC TION NOS 4 tsp BID x 7 days. Last Documented On 3 2:40PM By VADIM RAMIRES PA-C ; [facility] Cipro 500 MG/5ML (10%) OR SUSR 10/08/2012 - 10/18/2012 Provider: VADIM RAMIRES PA-C Diagnosis: URIN TRACT INFEC TION NOS 1/2 tsp BID x 10 days. Last Documented On 3 9:59AM By VADIM RAMIRES PA-C ; [facility] Medications Administered Includes: Administered Medications from this encounter No Administered Medications Recorded Vital Signs Includes: Vital Signs from this encounter Vital Name 05/08/2023 11:42A Pulse Rate-Sitting (bpm) 76 Temp-Oral (F) 98.4 Height (in) 60 Weight (lb) 176 Body Mass Index 34.4 Body Surface Area 1.8 Oxygen Saturation (%) 98 Last Documented: On 05/08/2023 11:42A M ; [facility] Results Includes: Results discussed during this encounter [...] 02/07/2023 Last Documented On 3 11:42AM ; [facility] Currently 04/09/2012 Last Documented On 3 11:42AM ; [facility] Exercise frequency 3 X WEEKLY 04/09/2012 Last Documented On 3 11:42AM ; [facility] 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 Last Documented On 3 11:42AM ; [facility] Smoking Status Unknown Procedures and Surgical History Includes: Procedures from this encounter Procedures Code Diagnosis Performing Provider Service L ocation Service Date medication instruction Last Documented On 3 12:03PM ; [facility] continue current medication Last Documented On 3 12:03PM ; [facility] the options include decongestants as nee ded per product instructions Last Documented On 3 12:03PM ; [facility] the options include antihistamines as ne eded per product instructions Last Documented On 3 12:03PM ; [facility] watch for signs/symptoms of infection Last Documented On 3 12:03PM ; [facility] watch for signs/symptoms of infection, r eturn to the clinic if seen Last Documented On 3 12:03PM ; [facility] Pt to use prescription as ordered. Purpo se of and use of medication discussed.~ Last Documented On 3 12:03PM ; [facility] Pt to use OTC fever/pain product as need ed per product instruction.~ Last Documented On 3 12:03PM ; [facility] Pt to use OTC cough product as needed pe r product instruction.~ Last Documented On 3 12:03PM ; [facility] Pt to use OTC expectorant product as nee ded per product instruction.~ Last Documented On 3 12:03PM ; [facility] plan of care reviewed and agreed to by t he patient Last Documented On 3 12:03PM ; [facility] review of medications documented [id number] Last Documented On 3 11:43AM ; [facility] Surgical History Last Updated History of decompression of median nerve at carpal tunnel Carpal Tunnel Release~ 10/08/2012 Last Documented On 3 11:42AM ; [facility] Surgical / procedural histor y 1.Heel spur surgery. ~2. Complete hysterectomy for Fibroid in 2000 10/08/2012 Last Documented On 3 11:42AM ; [facility] Medical History Includes: Medical History addressed during this encounter Description Last Updated LMP: HYSTERECTOMY 05/08/2023 Last Documented On 3 12:23PM ; [facility] Exposure to a lot of bright sunlight Last Documented On 3 11:42AM ; [facility] 1 miscarriage(s) 04/09/2012 Last Documented On 3 11:42AM ; [facility] Previously 5 time(s) 04/09/2012 Last Documented On 3 11:42AM ; [facility] Family History Includes: Family History addressed during this encounter Description Last Updated Family history unchanged 01/07/2023 Last Documented On 3 11:42AM ; [facility] Family history of cancer 04/09/2012 Last Documented On 3 11:42AM ; [facility] Family history of diabetes mellitus 03/19 Last Documented On 3 12:03PM ; [facility] Family history of heart disease 04/09/20 12 Last Documented On 3 11:42AM ; [facility] Family history of kidney disease 012 Last Documented On 3 11:42AM ; [facility] Father AGE 74 04/09/2012 Last Documented On 3 11:42AM ; [facility] Mother [id number] 04/09/2012 Last Documented On 3 11:42AM ; [facility] Spouse 63 years old 04/09/2012 Last Documented On 3 11:42AM ; [facility] Review of Systems Includes: Review of [...] Active Last Documented On 4 1:03PM ; [facility] Encounters Encounter Provider Location Date Check-In Time Check-Out Time Diagnosis COVID SICK VISIT- ESTABLISHED PATIENT SUKHWINDER NUNEZ [facility] 05/08/20 23 11:26AM 12:00PM Sinusitis Acute Insurance Includes: Active Insurance Policies Plan Name Member ID Group # Subscriber Relationship Effect aj Dates 1 - MEDICARE PART A CLAIMS/NGS [id number] KEIRA DE LOS SANTOS Self 2 - [employer] SENIOR PRODUCT [id number] KEIRA DE LOS [place]ANTOS Self Clinical Notes Includes: Clinical Notes from this encounter * Progress note Date Encounter Last Documented by 05/08/2023 COVID SICK VISIT- ESTABLISHED PA TIENT Last documented on 05/08/2023; 12:23 PM, SUKHWINDER BRANDON; [facility] Active Problems & Conditions - Diabetes Mellitus [...]
--- OUTSIDE RECORDS SUMMARY | 2025-06-19 00:59 | XMS_ITS | Clinical Summary ---
Author Organization [facility] Address [address] [place] [address] Phone Care Team Providers Care Library Associate Name Role Phone ARCENIO MAGDALENO, NORMAN Fish Primary Care Provider [phone] Reason for Referral Date Encounter Description Provider Reason for Referral 11/13/23 DIABETIC FOLLOW UP APPOINTMENT RAVEN LANDIN FORMING AND ASSEMBLING SUPERVISOR-Marisa Request Consultation By Trauma Surgeon Reason for Visit and Chief Complaint visit for: Diabetes Education Initial Encounter for Type 2 Diabetes Problems Includes: Problems addressed during this encounter and other active Problems Current Visit Onset Date Resolved Date Provider Conditio n Status Diabetes Mellitus Type 2 Without Complication 09/28/2022 RAEVN LANDIN [employer]MING AND ASSEMBLING SUPERVISOR-C Active Last Documented On 3 5:14PM ; [facility] Past Visits Onset Date Resolved Date Provider Condition Status Obesity 09/28/2022 RAVEN SCHMID FORMING AND ASSEMBLING SUPERVISOR-C Active Last Documented On 3 5:13PM ; [facility] Plan of Treatment A1C goal [...] that grow above ground: Cauliflower, broccoli, cabbage, Acra sprouts, kale, collards, bok donta, spinach, asparagus, zucchini, eggplant, olives, mushrooms, cucumber, avocado (technically a fruit but usually included with vegetables), onions, peppers, tomatoes, lettuce, other kinds of leafy greens, etc. Dairy products: choose full-fat options like real butter, cream (40% fat), sour cream, Palestinian yogurt and high-fat cheeses, which can help [...] Nuts and natural nut butters Ranch Dressing [place] or Coconut Milk Heavy cream Healthy Life brand or other low carbohydrate-keto bread Low Carbohydrate [place] Tortilla Frozen Vegetable Noodle Substitute Eggs, Cheeses Meat Sticks (low sodium/low sugar) Fire [place] Brand sold locally are my favorite Protein [...] dressings) Ranch has the lowest carbohydrate count [place] flour or Coconut Flour Low sugar Palestinian Yogurt Pork rinds, pickles, olives. AVOID OR WATCH PORTIONS OF GRAINS-STARCHY [id number]-IFYNTU-LORV-PASTA ONLY 1 SERVING PER MEAL Carry a glucose source at all times for blood glucose below 60 and watch for signs and symptoms of hypoglycemia as discussed. Patient agrees with this plan and will follow up for reinforcement and further evaluation and management. - Last Documented On 11/13/2023 1:34PM ; [facility] Pending Tests Order Diagnosis Results Due Ordering P antonio Lab Hemoglobin A1C 11/13/23 RAVEN LANDIN [employer]MING AND ASSEMBLING SUPERVISOR-C Last Documented On 4 1:28PM ; [facility] Instructions to patient Intervention and counseling on cessation of tobacco use Last Documented On 4 1:03PM ; [facility] Maintain a healthy diet Last Documented On 4 1:01PM ; [facility] Lose weight Last Documented On 4 1:01PM ; [facility] Avoid foods and beverages co ntaining sugar Last Documented On 4 1:01PM ; [facility] Education and Decision Aids were provided during visit for: Discussed preventing falls Last Documented On 4 1:01PM ; [facility] Patient education about a pr oper diet Last Documented On 4 1:01PM ; [facility] Dietary counseling pertainin g to hypoglycemia Last Documented On 4 1:01PM ; [facility] Patient education about meal planning Last Documented On 4 1:01PM ; [facility] Patient education about weig ht control Last Documented On 4 1:01PM ; [facility] Patient education about regu lar dental care annually Last Documented On 4 1:01PM ; [facility] Patient education about diab etes and discussed ABCs of diabetic therapy and goals Last Documented On 4 1:01PM ; [facility] Patient education about a bl ood glucose monitor Last Documented On 4 1:01PM ; [facility] Patient education about a ho me blood glucose monitor with instructions to bring monitor to each visit Last Documented On 4 1:01PM ; [facility] Dietary counseling pertainin g to diabetes mellitus Last Documented On 4 1:01PM ; [facility] Patient education about diab etic foot care annually Last Documented On 4 1:01PM ; [facility] Inquiry and counseling about medication administration and compliance Last Documented On 4 1:01PM ; [facility] Education, guidance, and cou nseling about dietary management keep grams of sugar to less than 30 gram per day Last Documented On 4 1:01PM ; [facility] Education, guidance, and cou nseling about meal preparation Last Documented On 4 1:01PM ; [facility] Patient goals discussed Last Documented On 4 1:01PM ; [facility] The patient's goal is to gustavo p fasting blood sugar under 150 and under 180 2 hours after a meal Last Documented On 4 1:01PM ; [facility] The patient's goal is to dioni t the blood sugars and bring in the results to each visit Last Documented On 4 1:01PM ; [facility] Patient's goal is to keep he moglobin A1c levels under 7.0% or less than 8% if over 70 years of age Last Documented On 4 1:01PM ; [facility] The patient will lose weight Last Documented On 4 1:01PM ; [facility] Patient will increase aerobi c activity (30-45 min most days of wk) 150 minutes a week Last Documented On 4 1:01PM ; [facility] Assessments Includes: Assessments from this encounter Findings - [E11.9 - Type 2 diabetes mellitus without complications] Type 2 diabetes mellitus without complication - Last Documented On 11/13/2023 1:34PM ; [facility] - Counseling and coordination of care was more than 50% of encounter time - Last Documented On 11/13/2023 1:34PM ; [facility] Instructions Includes: Instructions from this encounter Instructions to patient Intervention and counseling on cessation of tobacco use Last Documented On 4 1:03PM ; [facility] Maintain a healthy diet Last Documented On 4 1:01PM ; [facility] Lose weight Last Documented On 4 1:01PM ; [facility] Avoid foods and beverages co ntaining sugar Last Documented On 4 1:01PM ; [facility] Education and Decision Aids were provided during visit for: Discussed preventing falls Last Documented On 4 1:01PM ; [facility] Patient education about a pr oper diet Last Documented On 4 1:01PM ; [facility] Dietary counseling pertainin g to hypoglycemia Last Documented On 4 1:01PM ; [facility] Patient education about meal planning Last Documented On 4 1:01PM ; [facility] Patient education about weig ht control Last Documented On 4 1:01PM ; [facility] Patient education about regu lar dental care annually Last Documented On 4 1:01PM ; [facility] Patient education about diab etes and discussed ABCs of diabetic therapy and goals Last Documented On 4 1:01PM ; [facility] Patient education about a bl ood glucose monitor Last Documented On 4 1:01PM ; [facility] Patient education about a ho me blood glucose monitor with instructions to bring monitor to each visit Last Documented On 4 1:01PM ; [facility] Dietary counseling pertainin g to diabetes mellitus Last Documented On 4 1:01PM ; [facility] Patient education about diab etic foot care annually Last Documented On 4 1:01PM ; [facility] Inquiry and counseling about medication administration and compliance Last Documented On 4 1:01PM ; [facility] Education, guidance, and cou nseling about dietary management keep grams of sugar to less than 30 gram per day Last Documented On 4 1:01PM ; [facility] Education, guidance, and cou nseling about meal preparation Last Documented On 4 1:01PM ; [facility] Patient goals discussed Last Documented On 4 1:01PM ; [facility] The patient's goal is to gustavo p fasting blood sugar under 150 and under 180 2 hours after a meal Last Documented On 4 1:01PM ; [facility] The patient's goal is to dioni t the blood sugars and bring in the results to each visit Last Documented On 4 1:01PM ; [facility] Patient's goal is to keep he moglobin A1c levels under 7.0% or less than 8% if over 70 years of age Last Documented On 4 1:01PM ; [facility] The patient will lose weight Last Documented On 4 1:01PM ; [facility] Patient will increase aerobi c activity (30-45 min most days of wk) 150 minutes a week Last Documented On 4 1:01PM ; [facility] Medical Equipment - Implanted Devices Includes: Current Devices No Medical Equipment Recorded Medications Includes: Medications discussed during this encounter and other current Medications Current Medications (continue as prescribed) rOPINIRole HCl 0.5 MG Oral Tablet 01/23/2024 Provide r: NORMAN RG MD Diagnosis: Last Documented On 03/19/2024 10:45AM By Vickey CASTRO ; [facility] Omeprazole 20 MG Oral Capsul e Delayed Release 11/27/2023 Provider: NORMAN RG MD Diagnosis: Last Documented On 03/19/2024 10:45AM By Vickey CASTRO ; [facility] Past Medications on file Amoxicillin-Pot Clavulanate 600-42.9 MG/5ML Oral Suspension Reconstituted 10/13/2023 - 10/23/2023 Provider: CHAZ AL Diagnosis: Acute bronchitis , unspecified Take 7mL twice daily x 10 days Last Documented On 4 11:26AM By Chaz AL ; [facility] Amoxicillin-Pot Clavulanate 600-42.9 MG/5ML Oral Suspension Reconstituted 06/21/2021 - 07/01/2021 Provider: CHAZ AL Diagnosis: Acute sinusitis, unspecified Take 7mL twice daily x 10 days Last Documented On 1 10:00AM By Chaz AL ; [facility] Nitrofurantoin 25 MG/5ML OR SUSP 05/13/2013 - 05/20/2013 Provider: VADIM RAMIRES PA-C Diagnosis: URIN TRACT INFEC TION NOS 4 tsp BID x 7 days. Last Documented On 3 2:40PM By VADIM RAMIRES PA-C ; [facility] Cipro 500 MG/5ML (10%) OR SUSR 10/08/2012 - 10/18/2012 Provider: VADIM RAMIRES PA-C Diagnosis: URIN TRACT INFEC TION NOS 1/2 tsp BID x 10 days. Last Documented On 3 9:59AM By VADIM RAMIRES PA-C ; [facility] Medications Administered Includes: Administered Medications from [...] 98 Last Documented: On 11/13/2023 1:10PM ; [facility] Results Includes: Results discussed [...] unstable chronic illness BP is presently stable/well kajptrenxv-jdihi-bjjkuqk ordered/reviewed as per ADA guidelines. Date of [...] 02/07/2023 Last Documented On 4 1:01PM ; [facility] No travel 06/21/2021 Last Documented On 4 1:01PM ; [facility] Smoking status : Never smoker 11/30/2019 Last Documented On 4 1:01PM ; [facility] Currently 04/09/2012 Last Documented On 4 1:01PM ; [facility] Exercise frequency 3 X WEEKLY 04/09/2012 Last Documented On 4 1:01PM ; [facility] No consumption of alcohol 04/09/2012 Last Documented On 4 1:01PM ; [facility] Not using drugs 04/09/2012 Last Documented On 4 1:01PM ; [facility] 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 Last Documented On 4 1:01PM ; [facility] Procedures and Surgical History Includes: Procedures from this encounter Procedures Code Diagnosis Performing Provider Service L ocation Service Date controlled carbohydrate diet Last Documented On 4 1:01PM ; [facility] diabetic diet Last Documented On 4 1:01PM ; [facility] preventive medicine / risk factor counse ling provided Last Documented On 4 1:01PM ; [facility] request consultation by physician assistant Last Documented On 4 1:01PM ; [facility] disposition: reassurance Last Documented On 4 1:01PM ; [facility] patient information sheet given for diag nosis : Diabetes Last Documented On 4 1:01PM ; [facility] diabetic supplies glucometer Last Documented On 4 1:01PM ; [facility] plan of care reviewed and agreed to by t he patient Last Documented On 4 1:01PM ; [facility] intervention and counseling on cessation of toba account 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 use 4000F Last Documented On 4 1:03PM ; [facility] use of tobacco assessment performed 1000F Last Documented On 4 1:01PM ; [facility] microalbuminuria test result documented and reviewed Last Documented On 4 1:01PM ; [facility] patient screened for future fall risk 3288F Last Documented On 4 1:01PM ; [facility] patient screened for future fall risk: documentation of any fall with injury in past year 1100F Last Documented On 4 1:01PM ; [facility] standardized depression screening: negative for symptoms 3351F Last Documented On 4 1:01PM ; [facility] review of medications documented 1160F Last Documented On 4 1:01PM ; [facility] encouragement of annual ophthalmologic e xamination performed Last Documented On 4 1:01PM ; [facility] counseling about safety issues Last Documented On 4 1:01PM ; [facility] avoid foods and beverages containing sug ar Last Documented On 4 1:01PM ; [facility] screening for adult depression: impressi on and score Last Documented On 4 1:01PM ; [facility] diabetic foot examination Last Documented On 4 1:01PM ; [facility] activity/exercise education prescribed Last Documented On 4 1:01PM ; [facility] encouragement to exercise 150 minutes we ekly Last Documented On 4 1:01PM ; [facility] education about signs of hypoglycemia pe rformed Last Documented On 4 1:01PM ; [facility] screening for safety concerns Last Documented On 4 1:01PM ; [facility] Advised ophthalmological services Last Documented On 4 1:01PM ; [facility] Reviewed Blood Sugars Last Documented On 4 1:01PM ; [facility] Carbohydrate countin-200 grams or less daily Last Documented On 4 1:01PM ; [facility] Clinical summary provided to patient Last Documented On 4 1:01PM ; [facility] labs and studies reviewed with patient Last Documented On 4 1:01PM ; [facility] Surgical History Last Updated History of decompression of median nerve at carpal tunnel Carpal Tunnel Release~ 10/08/2012 Last Documented On 4 1:01PM ; [facility] Surgical / procedural histor y 1.Heel spur surgery. ~2. Complete hysterectomy for Fibroid in 199910/08/2012 Last Documented On 4 1:01PM ; [facility] Medical History Includes: Medical History addressed during this encounter Description Last Updated History of camera fundoscopic exam was p erformed see HPI/scanned image 11/13/2023 Last Documented On 4 1:34PM ; [facility] LMP: HYSTERECTOMY 05/08/2023 Last Documented On 4 1:01PM ; [facility] No exposure to a contagious disease 12/2020 Last Documented On 4 1:01PM ; [facility] No Contact with and (Suspected) exposure to COVID-19 06/21/2021 Last Documented On 4 1:01PM ; [facility] No fall 06/21/2021 Last Documented On 4 1:01PM ; [facility] Not taking OTC medications 06/18/2021 Last Documented On 4 1:01PM ; [facility] Pt does not get blood pressure checked a t other facility 10/01/2015 Last Documented On 4 1:01PM ; [facility] Exposure to a lot of bright sunlight Last Documented On 4 1:01PM ; [facility] 1 miscarriage(s) 04/09/2012 Last Documented On 4 1:01PM ; [facility] Previously 5 time(s) 04/09/2012 Last Documented On 4 1:01PM ; [facility] No history of arthritis 04/09/2012 Last Documented On 4 1:01PM ; [facility] No history of cancer 04/09/2012 Last Documented On 4 1:01PM ; [facility] No history of chronic obstructive pulmon candelario disease 04/09/2012 Last Documented On 4 1:01PM ; [facility] No history of convulsive disorder 2011 Last Documented On 4 1:01PM ; [facility] No history of diabetes mellitus 04/09/20 12 Last Documented On 4 1:01PM ; [facility] No history of hypertension 04/09/2012 Last Documented On 4 1:01PM ; [facility] No history of stroke syndrome 04/09/2012 Last Documented On 4 1:01PM ; [facility] No history of venereal disease 2 Last Documented On 4 1:01PM ; [facility] No reported cardiovascular symptoms 03/19 Last Documented On 4 1:01PM ; [facility] No reported easy bleeding 04/09/2012 Last Documented On 4 1:01PM ; [facility] No reported recurrent infections 012 Last Documented On 4 1:01PM ; [facility] Family History Includes: Family History addressed during this encounter Description Last Updated Family history unchanged 01/07/2023 Last Documented On 4 1:01PM ; [facility] Family history of cancer 04/09/2012 Last Documented On 4 1:01PM ; [facility] Family history of diabetes mellitus 03/19 Last Documented On 4 1:12PM ; [facility] Family history of heart disease 04/09/20 12 Last Documented On 4 1:01PM ; [facility] Family history of kidney disease 012 Last Documented On 4 1:01PM ; [facility] Father AGE 74 04/09/2012 Last Documented On 4 1:01PM ; [facility] Mother [id number] 04/09/2012 Last Documented On 4 1:01PM ; [facility] No family history of alcoholism 04/09/20 12 Last Documented On 4 1:01PM ; [facility] No family history of defects 04/09 Last Documented On 4 1:01PM ; [facility] No family history of bleeding problems 0 04/09/2012 Last Documented On 4 1:01PM ; [facility] No family history of genetic disease Last Documented On 4 1:01PM ; [facility] No family history of mental illness (not retardation) 04/09/2012 Last Documented On 4 1:01PM ; [facility] Spouse 63 years old 04/09/2012 Last Documented On 4 1:01PM ; [facility] Review of Systems Includes: Review [...] Active Last Documented On 4 1:03PM ; [facility] Encounters Encounter Provider Location Date Check-In Time Check-Out Time Diagnosis DIABETIC FOLLOW UP APPOINTMENT RAVEN AL [facility]- 024 12:48PM 1:34PM Dur of Enc - Workflow Developer & Coord of Care > 50% Encounter Time,Diabetes Mellitus Type 2 Without Complication Insurance Includes: Active Insurance Policies Plan Name Member ID Group # Subscriber Relationship Effect aj Dates 1 - MEDICARE PART A CLAIMS/NGS [id number] KEIRA DE LOS SANTOS Self 2 - [employer] S[employer] [id number] KEIRA DE LOS [place]ANTOS Self Clinical Notes Includes: Clinical Notes from this encounter * Progress note Date Encounter Last Documented by 11/13/2023 DIABETIC FOLLOW UP APPOINTMENT L ast documented on 11/13/2023; 1:34 PM, RAVEN AL; [facility] Active Problems & Conditions [...] unstable chronic illness BP is presently stable/well cehtxcceoq-eysee-kqmulip ordered/reviewed as per ADA guidelines. Date of [...] by the patient. - Request consultation by physician assistant. - Diabetic supplies glucometer. - Carbohydrate countin-200 [...] that grow above ground: Cauliflower, broccoli, cabbage, [place]ra sprouts, kale, collards, bok donta, spinach, asparagus, zucchini, eggplant, olives, mushrooms, cucumber, avocado (technically a fruit but usually included with vegetables), onions, peppers, tomatoes, lettuce, other kinds of leafy greens, etc. Dairy products: choose full-fat options like real butter, cream (40% fat), sour cream, Palestinian yogurt and high-fat cheeses, which can help [...] Nuts and natural nut butters Ranch Dressing [place] or Coconut Milk Heavy cream Healthy Life brand or other low carbohydrate-keto bread Low Carbohydrate [place] Tortilla Frozen Vegetable Noodle Substitute Eggs, Cheeses Meat Sticks (low sodium/low sugar) Fire [place] Brand sold locally are my favorite Protein [...] dressings) Ranch has the lowest carbohydrate count [place] flour or Coconut Flour Low sugar Palestinian Yogurt Pork rinds, pickles, olives. AVOID OR WATCH PORTIONS OF GRAINS-STARCHY PLKPMLR-LAOIEP-EYID-PASTA ONLY 1 SERVING PER MEAL Carry a [...] 11/13/2023. - Neuropathy Screening satisfied 11/13/2023. - Occupational Safety Specialist satisfied 11/13/2023. - Pneumovax satisfied 11/13/2023.
--- OUTSIDE RECORDS SUMMARY | 2025-06-19 00:59 | XMS_ITS ---
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 Name Role Phone ARCENIO MAGDALENO, NORMAN Fish Primary Care Provider [phone] Reason for Referral Date Encounter Description Provider Reason for Referral 11/13/23 DIABETIC FOLLOW UP APPOINTMENT RAVEN KARIMILTZ DIRECTOR OF [employer]TER[employer]ISE [employer] Request Consultation By Ecological Risk Assessor 05/09/23 DIABETIC FOLLOW UP APPOINTMENT RAVEN OKEEFEZ DIRECTOR OF [employer]TER[employer]-C Request Consultation By Ecological Risk Assessor 02/07/23 DIABETIC FOLLOW UP APPOINTMENT RAVEN AMBROCIOEROdalisHULTZ DIRECTOR OF [employer]TERPRISE [employer]-C Request Consultation By Ecological Risk Assessor 11/09/22 DIABETIC FOLLOW UP APPOINTMENT RAVEN KARIMILTZ DIRECTOR OF [employer]TERPR[employer]-C Request Consultation By Ecological Risk Assessor 09/28/22 DIABETIC INITIAL EXA M - NEW PT RAVEN AMBROCIOER-HULTZ DIRECTOR OF [employer]TER[employer] Request Consultation By Ecological Risk Assessor Problems Includes: Active, inactive, and resolved Problems All Visits Onset Date Resolved Date Provider Condition S tatus Diabetes Mellitus Type 2 Without Complication 09/28/2022 RAVEN OKEEFEZ DIRECT[employer] Active Last Documented On 3 5:14PM ; [facility] Obesity 09/28/2022 RAVEN KARIMI LTZ DIRECT[employer] Active Last Documented On 3 5:13PM ; [facility] Plan of Treatment Findings Encounter Date Pt to use prescription as or dered. Purpose of and use of medication discussed. COVID SICK VISIT- ESTABLISHED PATIENT with KARUNA RODRIGUEZ DIRECTOR OF [employer] 10/13/2023 Last Documented On 4 11:15AM ; [facility] Continue current medication COVID SICK V ISIT- ESTABLISHED PATIENT with KARUNA RODRIGUEZ DIRECTOR OF [employer]-C 10/13/2023 Last Documented On 4 11:15AM ; [facility] The options include close observation CO VID SICK VISIT- ESTABLISHED PATIENT with KARUNA RODRIGUEZ DIRECTOR [employer] 10/13/2023 Last Documented On 4 11:15AM ; [facility] Ordered follow-up visit in 1 -2 weeks with an office visit or sooner if symptoms persist or worsen COVID SICK VISIT- ESTABLISHED PATIENT with SUKHWINDER BEVERLY DIRECTOR OF [employer]TERPR[facility] [employer]-BC 05/08/2023 Last Documented On 3 12:23PM ; [facility] Ordered patient to call if p roblem develops COVID SICK VISIT- ESTABLISHED PATIENT with SUKHWINDER BEVERLY DIRECTOR OF [employer]-BC 05/08/2023 Last Documented On 3 12:23PM ; [facility] Ordered return to the clinic if condition worsens or new symptoms arise COVID SICK VISIT- ESTABLISHED PATIENT with SUKHWINDER BEVERLY DIRECT[employer]-BC 05/08/2023 Last Documented On 3 12:23PM ; [facility] Ordered patient will call fo r appointment as needed COVID SICK VISIT- ESTABLISHED PATIENT with SUKHWINDER BEVERLY [employer]-BC 01/07/2023 Last Documented On 3 11:02AM ; [facility] Ordered return to the clinic if condition worsens or new symptoms arise COVID SICK VISIT- ESTABLISHED PATIENT with SUKHWINDER BEVERLY DIRECTOR [employer]-BC 01/07/2023 Last Documented On 3 11:02AM ; [facility] Ordered patient will call fo r appointment as needed COVID SICK VISIT- ESTABLISHED PATIENT with KARUNA RODRIGUEZ DIRECTOR [employer]-C 06/21/2021 Last Documented On 1 9:59AM ; [facility] Ordered return to the clinic if condition worsens or new symptoms arise COVID SICK VISIT- ESTABLISHED PATIENT with KARUNA RODRIGUEZ DIRECTOR OF [employer]-C 06/21/2021 Last Documented On 1 9:59AM ; [facility] Continue current medication COVID SICK V ISIT- ESTABLISHED PATIENT with FELIPA MENDOZA DIRECTOR OF ENTERPRISE [employer]-C 06/18/2021 Last Documented On 1 10:49AM ; [facility] The options include close observation CO VID SICK VISIT- ESTABLISHED PATIENT with FELIPA MENDOZA DIRECTOR OF [employer]-C 06/18/2021 Last Documented On 1 10:49AM ; [facility] Go to the emergency room if condition worsens WALK-IN CLINIC SICK VISIT with SUKHWINDER BEVERLY [facility] 01/16/2018 Last Documented On 8 3:03PM ; [facility] Medication instruction WALK-IN CLINIC SI CK VISIT with SUKHWINDER BEVERLY [facility] 01/16/2018 Last Documented On 8 3:03PM ; [facility] Ordered follow-up visit as n eeded with an office visit. WALK-IN CLINIC SICK VISIT with SUKHWINDER BEVERLY [facility] 01/16/2018 Last Documented On 8 3:03PM ; [facility] Ordered goals, options, limi tations and risks of therapy WALK-IN CLINIC SICK VISIT with SUKHWINDER BEVERLY [facility] 01/16/2018 Last Documented On 8 3:03PM ; [facility] Ordered patient will call fo r appointment as needed WALK-IN CLINIC SICK VISIT with SUKHWINDER BEVERLY [facility] 01/16/2018 Last Documented On 8 3:03PM ; [facility] Ordered referred to primary care physician WALK-IN CLINIC SICK VISIT with SUKHWINDER BEVERLY [facility] 01/16/2018 Last Documented On 8 3:03PM ; [facility] Ordered return to the clinic if condition worsens or new symptoms arise WALK-IN CLINIC SICK VISIT with SUKHWINDER BEVERLY [facility] 01/16/2018 Last Documented On 8 3:03PM ; [facility] Ordered Transition in care, clinical summary provided WALK-IN CLINIC SICK VISIT with SUKHWINDER BEVERLY DIRECTOR OF [employer]-BC 01/16/2018 Last Documented On 8 3:03PM ; [facility] Ordered Clinical summary pro vided to patient . Plan discussed and patient understands PROBLEM VISIT with VADIM RAMIRES PA-C 05/13/2013 Last Documented On 3 2:43PM ; [facility] Ordered follow-up visit as n eeded with an office visit. Fluids, urinate often, cranberry juice. Call if symptoms worsen/persist PROBLEM VISIT with VADIM RAMIRES PA-C 05/13/2013 Last Documented On 3 2:43PM ; [facility] Ordered patient to call if leonor zapata develops 1. Recomend to take Flagyl course for a total of 14 days EMERGENCY ROOM FOLLOW UP with SANDOVAL MARTINEZ MD 12/14/2012 Last Documented On 3 4:33PM ; [facility] 1. Will check Stool for c/s, o/p,pus cells and c.difficile toxin 2. Drink plenty of fluids 3. After tests are collected,may use Immodium 1-2 tabs initially then 1 tab q 4 hrs prn diarrhoea 4. Stop all antibiotics SICK VISIT with SANDOVAL MARTINEZ MD 11/27/2012 Last Documented On 3 5:38PM ; [facility] Ordered Clinical summary pro vided to patient PROBLEM VISIT with VADIM RAMIRES PA-C 10/08/2012 Last Documented On 3 10:18AM ; [facility] Ordered follow-up visit as n eeded with an office visit. Fluids, urinate often. Cranberry juice/pills. Call if symptoms worsen/persist beyond 3-5 days PROBLEM VISIT with VADIM RAMIRES PA-C 10/08/2012 Last Documented On 3 10:18AM ; [facility] Pending Tests Order Diagnosis Results Due Ordering P rovider Lab Hemoglobin A1C 11/13/23 RAVEN GARCIA-Marisa Last Documented On 4 1:28PM ; [facility] Instructions to patient Intervention and counseling on cessation of tobacco use Last Documented On 4 1:03PM ; [facility] Maintain a healthy diet Last Documented On 4 1:01PM ; [facility] Lose weight Last Documented On 4 1:01PM ; [facility] Avoid foods and beverages co ntaining sugar Last Documented On 4 1:01PM ; [facility] Intervention and counseling on cessation of tobacco use Last Documented On 3 10:12AM ; [facility] Maintain a healthy diet Last Documented On 3 10:10AM ; [facility] Lose weight Last Documented On 3 10:10AM ; [facility] Avoid foods and beverages co ntaining sugar Last Documented On 3 10:10AM ; [facility] Go to the emergency room if condition worsens Last Documented On 3 12:03PM ; [facility] Watch for signs/symptoms of infection Last Documented On 3 12:03PM ; [facility] Watch for signs/symptoms of infection, return to the clinic if seen Last Documented On 3 12:03PM ; [facility] Maintain a healthy diet Last Documented On 3 9:59AM ; [facility] Lose weight Last Documented On 3 9:59AM ; [facility] Avoid foods and beverages co ntaining sugar Last Documented On 3 9:59AM ; [facility] Instructions for patient Last Documented On 3 11:00AM ; [facility] Maintain a healthy diet Last Documented On 3 8:59AM ; [facility] Lose weight Last Documented On 3 8:59AM ; [facility] Avoid foods and beverages co ntaining sugar Last Documented On 3 8:59AM ; [facility] Maintain a healthy diet Last Documented On 3 2:36PM ; [facility] Lose weight Last Documented On 3 2:36PM ; [facility] Avoid foods and beverages co ntaining sugar Last Documented On 3 2:36PM ; [facility] Go to the emergency room if condition worsens Last Documented On 8 10:06AM ; [facility] Watch for signs/symptoms of infection, return to the clinic if seen Last Documented On 8 10:06AM ; [facility] Education and Decision Aids were provided during visit for: Discussed preventing falls Last Documented On 4 1:01PM ; [facility] Patient education about a pr oper diet Last Documented On 4 1:01PM ; [facility] Dietary counseling pertainin g to hypoglycemia Last Documented On 4 1:01PM ; [facility] Patient education about meal planning Last Documented On 4 1:01PM ; [facility] Patient education about weig ht control Last Documented On 4 1:01PM ; [facility] Patient education about regu lar dental care annually Last Documented On 4 1:01PM ; [facility] Patient education about diab etes and discussed ABCs of diabetic therapy and goals Last Documented On 4 1:01PM ; [facility] Patient education about a bl ood glucose monitor Last Documented On 4 1:01PM ; [facility] Patient education about a ho me blood glucose monitor with instructions to bring monitor to each visit Last Documented On 4 1:01PM ; [facility] Dietary counseling pertainin g to diabetes mellitus Last Documented On 4 1:01PM ; [facility] Patient education about diab etic foot care annually Last Documented On 4 1:01PM ; [facility] Inquiry and counseling about medication administration and compliance Last Documented On 4 1:01PM ; [facility] Education, guidance, and cou nseling about dietary management keep grams of sugar to less than 30 gram per day Last Documented On 4 1:01PM ; [facility] Education, guidance, and cou nseling about meal preparation Last Documented On 4 1:01PM ; [facility] Patient goals discussed Last Documented On 4 1:01PM ; [facility] The patient's goal is to gustavo p fasting blood sugar under 150 and under 180 2 hours after a meal Last Documented On 4 1:01PM ; [facility] The patient's goal is to dioni t the blood sugars and bring in the results to each visit Last Documented On 4 1:01PM ; [facility] Patient's goal is to keep he moglobin A1c levels under 7.0% or less than 8% if over 70 years of age Last Documented On 4 1:01PM ; [facility] The patient will lose weight Last Documented On 4 1:01PM ; [facility] Patient will increase aerobi c activity (30-45 min most days of wk) 150 minutes a week Last Documented On 4 1:01PM ; [facility] Discussed preventing falls Last Documented On 3 10:10AM ; [facility] Patient education about a pr oper diet Last Documented On 3 10:10AM ; [facility] Patient education about meal planning Last Documented On 3 10:10AM ; [facility] Patient education about weig ht control Last Documented On 3 10:10AM ; [facility] Patient education about regu lar dental care Last Documented On 3 10:10AM ; [facility] Patient education about diab etes and discussed ABCs of diabetic therapy and goals Last Documented On 3 10:10AM ; [facility] Patient education about a bl ood glucose monitor Last Documented On 3 10:10AM ; [facility] Patient education about a ho me blood glucose monitor with instructions to bring monitor to each visit Last Documented On 3 10:10AM ; [facility] Dietary counseling pertainin g to diabetes mellitus Last Documented On 3 10:10AM ; [facility] Patient education about diab etic foot care should see a grooving lathe tender annually for screening Last Documented On 3 10:10AM ; [facility] Inquiry and counseling about medication administration and compliance take diabetic medications as directed Last Documented On 3 10:10AM ; [facility] Education, guidance, and cou nseling about dietary management Last Documented On 3 10:10AM ; [facility] Education, guidance, and cou nseling about meal preparation Last Documented On 3 10:10AM ; [facility] Patient goals discussed Last Documented On 3 10:10AM ; [facility] The patient's goal is to gustavo p fasting blood sugar under 150 before meals and 180 2 hours after meals Last Documented On 3 10:10AM ; [facility] The patient's goal is to dioni t the blood sugars and bring in the results to each visit Last Documented On 3 10:10AM ; [facility] Patient's goal is to keep he moglobin A1c levels under 7.0% or less than 8.0% if over the age of 70 Last Documented On 3 10:10AM ; [facility] The patient will lose weight or maintain a BMI<25% Last Documented On 3 10:10AM ; [facility] Patient will increase aerobi c activity (30-45 min most days of wk) a min of 5 days a week Last Documented On 3 10:10AM ; [facility] Patient education about anti biotics: need to finish even if feeling better Last Documented On 3 12:03PM ; [facility] Discussed preventing falls Last Documented On 3 9:59AM ; [facility] Patient education about a pr oper diet Last Documented On 3 9:59AM ; [facility] Patient education about meal planning Last Documented On 3 9:59AM ; [facility] Patient education about weig ht control Last Documented On 3 9:59AM ; [facility] Patient education about regu lar dental care Last Documented On 3 9:59AM ; [facility] Patient education about diab etes and discussed ABCs of diabetic therapy and goals Last Documented On 3 9:59AM ; [facility] Patient education about a bl ood glucose monitor Last Documented On 3 9:59AM ; [facility] Patient education about a ho me blood glucose monitor with instructions to bring monitor to each visit Last Documented On 3 9:59AM ; [facility] Dietary counseling pertainin g to diabetes mellitus Last Documented On 3 9:59AM ; [facility] Patient education about diab etic foot care should see a grooving lathe tender annually for screening Last Documented On 3 9:59AM ; [facility] Inquiry and counseling about medication administration and compliance take diabetic medications as directed Last Documented On 3 9:59AM ; [facility] Education, guidance, and cou nseling about dietary management Last Documented On 3 9:59AM ; [facility] Education, guidance, and cou nseling about meal preparation Last Documented On 3 9:59AM ; [facility] Patient goals discussed Last Documented On 3 9:59AM ; [facility] The patient's goal is to gustavo p fasting blood sugar under 150 before meals and 180 2 hours after meals Last Documented On 3 9:59AM ; [facility] The patient's goal is to dioni t the blood sugars and bring in the results to each visit Last Documented On 3 9:59AM ; [facility] Patient's goal is to keep he moglobin A1c levels under 7.0% or less than 8.0% if over the age of 70 Last Documented On 3 9:59AM ; [facility] The patient will lose weight or maintain a BMI<25% Last Documented On 3 9:59AM ; [facility] Patient will increase aerobi c activity (30-45 min most days of wk) a min of 5 days a week Last Documented On 3 9:59AM ; [facility] Discussed preventing falls Last Documented On 3 8:59AM ; [facility] Patient education about a pr oper diet Last Documented On 3 8:59AM ; [facility] Patient education about meal planning Last Documented On 3 8:59AM ; [facility] Patient education about weig ht control Last Documented On 3 8:59AM ; [facility] Patient education about regu lar dental care Last Documented On 3 8:59AM ; [facility] Patient education about diab etes and discussed ABCs of diabetic therapy and goals Last Documented On 3 8:59AM ; [facility] Patient education about a bl ood glucose monitor Last Documented On 3 8:59AM ; [facility] Patient education about a ho me blood glucose monitor with instructions to bring monitor to each visit Last Documented On 3 8:59AM ; [facility] Dietary counseling pertainin g to diabetes mellitus Last Documented On 3 8:59AM ; [facility] Patient education about diab etic foot care should see a grooving lathe tender annually for screening Last Documented On 3 8:59AM ; [facility] Inquiry and counseling about medication administration and compliance take diabetic medications as directed Last Documented On 3 8:59AM ; [facility] Education, guidance, and cou nseling about dietary management Last Documented On 3 8:59AM ; [facility] Education, guidance, and cou nseling about meal preparation Last Documented On 3 8:59AM ; [facility] Patient goals discussed Last Documented On 3 8:59AM ; [facility] The patient's goal is to gustavo p fasting blood sugar under 150 before meals and 180 2 hours after meals Last Documented On 3 8:59AM ; [facility] The patient's goal is to dioni t the blood sugars and bring in the results to each visit Last Documented On 3 8:59AM ; [facility] Patient's goal is to keep he moglobin A1c levels under 7.0% or less than 8.0% if over the age of 70 Last Documented On 3 8:59AM ; [facility] The patient will lose weight or maintain a BMI<25% Last Documented On 3 8:59AM ; [facility] Patient will increase aerobi c activity (30-45 min most days of wk) a min of 5 days a week Last Documented On 3 8:59AM ; [facility] Discussed preventing falls Last Documented On 3 2:36PM ; [facility] Patient education about a pr oper diet Last Documented On 3 2:36PM ; [facility] Dietary counseling pertainin g to hypoglycemia Last Documented On 3 2:36PM ; [facility] Patient education about meal planning Last Documented On 3 2:36PM ; [facility] Patient education about weig ht control Last Documented On 3 2:36PM ; [facility] Patient education about regu lar dental care annually Last Documented On 3 2:36PM ; [facility] Patient education about diab etes and discussed ABCs of diabetic therapy and goals Last Documented On 3 2:36PM ; [facility] Patient education about a bl ood glucose monitor Last Documented On 3 2:36PM ; [facility] Patient education about a ho me blood glucose monitor with instructions to bring monitor to each visit Last Documented On 3 2:36PM ; [facility] Dietary counseling pertainin g to diabetes mellitus Last Documented On 3 2:36PM ; [facility] Patient education about diab etic foot care annually Last Documented On 3 2:36PM ; [facility] Inquiry and counseling about medication administration and compliance Last Documented On 3 2:36PM ; [facility] Education, guidance, and cou nseling about dietary management keep grams of sugar to less than 30 gram per day Last Documented On 3 2:36PM ; [facility] Education, guidance, and cou nseling about meal preparation Last Documented On 3 2:36PM ; [facility] Patient goals discussed Last Documented On 3 2:36PM ; [facility] The patient's goal is to gustavo p fasting blood sugar under 150 and under 180 2 hours after a meal Last Documented On 3 2:36PM ; [facility] The patient's goal is to dioni t the blood sugars and bring in the results to each visit Last Documented On 3 2:36PM ; [facility] Patient's goal is to keep he moglobin A1c levels under 7.0% or less than 8% if over 70 years of age Last Documented On 3 2:36PM ; [facility] The patient will lose weight Last Documented On 3 2:36PM ; [facility] Patient will increase aerobi c activity (30-45 min most days of wk) 150 minutes a week Last Documented On 3 2:36PM ; [facility] Patient education about anti biotics: need to finish even if feeling better Last Documented On 8 10:06AM ; [facility] Discussed nutritional needs Last Documented On 2 1:53PM ; [facility] Assessments Includes: Assessments for all patient encounters Findings Encounter Date Counseling and coordination of care was more than 50% of encounter time DIABETIC FOLLOW UP APPOINTMENT with RAVEN LANDIN DIRECTOR OF ENTERPRISE STRATEGY-C 11/13/2023 Last Documented On 4 1:34PM ; [facility] Type 2 diabetes mellitus wit hout complication DIABETIC FOLLOW UP APPOINTMENT with RAVEN LANDIN DIRECTOR OF [employer]TER[employer] 11/13/2023 Last Documented On 4 1:34PM ; [facility] Acute bronchitis COVID SICK VISIT- ES TABLISHED PATIENT with KARUNA Fish JENNIFER DIRECTOR OF [employer]TER[employer] 10/13/2023 Last Documented On 4 11:15AM ; [facility] Counseling and coordination of care was more than 50% of encounter time DIABETIC FOLLOW UP APPOINTMENT with RAVEN LANDIN DIRECTOR OF [employer] 05/09/2023 Last Documented On 3 11:09AM ; [facility] Type 2 diabetes mellitus wit hout complication DIABETIC FOLLOW UP APPOINTMENT with RAVEN LANDIN DIRECTOR OF [employer] 05/09/2023 Last Documented On 3 11:09AM ; [facility] Acute sinusitis COVID SICK VISIT- ES TABLISHED PATIENT with SUKHWINDER BEVERLY DIRECTOR OF [employer]TER[employer] 05/08/2023 Last Documented On 3 12:23PM ; [facility] Counseling and coordination of care was more than 50% of encounter time DIABETIC FOLLOW UP APPOINTMENT with RAVEN LANDIN DIRECTOR OF [employer] 02/07/2023 Last Documented On 3 11:02AM ; [facility] Type 2 diabetes mellitus wit hout complication DIABETIC FOLLOW UP APPOINTMENT with RAVEN LANDIN DIRECTOR OF [employer] 02/07/2023 Last Documented On 3 11:02AM ; [facility] Acute upper respiratory infection COVID SICK VISIT- ESTABLISHED PATIENT with SUKHWINDER BEVERLY DIRECTOR OF [employer] 01/07/2023 Last Documented On 3 11:02AM ; [facility] Counseling and coordination of care was more than 50% of encounter time DIABETIC FOLLOW UP APPOINTMENT with RAVEN OKEEFEZ DIRECTOR OF [employer] 11/09/2022 Last Documented On 3 9:52AM ; [facility] Obesity DIABETIC FOLLOW UP A PPOINTMENT with RAVEN Joel CASTELLANO-ANNIEZ DIRECTOR OF [employer] 11/09/2022 Last Documented On 3 9:52AM ; [facility] Type 2 diabetes mellitus wit hout complication DIABETIC FOLLOW UP APPOINTMENT with RAVEN CASTELLANO-BROOKZ DIRECTOR OF [employer] 11/09/2022 Last Documented On 3 9:52AM ; [facility] Counseling and coordination of care was more than 50% of encounter time DIABETIC INITIAL EXAM - NEW PT with RAVEN CASTELLANO-ANNIELTZ DIRECTOR OF [employer] 09/28/2022 Last Documented On 3 5:14PM ; [facility] Obesity DIABETIC INITIAL EXA M - NEW PT with RAVEN CASTELLANO-ANNIELTZ DIRECTOR OF [employer] 09/28/2022 Last Documented On 3 5:14PM ; [facility] Type 2 diabetes mellitus wit hout complication DIABETIC INITIAL EXAM - NEW PT with RAVEN CASTELLANO-ANNIELTZ DIRECTOR OF [employer] 09/28/2022 Last Documented On 3 5:14PM ; [facility] Type 2 diabetes mellitus wit hout complication DIABETIC INITIAL EXAM - NEW PT with RAVEN CASTELLANO-ANNIELTZ DIRECTOR OF [employer] 09/28/2022 Last Documented On 3 5:14PM ; [facility] Acute sinusitis COVID SICK VISIT- ES TABLISHED PATIENT with KARUNA RODRIGUEZ DIRECTOR OF [employer] 06/21/2021 Last Documented On 1 9:59AM ; [facility] Allergic rhinitis COVID SICK VISIT- ES TABLISHED PATIENT with FELIPA MENDOZA DIRECTOR OF [employer] 06/18/2021 Last Documented On 1 10:49AM ; [facility] Contact with and (Suspected) exposure to COVID-19 COVID SICK VISIT- ESTABLISHED PATIENT with FELIPA MENDOZA DIRECTOR OF [employer] 06/18/2021 Last Documented On 1 10:49AM ; [facility] Assessment of cough WALK-IN CLINIC SICK VISIT with GEOVANY HARRISCLAIR [facility] 11/30/2019 Last Documented On 0 11:34AM ; [facility] Assessment of fever WALK-IN CLINIC SICK VISIT with GEOVANY HARRISCLAIR [facility] 11/30/2019 Last Documented On 0 11:34AM ; [facility] Influenza type A WALK-IN CLINIC SICK VISIT with GEOVANY HARRISCLAIR [facility] 11/30/2019 Last Documented On 0 11:34AM ; [facility] Assessment of dysuria WALK-IN CLINIC SIC K VISIT with SUKHWINDER BEVERLY [facility]- 01/16/2018 Last Documented On 8 3:03PM ; [facility] Acute sinusitis SICK VISIT with CASSIDY BENTON [facility]- 10/01/2015 Last Documented On 6 4:32PM ; [facility] Discharge diagnosis of PRIMA RY CARE PROVIDER : DR. DAILEY SICK VISIT with CASSIDY ZHOU [facility]- 10/01/2015 Last Documented On 6 4:32PM ; [facility] Assessment of dysuria PROBLEM VISIT with VADIM RAMIRES PA-C 05/13/2013 Last Documented On 3 2:43PM ; [facility] Urinary tract infection PROBLEM VISIT with RAYNA RAMIRES PA-C 05/13/2013 Last Documented On 3 2:43PM ; [facility] Clostridium difficile colitis EMERGENCY ROOM FOLLOW UP with SANDOVAL MARTINEZ MD 12/14/2012 Last Documented On 3 4:33PM ; [facility] Gastroenteritis SICK VISIT with SANDOVAL Fish MD 11/27/2012 Last Documented On 3 5:38PM ; [facility] Urinary tract infection PROBLEM VISIT with RAYNA RAMIRES PA-C 10/08/2012 Last Documented On 3 10:18AM ; [facility] Localized osteoarthritis of the knee Lt. knee osteo-arthritis NEW PATIENT VISIT with SANDOVAL MARTINEZ MD 04/09/2012 Last Documented On 2 2:03PM ; [facility] Varicose veins NEW PATIENT VISIT with SANDOVAL MARTINEZ MD 04/09/2012 Last Documented On 2 2:03PM ; [facility] Instructions Includes: Instructions for all patient encounters Instructions to patient Intervention and counseling on cessation of tobacco use Last Documented On 4 1:03PM ; [facility] Maintain a healthy diet Last Documented On 4 1:01PM ; [facility] Lose weight Last Documented On 4 1:01PM ; [facility] Avoid foods and beverages co ntaining sugar Last Documented On 4 1:01PM ; [facility] Intervention and counseling on cessation of tobacco use Last Documented On 3 10:12AM ; [facility] Maintain a healthy diet Last Documented On 3 10:10AM ; [facility] Lose weight Last Documented On 3 10:10AM ; [facility] Avoid foods and beverages co ntaining sugar Last Documented On 3 10:10AM ; [facility] Go to the emergency room if condition worsens Last Documented On 3 12:03PM ; [facility] Watch for signs/symptoms of infection Last Documented On 3 12:03PM ; [facility] Watch for signs/symptoms of infection, return to the clinic if seen Last Documented On 3 12:03PM ; [facility] Maintain a healthy diet Last Documented On 3 9:59AM ; [facility] Lose weight Last Documented On 3 9:59AM ; [facility] Avoid foods and beverages co ntaining sugar Last Documented On 3 9:59AM ; [facility] Instructions for patient Last Documented On 3 11:00AM ; [facility] Maintain a healthy diet Last Documented On 3 8:59AM ; [facility] Lose weight Last Documented On 3 8:59AM ; [facility] Avoid foods and beverages co ntaining sugar Last Documented On 3 8:59AM ; [facility] Maintain a healthy diet Last Documented On 3 2:36PM ; [facility] Lose weight Last Documented On 3 2:36PM ; [facility] Avoid foods and beverages co ntaining sugar Last Documented On 3 2:36PM ; [facility] Go to the emergency room if condition worsens Last Documented On 8 10:06AM ; [facility] Watch for signs/symptoms of infection, return to the clinic if seen Last Documented On 8 10:06AM ; [facility] Education and Decision Aids were provided during visit for: Discussed preventing falls Last Documented On 4 1:01PM ; [facility] Patient education about a pr oper diet Last Documented On 4 1:01PM ; [facility] Dietary counseling pertainin g to hypoglycemia Last Documented On 4 1:01PM ; [facility] Patient education about meal planning Last Documented On 4 1:01PM ; [facility] Patient education about weig ht control Last Documented On 4 1:01PM ; [facility] Patient education about regu lar dental care annually Last Documented On 4 1:01PM ; [facility] Patient education about diab etes and discussed ABCs of diabetic therapy and goals Last Documented On 4 1:01PM ; [facility] Patient education about a bl ood glucose monitor Last Documented On 4 1:01PM ; [facility] Patient education about a ho me blood glucose monitor with instructions to bring monitor to each visit Last Documented On 4 1:01PM ; [facility] Dietary counseling pertainin g to diabetes mellitus Last Documented On 4 1:01PM ; [facility] Patient education about diab etic foot care annually Last Documented On 4 1:01PM ; [facility] Inquiry and counseling about medication administration and compliance Last Documented On 4 1:01PM ; [facility] Education, guidance, and cou nseling about dietary management keep grams of sugar to less than 30 gram per day Last Documented On 4 1:01PM ; [facility] Education, guidance, and cou nseling about meal preparation Last Documented On 4 1:01PM ; [facility] Patient goals discussed Last Documented On 4 1:01PM ; [facility] The patient's goal is to gustavo p fasting blood sugar under 150 and under 180 2 hours after a meal Last Documented On 4 1:01PM ; [facility] The patient's goal is to dioni t the blood sugars and bring in the results to each visit Last Documented On 4 1:01PM ; [facility] Patient's goal is to keep he moglobin A1c levels under 7.0% or less than 8% if over 70 years of age Last Documented On 4 1:01PM ; [facility] The patient will lose weight Last Documented On 4 1:01PM ; [facility] Patient will increase aerobi c activity (30-45 min most days of wk) 150 minutes a week Last Documented On 4 1:01PM ; [facility] Discussed preventing falls Last Documented On 3 10:10AM ; [facility] Patient education about a pr oper diet Last Documented On 3 10:10AM ; [facility] Patient education about meal planning Last Documented On 3 10:10AM ; [facility] Patient education about weig ht control Last Documented On 3 10:10AM ; [facility] Patient education about regu lar dental care Last Documented On 3 10:10AM ; [facility] Patient education about diab etes and discussed ABCs of diabetic therapy and goals Last Documented On 3 10:10AM ; [facility] Patient education about a bl ood glucose monitor Last Documented On 3 10:10AM ; [facility] Patient education about a ho me blood glucose monitor with instructions to bring monitor to each visit Last Documented On 3 10:10AM ; [facility] Dietary counseling pertainin g to diabetes mellitus Last Documented On 3 10:10AM ; [facility] Patient education about diab etic foot care should see a grooving lathe tender annually for screening Last Documented On 3 10:10AM ; [facility] Inquiry and counseling about medication administration and compliance take diabetic medications as directed Last Documented On 3 10:10AM ; [facility] Education, guidance, and cou nseling about dietary management Last Documented On 3 10:10AM ; [facility] Education, guidance, and cou nseling about meal preparation Last Documented On 3 10:10AM ; [facility] Patient goals discussed Last Documented On 3 10:10AM ; [facility] The patient's goal is to gustavo p fasting blood sugar under 150 before meals and 180 2 hours after meals Last Documented On 3 10:10AM ; [facility] The patient's goal is to dioni t the blood sugars and bring in the results to each visit Last Documented On 3 10:10AM ; [facility] Patient's goal is to keep he moglobin A1c levels under 7.0% or less than 8.0% if over the age of 70 Last Documented On 3 10:10AM ; [facility] The patient will lose weight or maintain a BMI<25% Last Documented On 3 10:10AM ; [facility] Patient will increase aerobi c activity (30-45 min most days of wk) a min of 5 days a week Last Documented On 3 10:10AM ; [facility] Patient education about anti biotics: need to finish even if feeling better Last Documented On 3 12:03PM ; [facility] Discussed preventing falls Last Documented On 3 9:59AM ; [facility] Patient education about a pr oper diet Last Documented On 3 9:59AM ; [facility] Patient education about meal planning Last Documented On 3 9:59AM ; [facility] Patient education about weig ht control Last Documented On 3 9:59AM ; [facility] Patient education about regu lar dental care Last Documented On 3 9:59AM ; [facility] Patient education about diab etes and discussed ABCs of diabetic therapy and goals Last Documented On 3 9:59AM ; [facility] Patient education about a bl ood glucose monitor Last Documented On 3 9:59AM ; [facility] Patient education about a ho me blood glucose monitor with instructions to bring monitor to each visit Last Documented On 3 9:59AM ; [facility] Dietary counseling pertainin g to diabetes mellitus Last Documented On 3 9:59AM ; [facility] Patient education about diab etic foot care should see a grooving lathe tender annually for screening Last Documented On 3 9:59AM ; [facility] Inquiry and counseling about medication administration and compliance take diabetic medications as directed Last Documented On 3 9:59AM ; [facility] Education, guidance, and cou nseling about dietary management Last Documented On 3 9:59AM ; [facility] Education, guidance, and cou nseling about meal preparation Last Documented On 3 9:59AM ; [facility] Patient goals discussed Last Documented On 3 9:59AM ; [facility] The patient's goal is to gustavo p fasting blood sugar under 150 before meals and 180 2 hours after meals Last Documented On 3 9:59AM ; [facility] The patient's goal is to dioni t the blood sugars and bring in the results to each visit Last Documented On 3 9:59AM ; [facility] Patient's goal is to keep he moglobin A1c levels under 7.0% or less than 8.0% if over the age of 70 Last Documented On 3 9:59AM ; [facility] The patient will lose weight or maintain a BMI<25% Last Documented On 3 9:59AM ; [facility] Patient will increase aerobi c activity (30-45 min most days of wk) a min of 5 days a week Last Documented On 3 9:59AM ; [facility] Discussed preventing falls Last Documented On 3 8:59AM ; [facility] Patient education about a pr oper diet Last Documented On 3 8:59AM ; [facility] Patient education about meal planning Last Documented On 3 8:59AM ; [facility] Patient education about weig ht control Last Documented On 3 8:59AM ; [facility] Patient education about regu lar dental care Last Documented On 3 8:59AM ; [facility] Patient education about diab etes and discussed ABCs of diabetic therapy and goals Last Documented On 3 8:59AM ; [facility] Patient education about a bl ood glucose monitor Last Documented On 3 8:59AM ; [facility] Patient education about a ho me blood glucose monitor with instructions to bring monitor to each visit Last Documented On 3 8:59AM ; [facility] Dietary counseling pertainin g to diabetes mellitus Last Documented On 3 8:59AM ; [facility] Patient education about diab etic foot care should see a grooving lathe tender annually for screening Last Documented On 3 8:59AM ; [facility] Inquiry and counseling about medication administration and compliance take diabetic medications as directed Last Documented On 3 8:59AM ; [facility] Education, guidance, and cou nseling about dietary management Last Documented On 3 8:59AM ; [facility] Education, guidance, and cou nseling about meal preparation Last Documented On 3 8:59AM ; [facility] Patient goals discussed Last Documented On 3 8:59AM ; [facility] The patient's goal is to gustavo p fasting blood sugar under 150 before meals and 180 2 hours after meals Last Documented On 3 8:59AM ; [facility] The patient's goal is to dioni t the blood sugars and bring in the results to each visit Last Documented On 3 8:59AM ; [facility] Patient's goal is to keep he moglobin A1c levels under 7.0% or less than 8.0% if over the age of 70 Last Documented On 3 8:59AM ; [facility] The patient will lose weight or maintain a BMI<25% Last Documented On 3 8:59AM ; [facility] Patient will increase aerobi c activity (30-45 min most days of wk) a min of 5 days a week Last Documented On 3 8:59AM ; [facility] Discussed preventing falls Last Documented On 3 2:36PM ; [facility] Patient education about a pr oper diet Last Documented On 3 2:36PM ; [facility] Dietary counseling pertainin g to hypoglycemia Last Documented On 3 2:36PM ; [facility] Patient education about meal planning Last Documented On 3 2:36PM ; [facility] Patient education about weig ht control Last Documented On 3 2:36PM ; [facility] Patient education about regu lar dental care annually Last Documented On 3 2:36PM ; [facility] Patient education about diab etes and discussed ABCs of diabetic therapy and goals Last Documented On 3 2:36PM ; [facility] Patient education about a bl ood glucose monitor Last Documented On 3 2:36PM ; [facility] Patient education about a ho me blood glucose monitor with instructions to bring monitor to each visit Last Documented On 3 2:36PM ; [facility] Dietary counseling pertainin g to diabetes mellitus Last Documented On 3 2:36PM ; [facility] Patient education about diab etic foot care annually Last Documented On 3 2:36PM ; [facility] Inquiry and counseling about medication administration and compliance Last Documented On 3 2:36PM ; [facility] Education, guidance, and cou nseling about dietary management keep grams of sugar to less than 30 gram per day Last Documented On 3 2:36PM ; [facility] Education, guidance, and cou nseling about meal preparation Last Documented On 3 2:36PM ; [facility] Patient goals discussed Last Documented On 3 2:36PM ; [facility] The patient's goal is to gustavo p fasting blood sugar under 150 and under 180 2 hours after a meal Last Documented On 3 2:36PM ; [facility] The patient's goal is to dioni t the blood sugars and bring in the results to each visit Last Documented On 3 2:36PM ; [facility] Patient's goal is to keep he moglobin A1c levels under 7.0% or less than 8% if over 70 years of age Last Documented On 3 2:36PM ; [facility] The patient will lose weight Last Documented On 3 2:36PM ; [facility] Patient will increase aerobi c activity (30-45 min most days of wk) 150 minutes a week Last Documented On 3 2:36PM ; [facility] Patient education about anti biotics: need to finish even if feeling better Last Documented On 8 10:06AM ; [facility] Discussed nutritional needs Last Documented On 2 1:53PM ; [facility] Medical Equipment - Implanted Devices Includes: Current and historical Devices No Medical Equipment Recorded Medications Includes: Current and historical Medications Current Medications (continue as prescribed) rOPINIRole HCl 0.5 MG Oral Tablet 01/23/2024 Provide r: NORMAN RG MD Diagnosis: Last Documented On 03/19/2024 10:45AM By Vickey CASTRO ; [facility] Omeprazole 20 MG Oral Capsul e Delayed Release 11/27/2023 Provider: NORMAN RG MD Diagnosis: Last Documented On 03/19/2024 10:45AM By Vickey CASTRO ; [facility] Past Medications on file Benzonatate 100 MG Oral Capsule 10/28/2023 - Provider: Diagnosis: Last Documented On 03/19/2024 10:47AM By Vickey CASTRO ; [facility] Amoxicillin-Pot Clavulanate 600-42.9 MG/5ML Oral Suspension Reconstituted 10/13/2023 - 10/23/2023 Provider: KARUNA AL Diagnosis: Acute bronchitis , unspecified Take 7mL twice daily x 10 days Last Documented On 4 11:26AM By Karuna AL ; [facility] Amoxicillin-Pot Clavulanate 600-42.9 MG/5ML Oral Suspension Reconstituted 05/08/2023 - 05/09/2023 Provider: SUKHWINDER E RUSH DIRECTOR OF [employer] Diagnosis: Acute maxillary sinusitis, unspecified take 7 ml BID x 10 days Last Documented On 05/09/2023 10:13AM By Gabino CASTRO ; [facility] Phentermine HCl 15 MG Oral Capsule 02/07/2023 - 05/09/2023 Provider: RAVEN LANDIN DIRECTOR OF [employer] Diagnosis: Obesity, unspeci fied 1 Capsule every morning Last Documented On 05/09/2023 10:12AM By Gabino CASTRO ; [facility] Amoxicillin-Pot Clavulanate 600-42.9 MG/5ML Oral Suspension Reconstituted 01/07/2023 - 02/07/2023 Provider: SUKHWINDER BEVERLY DIRECTOR OF ENTERPRISE [employer]ATEGY-BC Diagnosis: Acute upper respiratory infection, unspecified give 7 ml BID x 10 days Last Documented On 02/07/2023 10:01AM By Gabino CASTRO ; [facility] Ozempic (0.25 or 0.5 MG/DOSE) 2 MG/1.5ML Subcutaneous Solution Pen-injector 11/11/2022 - 02/07/2023 Provider: RAVEN LANDIN DIRECTOR OF ENTER[employer]ISE [employer]-C Diagnosis: Type 2 diabetes mellitus without complications 0.25mg once weekly for 2 wee ks then increase to 0.5mg once weekly Last Documented On 02/07/2023 10:01AM By Gabino CASTRO ; [facility] Ozempic (1 MG/DOSE) 4 MG/3ML Subcutaneous Solution Pen-injector 11/09/2022 - 02/07/2023 Provider: RAVEN LANDIN DIRECTOR OF [employer]-C Diagnosis: Type 2 diabetes mellitus without complications once weekly injection Last Documented On 02/07/2023 10:01AM By Gabino CASTRO ; [facility] Rybelsus 3 MG Oral Tablet 09/28/2022 - 11/09/2022 Provider: RAVEN LANDIN DIRECTOR OF [employer]-C Diagnosis: Type 2 diabetes mellitus without complications One tablet daily Last Documented On 11/09/2022 9:08AM By Gabino CASTRO ; [facility] Amoxicillin-Pot Clavulanate 600-42.9 MG/5ML Oral Suspension Reconstituted 06/21/2021 - 07/01/2021 Provider: KARUNA RODRIGUEZ DIRECTOR OF [employer] Diagnosis: Acute sinusitis, unspecified Take 7mL twice daily x 10 days Last Documented On 1 10:00AM By Karuna Rodriguez DIRECTOR OF ENTER[employer]ISE [employer]-C ; [facility] guaiFENesin AC 100-10 MG/5ML Oral Syrup 11/30/2019 - 06/21/2021 Provider: GEOVANY BECKWITH DIRECTOR OF [employer]TER[employer]-C Diagnosis: Cough as directed 10 ml po q6h prn for cough dispense 4 oz Last Documented On 06/21/2021 9:45AM By [facility] ; [facility] Cephalexin 250MG/5ML Oral Suspension Reconstituted 01/16/2018 - 11/30/2019 Provider: SUKHWINDER RIVERA DIRECTOR OF [employer]-BC Diagnosis: Dysuria as directed Last Documented On 0 11:12AM By [facility] ; [facility] ROPINIRole HCl 0.5MG Oral Tablet 01/16/2018 - 02/08/20 Provider: Diagnosis: Last Documented On 02/07/2023 10:01AM By Gabino Mayer [facility] ; [facility] Amoxicillin-Pot Clavulanate 600-42.9 MG/5ML Suspension, when reconstituted 10/01/2015 - 11/30/2019 Provider: CASSIDY ZHOU DIRECTOR OF [employer]-BC Diagnosis: Acute sinusitis, unspecified 7 ml twice daily for ten days Last Documented On 0 11:12AM By [facility] ; [facility] Nitrofurantoin 25 MG/5ML OR SUSP 05/13/2013 - 05/20/2013 Provider: VADIM RAMIRES PA-C Diagnosis: URIN TRACT INFEC TION NOS 4 tsp BID x 7 days. Last Documented On 3 2:40PM By VADIM RAMIRES PA-C ; [facility] Flagyl 500 MG OR TABS 12/14/2012 - 11/30/2019 Provider: SANDOVAL Fish MD Diagnosis: Int Inf Clstrdiu m Dfcile 1 tab po tid( for a total co urse of 14 days.) Last Documented On 0 11:12AM By [facility] ; [facility] Lomotil 2.5-0.025 MG OR TABS 11/28/2012 - 09/28/2022 Provider: SANDOVAL MARTINEZ MD Diagnosis: NONINF GASTROENT ERIT NEC 1 tab po q 4-6 hrs prn diarrhoea. Last Documented On 09/28/2022 2:40PM By Gabino CASTRO ; [facility] Vivelle-Dot 0.1 MG/24HR TD PTTW 11/27/2012 - 3 Provider: Diagnosis: apply 1 patch 2 x's weekly Last Documented On 09/28/2022 2:40PM By Gabino CASTRO ; [facility] Cipro 500 MG/5ML (10%) OR SUSR 10/08/2012 - 10/18/2012 Provider: VADIM RAMIRES PA-C Diagnosis: URIN TRACT INFEC TION NOS 1/2 tsp BID x 10 days. Last Documented On 3 9:59AM By VADIM RAMIRES PA-C ; [facility] diclophenac 50mg OR TABS 04/09/2012 - 11/27/2012 Provider: SANDOVAL MARTINEZ MD Diagnosis: ASYMPT VARICOSE VEINS Last Documented On 11/27/2012 4:35PM By Marge Witt LPN ; [facility] Medications Administered Includes: Administered Medications in patient's chart No Administered Medications Recorded Results Includes: Results from 06/19/2024 through 06/19/2025 No Results Recorded For Specified Dates History of Present Illness History of Present Illness not supported for this document type No History of Present Illness Recorded Social History Description Last Updated Tobacco non-user 02/07/2023 Last Documented On 3 11:02AM ; [facility] No travel 06/21/2021 Last Documented On 1 9:59AM ; [facility] Smoking status : Never smoker 11/30/2019 Last Documented On 0 11:34AM ; [facility] Currently 04/09/2012 Last Documented On 2 2:03PM ; [facility] Exercise frequency 3 X WEEKLY 04/09/2012 Last Documented On 2 2:03PM ; [facility] No consumption of alcohol 04/09/2012 Last Documented On 2 2:03PM ; [facility] Not using drugs 04/09/2012 Last Documented On 2 2:03PM ; [facility] 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 ~2. Complete hysterectomy for Fibroid in 2000 10/08/2012 Last Documented On 3 10:18AM ; [facility] Medical History Includes: Medical History in patient's chart Description Last Updated History of camera fundoscopic exam was p erformed see HPI/scanned image 11/13/2023 Last Documented On 4 1:34PM ; [facility] LMP: HYSTERECTOMY 05/08/2023 Last Documented On 3 12:23PM ; [facility] No exposure to a contagious disease 12/2020 Last Documented On 1 9:59AM ; [facility] No Contact with and (Suspected) exposure to COVID-19 06/21/2021 Last Documented On 1 9:59AM ; [facility] No fall 06/21/2021 Last Documented On 1 9:59AM ; [facility] Not taking OTC medications 06/18/2021 Last Documented On 1 10:49AM ; [facility] Pt does not get blood pressure checked a t other facility 10/01/2015 Last Documented On 6 4:32PM ; [facility] Exposure to a lot of bright sunlight Last Documented On 2 2:03PM ; [facility] 1 miscarriage(s) 04/09/2012 Last Documented On 2 2:03PM ; [facility] Previously 5 time(s) 04/09/2012 Last Documented On 2 2:03PM ; [facility] No history of arthritis 04/09/2012 Last Documented On 2 2:03PM ; [facility] No history of cancer 04/09/2012 Last Documented On 2 2:03PM ; [facility] No history of chronic obstructive pulmon candelario disease 04/09/2012 Last Documented On 2 2:03PM ; [facility] No history of convulsive disorder 2011 Last Documented On 2 2:03PM ; [facility] No history of diabetes mellitus 04/09/20 12 Last Documented On 2 2:03PM ; [facility] No history of hypertension 04/09/2012 Last Documented On 2 2:03PM ; [facility] No history of stroke syndrome 04/09/2012 Last Documented On 2 2:03PM ; [facility] No history of venereal disease 2 Last Documented On 2 2:03PM ; [facility] No reported cardiovascular symptoms 03/19 Last Documented On 2 2:03PM ; [facility] No reported easy bleeding 04/09/2012 Last Documented On 2 2:03PM ; [facility] No reported recurrent infections 012 Last Documented On 2 2:03PM ; [facility] Family History Includes: Family History in patient's chart Description Last Updated Family history unchanged 01/07/2023 Last Documented On 3 11:02AM ; [facility] Family history of cancer 04/09/2012 Last Documented On 2 2:03PM ; [facility] Family history of diabetes mellitus 03/19 Last Documented On 2 2:03PM ; [facility] Family history of heart disease 04/09/20 12 Last Documented On 2 2:03PM ; [facility] Family history of kidney disease 012 Last Documented On 2 2:03PM ; [facility] Father AGE 74 04/09/2012 Last Documented On 2 2:03PM ; [facility] Mother AGE94 04/09/2012 Last Documented On 2 2:03PM ; [facility] No family history of alcoholism 04/09/20 12 Last Documented On 2 2:03PM ; [facility] No family history of defects 04/09 Last Documented On 2 2:03PM ; [facility] No family history of bleeding problems 0 04/09/2012 Last Documented On 2 2:03PM ; [facility] No family history of genetic disease Last Documented On 2 2:03PM ; [facility] No family history of mental illness (not retardation) 04/09/2012 Last Documented On 2 2:03PM ; [facility] Spouse 63 years old 04/09/2012 Last Documented On 2 2:03PM ; [facility] Review of Systems Review of Systems not [...] Patient Last Documented On 2 8:29AM ; [facility] Influenza (Quadrivalent)36 m o.& older PF 0.5ml (SD) 2 06/18/2013 Complete (Reported) Patie nt Last Documented On 3 2:12PM ; [facility] Allergies Includes: Active, inactive, and resolved Allergies Substance Type Reaction Onset Date Resolved Date Statu s Erythromycin Allergy 01/25/2012 Active Last Documented On 4 1:03PM ; [facility] Insurance Includes: Active Insurance Policies Plan Name Member ID Group # Subscriber Relationship Effect aj Dates 1 - MEDICARE PART A CLAIMS/NGS [id number] KEIRA DE LOS SANTOS Self 2 - [employer] S[employer]IOR [employer] [id number] KEIRA DE LOS SANTOS Self Clinical Notes Includes: Signed Clinical Notes starting from 10/07/2022 No Clinical Notes Recorded
--- OUTSIDE RECORDS SUMMARY | 2025-06-19 01:00 | XMS_ITS | Encounter Summary ---
Author Organization [facility] Address [address] [place] [address] Care Team Providers Care Cut In Worker Name Role Phone Franck Alvarez MD Primary Care Provider [phone] Encounter Details Date Type Department Care Team (Latest Contact Info) Description 11/06/2008 Outpatient Historical [facility] Marek Oviedo Carpal Tunnel Syndrome Social History Tobacco Use Types Packs/Day Years Used Date Smoking Tobacco: Never Assessed Comments Unknown Sex and Gender Information Value Date Recorded Sex Assigned at Not on file Legal Sex Female 4:03 AM WAD IMPREGNATOR Gender Identity Not on file Sexual Orientation Not on file documented as of this encounter Plan of Treatment Upcoming Encounters Date Type Department Care Team (Late st Contact Info) Description 09/02/2025 11:15 AM WAD IMPREGNATOR Office Visit [facility] [address] [place] [address] Migel Underwood MD [address] [place] [address] 12/18/2025 12:00 PM CDT Office Visit [facility] [place] [id number] [place] [address] Bernardo Morales MD [address] [place] [address] documented as of this encounter Procedures Procedure Name Priority Date/Time Associated Diagnosis Comments HEMOGLOBIN AND HEMATOCRIT Routine 11/18/2008 1:39 PM WAD IMPREGNATOR documented in this encounter Results * HEMOGLOBIN AND HEMATOCRIT (11/18/2008 1:39 PM WAD IMPREGNATOR) HEMOGLOBIN 12.8 11.8 - 14.8 g/dL [facility] HEMATOCRIT 39.2 35.5 - 44.0 % [facility] Blood specimen (specimen) 11/18/2008 1:39 PM WAD IMPREGNATOR 11/18/2008 3:15 PM WAD IMPREGNATOR us Marek Oviedo HEMATOLOGY ORDERABLES Final Res ult INTERFACE SYSTEM Refer to clinic/hospital department [facility] CLIA# [id number] [address] [place] [address] documented in this encounter Visit Diagnoses Diagnosis Carpal tunnel syndrome documented in this encounter Care Teams Cut In Worker Relationship Specialty Start Date End Date Franck Alvarez MD PCP - General Family Practice 04/15/20 documented as of this encounter
--- OUTSIDE RECORDS SUMMARY | 2025-06-19 01:00 | XMS_ITS | Patient Health Record ---
Author Organization [facility] Address [address] [place] [address] Care Team Providers Care Counter Installer Name Role Phone Kim MAGDALENO, Dr Juárez Primary Care Provider Jemma vailable Reason For Referral No Information Problems Problem Type SNOMED Code ICD Code Onset Dates Problem Status W/U Status Risk Notes Problem 323985450 History of colonic polyps (Z86.010) Active confirmed Plan Of Treatment No Information Insurance Providers Payer Name Payer Address Payer Phone Subscriber Number Group Number Insured Name Patient Relationship to Insured Coverage Start Date Coverage End Date Medicare E2 [address] [address] [place] [address] [id number] Shelly Levy Self - patient is the insured 7 [employer] Medicare Supplement [address] [address] [place] [address] [phone] [id number] Shelly Levy Self - patient is the insured
--- OUTSIDE RECORDS SUMMARY | 2025-06-19 01:00 | XMS_ITS | Clinical Summary ---
Author Organization [facility] Address [address] [place] [address] Phone Care Team Providers Care Prefabricated Houses Trimmer Name Role Phone ARCENIO MAGDALENO, NORMAN Fish Primary Care Provider [phone] Reason for Referral Date Encounter Description Provider Reason for Referral 05/09/23 DIABETIC FOLLOW UP APPOINTMENT RAVEN LANDIN WATER MECHANIC-Marisa Request Consultation By Mill Operator Reason for Visit and Chief Complaint visit for: Diabetes Education and Follow Up Visit for Type 2 Diabetic Problems Includes: Problems addressed during this encounter and other active Problems Current Visit Onset Date Resolved Date Provider Conditio n Status Diabetes Mellitus Type 2 Without Complication 09/28/2022 RAVEN LANDIN WATER MECHANIC-C Active Last Documented On 3 5:14PM ; [facility] Past Visits Onset Date Resolved Date Provider Condition Status Obesity 09/28/2022 RAVEN SCHMID WATER MECHANIC-C Active Last Documented On 3 5:13PM ; [facility] Plan of Treatment A1C goal [...] nut butters, eggs, meat snacks, cheese, plain Ethiopian yogurt or a protein shake. RememberIt is [...] - Last Documented On 05/09/2023 11:09AM ; [facility] Pending Tests Order Diagnosis Results Due Ordering Ann alvarez Lab Hemoglobin A1C 11/13/23 RAVEN LANDIN WATER MECHANIC-C Last Documented On 4 1:28PM ; [facility] Instructions to patient Intervention and counseling on cessation of tobacco use Last Documented On 3 10:12AM ; [facility] Maintain a healthy diet Last Documented On 3 10:10AM ; [facility] Lose weight Last Documented On 3 10:10AM ; [facility] Avoid foods and beverages co ntaining sugar Last Documented On 3 10:10AM ; [facility] Education and Decision Aids were provided during visit for: Discussed preventing falls Last Documented On 3 10:10AM ; [facility] Patient education about a pr oper diet Last Documented On 3 10:10AM ; [facility] Patient education about meal planning Last Documented On 3 10:10AM ; [facility] Patient education about weig ht control Last Documented On 3 10:10AM ; [facility] Patient education about regu lar dental care Last Documented On 3 10:10AM ; [facility] Patient education about diab etes and discussed ABCs of diabetic therapy and goals Last Documented On 3 10:10AM ; [facility] Patient education about a bl ood glucose monitor Last Documented On 3 10:10AM ; [facility] Patient education about a ho ak blood glucose monitor with instructions to bring monitor to each visit Last Documented On 3 10:10AM ; [facility] Dietary counseling pertainin g to diabetes mellitus Last Documented On 3 10:10AM ; [facility] Patient education about diab etic foot care should see a exceptional needs teacher annually for screening Last Documented On 3 10:10AM ; [facility] Inquiry and counseling about medication administration and compliance take diabetic medications as directed Last Documented On 3 10:10AM ; [facility] Education, guidance, and cou nseling about dietary management Last Documented On 3 10:10AM ; [facility] Education, guidance, and cou nseling about meal preparation Last Documented On 3 10:10AM ; [facility] Patient goals discussed Last Documented On 3 10:10AM ; [facility] The patient's goal is to gustavo p fasting blood sugar under 150 before meals and 180 2 hours after meals Last Documented On 3 10:10AM ; [facility] The patient's goal is to dioni t the blood sugars and bring in the results to each visit Last Documented On 3 10:10AM ; [facility] Patient's goal is to keep he moglobin A1c levels under 7.0% or less than 8.0% if over the age of 70 Last Documented On 3 10:10AM ; [facility] The patient will lose weight or maintain a BMI<25% Last Documented On 3 10:10AM ; [facility] Patient will increase aerobi c activity (30-45 min most days of wk) a min of 5 days a week Last Documented On 3 10:10AM ; [facility] Assessments Includes: Assessments from this encounter Findings - [E11.9 - Type 2 diabetes mellitus without complications] Type 2 diabetes mellitus without complication - Last Documented On 05/09/2023 11:09AM ; [facility] - Counseling and coordination of care was more than 50% of encounter time - Last Documented On 05/09/2023 11:09AM ; [facility] Instructions Includes: Instructions from this encounter Instructions to patient Intervention and counseling on cessation of tobacco use Last Documented On 3 10:12AM ; [facility] Maintain a healthy diet Last Documented On 3 10:10AM ; [facility] Lose weight Last Documented On 3 10:10AM ; [facility] Avoid foods and beverages co ntaining sugar Last Documented On 3 10:10AM ; [facility] Education and Decision Aids were provided during visit for: Discussed preventing falls Last Documented On 3 10:10AM ; [facility] Patient education about a pr oper diet Last Documented On 3 10:10AM ; [facility] Patient education about meal planning Last Documented On 3 10:10AM ; [facility] Patient education about weig ht control Last Documented On 3 10:10AM ; [facility] Patient education about regu lar dental care Last Documented On 3 10:10AM ; [facility] Patient education about diab etes and discussed ABCs of diabetic therapy and goals Last Documented On 3 10:10AM ; [facility] Patient education about a bl ood glucose monitor Last Documented On 3 10:10AM ; [facility] Patient education about a ho me blood glucose monitor with instructions to bring monitor to each visit Last Documented On 3 10:10AM ; [facility] Dietary counseling pertainin g to diabetes mellitus Last Documented On 3 10:10AM ; [facility] Patient education about diab etic foot care should see a exceptional needs teacher annually for screening Last Documented On 3 10:10AM ; [facility] Inquiry and counseling about medication administration and compliance take diabetic medications as directed Last Documented On 3 10:10AM ; [facility] Education, guidance, and cou nseling about dietary management Last Documented On 3 10:10AM ; [facility] Education, guidance, and cou nseling about meal preparation Last Documented On 3 10:10AM ; [facility] Patient goals discussed Last Documented On 3 10:10AM ; [facility] The patient's goal is to gustavo p fasting blood sugar under 150 before meals and 180 2 hours after meals Last Documented On 3 10:10AM ; [facility] The patient's goal is to dioni t the blood sugars and bring in the results to each visit Last Documented On 3 10:10AM ; [facility] Patient's goal is to keep he moglobin A1c levels under 7.0% or less than 8.0% if over the age of 70 Last Documented On 3 10:10AM ; [facility] The patient will lose weight or maintain a BMI<25% Last Documented On 3 10:10AM ; [facility] Patient will increase aerobi c activity (30-45 min most days of wk) a min of 5 days a week Last Documented On 3 10:10AM ; [facility] Medical Equipment - Implanted Devices Includes: Current Devices No Medical Equipment Recorded Medications Includes: Medications discussed during this encounter and other current Medications Discontinued / Stopped on this date SUKHWINDER BEVERLY WATER MECHANIC-BC on 05/08/2023 Amoxicillin-Pot Clavulanate 600-42.9 MG/5ML Oral Suspension Reconstituted Provider: SUKHWINDER Maldonado WATER MECHANIC-BC Diagnosis: Acute maxillary sinusitis, unspecified Last Documented On 05/09/2023 10:13AM By Gabino CASTRO ; [facility] Phentermine HCl 15 MG Oral Capsule Provider: RAVEN FLORES WATER MECHANIC-C Diagnosis: Obesity, unspeci fied Last Documented On 05/09/2023 10:12AM By Gabino CASTRO ; [facility] Current Medications (continue as prescribed) rOPINIRole HCl 0.5 MG Oral Tablet 01/23/2024 Provide r: NORMAN RG MD Diagnosis: Last Documented On 03/19/2024 10:45AM By Vickey CASTRO ; [facility] Omeprazole 20 MG Oral Capsul e Delayed Release 11/27/2023 Provider: NORMAN RG MD Diagnosis: Last Documented On 03/19/2024 10:45AM By Vickey CASTRO ; [facility] Past Medications on file Amoxicillin-Pot Clavulanate 600-42.9 MG/5ML Oral Suspension Reconstituted 10/13/2023 - 10/23/2023 Provider: KARUNA AL Diagnosis: Acute bronchitis , unspecified Take 7mL twice daily x 10 days Last Documented On 4 11:26AM By Karuna AL ; [facility] Amoxicillin-Pot Clavulanate 600-42.9 MG/5ML Oral Suspension Reconstituted 06/21/2021 - 07/01/2021 Provider: KARUNA AL Diagnosis: Acute sinusitis, unspecified Take 7mL twice daily x 10 days Last Documented On 1 10:00AM By Karuna AL ; [facility] Nitrofurantoin 25 MG/5ML OR SUSP 05/13/2013 - 05/20/2013 Provider: VADIM RAMIRES PA-C Diagnosis: URIN TRACT INFEC TION NOS 4 tsp BID x 7 days. Last Documented On 3 2:40PM By VADIM RAMIRES PA-C ; [facility] Cipro 500 MG/5ML (10%) OR SUSR 10/08/2012 - 10/18/2012 Provider: VADIM RAMIRES PA-C Diagnosis: URIN TRACT INFEC TION NOS 1/2 tsp BID x 10 days. Last Documented On 3 9:59AM By VADIM RAMIRES PA-C ; [facility] Medications Administered Includes: Administered Medications from [...] Last Documented: On 05/09/2023 10:11A M ; [facility] Results Includes: Results discussed during [...] unstable chronic illness BP is presently stable/well bnixbcyans-uypqk-kvqcrfa ordered/reviewed as per ADA guidelines. Date of [...] 02/07/2023 Last Documented On 3 10:10AM ; [facility] No travel 06/21/2021 Last Documented On 3 10:10AM ; [facility] Smoking status : Never smoker 11/30/2019 Last Documented On 3 10:10AM ; [facility] Currently 04/09/2012 Last Documented On 3 10:10AM ; [facility] Exercise frequency 3 X WEEKLY 04/09/2012 Last Documented On 3 10:10AM ; [facility] No consumption of alcohol 04/09/2012 Last Documented On 3 10:10AM ; [facility] Not using drugs 04/09/2012 Last Documented On 3 10:10AM ; [facility] 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 Last Documented On 3 10:10AM ; [facility] Procedures and Surgical History Includes: Procedures from this encounter Procedures Code Diagnosis Performing Provider Service L ocation Service Date controlled carbohydrate diet Last Documented On 3 10:10AM ; [facility] diabetic diet Last Documented On 3 10:10AM ; [facility] preventive medicine / risk factor counse ling provided Last Documented On 3 10:10AM ; [facility] request consultation by exceptional needs teacher Last Documented On 3 10:10AM ; [facility] disposition: reassurance Last Documented On 3 10:10AM ; [facility] patient information sheet given for diag nosis : Diabetes Last Documented On 3 10:10AM ; [facility] diabetic supplies glucometer Last Documented On 3 10:10AM ; [facility] plan of care reviewed and agreed to by t mike patient Last Documented On 3 10:10AM ; [facility] intervention and counseling on cessation of toba junior accounting clerk use 4000F Last Documented On 3 10:12AM ; [facility] use of tobacco assessment performed 1000F Last Documented On 3 10:10AM ; [facility] microalbuminuria test result documented and reviewed Last Documented On 3 10:10AM ; [facility] patient screened for future fall risk 3288F Last Documented On 3 10:10AM ; [facility] standardized depression screening: negative for symptoms 3351F Last Documented On 3 10:10AM ; [facility] review of medications documented 1160F Last Documented On 3 10:10AM ; [facility] encouragement of annual ophthalmologic e xamination performed Last Documented On 3 10:10AM ; [facility] counseling about safety issues Last Documented On 3 10:10AM ; [facility] avoid foods and beverages containing sug ar Last Documented On 3 10:10AM ; [facility] screening for adult depression: impressi on and score Last Documented On 3 10:10AM ; [facility] diabetic foot examination 202F Last Documented On 3 10:10AM ; [facility] activity/exercise education prescribed Last Documented On 3 10:10AM ; [facility] encouragement to exercise Last Documented On 3 10:10AM ; [facility] screening for safety concerns Last Documented On 3 10:10AM ; [facility] Monitor Blood Sugar Last Documented On 3 10:10AM ; [facility] Advised ophthalmological services Last Documented On 3 10:10AM ; [facility] Reviewed Blood Sugars Last Documented On 3 10:10AM ; [facility] Carbohydrate countin-200 grams or less daily Last Documented On 3 10:10AM ; [facility] Clinical summary provided to patient Last Documented On 3 10:10AM ; [facility] labs and studies reviewed with patient Last Documented On 3 10:10AM ; [facility] Medical History Includes: Medical History addressed during this encounter Description Last Updated LMP: HYSTERECTOMY 05/08/2023 Last Documented On 3 10:10AM ; [facility] No exposure to a contagious disease 12/2020 Last Documented On 3 10:10AM ; [facility] No Contact with and (Suspected) exposure to COVID-19 06/21/2021 Last Documented On 3 10:10AM ; [facility] No fall 06/21/2021 Last Documented On 3 10:10AM ; [facility] Not taking OTC medications 06/18/2021 Last Documented On 3 10:10AM ; [facility] Pt does not get blood pressure checked a t other facility 10/01/2015 Last Documented On 3 10:10AM ; [facility] Exposure to a lot of bright sunlight Last Documented On 3 10:10AM ; [facility] 1 miscarriage(s) 04/09/2012 Last Documented On 3 10:10AM ; [facility] Previously 5 time(s) 04/09/2012 Last Documented On 3 10:10AM ; [facility] No history of arthritis 04/09/2012 Last Documented On 3 10:10AM ; [facility] No history of cancer 04/09/2012 Last Documented On 3 10:10AM ; [facility] No history of chronic obstructive pulmon candelario disease 04/09/2012 Last Documented On 3 10:10AM ; [facility] No history of convulsive disorder 2011 Last Documented On 3 10:10AM ; [facility] No history of diabetes mellitus 04/09/20 12 Last Documented On 3 10:10AM ; [facility] No history of hypertension 04/09/2012 Last Documented On 3 10:10AM ; [facility] No history of stroke syndrome 04/09/2012 Last Documented On 3 10:10AM ; [facility] No history of venereal disease 2 Last Documented On 3 10:10AM ; [facility] No reported cardiovascular symptoms 03/19 Last Documented On 3 10:10AM ; [facility] No reported easy bleeding 04/09/2012 Last Documented On 3 10:10AM ; [facility] No reported recurrent infections 012 Last Documented On 3 10:10AM ; [facility] Family History Includes: Family History [...] Active Last Documented On 4 1:03PM ; [facility] Encounters Encounter Provider Location Date Check-In Time Check-Out Time Diagnosis DIABETIC FOLLOW UP APPOINTMENT RAVEN AL [facility]- 023 9:51AM 10:57AM Dur of Enc - Massotherapist & Coord of Care > 50% Encounter Time,Diabetes Mellitus Type 2 Without Complication Insurance Includes: Active Insurance Policies Plan Name Member ID Group # Subscriber Relationship Effect aj Dates 1 - MEDICARE PART A CLAIMS/NGS [id number] KEIRA DE LOS SANTOS Self 2 - [employer] [id number] KEIRA DE LOS SANTOS Self Clinical Notes Includes: Clinical Notes from this encounter * Progress note Date Encounter Last Documented by 05/09/2023 DIABETIC FOLLOW UP APPOINTMENT L ast documented on 05/09/2023; 11:09 AM, RAVEN AL; [facility] Active Problems & Conditions [...] unstable chronic illness BP is presently stable/well etptoillpk-mskcr-ebhpqab ordered/reviewed as per ADA guidelines. Date of [...] by the patient. - Request consultation by exceptional needs teacher. - Diabetic supplies glucometer. - Carbohydrate countin-200 [...] about diabetic foot care should see a exceptional needs teacher annually for screening - The patient will [...] nut butters, eggs, meat snacks, cheese, plain Ethiopian yogurt or a protein shake. RememberIt is [...] 05/09/2023. - Neuropathy Screening satisfied 05/09/2023. - Jawbone Puller satisfied 05/09/2023.
--- OUTSIDE RECORDS SUMMARY | 2025-06-19 01:00 | XMS_ITS ---
Care Plan - [facility] Created on: June 19, 2025 KEIRA DE LOS SANTOS : 1950 Sex: Female Author Organization [facility] Address [address] [place] [address] Phone Care Team Providers Care Ethnic Studies Professor Name Role Phone ARCENIO MAGDALENO, NORMAN Fish Primary Care Provider [phone]
--- OUTSIDE RECORDS SUMMARY | 2025-06-19 01:00 | XMS_ITS | Clinical Summary ---
Author Organization [facility] Administrative Offices Address [address] [place] [address] Care Team Providers Care Body Bumper Name Role Phone Franck Alvarez MD Primary Care Provider [phone] Allergies Active Allergy Reactions Criticality Noted Date Comments Erythromycin Rash Medium 11/03/2011 Erythromycin (Bulk) Rash Low 01/25/2012 Medications calcium CARBONATE + vitamin D (CALTRATE+D) 600 mg-10 mcg (400 unit) Tablet Take by mouth. Active anastrozole (Arimidex) 1 mg tablet Take 1 Tablet (1 mg) by mouth daily. 30 Tablet 11 03/11/2025 Active rOPINIRole (REQUIP) 0.5 mg tablet Take 0.5 mg by mouth daily at bedtime. 01/23/2024 Active VITAMIN E ORAL Take by mouth. 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 The patient underwent the [facility] My Risk genetic testing for hereditary cancer syndromes [...] (03/05/2025): HOXB13 positive. The patient underwent the [facility] My Risk genetic testing for hereditary cancer syndromes [...] Encounters Date Type Department Care Team Description 06/03/2025 External Device Data STL ABSTRACTION Provider, Abstract 06/02/2025 10:40 AM CDT - 06/02/2025 11:59 PM CDT Hospital Encounter [facility] Radiation Therapy [address] [place] [address] Uma Dumont MD Discharge Disposition: Home or Self Care 06/02/2025 9:09 AM CDT - 06/02/2025 11:59 PM CDT Hospital Encounter [facility] [place] [address] [place] [address] Uma Dumont MD Discharge Disposition: Home or Self Care 05/20/2025 External Device Data STL ABSTRACTION Provider, Abstract 05/07/2025 External Device Data STL ABSTRACTION Provider, Abstract 04/29/2025 External Device Data STL ABSTRACTION Provider, Abstract 04/23/2025 External Device Data STL ABSTRACTION Provider, Abstract 04/02/2025 External Device Data STL ABSTRACTION Provider, Abstract 04/02/2025 External Device Data STL ABSTRACTION Provider, Abstract from Last 3 Months Family [...] who hurts you emotionally and/or physically? 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 Gender Identity Not on file Sexual Orientation Not on file Last Filed Vital Signs Vital Sign Reading Time Taken Comments Blood Pressure 122/80 06/02/2025 11:30 AM CDT Pulse 80 06/02/2025 11:28 AM CDT Temperature 35.8 C (96.5 F) 06/02/2025 11:28 AM CDT Respiratory Rate 18 06/02/2025 11:28 AM CDT Oxygen Saturation 98% 06/02/2025 11:28 AM CDT Inhaled Oxygen Concentration - - Weight 79.4 kg (175 lb) 06/02/2025 11:28 AM CDT Height 152.4 cm (5') 06/02/2025 11:28 AM CDT Body Mass Index 34.18 06/02/2025 11:28 AM CDT Plan of Treatment Upcoming Encounters Date Type Department Care Team (Late st Contact Info) Description 09/02/2025 11:15 AM GRAVURE PRINTING MACHINIST Office Visit [facility] Oncology and Hematology [facility] [address] [place] [address] Migel Underwood MD [address] [place] [address] 12/18/2025 12:00 PM CDT Office Visit [facility] Surgical Spec [place] [id number] [place] [address] Bernardo Morales MD [address] [place] [address] Health Maintenance Due Date Last [...] 04/04/2024, Additional history exists OSTEOPOROSIS SCREENING 07/09/2029 4, 06/24/2022, 06/08/2021, Additional history exists COLORECTAL SCREENING 02/01/2033 02/01/2023, 02/01/2023, 02/01/2023, Additional history exists Colorectal Cancer Screening 02/01/2033 PNEUMOCOCCAL VACCINE 50+ YEARS Completed 07/03/2018 , 06/16/2017 Procedures Procedure Name Priority Date/Time Associated Diagnosis Comments MAMMO 3D NATA DIAGNOSTIC IMPL BILAT W OR WO CAD Routine 06/02/2025 9:38 AM CDT Infiltrating lobular carcinoma of breast, stage 1, right (CMS/HCC) Malignant neoplasm of upper-outer quadrant of right breast in female, estrogen receptor [...] Relevant to Health Maintenance Results * MAMMO 3D NATA DIAGNOSTIC IMPL BILAT W OR WO CAD (06/02/2025 9:38 AM CDT) Anatomical Region Laterality Modality Breast Bilateral Mammography 06/02/2025 9:44 AM CDT Impressions 06/02/2025 9:56 AM CDT IMPRESSION: No suspicious findings to suggest malignancy in either breast. Annual mammography is recommended. OVERALL FINAL ASSESSMENT: BI-RADS CATEGORY 2: Benign findings. DICTATION LOCATION: [facility] Narrative 06/02/2025 9:56 AM CDT EXAM: BILATERAL SCREENING DIGITAL MAMMOGRAM WITH 3D TOMOSYNTHESIS AND CAD DATE: 06/02/2025 9:38 AM HISTORY: Personal history of breast cancer with prior right breast conservation therapy in November 2024. Benign left breast excisional biopsy TECHNIQUE: Mediolateral oblique, mediolateral and craniocaudal views of both breasts were performed using full-field and implant displaced digital mammography. Low-dose full-field digital breast tomosynthesis examination was performed with 2D and 3D acquisitions. Examination is read in conjunction with computer aided detection. COMPARISON: 01/02/2025 and older BREAST COMPOSITION: There are scattered areas of fibroglandular density. FINDINGS: Redemonstrated are bilateral subpectoral saline implants, which limit mammographic sensitivity. Mammographic changes consistent with breast conservation therapy are redemonstrated on the right, with postlumpectomy changes in the upper outer breast. Postsurgical changes are now seen in the subareolar left breast. There is no concerning mass, suspicious calcifications or concerning areas of architectural distortion identified in either breast. Uma Fish Mai, MD MAMMO ORDERABLES Final Result * MAMMO 3D NATA DIAGNOSTIC UNI RT [...] CATEGORY 2 - Benign findings. Dictation Location [facility] Narrative 01/02/2025 11:34 AM CDT DIGITAL DIAGNOSTIC UNILATERAL [...] Advance Directives For more information, please contact: [phone] * Full Code (Latest Code Status on [...] 1:12 PM 07/15/2024 3:37 PM Care Teams Body Bumper Relationship Specialty Start Date End Date Franck Alvarez MD PCP - General Family Practice 04/15/20
--- OUTSIDE RECORDS SUMMARY | 2025-06-19 01:00 | XMS_ITS | Encounter Summary ---
Author Organization [facility] Address 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 Gender Identity Not on file Sexual Orientation Not on file documented as of this encounter Plan of Treatment Upcoming Encounters Date Type Department Care Team (Late st Contact Info) Description 09/02/2025 11:15 AM MORTUARY OPERATIONS MANAGER Office Visit [facility] Oncology and Hematology [facility] [address] [place] [address] Migel Underwood MD [address] [place] [address] 12/18/2025 12:00 PM CDT Office Visit [facility] Surgical Spec [place] [id number] [place] [address] Bernardo Morales MD [address] [place] [address] documented as of this encounter Visit Diagnoses Diagnosis Excessive or frequent menstruation- Primary documented in this encounter Care Teams Setter Automatic Spinning Lathe Relationship Specialty Start Date End Date Franck Alvarez MD PCP - General Family Practice 04/15/20 documented as of this encounter
--- OUTSIDE RECORDS SUMMARY | 2025-06-19 01:01 | XMS_ITS | Clinical Summary ---
Author Organization [facility] Address [address] [place] [address] Phone Care Team Providers Care Parts Cataloguer Name Role Phone ARCENIO MAGDALENO, NORMAN Fish Primary Care Provider [phone] Reason for Referral Date Encounter Description Provider Reason for Referral 02/07/23 DIABETIC FOLLOW UP APPOINTMENT RAVEN LANDIN CHORAL TEACHER-C Request Consultation By Cook Jelly Reason for Visit and Chief Complaint visit for: Diabetes Education and Follow Up Visit for Type 2 Diabetic Problems Includes: Problems addressed during this encounter and other active Problems Current Visit Onset Date Resolved Date Provider Conditio n Status Diabetes Mellitus Type 2 Without Complication 09/28/2022 RAVEN LANDIN CHORAL TEACHER-C Active Last Documented On 3 5:14PM ; [facility] Past Visits Onset Date Resolved Date Provider Condition Status Obesity 09/28/2022 RAVEN SCHMID CHORAL TEACHER-C Active Last Documented On 3 5:13PM ; [facility] Plan of Treatment A1C goal [...] nut butters, eggs, meat snacks, cheese, plain Gambian yogurt or a protein shake. RememberIt is [...] - Last Documented On 02/07/2023 11:02AM ; [facility] Pending Tests Order Diagnosis Results Due Ordering Ann alvarez Lab Hemoglobin A1C 11/13/23 RAVEN LANDIN CHORAL TEACHER-C Last Documented On 4 1:28PM ; [facility] Instructions to patient Maintain a healthy diet Last Documented On 3 9:59AM ; [facility] Lose weight Last Documented On 3 9:59AM ; [facility] Avoid foods and beverages co ntaining sugar Last Documented On 3 9:59AM ; [facility] Education and Decision Aids were provided during visit for: Discussed preventing falls Last Documented On 3 9:59AM ; [facility] Patient education about a pr oper diet Last Documented On 3 9:59AM ; [facility] Patient education about meal planning Last Documented On 3 9:59AM ; [facility] Patient education about weig ht control Last Documented On 3 9:59AM ; [facility] Patient education about regu lar dental care Last Documented On 3 9:59AM ; [facility] Patient education about diab etes and discussed ABCs of diabetic therapy and goals Last Documented On 3 9:59AM ; [facility] Patient education about a bl ood glucose monitor Last Documented On 3 9:59AM ; [facility] Patient education about a ho me blood glucose monitor with instructions to bring monitor to each visit Last Documented On 3 9:59AM ; [facility] Dietary counseling pertainin g to diabetes mellitus Last Documented On 3 9:59AM ; [facility] Patient education about diab etic foot care should see a qa lead annually for screening Last Documented On 3 9:59AM ; [facility] Inquiry and counseling about medication administration and compliance take diabetic medications as directed Last Documented On 3 9:59AM ; [facility] Education, guidance, and cou nseling about dietary management Last Documented On 3 9:59AM ; [facility] Education, guidance, and cou nseling about meal preparation Last Documented On 3 9:59AM ; [facility] Patient goals discussed Last Documented On 3 9:59AM ; [facility] The patient's goal is to gustavo p fasting blood sugar under 150 before meals and 180 2 hours after meals Last Documented On 3 9:59AM ; [facility] The patient's goal is to dioni t the blood sugars and bring in the results to each visit Last Documented On 3 9:59AM ; [facility] Patient's goal is to keep he moglobin A1c levels under 7.0% or less than 8.0% if over the age of 70 Last Documented On 3 9:59AM ; [facility] The patient will lose weight or maintain a BMI<25% Last Documented On 3 9:59AM ; [facility] Patient will increase aerobi c activity (30-45 min most days of wk) a min of 5 days a week Last Documented On 3 9:59AM ; [facility] Assessments Includes: Assessments from this encounter Findings - [E11.9 - Type 2 diabetes mellitus without complications] Type 2 diabetes mellitus without complication - Last Documented On 02/07/2023 11:02AM ; [facility] - Counseling and coordination of care was more than 50% of encounter time - Last Documented On 02/07/2023 11:02AM ; [facility] Instructions Includes: Instructions from this encounter Instructions to patient Maintain a healthy diet Last Documented On 3 9:59AM ; [facility] Lose weight Last Documented On 3 9:59AM ; [facility] Avoid foods and beverages co ntaining sugar Last Documented On 3 9:59AM ; [facility] Education and Decision Aids were provided during visit for: Discussed preventing falls Last Documented On 3 9:59AM ; [facility] Patient education about a pr oper diet Last Documented On 3 9:59AM ; [facility] Patient education about meal planning Last Documented On 3 9:59AM ; [facility] Patient education about weig ht control Last Documented On 3 9:59AM ; [facility] Patient education about regu lar dental care Last Documented On 3 9:59AM ; [facility] Patient education about diab etes and discussed ABCs of diabetic therapy and goals Last Documented On 3 9:59AM ; [facility] Patient education about a bl ood glucose monitor Last Documented On 3 9:59AM ; [facility] Patient education about a ho me blood glucose monitor with instructions to bring monitor to each visit Last Documented On 3 9:59AM ; [facility] Dietary counseling pertainin g to diabetes mellitus Last Documented On 3 9:59AM ; [facility] Patient education about diab etic foot care should see a qa lead annually for screening Last Documented On 3 9:59AM ; [facility] Inquiry and counseling about medication administration and compliance take diabetic medications as directed Last Documented On 3 9:59AM ; [facility] Education, guidance, and cou nseling about dietary management Last Documented On 3 9:59AM ; [facility] Education, guidance, and cou nseling about meal preparation Last Documented On 3 9:59AM ; [facility] Patient goals discussed Last Documented On 3 9:59AM ; [facility] The patient's goal is to gustavo p fasting blood sugar under 150 before meals and 180 2 hours after meals Last Documented On 3 9:59AM ; [facility] The patient's goal is to dioni t the blood sugars and bring in the results to each visit Last Documented On 3 9:59AM ; [facility] Patient's goal is to keep he moglobin A1c levels under 7.0% or less than 8.0% if over the age of 70 Last Documented On 3 9:59AM ; [facility] The patient will lose weight or maintain a BMI<25% Last Documented On 3 9:59AM ; [facility] Patient will increase aerobi c activity (30-45 min most days of wk) a min of 5 days a week Last Documented On 3 9:59AM ; [facility] Medical Equipment - Implanted Devices Includes: Current Devices No Medical Equipment Recorded Medications Includes: Medications discussed during this encounter and other current Medications Discontinued / Stopped on this date SUKHWINDER HARDYP-BC on 01/07/2023 Amoxicillin-Pot Clavulanate 600-42.9 MG/5ML Oral Suspension Reconstituted Provider: SUKHWINDER NUNEZ Diagnosis: Acute upper resp iratory infection, unspecified Last Documented On 02/07/2023 10:01AM By Gabino CASTRO ; [facility] Ozempic (0.25 or 0.5 MG/DOSE) 2 MG/1.5ML Subcutaneous Solution Pen-injector Provider: RAVEN AL Diagnosis: Type 2 diabetes mellitus without complications Last Documented On 02/07/2023 10:01AM By Gabino CASTRO ; [facility] Ozempic (1 MG/DOSE) 4 MG/3ML Subcutaneous Solution Pen-injector Provider: RAVEN GARCIA-C Diagnosis: Type 2 diabetes mellitus without complications Last Documented On 02/07/2023 10:01AM By Gabino CASTRO ; [facility] ROPINIRole HCl 0.5MG Oral Tablet Provider : Diagnosis: Last Documented On 02/07/2023 10:01AM By Gabino CASTRO ; [facility] New / Renewed during this visit RAVEN GARCIA-C on 02/07/2023 Phentermine HCl 15 MG Oral Capsule Provider: RAVEN E CLONINGER-HULTZ CHORAL TEACHER-C 30 day supply: 30 capsule, 0 refills Diagnosis: Obesity, unspecified 1 Capsule every morning Pharmacy: [address], [phone] - Last Documented On 05/09/2023 10:12AM By Gabino CASTRO ; [facility] Current Medications (continue as prescribed) rOPINIRole HCl 0.5 MG Oral Tablet 01/23/2024 Provide r: NORMAN RG MD Diagnosis: Last Documented On 03/19/2024 10:45AM By Vickey CASTRO ; [facility] Omeprazole 20 MG Oral Capsul e Delayed Release 11/27/2023 Provider: NORMAN RG MD Diagnosis: Last Documented On 03/19/2024 10:45AM By Vickey CASTRO ; [facility] Past Medications on file Amoxicillin-Pot Clavulanate 600-42.9 MG/5ML Oral Suspension Reconstituted 10/13/2023 - 10/23/2023 Provider: KARUNA AL Diagnosis: Acute bronchitis , unspecified Take 7mL twice daily x 10 days Last Documented On 4 11:26AM By Karuna AL ; [facility] Amoxicillin-Pot Clavulanate 600-42.9 MG/5ML Oral Suspension Reconstituted 06/21/2021 - 07/01/2021 Provider: KARUNA AL Diagnosis: Acute sinusitis, unspecified Take 7mL twice daily x 10 days Last Documented On 1 10:00AM By Karuna AL ; [facility] Nitrofurantoin 25 MG/5ML OR SUSP 05/13/2013 - 05/20/2013 Provider: VADIM RAMIRES PA-C Diagnosis: URIN TRACT INFEC TION NOS 4 tsp BID x 7 days. Last Documented On 3 2:40PM By VADIM RAMIRES PA-C ; [facility] Cipro 500 MG/5ML (10%) OR SUSR 10/08/2012 - 10/18/2012 Provider: VADIM RAMIRES PA-C Diagnosis: URIN TRACT INFEC TION NOS 1/2 tsp BID x 10 days. Last Documented On 3 9:59AM By VADIM RAMIRES PA-C ; [facility] Medications Administered Includes: Administered Medications [...] Last Documented: On 02/07/2023 10:01A M ; [facility] Results Includes: Results discussed during [...] unstable chronic illness BP is presently stable/well [id number] ordered/reviewed as per ADA guidelines. Date of [...] 02/07/2023 Last Documented On 3 11:02AM ; [facility] Smoking Status Unknown Procedures and Surgical History Includes: Procedures from this encounter Procedures Code Diagnosis Performing Provider Service L ocation Service Date controlled carbohydrate diet Last Documented On 3 9:59AM ; [facility] diabetic diet Last Documented On 3 9:59AM ; [facility] preventive medicine / risk factor counse ling provided Last Documented On 3 9:59AM ; [facility] request consultation by qa lead Last Documented On 3 9:59AM ; [facility] disposition: reassurance Last Documented On 3 9:59AM ; [facility] patient information sheet given for diag nosis : Diabetes Last Documented On 3 9:59AM ; [facility] diabetic supplies glucometer Last Documented On 3 9:59AM ; [facility] plan of care reviewed and agreed to by t mike patient Last Documented On 3 9:59AM ; [facility] use of tobacco assessment performed 1000F Last Documented On 3 9:59AM ; [facility] microalbuminuria test result documented and reviewed Last Documented On 3 9:59AM ; [facility] patient screened for future fall risk 3288F Last Documented On 3 9:59AM ; [facility] standardized depression screening: negative for symptoms 3351F Last Documented On 3 9:59AM ; [facility] review of medications documented 1160F Last Documented On 3 9:59AM ; [facility] encouragement of annual ophthalmologic e xamination performed Last Documented On 3 9:59AM ; [facility] counseling about safety issues Last Documented On 3 9:59AM ; [facility] avoid foods and beverages containing sug ar Last Documented On 3 9:59AM ; [facility] screening for adult depression: impressi on and score Last Documented On 3 9:59AM ; [facility] diabetic foot examination Last Documented On 3 9:59AM ; [facility] activity/exercise education prescribed Last Documented On 3 9:59AM ; [facility] encouragement to exercise Last Documented On 3 9:59AM ; [facility] screening for safety concerns Last Documented On 3 9:59AM ; [facility] Monitor Blood Sugar Last Documented On 3 9:59AM ; [facility] Advised ophthalmological services Last Documented On 3 9:59AM ; [facility] Reviewed Blood Sugars Last Documented On 3 9:59AM ; [facility] Carbohydrate countin-200 grams or less daily Last Documented On 3 9:59AM ; [facility] Clinical summary provided to patient Last Documented On 3 9:59AM ; [facility] labs and studies reviewed with patient Last Documented On 3 9:59AM ; [facility] Medical History Includes: Medical History [...] Active Last Documented On 4 1:03PM ; [facility] Encounters Encounter Provider Location Date Check-In Time Check-Out Time Diagnosis DIABETIC FOLLOW UP APPOINTMENT RAVEN HARDYP-C [facility]- 023 9:43AM 10:49AM Dur of Enc - Box Puller & Coord of Care > 50% Encounter Time,Diabetes Mellitus Type 2 Without Complication Insurance Includes: Active Insurance Policies Plan Name Member ID Group # Subscriber Relationship Effect aj Dates 1 - MEDICARE PART A CLAIMS/NGS [id number] KEIRA DE LOS SANTOS Self 2 - [employer] S[employer] [id number] KEIRA DE LOS SANTOS Self Clinical Notes Includes: Clinical Notes from this encounter * Progress note Date Encounter Last Documented by 02/07/2023 DIABETIC FOLLOW UP APPOINTMENT L ast documented on 02/07/2023; 11:02 AM, RAVEN AL; [facility] Active Problems & Conditions - [...] unstable chronic illness BP is presently stable/well [id number] ordered/reviewed as per ADA guidelines. Date of [...] by the patient. - Request consultation by qa lead. - Diabetic supplies glucometer. - Carbohydrate countin-200 [...] about diabetic foot care should see a qa lead annually for screening - The patient will [...] nut butters, eggs, meat snacks, cheese, plain Gambian yogurt or a protein shake. RememberIt is [...] 02/07/2023. - Neuropathy Screening satisfied 02/07/2023. - Art Studio Teacher satisfied 02/07/2023.
--- OUTSIDE RECORDS SUMMARY | 2025-06-19 01:01 | XMS_ITS | Clinical Summary ---
Author Organization [address] Address [address] [place] [phone] Care Team Providers Care Supplier Quality Name Role Phone Franck Alvarez MD Primary Care Provider [phone] Jayden Garcia MD Unavailable Allergies Active Allergy [...] on file Legal Sex Female 10:53 AM [employer] Gender Identity Not on file Sexual Orientation [...] of 2) 2002 Well Visit 65+ 2017 Osteoporosis Screening-Bone Density Scan 06/24/2024 06/24/2022, 06/24/2022, 06/08/2021, Additional history exists Breast Cancer Screening-Mammogram 03/08/2025 03/08/2024, 01/16/2023, 01/16/2023, Additional history exists Covid-19 Vaccine (2024-2 6 season) 2025 11/13/2020, 10/16/2020 Influenza Vaccine (#1) 2025 , 06/24/2019, 07/04/2018, [...] Recently Relevant to Health Maintenance Insurance MEDICARE [facility] SENIOR SUPPLEMENT MEDICARE T SENIOR SUPPLEMENT Care Teams Supplier Quality Relationship Specialty Start Date End Date Franck Alvarez MD [address] [address] PCP - General Family Medicine 03/03/17 Jayden Garcia MD [address] [place] [phone] Consulting Physician Obstetrics and Gynecology 03/08/24
--- OUTSIDE RECORDS SUMMARY | 2025-06-19 01:01 | XMS_ITS | Clinical Summary ---
Author Organization [facility] Address [address] [place] [address] Phone Care Team Providers Care Overhead Crane Inspector Name Role Phone ARCENIO MAGDALENO, NORMAN Fish Primary Care Provider [phone] Reason for Visit and Chief Complaint The Chief Complaint is: pt is here with a cough , yellow phlegm and some drainage for about a week Problems Includes: Problems addressed during this encounter and other active Problems All Visits Onset Date Resolved Date Provider Condition S tatus Diabetes Mellitus Type 2 Without Complication 09/28/2022 RAVEN LANDIN COGENERATION OPERATOR-C Active Last Documented On 3 5:14PM ; [facility] Obesity 09/28/2022 RAVEN GALLO COGENERATION OPERATOR-C Active Last Documented On 3 5:13PM ; [facility] Plan of Treatment - The options include close observation - Last Documented On 10/13/2023 11:15AM ; [facility] - Continue current medication - Last Documented On 10/13/2023 11:15AM ; [facility] Pt to use prescription as ordered. Purpose of and use of medication discussed. . - Last Documented On 10/13/2023 11:15AM ; [facility] pt has to have liquid medication - Last Documented On 10/13/2023 11:15AM ; [facility] Assessments Includes: Assessments from this encounter Findings - [J20.9 - Acute bronchitis, unspecified] Acute bronchitis - Last Documented On 10/13/2023 11:15AM ; [facility] Medical Equipment - Implanted Devices Includes: Current Devices No Medical Equipment Recorded Medications Includes: Medications discussed during this encounter and other current Medications New / Renewed during this visit CHAZ AL on 10/13/2023 Amoxicillin-Pot Clavulanate 600-42.9 MG/5ML Oral Suspension Reconstituted Provider: CHAZ AL 10 day supply: 140 mL, 0 refills Diagnosis: Acute bronchitis, unspecified Take 7mL twice daily x 10 days Pharmacy: [address], [phone] - Last Documented On 4 11:26AM By Chaz AL ; [facility] Current Medications (continue as prescribed) rOPINIRole HCl 0.5 MG Oral Tablet 01/23/2024 Provide r: NORMAN RG MD Diagnosis: Last Documented On 03/19/2024 10:45AM By Vickey CASTRO ; [facility] Omeprazole 20 MG Oral Capsul e Delayed Release 11/27/2023 Provider: NORMAN RG MD Diagnosis: Last Documented On 03/19/2024 10:45AM By Vickey CASTRO ; [facility] Past Medications on file Amoxicillin-Pot Clavulanate 600-42.9 MG/5ML Oral Suspension Reconstituted 06/21/2021 - 07/01/2021 Provider: CHAZ AL Diagnosis: Acute sinusitis, unspecified Take 7mL twice daily x 10 days Last Documented On 1 10:00AM By Chaz AL ; [facility] Nitrofurantoin 25 MG/5ML OR SUSP 05/13/2013 - 05/20/2013 Provider: VADIM RAMIRES PA-C Diagnosis: URIN TRACT INFEC TION NOS 4 tsp BID x 7 days. Last Documented On 3 2:40PM By VADIM RAMIRES PA-C ; [facility] Cipro 500 MG/5ML (10%) OR SUSR 10/08/2012 - 10/18/2012 Provider: VADIM RAMIRES PA-C Diagnosis: URIN TRACT INFEC TION NOS 1/2 tsp BID x 10 days. Last Documented On 3 9:59AM By VADIM RAMIRES PA-C ; [facility] Medications Administered Includes: Administered Medications from this encounter No Administered Medications Recorded Vital Signs Includes: Vital Signs from this encounter Vital Name 10/13/2023 11:02A Pulse Rate-Sitting (bpm) 83 Temp-Oral (F) 98.6 Height (in) 60 Weight (lb) 180 Body Mass Index 35.2 Body Surface Area 1.8 Oxygen Saturation (%) 98 Last Documented: On 10/13/2023 11:03A M ; [facility] Results Includes: Results discussed [...] 02/07/2023 Last Documented On 4 11:01AM ; [facility] No travel 06/21/2021 Last Documented On 4 11:01AM ; [facility] Smoking status : Never smoker 11/30/2019 Last Documented On 4 11:01AM ; [facility] Currently 04/09/2012 Last Documented On 4 11:01AM ; [facility] Exercise frequency 3 X WEEKLY 04/09/2012 Last Documented On 4 11:01AM ; [facility] No consumption of alcohol 04/09/2012 Last Documented On 4 11:01AM ; [facility] Not using drugs 04/09/2012 Last Documented On 4 11:01AM ; 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 Procedures and Surgical History Includes: Procedures from this encounter Procedures Code Diagnosis Performing Provider Service Location Service Date reviewed PM for antibacterials used for previous infections Last Documented On 4 11:14AM ; [facility] Pt to use OTC expectorant product as nee ded per product instruction.~ Last Documented On 4 11:14AM ; [facility] patient to call if symptoms worsen or not improved to update patient's status as needed Last Documented On 4 11:14AM ; [facility] review of medications documented 1160F Last Documented On 4 11:03AM ; [facility] Medical History Includes: Medical History addressed during this encounter Description Last Updated LMP: HYSTERECTOMY 05/08/2023 Last Documented On 4 11:01AM ; [facility] No exposure to a contagious disease 12/2020 Last Documented On 4 11:01AM ; [facility] No Contact with and (Suspected) exposure to COVID-19 06/21/2021 Last Documented On 4 11:01AM ; [facility] No fall 06/21/2021 Last Documented On 4 11:01AM ; [facility] Not taking OTC medications 06/18/2021 Last Documented On 4 11:01AM ; [facility] Pt does not get blood pressure checked a t other facility 10/01/2015 Last Documented On 4 11:01AM ; [facility] Exposure to a lot of bright sunlight Last Documented On 4 11:01AM ; [facility] 1 miscarriage(s) 04/09/2012 Last Documented On 4 11:01AM ; [facility] Previously 5 time(s) 04/09/2012 Last Documented On 4 11:01AM ; [facility] No history of arthritis 04/09/2012 Last Documented On 4 11:01AM ; [facility] No history of cancer 04/09/2012 Last Documented On 4 11:01AM ; [facility] No history of chronic obstructive pulmon candelario disease 04/09/2012 Last Documented On 4 11:01AM ; [facility] No history of convulsive disorder 2011 Last Documented On 4 11:01AM ; [facility] No history of diabetes mellitus 04/09/20 12 Last Documented On 4 11:01AM ; [facility] No history of hypertension 04/09/2012 Last Documented On 4 11:01AM ; [facility] No history of stroke syndrome 04/09/2012 Last Documented On 4 11:01AM ; [facility] No history of venereal disease 2 Last Documented On 4 11:01AM ; [facility] No reported cardiovascular symptoms 03/19 Last Documented On 4 11:01AM ; [facility] No reported easy bleeding 04/09/2012 Last Documented On 4 11:01AM ; [facility] No reported recurrent infections 012 Last Documented On 4 11:01AM ; [facility] Family History Includes: Family History [...] Active Last Documented On 4 1:03PM ; [facility] Encounters Encounter Provider Location Date Check-In Time Check-Out Time Diagnosis COVID SICK VISIT- ESTABLISHED PATIENT CHAZ Fish JENNIFER HARDYP-C [facility] 10/13/19 24 10:51AM 11:10AM Acute Bronchitis Insurance Includes: Active Insurance Policies Plan Name Member ID Group # Subscriber Relationship Effect aj Dates 1 - MEDICARE PART A CLAIMS/NGS [id number] KEIRA DE LOS SANTOS Self 2 - [employer] [id number] KEIRA DE LOS SANTOS Self Clinical Notes Includes: Clinical Notes from this encounter * Progress note Date Encounter Last Documented by 10/13/2023 COVID SICK VISIT- ESTABLISHED JOSE MCGHEE Last documented on 10/13/2023; 11:15 AM, CHAZ BRANDONC; [facility] Active Problems & Conditions [...]
--- NOTE | 2025-06-19 07:15 | WPDHPUPDATE1 ---
History and Physical Update Update Date/Time: 06/19/25 07:15 History and Physical has been reviewed, including an updated exam of the patient. There are NO changes in the patient's condition. Risks, benefits, and alternatives have been discussed and questions answered. Patient agrees to proceed with procedure.
[2025-06-19 10:21] VITALS: BP 168/83; PULSE 82; RESP 16; TEMP 36.6; O2SAT 98; BMI 34.7
[2025-06-19] MEDS: ACETAMINOPHEN 500 MG TABLET 1000 MG PO (11:07)
[2025-06-19] MEDS: KETOROLAC 15 MG/ML VIAL (*BKC) IV PUSH (11:52)
[2025-06-19] MEDS: LACTATED RINGERS 1,000 ML 30 ML IV CONT (11:53)
--- NOTE | 2025-06-19 12:15 | WPDANESEPPF ---
Anes - Initial Pre Proc Eval Procedure: Operation Date: 06/19/25 12:30 Proposed Procedures p Left Carpal Tunnel Release - Ras Ghosh MD Date/Time: 06/19/25 12:15 Surgeon: Ras Ghosh MD Pre Op Diagnosis: left carpal tunnel syndrome Patient Data Age: 75 Gender: F Height: 1.52 m Weight: 80.8 kg Last Vital Signs Temp 97.9 F 06/19/25 10:21 Pulse 82 06/19/25 10:21 Resp 16 06/19/25 10:21 BP 168/83 H 06/19/25 10:21 Pulse Ox 98 06/19/25 10:21 O2 Del Method Room Air 06/19/25 10:21 Allergies Allergy/AdvReac Type Severity Reaction Status Date / Time erythromycin base Allergy Unknown Rash Verified 06/11/25 10:20 Home Medications ?Medication ?Instructions ?Recorded ?Confirmed ?Type ropinirole 0.5 mg tablet 0.5 mg PO HS 06/22/22 06/11/25 History anastrozole 1 mg tablet (Arimidex) 1 mg PO DAILY 05/30/25 06/11/25 History cholecalciferol (vitamin D3) 10 10 mcg PO DAILY 05/30/25 06/11/25 History mcg (400 unit) capsule vitamin E (dl, acetate) 45 mg (100 45 mg PO DAILY 05/30/25 06/11/25 History unit) capsule magnesium citrate 100 mg capsule 200 mg PO HS 06/11/25 06/11/25 History hydrocodone 5 mg-acetaminophen 325 1 - 2 tablet PO Q4-6H PRN pain 7 06/19/25 Rx mg tablet days #20 tabs Patient hx anesthesia problems: none Family hx anesthesia problems: none Results Review: All pre-operative results and documents have been reviewed as part of the pre-operative evaluation. [facility] Past Medical History Medical History (Updated 06/19/25 @ 07:21 by JOSE Proctor) Breast cancer Anxiety Restless leg syndrome Surgical History Surgical History History of arthroscopy of left knee (~06/12/23) Partial lateral meniscectomy History of tooth extraction History of foot surgery (~1995) Removal of Heel Spur History of foot surgery (~1993) Removal of Heel Spur H/O: hysterectomy (~1999) Family History Family History Unknown Cancer Arthritis Diabetes mellitus COPD (chronic obstructive pulmonary disease) Polycystic kidney disease Social History Social History Smoking status: Never smoker Alcohol intake: never Substance use: never Substance use type: does not use Lack of Transportation: No Lack of Food: Never True Current Housing: I Have Housing Concerned About Future Housing: No Difficulty Paying Gas/Electric Bills: No Difficulty Paying for Meds: No Currently Unemployed: No Education: Trade/Vocational Certificate Difficulty w/ Childcare or Family Care: No Living arrangements: with family Spiritual care concerns: No Anes - Eval Final PreProcedure Day of Procedure 06/19/25 12:15 Patient weight: obese Heart: regular rate and rhythm Lungs: clear to auscultation Airway: Mallampati scale class II Neurological: alert and oriented Last oral intake: >/= 8 hours ASA classification: III Emergent: no Anesthetic plan: proceed Anesthesia type and monitoring: general LMA and standard monitoring Results Review: All pre-operative results and documents have been reviewed as part of the pre-operative evaluation. Informed Consent: The patient's anesthetic plan and its attendant risks and benefits were discussed with the patient/family/POA. Questions were solicited and answers provided to the satisfaction of the patient/family/POA.
[2025-06-19] MEDS: BUPIVACAINE/EPINEPHRINE 0.5% 50 ML VIAL 20 ML INFILTRATE (12:42)
[2025-06-19 13:00] VITALS: BP 173/77; PULSE 100; RESP 18; TEMP 36.2; O2SAT 100
[2025-06-19 13:15] VITALS: BP 186/79; PULSE 85; RESP 14; O2SAT 100
[2025-06-19 13:30] VITALS: BP 182/80; PULSE 82; RESP 14; O2SAT 99
[2025-06-19 13:34] VITALS: BP 158/97; PULSE 78
--- NOTE | 2025-06-19 13:34 | W.PM.PROC2 ---
Procedure Note - Detailed Date of Procedure 06/19/25 Pre-op Diagnosis left carpal tunnel syndrome Post-op Diagnosis Same Procedure Performed Left Carpal tunnel release Surgeon Ras Ghosh MD Anesthesia General Description of Procedure Operative details. After sedation was administer, the hand was prepped and draped in the usual sterile fashion. The proposed incision was marked using typical anatomic landmarks. 4ML 0.5% Marcaine with epinephrine was injected along the incision line and at the distal forearm. The limb was exsanguinated and the tourniquet inflated to 250 millimeters of mercury. A longitudinal incision was taken sharply. Dissection was brought down to the transverse carpal ligament. Under direct vision the ligament was incised sharply. The proximal release was carried out with dissection scissors. The contents of the carpal canal were protected with a [place] elevator. The transverse carpal ligament was confirmed to be widely patent. The wound was closed with interrupted 3-0 Prolene suture. A sterile bulky dressing was placed. Patient was brought to the recovery room in stable condition. Estimated Blood Loss 1 Pathology None sent Complications No immediate complications Condition Stable Disposition PACU [facility] Billing Surgery - Charge Forward: Surgery Billing
[2025-06-19 14:04] VITALS: BP 136/75; PULSE 77
== END 2025-06-19 14:14 | disposition home or self-care (01) ==
PROVIDERS: Visit Provider Orthopaedic Surgery
PROC: (CPT 64721; principal; 2025-06-19 12:30)
DX: G56.02 Carpal tunnel syndrome, left upper limb (principal); F41.9 Anxiety disorder, unspecified; G25.81 Restless legs syndrome; E66.9 Obesity, unspecified; Z68.34 Body mass index [BMI] 34.0-34.9, adult; Z79.891 Long term (current) use of opiate analgesic; Z98.890 Other specified postprocedural states; Z85.3 Personal history of malignant neoplasm of breast; Z80.9 Family history of malignant neoplasm, unspecified
CPT/HCPCS: 64721; A9270; J1885; J2003; J2405; J2704; J3010; J7120

== ENCOUNTER 2025-07-23 11:05 | Outpatient (CLI) | payer MEDICARE, SELFPAY ==
--- NOTE | ~2025-07-23 | XR_ITS ---
EXAMINATION: XR knee LT min 4V, 07/23/2025 11:22 QUALITY TESTER HISTORY: M25.562 - Pain in left knee COMPARISON: No comparisons available. Findings: No acute fracture or malalignment. Moderate tricompartmental degenerative changes Soft tissues unremarkable. Impression: No acute fracture or malalignment. Reviewed, dictated and finalized at location P. ITY TESTER Impression: No acute fracture or malalignment.
--- OUTSIDE RECORDS SUMMARY | 2025-07-24 10:49 | XMS_ITS | Clinical Summary ---
Author Organization [facility] Administrative Offices Address [address] [place] [address] Care Team Providers Care Assembly Stock Supervisor Name Role Phone Franck Alvarez MD Primary Care Provider [phone] Allergies Active Allergy Reactions Criticality Noted Date [...] (03/05/2025): HOXB13 positive. The patient underwent the [facility] My Risk genetic testing for hereditary cancer [...] (03/05/2025): HOXB13 positive. The patient underwent the [facility] My Risk genetic testing for hereditary cancer [...] - 06/02/2025 11:59 PM CDT Hospital Encounter [facility] [address] [place] [address] Uma Dumont MD Discharge Disposition: Home or Self Care 06/02/2025 9:09 AM CDT - 06/02/2025 11:59 PM CDT Hospital Encounter [facility] [place] [address] [facility] [address] [place] [address] Uma Dumont MD Discharge Disposition: Home or [...] on file Legal Sex Female 4:03 AM FAMILY MEDICINE PHYSICIAN ASSISTANT Gender Identity Not on file Sexual Orientation [...] st Contact Info) Description 09/02/2025 11:15 AM FAMILY MEDICINE PHYSICIAN ASSISTANT Office Visit [facility] Oncology and Hematology [facility] [address] [facility] [address] [place] [address] iMgel Underwood MD [address] [place] [address] 12/18/2025 12:00 PM CDT Office Visit [facility] [place] [address] [place] [address] Bernardo Morales MD [address] [place] [address] Health Maintenance Due Date Last Done Comments DIABETES ANNUAL FOOT EXAM 1970 DIABETES MICROALBUMIN ANNUAL SCREEN 1970 LDL CHOLESTEROL ANNUAL 1970 DTAP/TDAP/TD VACCINES (1 - Tdap) 1971 ZOSTER VACCINE (1 of 2) 1971 FIT-DNA Q 3 years 1997 FIT/FOBT Q 1 year 1997 Flex Sig/CT Colonography Q 5 years 1997 RSV VACCINE (60+ or ) (1 - Risk 50-74 years 1-dose series) 2002 COVID-19 Vaccine (3 - Modern a risk series) 12/11/2020 11/13/2020, 10/16/2020 INFLUENZA VACCINE (#1) 2025 , 06/24/2023, 07/02/2022, Additional history exists DIABETES HBA1C Q 6 MONTHS 09/11/20252024, 06/20/2024, 03/11/2024, Additional history exists DIABETES ANNUAL RETINAL EXAM 10/01/2025, 09/25/2023, 06/15/2020, Additional history exists BREAST CANCER SCREENING 01/02/2026 01/03/20 25, 06/17/2024, 04/04/2024, Additional history exists OSTEOPOROSIS SCREENING 07/09/2029 , 06/24/2022, 06/08/2021, Additional history exists COLORECTAL SCREENING [...] BI-RADS CATEGORY 2: Benign findings. DICTATION LOCATION: [facility] 06/02/2025 9:56 AM CDT EXAM: BILATERAL SCREENING [...] CATEGORY 2 - Benign findings. Dictation Location [facility] Narrative 01/02/2025 11:34 AM CDT DIGITAL DIAGNOSTIC [...] Advance Directives For more information, please contact: [phone] * Full Code (Latest Code Status on [...] 1:12 PM 07/15/2024 3:37 PM Care Teams Assembly Stock Supervisor Relationship Specialty Start Date End Date Franck Alvarez MD PCP - General Family Practice 04/15/20
--- OUTSIDE RECORDS SUMMARY | 2025-07-24 10:49 | XMS_ITS | Clinical Summary ---
Author Organization [facility] Address [address] [place] [address] Phone Care Team Providers Care Import Manager Name Role Phone Dory Tyson APRN, SPORTS DOCTOR Primary Care Provider [phone] Allergies Active Allergy Reactions Criticality Noted Date [...] Tablet by mouth nightly. 90 Tablet 3 5 Active Active Problems Problem Noted Date Diagnosed [...] Encounters Date Type Department Care Team Description 07/03/2025 Patient Outreach [facility] [address] [place] [id number] Esmer Bustamante CNA Care Management from Last 3 Months Immunizations Immunization Administration [...] Nino ert Diabetes Father Iraj Hypertension Mother Vincent Cancer Paternal Aunt Robina Diabetes Paternal Aunt Robina Diabetes Paternal Grandmother Tamela Madrigal Cancer Sister Skyla Kidney Disease Sister Skyla Relation Name Status Comments Father Iraj Mother Damian Paternal Aunt Robina Alive Paternal Grandmother Tamela Madrigal Alive Sister Skyla Social History Tobacco Use Types Packs/Day Years Used Date Smoking Tobacco: Never Smokeless Tobacco: Never Alcohol Use Standard Drinks/Week Comments No 0 (1 standard drink = 0.6 oz pur e alcohol) [facility] Utilities Answer Date Recorded In the past 12 months has th e [email or web address], gas, oil, or water [employer] threatened to shut off services in your home? No 09/15/2024 Social Connection and Isolation Panel Answer Date Recorded In a typical week, how many times do you talk on the phone with family, friends, or neighbors? Three times a week 09/15/2024 How often do you get togethe r with friends or relatives? Once a week 09/15/2024 How often do you attend [facility] or scientology services? More than 4 times per year 09/15/2024 Do you belong to any clubs o r organizations such as sabianist groups, unions, fraternal or athletic groups, or [...] Score - Questions 1-9 0 0 10/2024 [facility] - Occupational Stress Questionnaire Answer [...] in the past 12 m [facility], were you homeless or living in [...] CDT Gender Identity Female 07/30/2023 8:35 AM TEST FIXTURE DESIGNER Sexual Orientation Straight 07/30/2023 8: 35 AM TEST FIXTURE DESIGNER Last Filed Vital Signs Vital Sign Reading [...] Care Team (Late st Contact Info) Description 07/28/2025 9:00 AM TEST FIXTURE DESIGNER [facility] [address] [place] [address] Franck Alvarez MD [address] [address] Discharge Disposition: Discharged to home or Selfcare 09/23/2025 10:00 AM TEST FIXTURE DESIGNER [facility] [address] [place] [address] Dory Tyson, FACILITIES MANAGEMENT EXECUTIVE, SPORTS DOCTOR [address] [place] [address] Health Maintenance Due Date Last Done Comments TdaP Immunization 1952 Zoster Immunization (1 of 2) 1971 Cologuard 1997 Immunochemical Fecal Occult Blood 1997 Respiratory Syncytial Virus (RSV) Immunization (Adult) (1 - Risk 50-74 years 1-dose series) 2002 Medicare Initial AWV [id number] 04/18/2018 Influenza Immunization [...] PANEL ACUTE (AHP) Routine 09/23/2020 8:57 AM TEST FIXTURE DESIGNER Elevated liver enzymes from Last 3 Months or Most Recently Relevant to Health Maintenance Results * COLONOSCOPY (02/01/2023 12:00 AM CDT) 02/01/2023 us Provider Scan PROCEDURE/MINOR SURGICAL ORDERAB LES Final Result SCAN * MAMMOGRAM BILATERAL MISCELLANEOUS (01/03/2022 12:00 AM CDT) 01/03/2022 us Not On File Provider IMG MAMMO ORDERABLES Final Result SCAN * HEPATITIS PANEL ACUTE (AHP) (09/23/2020 8:57 AM TEST FIXTURE DESIGNER) HEPATITIS A IGM ANTIBODY NON DETECTED NON DETECTED [facility] [id number] A 09/23/2020 9:39 PM TEST FIXTURE DESIGNER [facility] Comment: IGM Antibodies to HAV not detected. Does not exclude early acute or recovered HAV infection. HEP B CORE AB (IGM) NON DETECTED NON DETECTED [facility] [id number] A 09/23/2020 9:39 PM TEST FIXTURE DESIGNER [facility] Comment:IGM anti-HBC not det ected. Does not exclude the possibility of exposure to or infection with HBV. HEPATITIS B SURFACE ANTIGEN NON DETECTED NON DETECTED [facility] [id number] B 09/23/2020 9:39 PM TEST FIXTURE DESIGNER [facility] Comment:A nonreactive test r esult does not exclude the possibility of exposure to or infection with Hepatitis B virus. A nonreactive test result in individuals with prior exposure to hepatitis B may be due to antigen levels below the detection limit of this assay or lack of antigen reactivity to the antibodies in this assay. hepatitis C antibody 0.18 <1 S/CO [facility] [id number] B 09/23/2020 9:39 PM TEST FIXTURE DESIGNER [facility] Comment: Signal/Cutoff ratio < 0.79 is Nondetected Signal/Cutoff ratio 0.80-0.99 is Grayzone Signal/Cutoff ratio > 0.99 is Detected Supplemental assays are recommended if signal/cutoff ratio is >/=1.00. Signal/cutoff ratio result >/= 5.00 is 97% predictive of positivity for recombinant immunoblot assay (RIBA) and will be reported to the [place] Department of Public Health as required. Blood Venipuncture / Unknown 09/23/2020 8:57 AM TEST FIXTURE DESIGNER 09/23/2020 8:57 AM TEST FIXTURE DESIGNER us Franck Alvarez MD HEMATOLOGY ORDERABLES Fin al Result [facility] [address] [place] [address], [place] from Last 3 Months or Most Recently Relevant to Health Maintenance [facility] Care Teams Import Manager Relationship Specialty Start Date End Date Dory Tyson, FACILITIES MANAGEMENT EXECUTIVE, SPORTS DOCTOR [address] [place] [address] PCP - General Certified Nurse Practitioner 07/20/24
--- OUTSIDE RECORDS SUMMARY | 2025-07-24 10:49 | XMS_ITS | Encounter Summary ---
Author Organization [facility] Address [address] [place] [address] Care Team Providers Care Mounting Machine Operator Name Role Phone Franck Alvarez MD Primary Care Provider [phone] Encounter Details Date Type Department Care Team (Latest Contact Info) Description 11/06/2008 Outpatient Historical [facility] Marek Oviedo Carpal Tunnel Syndrome Social History Tobacco Use Types Packs/Day Years Used Date Smoking Tobacco: Never Assessed Comments Unknown Sex and Gender Information Value Date Recorded Sex Assigned at Not on file Legal Sex Female 4:03 AM TAG WRITER Gender Identity Not on file Sexual Orientation Not on file documented as of this encounter Plan of Treatment Upcoming Encounters Date Type Department Care Team (Late st Contact Info) Description 09/02/2025 11:15 AM TAG WRITER Office Visit [facility] Oncology and Hematology [facility] [address] [place] [address] Migel Underwood MD [address] [place] [address] 12/18/2025 12:00 PM CDT Office Visit [facility] Surgical Spec [place] [address] [place] [address] Bernardo Morales MD [address] [place] [address] documented as of this encounter Procedures Procedure Name Priority Date/Time Associated Diagnosis Comments HEMOGLOBIN AND HEMATOCRIT Routine 11/18/2008 1:39 PM TAG WRITER documented in this encounter Results * HEMOGLOBIN AND HEMATOCRIT (11/18/2008 1:39 PM TAG WRITER) HEMOGLOBIN 12.8 11.8 - 14.8 g/dL [facility] HEMATOCRIT 39.2 35.5 - 44.0 % [facility] Blood specimen (specimen) 11/18/2008 1:39 PM TAG WRITER 11/18/2008 3:15 PM TAG WRITER us Marek Oviedo HEMATOLOGY ORDERABLES Final Res ult INTERFACE SYSTEM Refer to clinic/hospital department [facility] CLIA# [id number] [address] [place] [address] documented in this encounter Visit Diagnoses Diagnosis Carpal tunnel syndrome documented in this encounter Care Teams Mounting Machine Operator Relationship Specialty Start Date End Date Franck Alvarez MD PCP - General Family Practice 04/15/20 documented as of this encounter
--- OUTSIDE RECORDS SUMMARY | 2025-07-24 10:49 | XMS_ITS | Patient Health Record ---
Author Organization [employer] Address [address] [facility] [address] [place] [address] Care Team Providers Care Speedometer Mechanic Name Role Phone Kim MAGDALENO, Dr Juárez Primary Care Provider Jemma vailable Reason For Referral No Information Problems Problem Type SNOMED Code ICD Code Onset Dates Problem Status W/U Status Risk Notes Problem History of polyp of colon (situation) (923579580) History of colonic polyps (Z86.010) Active confirmed Plan Of Treatment No Information Insurance Providers Payer Name Payer Address Payer Phone Subscriber Number Group Number Insured Name Patient Relationship to Insured Coverage Start Date Coverage End Date Medicare E2 [address] [address] [place] [address] [id number] Shelly Levy Self - patient is the insured 7 [employer] Medicare Supplement [address] [address] [place] [address] [id number] DinoradarshanShelly Self - patient is the insured
--- OUTSIDE RECORDS SUMMARY | 2025-07-24 10:49 | XMS_ITS | Clinical Summary ---
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
--- OUTSIDE RECORDS SUMMARY | 2025-07-24 10:49 | XMS_ITS | Encounter Summary ---
Author Organization [facility] Address 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 Gender Identity Not on file Sexual Orientation Not on file documented as of this encounter Plan of Treatment Upcoming Encounters Date Type Department Care Team (Late st Contact Info) Description 09/02/2025 11:15 AM PLANNING MANAGER Office Visit [facility] Oncology and Hematology [facility] [address] [place] [address] Migel Underwood MD [address] [place] [address] 12/18/2025 12:00 PM CDT Office Visit [facility] Surgical Spec [place] [address] [place] [address] Bernardo Morales MD [address] [place] [address] documented as of this encounter Visit Diagnoses Diagnosis Excessive or frequent menstruation- Primary documented in this encounter Care Teams Child And Adolescent Psychiatrist Relationship Specialty Start Date End Date Franck Alvarez MD PCP - General Family Practice 04/15/20 documented as of this encounter
== END 2025-07-23 11:06 | disposition home or self-care (01) ==
PROVIDERS: Visit Provider Orthopaedic Surgery
DX: M25.562 Pain in left knee (principal)
CPT/HCPCS: 73564